=== PATIENT | male | born 1930 | race Caucasian/White ===

== ENCOUNTER 2016-08-08 15:00 | Inpatient (IN) | payer MEDICARE, BC ==
[2016-08-08] MEDS ORDERED: NORMAL SALINE 1000 ML 1,000 ML IV ONE ×2 (15:21→17:36)
--- NOTE | 2016-08-08 15:29 | ER Document Report ---
ED GI Bleed / Rectal Pain - General Mode of Arrival: Medic Information source: Patient, Relative TRAVEL OUTSIDE OF THE [place] IN LAST 30 DAYS: No - HPI Patient complains to provider of: Other - Rectal bleeding Associated symptoms: Other - See above <RASHAD MARS - Last Filed: 08/08/16 16:43> <MAMIEMIRTA CAMPBELL SHARON - Last Filed: 08/08/16 19:44> - General Chief Complaint: Rectal Bleeding Stated Complaint: BLEEDING FROM RECTAL Notes: Patient is an 86 year old male, with a past medical history including hemorrhoids and A-fib, who presents to the emergency department complaining of rectal bleeding onset a couple of hours ago. Patient reports that there was "quite a bit of blood" during the episode and reports diarrhea for the past 3 hours. Patient also complains of feeling cold and shaky and has rectal pain. Patient denies abdominal pain. Per patient had [place] food last night which he does not normally eat. Patient is not currently on antibiotics. (RASHAD MARS) - Related Data Allergies/Adverse Reactions: No Known Allergies Allergy (Verified 08/08/16 17:15) Past Medical History - General Information source: Patient - Social History Smoking Status: Unknown if Ever Smoked Family History: Reviewed & Not Pertinent - Past Medical History Cardiac Medical History: Reports: Hx Atrial Fibrillation, Hx Hypertension Pulmonary Medical History: Reports: Hx Asthma <RASHAD MARS - Last Filed: 08/08/16 16:43> Review of Systems - Review of Systems Constitutional: See HPI, Chills, Other - Shaking EENT: No symptoms reported Cardiovascular: No symptoms reported Respiratory: No symptoms reported Gastrointestinal: See HPI, Diarrhea, Rectal bleeding, Other - Rectal pain. denies: Abdominal pain Genitourinary: No symptoms reported Male Genitourinary: No symptoms reported Musculoskeletal: No symptoms reported Skin: No symptoms reported Hematologic/Lymphatic: No symptoms reported Neurological/Psychological: No symptoms reported -: Yes All other systems reviewed and negative <RASHAD MARS - Last Filed: 08/08/16 16:43> Physical Exam - Vital signs Interpretation: Normal - General General appearance: Appears well, Alert - HEENT Head: Normocephalic, Atraumatic - Respiratory Respiratory status: No respiratory distress Chest status: Nontender Breath sounds: Normal Chest palpation: Normal - Cardiovascular Rhythm: Regular Heart sounds: Normal auscultation Murmur: No - Abdominal Inspection: Normal Distension: No distension Bowel sounds: Normal Tenderness: Nontender Organomegaly: No organomegaly - Rectal Stool: Heme negative - Back Back: Normal, Nontender - Extremities General upper extremity: Normal inspection General lower extremity: Normal inspection. No: Edema - Neurological Neuro grossly intact: Yes Cognition: Normal Orientation: AAOx4 Corinna Coma Scale Eye Opening: Spontaneous Corinna Coma Scale Verbal: Oriented Corinna Coma Scale Motor: Obeys Commands Franck Coma Scale Total: 15 Speech: Normal - Psychological Associated symptoms: Normal affect, Normal mood - Skin Skin Temperature: Warm Skin Moisture: Dry Skin Color: Normal <RASHAD MARS - Last Filed: 08/08/16 16:43> Course - Laboratory Result Diagrams: 08/08/16 15:22 08/08/16 15:22 <RASHAD MARS - Last Filed: 08/08/16 16:43> - Laboratory Result Diagrams: 08/08/16 15:22 08/08/16 16:36 - EKG Interpretation by Me Rate: Tachycardia Rhythm: A.Fib <MIRTA ROMO - Last Filed: 08/08/16 19:44> - Re-evaluation Re-evalutation: 08/08/16 Patient is an 86-year-old male who comes in with diarrhea and blood per rectum. Patient had a bowel movement was in the room. Sent for Hemoccult and that is negative. Patient does appear dry. He has been persistently tachycardic and somewhat hypotensive. The patient is an 86 years old and will require gentle fluid hydration. He has some mild trace pitting edema to his lower extremities. Patient was given a dose of Cardizem to try to lower his rapid atrial fibrillation however it did drop his blood pressure so Cardizem drip will not be initiated. Patient is improved at the time of admission. Stable at time of admission. (MIRTA ROMO) - Vital Signs Vital signs: Temp Pulse Resp BP Pulse Ox 98.4 F 136 H 22 H 91/73 L 98 08/08/16 15:08 08/08/16 15:08 08/08/16 19:16 08/08/16 19:16 08/08/16 19:16 (MIRTA ROMO) - Laboratory Laboratory results interpreted by me: 1208/08/16 08/08/16 15:22 15:58 16:36 RBC 3.25 L Hgb 10.1 L Hct 30.6 L RDW 16.5 H Plt Count 106 L Seg Neuts % (Manual) 92 H Band Neutrophils % 1 L Lymphocytes % (Manual) 5 L Monocytes % (Manual) 2 L Abs Neuts (Manual) 9.7 H PT Sodium Chloride BUN Lactic Acid 2.9 H Total Bilirubin Alkaline Phosphatase Urine Urobilinogen 2.0 H Ur Leukocyte Esterase SMALL H Urine Ascorbic Acid 40 H 08/08/16 08/08/16 16:36 16:36 RBC Hgb Hct RDW Plt Count Seg Neuts % (Manual) Band Neutrophils % Lymphocytes % (Manual) Monocytes % (Manual) Abs Neuts (Manual) PT 16.0 H Sodium 134.3 L Chloride 96 L BUN 31 H Lactic Acid Total Bilirubin 1.8 H Alkaline Phosphatase 209 H Urine Urobilinogen Ur Leukocyte Esterase Urine Ascorbic Acid (MIRTA ROMO) Critical Care Note - Critical Care Note Total time excluding time spent on procedures (mins): 45 - evaluation and management of tachycardia, rapid atrial fibrillation, hydration, multiple re- evaluations, [place] and with hospital service, counseling of patient and family <MIRTA ROMO - Last Filed: 08/08/16 19:44> Discharge <RASHAD MARS - Last Filed: 08/08/16 16:43> - Discharge Admitting Provider: [facility] Unit Admitted: [facility] <MIRTA ROMO - Last Filed: 08/08/16 19:44> - Discharge Clinical Impression: Atrial fibrillation with RVR Edema Qualifiers: Edema type: unspecified Qualified Code(s): R60.9 - Edema, unspecified Diarrhea Qualifiers: Diarrhea type: unspecified type Qualified Code(s): R19.7 - Diarrhea, unspecified Condition: Stable Disposition: ADMITTED INPATIENT Scribe Attestation: 08/08/16 19:43 I personally performed the services described in the documentation, reviewed and edited the documentation which was dictated to the scribe in my presence, and it accurately records my words and actions. (MIRTA ROMO) Scribe Documentation - Scribe Written by Scribe:: Rashad Mars 08/08/16 acting as scribe for :: Nadja <RASHAD MARS - Last Filed: 08/08/16 16:43>
[2016-08-08 15:38] LABS: HEMATOCRIT 30.6 % (37.9-51.0); HEMOGLOBIN 10.1 g/dL (13.5-17.0); HGB HCT DIFFERENCE -0.3; MEAN CORPUSCULAR HEMOGLOBIN 31.1 pg (27.0-33.4); MEAN CORPUSCULAR HGB CONC 33.1 g/dL (32.0-36.0); MEAN CORPUSCULAR VOLUME 94 fl (80-97); RED BLOOD COUNT 3.25 10^6/uL (4.35-5.55); RED CELL DISTRIBUTION WIDTH 16.5 % (11.5-14.0); WHITE BLOOD COUNT 10.4 10^3/uL (4.0-10.5)
[2016-08-08 16:05] LABS: BAND NEUTROPHILS % (MANUAL) 1 % (3-5); BASOPHILS % (MANUAL) 0 % (0-2); EOSINOPHILS % (MANUAL) 0 % (0-6); LYMPHOCYTES % (MANUAL) 5 % (13-45); TOTAL CELLS COUNTED 100
[2016-08-08 16:09] LABS: ANISOCYTOSIS 1+; OVALOCYTES SLIGHT; POIKILOCYTOSIS SLIGHT; SCHISTOCYTES SLIGHT; TEAR DROP CELLS SLIGHT
[2016-08-08 16:31] LABS: APPEARANCE,URINE SLIGHTLY-CLOUDY; BILIRUBIN,URINE NEGATIVE (NEGATIVE); GLUCOSE, URINE NEGATIVE (NEGATIVE); KETONES,URINE NEGATIVE (NEGATIVE); LEUKOCYTE ESTERASE,URINE SMALL (NEGATIVE); NITRITE,URINE NEGATIVE (NEGATIVE); PROTEIN,URINE NEGATIVE (NEGATIVE); URINE SPECIFIC GRAVITY 1.012
[2016-08-08 16:58] LABS: VENOUS BLOOD BASE EXCESS -0.1 mmol/L; VENOUS BLOOD HCO3 24.8 mmol/L (20-32); VENOUS BLOOD PCO2 41.5 mmHg (35-63); VENOUS BLOOD PH 7.4 (7.30-7.42)
[2016-08-08 17:19] LABS: ALANINE AMINOTRANSFERASE 35 U/L (21-72); ALBUMIN 3.9 g/dL (3.5-5.0); ALKALINE PHOSPHATASE 209 U/L (38-126); ANION GAP 13 (5-19); ASPARTATE AMINO TRANSFERASE 44 U/L (17-59); BILIRUBIN,TOTAL 1.8 mg/dL (0.2-1.3); BLOOD UREA NITROGEN 31 mg/dL (7-20); CALCIUM 9.7 mg/dL (8.4-10.2); CARBON DIOXIDE 25 mmol/L (22-30); CHLORIDE 96 mmol/L (98-107); CREATININE RESULT 1.16 mg/dL (0.52-1.25); GLUCOSE 82 mg/dL (75-110); POTASSIUM 4.3 mmol/L (3.6-5.0); SODIUM 134.3 mmol/L (137-145); TOTAL PROTEIN 7.4 g/dL (6.3-8.2)
[2016-08-08] MEDS ORDERED: DILTIAZEM HCL INJ 25 MG/5 ML VIAL IV ONE (17:36)
[2016-08-08] MEDS ORDERED: ACETAMINOPHEN 325 MG TABLET PO PRN (18:39)
--- NOTE | 2016-08-08 18:54 | PDOC H&P ---
History of Present Illness Admission Date/PCP: MAURICE MCCORMICK MD Patient complains of: Rectal bleeding History of Present Illness: WILFRED CHANEL is a 86 year old male presents with episodes today of rectal bleeding. Apparently he ate some Turkish food last night and has had multiple bowel movements since then. One other family members had vomiting since eating the same food. Patient was noted by emergency department provider to have thrombosed external hemorrhoid but no active bleeding. Patient was Hemoccult negative. He takes low-dose aspirin daily. Medications listed below have not been verified at the time of this documentation. Per pharmacy records patient takes diltiazem ex are 120 mg daily , Spiriva, Lasix 20 mg daily, metformin 500 mg twice daily, aspirin 81 mg daily. Past Medical History Cardiac Medical History: Reports: Atrial Fibrillation, Hypertension Pulmonary Medical History: Reports: Asthma Endocrine Medical History: Reports: Diabetes Mellitus Type 2 Malignancy Medical History: Reports: Lymphoma Hematology: Reports: Anemia Past Surgical History Past Surgical History: Reports: Other - Right chest Port-A-Cath Social History Information Source: Patient Lives with: Spouse/Significant other Smoking Status: Former Smoker Frequency of Alcohol Use: None Hx Recreational Drug Use: No Hx Prescription Drug Abuse: No - Advance Directive Resuscitation Status: Full Code Family History Family History: Other - Cerebral hemorrhagebrother Parental Family History Reviewed: Yes Children Family History Reviewed: Yes Sibling(s) Family History Reviewed.: Yes Medication/Allergy Allergies/Adverse Reactions: No Known Allergies Allergy (Verified 08/08/16 17:15) Review of Systems Constitutional: ABSENT: chills, fever(s), headache(s), weight gain, weight loss Eyes: ABSENT: visual disturbances Ears: ABSENT: hearing changes Cardiovascular: ABSENT: chest pain, dyspnea on exertion, edema, orthropnea, palpitations Respiratory: ABSENT: cough, hemoptysis Gastrointestinal: PRESENT: hematochezia. ABSENT: abdominal pain, constipation, diarrhea, hematemesis, nausea, vomiting Genitourinary: ABSENT: dysuria, hematuria Musculoskeletal: ABSENT: joint swelling Integumentary: ABSENT: rash, wounds Neurological: ABSENT: abnormal gait, abnormal speech, confusion, dizziness, focal weakness, syncope Psychiatric: ABSENT: anxiety, depression, homidical ideation, suicidal ideation Endocrine: ABSENT: cold intolerance, heat intolerance, polydipsia, polyuria Hematologic/Lymphatic: ABSENT: easy bleeding, easy bruising Physical Exam Vital Signs: Temp Pulse Resp BP Pulse Ox 98.4 F 136 H 20 108/62 97 08/08/16 15:08 08/08/16 15:08 08/08/16 18:00 08/08/16 18:03 08/08/16 18:00 Intake & Output 08/07/16 08/08/16 08/09/16 06:59 06:59 06:59 Weight 68.039 kg PHYSICAL EXAM: GENERAL: Appears well, no acute distress HEENT: Normocephalic, no scleral icterus, conjunctiva clear, EOEM intact, PERRLA , moist mucous membranes NECK: trachea midline, no thyromegally RESPIRATORY: Clear to auscultation, no wheezes/rhonchi CARDIAC: Irregularly irregular, slightly tachycardic ABDOMEN: Soft, no distension, no tenderness, no guarding, normal bowel sounds, negative Cordova sign RECTAL: External hemorrhoid, no bleeding : deferred EXTREMITIES: 3+ pitting edema bilateral lower extremities MUSCULOSKELETAL: No joint swelling or deformity VASCULAR: normal peripheral pulses NEUROLOGIC: Alert, oriented to person/place/time, normal speech, cranial nerves grossly intact, 5/5 strength in all extremities, tactile sensation intact in all extremities SKIN: No rash, no wounds, no worrisome skin lesions PSYCHIATRIC: Normal mood, normal affect Results Laboratory Results: 08/08/16 15:22 08/08/16 16:36 08/08/16 08/08/16 08/08/16 15:22 15:22 15:22 WBC 10.4 RBC 3.25 L Hgb 10.1 L Hct 30.6 L MCV 94 MCH 31.1 MCHC 33.1 RDW 16.5 H Plt Count 106 L Seg Neutrophils % Not Reportable Lymphocytes % Not Reportable Monocytes % Not Reportable Eosinophils % Not Reportable Basophils % Not Reportable Absolute Neutrophils Not Reportable Absolute Lymphocytes Not Reportable Absolute Monocytes Not Reportable Absolute Eosinophils Not Reportable Absolute Basophils Not Reportable VBG pH VBG pCO2 VBG HCO3 VBG Base Excess Sodium Cancelled Potassium Cancelled Chloride Cancelled Carbon Dioxide Cancelled Anion Gap Cancelled BUN Cancelled Creatinine Cancelled Est GFR ( Amer) Cancelled Est GFR (Non-Af Amer) Cancelled Glucose Cancelled Lactic Acid Calcium Cancelled Total Bilirubin Cancelled AST Cancelled ALT Cancelled Alkaline Phosphatase Cancelled Total Protein Cancelled Albumin Cancelled Urine Color Urine Appearance Urine pH Ur Specific [place] Urine Protein Urine Glucose (UA) Urine Ketones Urine Blood Urine Nitrite Ur Leukocyte Esterase Urine WBC (Auto) Urine RBC (Auto) Stool Occult Blood Stool for White Cells Blood Type Cancelled Antibody Screen Cancelled 08/08/16 08/08/16 08/08/16 15:22 15:41 15:58 WBC RBC Hgb Hct MCV MCH MCHC RDW Plt Count Seg Neutrophils % Lymphocytes % Monocytes % Eosinophils % Basophils % Absolute Neutrophils Absolute Lymphocytes Absolute Monocytes Absolute Eosinophils Absolute Basophils VBG pH VBG pCO2 VBG HCO3 VBG Base Excess Sodium Potassium Chloride Carbon Dioxide Anion Gap BUN Creatinine Est GFR ( Amer) Est GFR (Non-Af Amer) Glucose Lactic Acid Calcium Total Bilirubin AST ALT Alkaline Phosphatase Total Protein Albumin Urine Color YELLOW Urine Appearance SLIGHTLY-CLOUDY Urine pH 5.0 Ur Specific [place] 1.012 Urine Protein NEGATIVE Urine Glucose (UA) NEGATIVE Urine Ketones NEGATIVE Urine Blood NEGATIVE Urine Nitrite NEGATIVE Ur Leukocyte Esterase SMALL H Urine WBC (Auto) 3 Urine RBC (Auto) 0 Stool Occult Blood NEGATIVE Stool for White Cells NO WBCs SEEN Blood Type Antibody Screen 08/08/16 08/08/16 08/08/16 16:36 16:36 16:36 WBC RBC Hgb Hct MCV MCH MCHC RDW Plt Count Seg Neutrophils % Lymphocytes % Monocytes % Eosinophils % Basophils % Absolute Neutrophils Absolute Lymphocytes Absolute Monocytes Absolute Eosinophils Absolute Basophils VBG pH 7.40 VBG pCO2 41.5 VBG HCO3 24.8 VBG Base Excess -0.1 Sodium 134.3 L Potassium 4.3 Chloride 96 L Carbon Dioxide 25 Anion Gap 13 BUN 31 H Creatinine 1.16 Est GFR ( Amer) > 60 Est GFR (Non-Af Amer) > 60 Glucose 82 Lactic Acid 2.9 H Calcium 9.7 Total Bilirubin 1.8 H AST 44 ALT 35 Alkaline Phosphatase 209 H Total Protein 7.4 Albumin 3.9 Urine Color Urine Appearance Urine pH Ur Specific [place] Urine Protein Urine Glucose (UA) Urine Ketones Urine Blood Urine Nitrite Ur Leukocyte Esterase Urine WBC (Auto) Urine RBC (Auto) Stool Occult Blood Stool for White Cells Blood Type Antibody Screen 08/08/16 16:36 WBC RBC Hgb Hct MCV MCH MCHC RDW Plt Count Seg Neutrophils % Lymphocytes % Monocytes % Eosinophils % Basophils % Absolute Neutrophils Absolute Lymphocytes Absolute Monocytes Absolute Eosinophils Absolute Basophils VBG pH VBG pCO2 VBG HCO3 VBG Base Excess Sodium Potassium Chloride Carbon Dioxide Anion Gap BUN Creatinine Est GFR ( Amer) Est GFR (Non-Af Amer) Glucose Lactic Acid Calcium Total Bilirubin AST ALT Alkaline Phosphatase Total Protein Albumin Urine Color Urine Appearance Urine pH Ur Specific [place] Urine Protein Urine Glucose (UA) Urine Ketones Urine Blood Urine Nitrite Ur Leukocyte Esterase Urine WBC (Auto) Urine RBC (Auto) Stool Occult Blood Stool for White Cells Blood Type A NEGATIVE Antibody Screen NEGATIVE EKG Comments: Atrial fibrillation, heart rate 137, right bundle branch block Assessment & Plan - Diagnosis (1) Rectal bleeding Is this a current diagnosis for this admission?: YesPlan: Patient be placed in observation status overnight. Repeat H&H in the morning. Patient has an appointment on 08/10/[address] at [address] Rosado of surgery to schedule colonoscopy already. He is advised to hold aspirin for the next several days. (2) Diarrhea Is this a current diagnosis for this admission?: YesPlan: Possibly secondary to food poisoning. C. difficile negative. Obtains culture if patient has further episodes. (3) Atrial fibrillation with RVR Is this a current diagnosis for this admission?: YesPlan: Continue diltiazem XL 120 mg daily. Patient has been given IV fluids secondary to GI bleeding in order to replace volume. Hopefully this will improve heart rate. (4) Right bundle branch block (RBBB) Is this a current diagnosis for this admission?: YesPlan: Chronicity unknown as I don't have old EKG for comparison. 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 (5) Edema Is this a current diagnosis for this admission?: YesPlan: Continue Lasix 20 mg daily. (6) History of lymphoma Is this a current diagnosis for this admission?: YesPlan: Patient states that in recent follow-up he had no recurrence. (7) Diabetes Is this a current diagnosis for this admission?: YesPlan: Hold metformin secondary to lactic acidosis. Diabetic diet. (8) Hypertension Is this a current diagnosis for this admission?: Yes (9) Asthma Is this a current diagnosis for this admission?: YesPlan: Continue Spiriva. When necessary albuterol. - Time Time Spent: Greater than 70 Minutes
--- NOTE | 2016-08-08 18:59 | EKG REPORT ---
SEVERITY:- ABNORMAL ECG - ATRIAL FIBRILLATION MULTIPLE PREMATURE COMPLEXES, VENT RIGHT BUNDLE BRANCH BLOCK AND LAFB : Confirmed by: Nakul Byrne MD 08-Aug-2016 18:58:37
[2016-08-09 07:51] LABS: ANION GAP 9 (5-19); BLOOD UREA NITROGEN 29 mg/dL (7-20); CALCIUM 9.2 mg/dL (8.4-10.2); CARBON DIOXIDE 24 mmol/L (22-30); CHLORIDE 99 mmol/L (98-107); CREATININE RESULT 1.06 mg/dL (0.52-1.25); GLUCOSE 82 mg/dL (75-110); POTASSIUM 4.5 mmol/L (3.6-5.0); SODIUM 132.3 mmol/L (137-145)
[2016-08-09 07:54] LABS: HEMATOCRIT 26.8 % (37.9-51.0); HEMOGLOBIN 9.1 g/dL (13.5-17.0); HGB HCT DIFFERENCE 0.5; MEAN CORPUSCULAR HEMOGLOBIN 31.7 pg (27.0-33.4); MEAN CORPUSCULAR HGB CONC 33.9 g/dL (32.0-36.0); MEAN CORPUSCULAR VOLUME 93 fl (80-97); RED BLOOD COUNT 2.88 10^6/uL (4.35-5.55); RED CELL DISTRIBUTION WIDTH 16.1 % (11.5-14.0); WHITE BLOOD COUNT 8.8 10^3/uL (4.0-10.5)
[2016-08-09 08:35] LABS: ANISOCYTOSIS 1+; BASOPHILS % (MANUAL) 0 % (0-2); EOSINOPHILS % (MANUAL) 0 % (0-6); HYPOCHROMASIA 2+; LYMPHOCYTES % (MANUAL) 4 % (13-45); OVALOCYTES SLIGHT; POIKILOCYTOSIS SLIGHT; POLYCHROMASIA SLIGHT; TOTAL CELLS COUNTED 100; TOXIC GRANULATION 1+
[2016-08-09] MEDS: DILTIAZEM HCL 120 MG CAP.SR.24H PO SCH (09:45)
[2016-08-09] MEDS: FUROSEMIDE 20 MG TABLET PO SCH (09:46)
[2016-08-09] MEDS: TIOTROPIUM BROMIDE DPI 5 CAP/KIT (18 MCG/CAP) IH SCH (09:46)
[2016-08-09] MEDS ORDERED: NORMAL SALINE 1000 ML 1,000 ML IV PRN (09:46)
--- NOTE | 2016-08-09 09:57 | PDOC PROGRESS REPORT ---
Subjective Progress Note for:: 08/09/16 Subjective:: Patient continues to have loose stools. He has had no further bleeding. Patient denies fever, chills, headache, new focal weakness, chest pain, shortness of breath, abdominal pain, nausea, vomiting, diarrhea, constipation. Physical Exam Vital Signs: Temp Pulse Resp BP Pulse Ox 98.4 F 86 21 H 97/64 L 98 08/08/16 15:08 08/09/16 08:49 08/09/16 09:19 08/09/16 09:19 08/09/16 09:19 GENERAL: No acute distress HEENT: Conjunctiva clear, nonicteric, moist mucous membranes, no JVD, midline trachea RESPIRATORY: Clear to auscultation bilaterally, no wheezes, no rhonchi CARDIAC: Irregular rhythm, normal rate ABDOMEN: Soft, nondistended, nontender, positive bowel sounds, no rebound, no guarding EXTREMETIES: Pitting edema in bilateral lower extremities NEUROLOGIC: Alert, oriented to person/place/time, CN's grossly intact, no focal deficits SKIN: No rash, wounds PSYCH: Normal mood, normal affect Results Laboratory Results: 08/09/16 07:23 08/09/16 07:23 08/08/16 08/09/16 08/09/16 21:15 07:23 07:23 WBC 8.8 RBC 2.88 L Hgb 9.1 L Hct 26.8 L MCV 93 MCH 31.7 MCHC 33.9 RDW 16.1 H Plt Count 70 L Seg Neutrophils % Not Reportable Lymphocytes % Not Reportable Monocytes % Not Reportable Eosinophils % Not Reportable Basophils % Not Reportable Absolute Neutrophils Not Reportable Absolute Lymphocytes Not Reportable Absolute Monocytes Not Reportable Absolute Eosinophils Not Reportable Absolute Basophils Not Reportable Sodium 132.3 L Potassium 4.5 Chloride 99 Carbon Dioxide 24 Anion Gap 9 BUN 29 H Creatinine 1.06 Est GFR ( Amer) > 60 Est GFR (Non-Af Amer) > 60 Glucose 82 Lactic Acid 1.3 Calcium 9.2 08/09/16 07:23 WBC RBC Hgb Hct MCV MCH MCHC RDW Plt Count Seg Neutrophils % Lymphocytes % Monocytes % Eosinophils % Basophils % Absolute Neutrophils Absolute Lymphocytes Absolute Monocytes Absolute Eosinophils Absolute Basophils Sodium Potassium Chloride Carbon Dioxide Anion Gap BUN Creatinine Est GFR ( Amer) Est GFR (Non-Af Amer) Glucose Lactic Acid 1.1 Calcium Assessment & Plan - Diagnosis (1) Acute blood loss anemia Is this a current diagnosis for this admission?: YesPlan: Repeat H&H this afternoon. Start iron supplementation. (2) Rectal bleeding Is this a current diagnosis for this admission?: YesPlan: Clinically subsided at this time. Possibly hemorrhoidal in nature. Continue to hold aspirin. Consult Dr. Rosado of surgery as patient had an appointment to see him tomorrow anyway. Repeat H&H this afternoon. (3) Diarrhea Qualifiers: Diarrhea type: unspecified type Qualified Code(s): R19.7 - Diarrhea, unspecified Is this a current diagnosis for this admission?: YesPlan: C. difficile negative. Stool cultures pending. Order when necessary Imodium for now. Resume IV fluids to replace GI losses. (4) Atrial fibrillation with RVR Is this a current diagnosis for this admission?: YesPlan: Case discussed with cardiology (Dr. Neeraj [facility]el [phone] nurse practitioner [place]. We will continue Cardizem CD 120 mg daily for now. If heart rate remains uncontrolled I may add digoxin. Hopefully the heart rate will improve once volume status stabilizes with regard to GI losses. (5) Right bundle branch block (RBBB) Is this a current diagnosis for this admission?: YesPlan: This is old according to cardiology. (6) Edema Qualifiers: Edema type: unspecified Qualified Code(s): R60.9 - Edema, unspecified Is this a current diagnosis for this admission?: YesPlan: We will resume patient's Lasix once he is no longer having GI losses, tachycardia, hypotension. (7) History of lymphoma Is this a current diagnosis for this admission?: YesPlan: Patient states that in recent follow-up he had no recurrence. He will need a follow-up with his oncologist after discharge for this as well as anemia and thrombocytopenia. (8) Diabetes Is this a current diagnosis for this admission?: YesPlan: Hold metformin secondary to lactic acidosis. (9) Hypertension Is this a current diagnosis for this admission?: Yes (10) Asthma Is this a current diagnosis for this admission?: YesPlan: Continue Spiriva. When necessary albuterol. (11) Thrombocytopenia Is this a current diagnosis for this admission?: YesPlan: According to records at student services representative's office this is chronic and stable. This certainly contributed to bleeding issues however. - Time Time Spent with patient: 35 or more minutes
[2016-08-09] MEDS ORDERED: DILTIAZEM HCL 120 MG CAP.SR.24H PO SCH (10:00)
[2016-08-09] MEDS: FERROUS SULFATE 325 MG TABLET PO SCH (10:06)
[2016-08-09] MEDS: LOPERAMIDE HCL 2 MG CAPSULE PO PRN ×2 (10:07→13:30)
[2016-08-09 11:41] LABS: FOLATE > 20.00 ng/mL (>2.76); IRON < 10 ug/dL (49-181)
[2016-08-09] MEDS ORDERED: INFLUENZA ADLT QUAD (36MOS+) 2016-17 VAC 0.5 ML SYR IM PRN (13:17)
[2016-08-09 15:40] LABS: HEMATOCRIT 27.7 % (37.9-51.0); HEMOGLOBIN 9.3 g/dL (13.5-17.0); HGB HCT DIFFERENCE 0.2; MEAN CORPUSCULAR HEMOGLOBIN 31.3 pg (27.0-33.4); MEAN CORPUSCULAR HGB CONC 33.7 g/dL (32.0-36.0); MEAN CORPUSCULAR VOLUME 93 fl (80-97); RED BLOOD COUNT 2.97 10^6/uL (4.35-5.55); RED CELL DISTRIBUTION WIDTH 16.2 % (11.5-14.0); WHITE BLOOD COUNT 9.5 10^3/uL (4.0-10.5)
[2016-08-09 16:03] LABS: BAND NEUTROPHILS % (MANUAL) 2 % (3-5); BASOPHILS % (MANUAL) 0 % (0-2); EOSINOPHILS % (MANUAL) 0 % (0-6); LYMPHOCYTES % (MANUAL) 6 % (13-45); TOTAL CELLS COUNTED 100
[2016-08-09 16:04] LABS: TARGET CELLS SLIGHT
[2016-08-09 16:05] LABS: ANISOCYTOSIS 1+; OVALOCYTES SLIGHT; POIKILOCYTOSIS SLIGHT; SCHISTOCYTES SLIGHT
[2016-08-09 16:07] LABS: TOXIC GRANULATION SLIGHT
--- NOTE | 2016-08-09 16:57 | PDOC CONSULTATION ---
History of Present Illness Admission Date/PCP: 08/08/16 19:59 MAURICE MCCORMICK MD History of Present Illness: WILFRED CHANEL is a 86 year old male presents with episodes today of rectal bleeding. Apparently he ate some [place] food last night and has had multiple bowel movements since then. One other family members had vomiting since eating the same food. Patient was noted by emergency department provider to have thrombosed external hemorrhoid but no active bleeding. Patient was Hemoccult negative. He takes low-dose aspirin daily. Medications listed below have not been verified at the time of this documentation. Per pharmacy records patient takes diltiazem ex are 120 mg daily , Spiriva, Lasix 20 mg daily, metformin 500 mg twice daily, aspirin 81 mg daily. Surgeons addition: The patient denies history of GI bleeding prior to last night 's episode. His last colonoscopy was [address] swartz, with polypectomy. In the emergency department the patient's blood pressures in the mid 80s. He is now eating a full meal Past Medical History Cardiac Medical History: Reports: Atrial Fibrillation, Hypertension Pulmonary Medical History: Reports: Asthma Endocrine Medical History: Reports: Diabetes Mellitus Type 2 Malignancy Medical History: Reports: Lymphoma Hematology: Reports: Anemia Past Surgical History Past Surgical History: Reports: Other - Right chest Port-A-Cath Social History Lives with: Spouse/Significant other Smoking Status: Former Smoker Frequency of Alcohol Use: None Hx Recreational Drug Use: No Hx Prescription Drug Abuse: No - Advance Directive Resuscitation Status: Full Code Family History Family History: Other - Cerebral hemorrhagebrother Parental Family History Reviewed: Yes Children Family History Reviewed: Yes Sibling(s) Family History Reviewed.: Yes Medication/Allergy Home Medications: Diltiazem HCl [Cartia Xt] 120 mg PO DAILY 08/08/16 Tiotropium [place] [Spiriva Handihaler 5 Cap/Kit (18 Mcg/Cap)] 1 inh IH DAILY Allergies/Adverse Reactions: No Known Allergies Allergy (Verified 08/08/16 17:15) Physical Exam Vital Signs: Temp Pulse Resp BP Pulse Ox 97.6 F 93 20 101/65 100 08/09/16 15:02 08/09/16 15:02 08/09/16 15:02 08/09/16 15:02 08/09/16 15:02 Intake & Output 08/08/16 08/09/16 08/10/16 06:59 06:59 06:59 Intake Total 600 Balance 600 Weight 75.7 kg General appearance: PRESENT: mild distress Head exam: PRESENT: normocephalic Eye exam: PRESENT: EOMI Ear exam: PRESENT: normal external ear exam Neck exam: PRESENT: full ROM Respiratory exam: PRESENT: clear to auscultation syeda Pulses: PRESENT: normal dorsalis pedis pul GI/Abdominal exam: PRESENT: soft Rectal exam: PRESENT: other - The patient examined in the left lateral decubitus position. He has a very patulous anus. There is a large left posterior lateral external hemorrhoids, collapsed; perianal skin is mildly excoriated and bruised. On further questioning, the patient apparently had drained to defecate earlier today. Results Laboratory Results: 08/09/16 15:20 08/09/16 07:23 08/08/16 08/09/16 08/09/16 21:15 07:23 07:23 WBC 8.8 RBC 2.88 L Hgb 9.1 L Hct 26.8 L MCV 93 MCH 31.7 MCHC 33.9 RDW 16.1 H Plt Count 70 L Seg Neutrophils % Not Reportable Lymphocytes % Not Reportable Monocytes % Not Reportable Eosinophils % Not Reportable Basophils % Not Reportable Absolute Neutrophils Not Reportable Absolute Lymphocytes Not Reportable Absolute Monocytes Not Reportable Absolute Eosinophils Not Reportable Absolute Basophils Not Reportable Sodium 132.3 L Potassium 4.5 Chloride 99 Carbon Dioxide 24 Anion Gap 9 BUN 29 H Creatinine 1.06 Est GFR ( Amer) > 60 Est GFR (Non-Af Amer) > 60 Glucose 82 Lactic Acid 1.3 Calcium 9.2 Iron Vitamin B12 Folate 08/09/16 08/09/16 08/09/16 07:23 07:23 15:20 WBC 9.5 RBC 2.97 L Hgb 9.3 L Hct 27.7 L MCV 93 MCH 31.3 MCHC 33.7 RDW 16.2 H Plt Count 60 L Seg Neutrophils % Not Reportable Lymphocytes % Not Reportable Monocytes % Not Reportable Eosinophils % Not Reportable Basophils % Not Reportable Absolute Neutrophils Not Reportable Absolute Lymphocytes Not Reportable Absolute Monocytes Not Reportable Absolute Eosinophils Not Reportable Absolute Basophils Not Reportable Sodium Potassium Chloride Carbon Dioxide Anion Gap BUN Creatinine Est GFR ( Amer) Est GFR (Non-Af Amer) Glucose Lactic Acid 1.1 Calcium Iron < 10 L Vitamin B12 814.0 Folate > 20.00 Assessment & Plan - Diagnosis (1) Rectal bleeding Is this a current diagnosis for this admission?: YesPlan: 1. Given the patient's history of single episode of rectal bleeding following drained defecation, and the physical findings demonstrating excoriated perianal tissue, and the presence of brown stool, heme-negative, my clinical impression is that the patient's is coming from the gely anal tissue. 2. Given the patient's hypotension atrial fibrillation, and relatively recent colonoscopy, I have suggested non-operative management at this time. 3. I discussed bowel regimen including stool softener,, and sitz baths. 4. If bleeding returns, consider reconsultation. - Time Time Spent: 30 to 50 Minutes
[2016-08-10 05:24] LABS: ANION GAP 8 (5-19); BLOOD UREA NITROGEN 31 mg/dL (7-20); CARBON DIOXIDE 22 mmol/L (22-30); CHLORIDE 100 mmol/L (98-107); CREATININE RESULT 0.92 mg/dL (0.52-1.25); GLUCOSE 111 mg/dL (75-110); POTASSIUM 4.1 mmol/L (3.6-5.0); SODIUM 129.5 mmol/L (137-145)
[2016-08-10 05:54] LABS: ABSOLUTE LYMPHOCYTES (AUTO) 0.4 10^3/uL (0.5-4.7); ABSOLUTE MONOCYTES (AUTO) 0.6 10^3/uL (0.1-1.4); ABSOLUTE NEUT (AUTO) 6.7 10^3/uL (1.7-8.2); BASOPHILS % (AUTO) 0.1 % (0-2); EOSINOPHILS % (AUTO) 0.2 % (0-6); HEMATOCRIT 26.3 % (37.9-51.0); HEMOGLOBIN 8.8 g/dL (13.5-17.0); HGB HCT DIFFERENCE 0.1; LYMPHOCYTES % (AUTO) 5.6 % (13-45); MEAN CORPUSCULAR HEMOGLOBIN 31.1 pg (27.0-33.4); MEAN CORPUSCULAR HGB CONC 33.7 g/dL (32.0-36.0); MEAN CORPUSCULAR VOLUME 92 fl (80-97); MONOCYTES % (AUTO) 7.8 % (3-13); RED BLOOD COUNT 2.84 10^6/uL (4.35-5.55); SEGMENTED NEUTROPHILS % (AUTO) 86.3 % (42-78); WHITE BLOOD COUNT 7.8 10^3/uL (4.0-10.5)
[2016-08-10] MEDS ORDERED: NORMAL SALINE 250 ML IV PRN ×2 (07:30)
[2016-08-10] MEDS: FERROUS SULFATE 325 MG TABLET PO SCH (11:17)
[2016-08-10] MEDS: DILTIAZEM HCL 120 MG CAP.SR.24H PO SCH (11:17)
[2016-08-10] MEDS: FUROSEMIDE 20 MG TABLET PO SCH (11:18)
[2016-08-10] MEDS ORDERED: TIOTROPIUM BROMIDE DPI 5 CAP/KIT (18 MCG/CAP) IH ONE (12:00)
[2016-08-10] MEDS: TIOTROPIUM BROMIDE DPI 5 CAP/KIT (18 MCG/CAP) IH SCH (12:19)
[2016-08-10 16:16] LABS: ABSOLUTE EOSINOPHILS # (AUTO) 0.1 10^3/uL (0.0-0.6); ABSOLUTE LYMPHOCYTES (AUTO) 0.5 10^3/uL (0.5-4.7); ABSOLUTE MONOCYTES (AUTO) 0.6 10^3/uL (0.1-1.4); ABSOLUTE NEUT (AUTO) 6.1 10^3/uL (1.7-8.2); BASOPHILS % (AUTO) 0.2 % (0-2); EOSINOPHILS % (AUTO) 0.8 % (0-6); HEMOGLOBIN 9.7 g/dL (13.5-17.0); HGB HCT DIFFERENCE 0.1; LYMPHOCYTES % (AUTO) 7.3 % (13-45); MEAN CORPUSCULAR HGB CONC 33.4 g/dL (32.0-36.0); MEAN CORPUSCULAR VOLUME 93 fl (80-97); MONOCYTES % (AUTO) 8.5 % (3-13); RED BLOOD COUNT 3.13 10^6/uL (4.35-5.55); RED CELL DISTRIBUTION WIDTH 15.9 % (11.5-14.0); SEGMENTED NEUTROPHILS % (AUTO) 83.2 % (42-78); WHITE BLOOD COUNT 7.4 10^3/uL (4.0-10.5)
--- NOTE | 2016-08-10 17:24 | PDOC PROGRESS REPORT ---
Subjective Progress Note for:: 08/10/16 Subjective:: Patient states his loose stools have improved. He has had no further bleeding. Patient denies fever, chills, headache, new focal weakness, chest pain, shortness of breath, abdominal pain, nausea, vomiting, constipation. Physical Exam Vital Signs: Temp Pulse Resp BP Pulse Ox 98.0 F 75 16 98/56 L 98 08/10/16 14:30 08/10/16 16:00 08/10/16 16:00 08/10/16 14:30 08/10/16 16:00 Intake & Output 08/09/16 08/10/16 08/11/16 06:59 06:59 06:59 Intake Total 300 Balance 300 GENERAL: No acute distress HEENT: Conjunctiva clear, nonicteric, moist mucous membranes, no JVD, midline trachea RESPIRATORY: Clear to auscultation bilaterally, no wheezes, no rhonchi CARDIAC: Regular rate and rhythm, no murmurs/gallops/rubs ABDOMEN: Soft, nondistended, nontender, positive bowel sounds, no rebound, no guarding EXTREMETIES: No edema, cyanosis, clubbing NEUROLOGIC: Alert, oriented to person/place/time, CN's grossly intact, no focal deficits SKIN: No rash, wounds PSYCH: Normal mood, normal affect Results Laboratory Results: 08/10/16 16:00 08/10/16 16:00 WBC 7.4 RBC 3.13 L Hgb 9.7 L Hct 29.0 L MCV 93 MCH 31.0 MCHC 33.4 RDW 15.9 H Plt Count 60 L Seg Neutrophils % 83.2 H Lymphocytes % 7.3 L Monocytes % 8.5 Eosinophils % 0.8 Basophils % 0.2 Absolute Neutrophils 6.1 Absolute Lymphocytes 0.5 Absolute Monocytes 0.6 Absolute Eosinophils 0.1 Absolute Basophils 0.0 Assessment & Plan - Diagnosis (1) Acute blood loss anemia Is this a current diagnosis for this admission?: YesPlan: Transfuse 1 unit of blood today. Continue iron supplementation. (2) Rectal bleeding Is this a current diagnosis for this admission?: YesPlan: Clinically subsided at this time. Possibly hemorrhoidal in nature. Continue to hold aspirin. Consulted Dr. Rosado of surgery, recommendations appreciated. (3) Diarrhea Qualifiers: Diarrhea type: unspecified type Qualified Code(s): R19.7 - Diarrhea, unspecified Is this a current diagnosis for this admission?: YesPlan: Stool culture and C. difficile negative. Continue supportive care. (4) Atrial fibrillation with RVR Is this a current diagnosis for this admission?: YesPlan: Case discussed with cardiology (Dr[facility] Neeraj [phone] nurse practitioner Ronald. We will continue Cardizem CD 120 mg daily for now. Heart rate stable at this time. Avoid anticoagulation secondary to acute bleeding. (5) Right bundle branch block (RBBB) Is this a current diagnosis for this admission?: YesPlan: This is old according to cardiology. (6) Edema Qualifiers: Edema type: unspecified Qualified Code(s): R60.9 - Edema, unspecified Is this a current diagnosis for this admission?: YesPlan: Continue Lasix. (7) History of lymphoma Is this a current diagnosis for this admission?: YesPlan: Patient states that in recent follow-up he had no recurrence. He will need a follow-up with his oncologist (Dr. [facility]) after discharge for this as well as anemia and thrombocytopenia. (8) Diabetes Is this a current diagnosis for this admission?: YesPlan: Hold metformin secondary to lactic acidosis. (9) Hypertension Is this a current diagnosis for this admission?: Yes (10) Asthma Is this a current diagnosis for this admission?: YesPlan: Continue Spiriva. When necessary albuterol. (11) Thrombocytopenia Is this a current diagnosis for this admission?: YesPlan: According to records at ride assembly supervisor's office this is chronic and stable. This certainly contributed to bleeding issues however. - Time Time Spent with patient: 35 or more minutes
[2016-08-10] MEDS: ALBUTEROL SULFATE 0.083% NEB 2.5 MG/3 ML AMPUL NEB PRN (17:36)
[2016-08-10] MEDS ORDERED: MAG HYDROX/AL HYDROX/SIMETH SUSP 30 ML UDCUP PO PRN (18:06)
[2016-08-10] MEDS ORDERED: ONDANSETRON HCL INJ/PF 4 MG/2 ML SDV IV PRN (18:33)
[2016-08-10] MEDS ORDERED: ONDANSETRON HCL INJ/PF 4 MG/2 ML SDV ONE (18:49)
[2016-08-10 19:30] LABS: CREATINE KINASE MB 1.75 ng/mL (<4.55)
[2016-08-10 19:31] LABS: TROPONIN I 0.978 ng/mL
--- NOTE | 2016-08-10 19:46 | EKG REPORT ---
SEVERITY:- ABNORMAL ECG - ATRIAL FIBRILLATION RIGHT BUNDLE BRANCH BLOCK : Confirmed by: Nakul Byrne MD 10-Aug-2016 19:46:19
[2016-08-10 20:14] LABS: PROTHROMBIN TIME 16.1 SEC (11.4-15.4)
[2016-08-10 20:15] LABS: PARTIAL THROMBOPLASTIN TIME 39.7 SEC (23.5-35.8)
[2016-08-10 21:09] LABS: ANION GAP 9 (5-19); BLOOD UREA NITROGEN 32 mg/dL (7-20); CALCIUM 9.4 mg/dL (8.4-10.2); CARBON DIOXIDE 26 mmol/L (22-30); CHLORIDE 96 mmol/L (98-107); CREATINE KINASE 67 U/L (55-170); CREATININE RESULT 0.99 mg/dL (0.52-1.25); GLUCOSE 126 mg/dL (75-110); MAGNESIUM 1.6 mg/dL (1.6-2.3); POTASSIUM 3.9 mmol/L (3.6-5.0); SODIUM 130.6 mmol/L (137-145)
[2016-08-10 21:20] LABS: CREATINE KINASE MB 1.68 ng/mL (<4.55)
[2016-08-10 21:26] LABS: TROPONIN I 0.875 ng/mL
[2016-08-10] MEDS ORDERED: ASPIRIN 81 MG TABLET, CHEWABLE PO ONE (23:30)
--- NOTE | 2016-08-11 01:43 | Progress Note ---
Provider Note Provider Note: 08/10/2016: Early evening, I was notified by patient's floor nurse of patient's elevated troponin. Unremarkable CPK and CK-MB. No chest or abdominal pain. EKG showed basically no change from 2 prior tracings. Electronic health record reviewed. Cardiac enzymes along with other labs were re-drawn. Repeat troponin came back slightly lower, once again with unremarkable CPK and CK-MB. I went to the patient's bedside. He was asleep, but awoke easily. Alert and cooperative. Denied any pain whatsoever. Previous epigastric pressure discomfort had completely resolved, both subjectively and on gentle palpation and compression of his abdomen. No previous TX or pulmonary embolus. Possibly a distant history of a left lower extremity DVT. No previous coronary arterial bypass graft, stent, or angioplasty. Cardiac catheterization before the year 1999 in [place] revealed, from his description, mild valvular pathology. No other intervention was undertaken. Has not had a subsequent stress test. At 10:35 PM, I spoke by phone with Dr. Natarajan, online communications manager bezel cutter for patient's usual bezel cutter, who is reportedly in [place]. Patient was discussed in detail. He stated he'll be happy to accept the patient in transfer the morning of the , but did not feel transfer tonight was warranted, given patient's lack of symptoms, and his decreasing troponin. He agreed with plans for serial cardiac enzymes and overall close follow-up of the patient. Discussed with patient, who concurs. At 11:05 PM, I discussed the patient by phone with , on-call funeral professional at [facility]. Patient was discussed in detail. She agreed with above plans. Did recommend proceeding with aspirin therapy. with lack of symptoms, decreasing troponin, and thrombocytopenia, she saw no need to systemically anticoagulate patient. Recommended calling her back should enzymes begin trending upward and/or patient develop recurrent pain. At 11:20 PM, I spoke by phone with patient's son Kobe, whom patient had called after I had discussed plans for transfer to [place] with patient earlier. He agrees with plans for close clinical follow-up along with serial labs, but has strongly requested that patient be transferred instead to [facility] for Dr. Kasper, bezel cutter there. Apparently he and Dr. Mcdermott had discussed this earlier during the day. I did tell son that should not be a problem, but that if the overall situation changed, either climbing enzymes and/or recurrent pain , transfer either to [place] or [facility] may be necessary. At 11:24 PM, I spoke with , on-call oncologist for Dr. Bolanos, patient' s normal oncologist; patient with history of lymphoma. Patient discussed in detail. Told him of my plans to give the patient 4 baby aspirin. He stated that should not be a problem with platelets greater than 50,000. 45 minutes of extended care time spent in evaluation and management of patient, including electronic health record review, patient examination, discussion with nursing staff, and multiple telephone discussions, as noted above.
[2016-08-11 01:57] LABS: CREATINE KINASE MB 1.49 ng/mL (<4.55)
[2016-08-11 02:00] LABS: TROPONIN I 0.823 ng/mL
[2016-08-11] MEDS: ALBUTEROL SULFATE 0.083% NEB 2.5 MG/3 ML AMPUL NEB PRN (02:49)
[2016-08-11 05:12] LABS: ABSOLUTE EOSINOPHILS # (AUTO) 0.1 10^3/uL (0.0-0.6); ABSOLUTE LYMPHOCYTES (AUTO) 0.5 10^3/uL (0.5-4.7); ABSOLUTE MONOCYTES (AUTO) 0.6 10^3/uL (0.1-1.4); ABSOLUTE NEUT (AUTO) 5.3 10^3/uL (1.7-8.2); BASOPHILS % (AUTO) 0.1 % (0-2); EOSINOPHILS % (AUTO) 1.6 % (0-6); HEMATOCRIT 28.2 % (37.9-51.0); HEMOGLOBIN 9.4 g/dL (13.5-17.0); LYMPHOCYTES % (AUTO) 7.4 % (13-45); MEAN CORPUSCULAR HEMOGLOBIN 30.7 pg (27.0-33.4); MEAN CORPUSCULAR HGB CONC 33.3 g/dL (32.0-36.0); MEAN CORPUSCULAR VOLUME 92 fl (80-97); MONOCYTES % (AUTO) 8.9 % (3-13); RED BLOOD COUNT 3.06 10^6/uL (4.35-5.55); RED CELL DISTRIBUTION WIDTH 16.2 % (11.5-14.0); WHITE BLOOD COUNT 6.5 10^3/uL (4.0-10.5)
[2016-08-11 05:33] LABS: ANION GAP 10 (5-19); BLOOD UREA NITROGEN 32 mg/dL (7-20); CALCIUM 9.5 mg/dL (8.4-10.2); CARBON DIOXIDE 24 mmol/L (22-30); CHLORIDE 98 mmol/L (98-107); CREATINE KINASE 54 U/L (55-170); CREATININE RESULT 0.93 mg/dL (0.52-1.25); GLUCOSE 96 mg/dL (75-110); POTASSIUM 3.9 mmol/L (3.6-5.0)
[2016-08-11 05:36] LABS: CREATINE KINASE MB 1.47 ng/mL (<4.55); TROPONIN I 0.756 ng/mL
--- NOTE | 2016-08-11 08:12 | EKG REPORT ---
SEVERITY:- ABNORMAL ECG - ATRIAL FIBRILLATION MULTIPLE PREMATURE COMPLEXES, VENT RIGHT BUNDLE BRANCH BLOCK : Confirmed by: Nakul Byrne MD 11-Aug-2016 08:11:24
[2016-08-11] MEDS: FUROSEMIDE 20 MG TABLET PO SCH (10:14)
[2016-08-11] MEDS: DILTIAZEM HCL 120 MG CAP.SR.24H PO SCH (10:15)
[2016-08-11] MEDS: ASPIRIN 81 MG TABLET, ENT COATED PO SCH (10:15)
[2016-08-11] MEDS: FERROUS SULFATE 325 MG TABLET PO SCH (10:15)
[2016-08-11] MEDS: TIOTROPIUM BROMIDE DPI 5 CAP/KIT (18 MCG/CAP) IH SCH (10:15)
--- NOTE | 2016-08-11 11:21 | PDOC PROGRESS REPORT ---
Subjective Progress Note for:: 08/11/16 Subjective:: Patient had "indigestion" overnight. Cardiac enzymes came back slightly elevated. Patient is asymptomatic this morning. Patient denies fever, chills, headache, new focal weakness, chest pain, shortness of breath, abdominal pain, nausea, vomiting, diarrhea, constipation. Physical Exam Vital Signs: Temp Pulse Resp BP Pulse Ox 98.2 F 72 16 95/56 L 97 08/11/16 08:15 08/11/16 10:30 08/11/16 10:30 08/11/16 10:15 08/11/16 10:30 Intake & Output 08/10/16 08/11/16 08/12/16 06:59 06:59 06:59 Intake Total 3060 Balance 3060 Weight 78.6 kg GENERAL: No acute distress HEENT: Conjunctiva clear, nonicteric, moist mucous membranes, no JVD, midline trachea RESPIRATORY: Clear to auscultation bilaterally, no wheezes, no rhonchi CARDIAC: Irregular ABDOMEN: Soft, nondistended, nontender, positive bowel sounds, no rebound, no guarding EXTREMETIES: Trace Pitting edema bilateral lower extremities NEUROLOGIC: Alert, oriented to person/place/time, CN's grossly intact, no focal deficits SKIN: No rash, wounds PSYCH: Normal mood, normal affect Results Laboratory Results: 08/11/16 04:12 08/11/16 04:12 08/10/16 08/10/16 08/11/16 16:00 20:05 04:12 WBC 7.4 6.5 RBC 3.13 L 3.06 L Hgb 9.7 L 9.4 L Hct 29.0 L 28.2 L MCV 93 92 MCH 31.0 30.7 MCHC 33.4 33.3 RDW 15.9 H 16.2 H Plt Count 60 L 61 L Seg Neutrophils % 83.2 H 82.0 H Lymphocytes % 7.3 L 7.4 L Monocytes % 8.5 8.9 Eosinophils % 0.8 1.6 Basophils % 0.2 0.1 Absolute Neutrophils 6.1 5.3 Absolute Lymphocytes 0.5 0.5 Absolute Monocytes 0.6 0.6 Absolute Eosinophils 0.1 0.1 Absolute Basophils 0.0 0.0 Sodium 130.6 L Potassium 3.9 Chloride 96 L Carbon Dioxide 26 Anion Gap 9 BUN 32 H Creatinine 0.99 Est GFR ( Amer) > 60 Est GFR (Non-Af Amer) > 60 Glucose 126 H Calcium 9.4 Magnesium 1.6 08/11/16 04:12 WBC RBC Hgb Hct MCV MCH MCHC RDW Plt Count Seg Neutrophils % Lymphocytes % Monocytes % Eosinophils % Basophils % Absolute Neutrophils Absolute Lymphocytes Absolute Monocytes Absolute Eosinophils Absolute Basophils Sodium 132.0 L Potassium 3.9 Chloride 98 Carbon Dioxide 24 Anion Gap 10 BUN 32 H Creatinine 0.93 Est GFR ( Amer) > 60 Est GFR (Non-Af Amer) > 60 Glucose 96 Calcium 9.5 Magnesium 08/10/16 08/10/16 08/10/16 18:55 18:55 20:05 Creatine Kinase 74 67 CK-MB (CK-2) 1.75 Troponin I 0.978 08/10/16 08/11/16 08/11/16 20:05 00:33 00:33 Creatine Kinase 58 CK-MB (CK-2) 1.68 1.49 Troponin I 0.875 0.823 08/11/16 08/11/16 04:12 04:12 Creatine Kinase 54 L CK-MB (CK-2) 1.47 Troponin I 0.756 Assessment & Plan - Diagnosis (1) NSTEMI (non-ST elevated myocardial infarction) Is this a current diagnosis for this admission?: YesPlan: Case was discussed with Dr. Bal of [facility] cardiology. Patient had normal Lexiscan Cardiac MRI just a few months ago. Cardiology does not feel that patient had a type I non-ST elevation NE, rather they feel that patient had type 2 non-ST elevation as a result of hypotension and hypovolemia. They do not feel that it is necessary for patient to transfer for interventional evaluation. They have recommended medication adjustment in order to increase blood pressure. They have advised that I discontinue Cardizem CD and initiate Toprol-XL 25 mg daily. Patient has been started back on aspirin 81 mg daily. We will have to monitor H&H for stability given recent rectal bleeding. Patient has been seen on an outpatient basis by Dr. Neeraj [facility]. They're requesting to transition care to Dr. Kasper of cardiology in [facility] as this is more convenient. I will make this arrangement upon discharge. (2) Acute blood loss anemia Is this a current diagnosis for this admission?: YesPlan: Patient is status post transfusion 1 unit PRBC on 08/10/2016. Continue to monitor H&H for stability. (3) Rectal bleeding Is this a current diagnosis for this admission?: YesPlan: Clinically subsided at this time. Possibly hemorrhoidal in nature. Consulted Dr. Rosado of surgery, recommendations appreciated. (4) Diarrhea Qualifiers: Diarrhea type: unspecified type Qualified Code(s): R19.7 - Diarrhea, unspecified Is this a current diagnosis for this admission?: YesPlan: Stool culture and C. difficile negative. Continue supportive care. (5) Atrial fibrillation with RVR Is this a current diagnosis for this admission?: YesPlan: Discontinue Cardizem CD. Start Toprol-XL 25 mg daily per [facility] cardiology recommendation. Heart rate stable at this time. Avoid anticoagulation secondary to acute bleeding. (6) Right bundle branch block (RBBB) Is this a current diagnosis for this admission?: YesPlan: This is old according to cardiology. (7) Edema Qualifiers: Edema type: unspecified Qualified Code(s): R60.9 - Edema, unspecified Is this a current diagnosis for this admission?: YesPlan: Continue Lasix. (8) History of lymphoma Is this a current diagnosis for this admission?: YesPlan: Patient states that in recent follow-up he had no recurrence. He will need a follow-up with his oncologist ([facility]. [facility]) after discharge for this as well as anemia and thrombocytopenia. (9) Diabetes Is this a current diagnosis for this admission?: YesPlan: Hold metformin secondary to lactic acidosis. (10) Hypertension Is this a current diagnosis for this admission?: Yes (11) Asthma Is this a current diagnosis for this admission?: YesPlan: Continue Spiriva. When necessary albuterol. (12) Thrombocytopenia Is this a current diagnosis for this admission?: YesPlan: According to records at dice table operator's office this is chronic and stable. This certainly contributed to bleeding issues however. - Time Time Spent with patient: 35 or more minutes Anticipated discharge: Home Within: within 48 hours
[2016-08-11] MEDS ORDERED: FUROSEMIDE 20 MG TABLET PO ONE (12:00)
[2016-08-12 04:49] LABS: ABSOLUTE EOSINOPHILS # (AUTO) 0.2 10^3/uL (0.0-0.6); ABSOLUTE LYMPHOCYTES (AUTO) 0.4 10^3/uL (0.5-4.7); ABSOLUTE MONOCYTES (AUTO) 0.7 10^3/uL (0.1-1.4); ABSOLUTE NEUT (AUTO) 3.8 10^3/uL (1.7-8.2); BASOPHILS % (AUTO) 0.3 % (0-2); HEMATOCRIT 27.9 % (37.9-51.0); HEMOGLOBIN 9.3 g/dL (13.5-17.0); LYMPHOCYTES % (AUTO) 8.3 % (13-45); MEAN CORPUSCULAR HEMOGLOBIN 30.7 pg (27.0-33.4); MEAN CORPUSCULAR HGB CONC 33.4 g/dL (32.0-36.0); MEAN CORPUSCULAR VOLUME 92 fl (80-97); MONOCYTES % (AUTO) 13.8 % (3-13); RED BLOOD COUNT 3.02 10^6/uL (4.35-5.55); RED CELL DISTRIBUTION WIDTH 15.6 % (11.5-14.0); SEGMENTED NEUTROPHILS % (AUTO) 74.6 % (42-78); WHITE BLOOD COUNT 5.1 10^3/uL (4.0-10.5)
[2016-08-12 04:59] LABS: ANION GAP 8 (5-19); BLOOD UREA NITROGEN 30 mg/dL (7-20); CALCIUM 9.6 mg/dL (8.4-10.2); CARBON DIOXIDE 26 mmol/L (22-30); CHLORIDE 96 mmol/L (98-107); CREATININE RESULT 0.95 mg/dL (0.52-1.25); GLUCOSE 91 mg/dL (75-110); POTASSIUM 4.1 mmol/L (3.6-5.0); SODIUM 129.9 mmol/L (137-145)
[2016-08-12] MEDS ORDERED: FUROSEMIDE 20 MG TABLET PO SCH (10:00)
[2016-08-12] MEDS ORDERED: METOPROLOL SUCCINATE 25 MG TAB.SR.24H PO SCH (10:00)
[2016-08-12] MEDS: FERROUS SULFATE 325 MG TABLET PO SCH (10:56)
[2016-08-12] MEDS: ASPIRIN 81 MG TABLET, ENT COATED PO SCH (10:57)
[2016-08-12] MEDS: TIOTROPIUM BROMIDE DPI 5 CAP/KIT (18 MCG/CAP) IH SCH (10:57)
--- NOTE | 2016-08-12 11:40 | PDOC PROGRESS REPORT ---
Subjective Progress Note for:: 08/12/16 Subjective:: Patient states he has occasional transient dizziness when he goes from a laying to standing position. This is been occurring for quite some time at home. He is usually able to hold onto something about this feeling to pass. He has no further chest pain. Patient has had some cough and wheezing. He normally uses Xopenex at home. Patient denies fever, chills, headache, new focal weakness, chest pain, shortness of breath, abdominal pain, nausea, vomiting, diarrhea, constipation. Physical Exam Vital Signs: Temp Pulse Resp BP Pulse Ox 98.6 F 67 16 89/56 L 92 08/12/16 07:57 08/12/16 08:47 08/12/16 08:47 08/12/16 07:57 08/12/16 08:47 Intake & Output 08/11/16 08/12/16 08/13/16 06:59 06:59 06:59 Intake Total 3060 1165 Balance 3060 1165 Weight 78.6 kg 82.3 kg GENERAL: No acute distress HEENT: Conjunctiva clear, nonicteric, moist mucous membranes, no JVD, midline trachea RESPIRATORY: Faint bilateral wheezes, good air excursion CARDIAC: Regular rate and rhythm, no murmurs/gallops/rubs ABDOMEN: Soft, nondistended, nontender, positive bowel sounds, no rebound, no guarding EXTREMETIES: Trace edema (L>R) NEUROLOGIC: Alert, oriented to person/place/time, CN's grossly intact, no focal deficits SKIN: No rash, wounds PSYCH: Normal mood, normal affect Results Laboratory Results: 08/12/16 04:10 08/12/16 04:10 08/12/16 08/12/16 04:10 04:10 WBC 5.1 RBC 3.02 L Hgb 9.3 L Hct 27.9 L MCV 92 MCH 30.7 MCHC 33.4 RDW 15.6 H Plt Count 68 L Seg Neutrophils % 74.6 Lymphocytes % 8.3 L Monocytes % 13.8 H Eosinophils % 3.0 Basophils % 0.3 Absolute Neutrophils 3.8 Absolute Lymphocytes 0.4 L Absolute Monocytes 0.7 Absolute Eosinophils 0.2 Absolute Basophils 0.0 Sodium 129.9 L Potassium 4.1 Chloride 96 L Carbon Dioxide 26 Anion Gap 8 BUN 30 H Creatinine 0.95 Est GFR ( Amer) > 60 Est GFR (Non-Af Amer) > 60 Glucose 91 Calcium 9.6 08/10/16 08/10/16 08/10/16 18:55 18:55 20:05 Creatine Kinase 74 67 CK-MB (CK-2) 1.75 Troponin I 0.978 08/10/16 08/11/16 08/11/16 20:05 00:33 00:33 Creatine Kinase 58 CK-MB (CK-2) 1.68 1.49 Troponin I 0.875 0.823 08/11/16 08/11/16 04:12 04:12 Creatine Kinase 54 L CK-MB (CK-2) 1.47 Troponin I 0.756 Assessment & Plan - Diagnosis (1) NSTEMI (non-ST elevated myocardial infarction) Is this a current diagnosis for this admission?: YesPlan: Case was discussed with Dr. Bal of [facility] cardiology. Patient had normal Lexiscan Cardiac MRI just a few months ago. Cardiology does not feel that patient had a type I non-ST elevation [place], rather they feel that patient had type 2 non-ST elevation as a result of hypotension and hypovolemia. They do not feel that it is necessary for patient to transfer for interventional evaluation. They have recommended medication adjustment in order to increase blood pressure. Cardizem CD was changed to Toprol-XL 25 mg daily. Patient has been started back on aspirin 81 mg daily. We will have to monitor H&H for stability given recent rectal bleeding. Patient has been seen on an outpatient basis by Dr. Neeraj [facility]el [facility]. They're requesting to transition care to Dr. Kasper of cardiology in [facility] as this is more convenient. I will make this arrangement upon discharge. (2) Acute blood loss anemia Is this a current diagnosis for this admission?: YesPlan: Patient is status post transfusion 1 unit PRBC on 08/10/2016. Continue to monitor H&H for stability. Continue iron supplementation. (3) Rectal bleeding Is this a current diagnosis for this admission?: YesPlan: Clinically subsided at this time. Possibly hemorrhoidal in nature. Consulted Dr. Rosado of surgery, recommendations appreciated. (4) Diarrhea Qualifiers: Diarrhea type: unspecified type Qualified Code(s): R19.7 - Diarrhea, unspecified Is this a current diagnosis for this admission?: YesPlan: Stool culture and C. difficile negative. Continue supportive care. (5) Atrial fibrillation with RVR Is this a current diagnosis for this admission?: YesPlan: Discontinued Cardizem CD. Started Toprol-XL 25 mg daily per [facility] cardiology recommendation. Heart rate stable at this time. Avoid anticoagulation secondary to acute bleeding. (6) Right bundle branch block (RBBB) Is this a current diagnosis for this admission?: YesPlan: This is old according to cardiology. (7) Edema Qualifiers: Edema type: unspecified Qualified Code(s): R60.9 - Edema, unspecified Is this a current diagnosis for this admission?: YesPlan: Discontinue scheduled Lasix as edema has clinically subsided and patient is currently hypotensive. Patient continues Lasix on a when necessary basis. (8) History of lymphoma Is this a current diagnosis for this admission?: YesPlan: Patient states that in recent follow-up he had no recurrence. He will need a follow-up with his oncologist (Dr. [facility]) after discharge for this as well as anemia and thrombocytopenia. (9) Diabetes Is this a current diagnosis for this admission?: YesPlan: Discontinue metformin secondary to lactic acidosis. Accu-Cheks have been normal throughout hospitalization without medication. (10) Hypertension Is this a current diagnosis for this admission?: YesPlan: Patient has been hypotensive this admission. Cardizem was discontinued and patient was started on Toprol-XL 25 mg daily. He is given orthostatic precautions. (11) Asthma Is this a current diagnosis for this admission?: YesPlan: Continue Spiriva. When necessary Xopenex HFA. (12) Thrombocytopenia Is this a current diagnosis for this admission?: YesPlan: According to records at director biomedical engineering's office this is chronic and stable. This certainly contributed to bleeding issues however. Patient can follow-up with his labor specialist Dr. Bolanos in [place] after discharge. (13) Hyponatremia Is this a current diagnosis for this admission?: YesPlan: Discontinue Lasix. Place patient on 1500 mL fluid restriction. - Time Time Spent with patient: 35 or more minutes
[2016-08-12] MEDS ORDERED: XOPENEX 45 MCG IH PRN (16:00)
[2016-08-13 05:50] LABS: ABSOLUTE EOSINOPHILS # (AUTO) 0.2 10^3/uL (0.0-0.6); ABSOLUTE LYMPHOCYTES (AUTO) 0.5 10^3/uL (0.5-4.7); ABSOLUTE MONOCYTES (AUTO) 0.7 10^3/uL (0.1-1.4); ABSOLUTE NEUT (AUTO) 3.1 10^3/uL (1.7-8.2); BASOPHILS % (AUTO) 0.2 % (0-2); EOSINOPHILS % (AUTO) 3.9 % (0-6); HEMATOCRIT 28.1 % (37.9-51.0); HEMOGLOBIN 9.5 g/dL (13.5-17.0); HGB HCT DIFFERENCE 0.4; LYMPHOCYTES % (AUTO) 11.3 % (13-45); MEAN CORPUSCULAR HEMOGLOBIN 31.2 pg (27.0-33.4); MEAN CORPUSCULAR HGB CONC 33.8 g/dL (32.0-36.0); MEAN CORPUSCULAR VOLUME 92 fl (80-97); MONOCYTES % (AUTO) 15.8 % (3-13); RED BLOOD COUNT 3.05 10^6/uL (4.35-5.55); RED CELL DISTRIBUTION WIDTH 15.3 % (11.5-14.0); SEGMENTED NEUTROPHILS % (AUTO) 68.8 % (42-78); WHITE BLOOD COUNT 4.5 10^3/uL (4.0-10.5)
[2016-08-13 06:13] LABS: ANION GAP 10 (5-19); BLOOD UREA NITROGEN 29 mg/dL (7-20); CALCIUM 9.4 mg/dL (8.4-10.2); CARBON DIOXIDE 27 mmol/L (22-30); CHLORIDE 95 mmol/L (98-107); CREATININE RESULT 0.93 mg/dL (0.52-1.25); GLUCOSE 83 mg/dL (75-110); SODIUM 132.1 mmol/L (137-145)
[2016-08-13 06:16] LABS: POTASSIUM 4.2 mmol/L (3.6-5.0)
[2016-08-13] MEDS ORDERED: DIGOXIN INJ 0.5 MG/2 ML AMPULE IV ONE (07:29)
[2016-08-13] MEDS: FERROUS SULFATE 325 MG TABLET PO SCH (10:37)
[2016-08-13] MEDS: ASPIRIN 81 MG TABLET, ENT COATED PO SCH (10:38)
[2016-08-13] MEDS: DIGOXIN 0.125 MG TABLET PO SCH (10:38)
[2016-08-13] MEDS: TIOTROPIUM BROMIDE DPI 5 CAP/KIT (18 MCG/CAP) IH SCH (10:43)
--- NOTE | 2016-08-13 14:06 | PDOC PROGRESS REPORT ---
Subjective Progress Note for:: 08/13/16 Subjective:: Patient is having continued orthostatic symptoms. This is been going on for quite some time prior to admission. His primary care provider has been decreasing his outpatient blood pressure medicine particularly he has been taken off of valsartan altogether. Patient denies fever, chills, headache, new focal weakness, chest pain, shortness of breath, abdominal pain, nausea, vomiting, diarrhea, constipation. Physical Exam Vital Signs: Temp Pulse Resp BP Pulse Ox 97.8 F 76 22 H 100/58 L 100 08/13/16 12:15 08/13/16 12:15 08/13/16 12:15 08/13/16 12:15 08/13/16 12:15 Intake & Output 08/12/16 08/13/16 08/14/16 06:59 06:59 06:59 Intake Total 1165 933 540 Balance 1165 933 540 Weight 82.3 kg 78.1 kg Results Laboratory Results: 08/13/16 04:48 08/13/16 04:48 08/13/16 08/13/16 04:48 04:48 WBC 4.5 RBC 3.05 L Hgb 9.5 L Hct 28.1 L MCV 92 MCH 31.2 MCHC 33.8 RDW 15.3 H Plt Count 70 L Seg Neutrophils % 68.8 Lymphocytes % 11.3 L Monocytes % 15.8 H Eosinophils % 3.9 Basophils % 0.2 Absolute Neutrophils 3.1 Absolute Lymphocytes 0.5 Absolute Monocytes 0.7 Absolute Eosinophils 0.2 Absolute Basophils 0.0 Sodium 132.1 L Potassium 4.2 Chloride 95 L Carbon Dioxide 27 Anion Gap 10 BUN 29 H Creatinine 0.93 Est GFR ( Amer) > 60 Est GFR (Non-Af Amer) > 60 Glucose 83 Calcium 9.4 08/10/16 08/10/16 08/10/16 18:55 18:55 20:05 Creatine Kinase 74 67 CK-MB (CK-2) 1.75 Troponin I 0.978 08/10/16 08/11/16 08/11/16 20:05 00:33 00:33 Creatine Kinase 58 CK-MB (CK-2) 1.68 1.49 Troponin I 0.875 0.823 08/11/16 08/11/16 04:12 04:12 Creatine Kinase 54 L CK-MB (CK-2) 1.47 Troponin I 0.756 Assessment & Plan - Diagnosis (1) NSTEMI (non-ST elevated myocardial infarction) Is this a current diagnosis for this admission?: YesPlan: Case was discussed with Dr. Bal of [facility] cardiology. Patient had normal Lexiscan Cardiac MRI just a few months ago. Cardiology does not feel that patient had a type I non-ST elevation [place], rather they feel that patient had type 2 non-ST elevation as a result of hypotension and hypovolemia. They do not feel that it is necessary for patient to transfer for interventional evaluation. They have recommended medication adjustment in order to increase blood pressure. Cardizem CD was changed to Toprol-XL 25 mg daily. Patient has been started back on aspirin 81 mg daily. We will have to monitor H&H for stability given recent rectal bleeding. Patient has been seen on an outpatient basis by Dr. Neeraj Hazel of cardiology in [facility]. They're requesting to transition care to Dr. Kasper of cardiology in [facility] as this is more convenient. I will make this arrangement upon discharge. (2) Acute blood loss anemia Is this a current diagnosis for this admission?: YesPlan: Patient is status post transfusion 1 unit PRBC on 08/10/2016. Continue to monitor H&H for stability. Continue iron supplementation. (3) Rectal bleeding Is this a current diagnosis for this admission?: YesPlan: Clinically subsided at this time. Possibly hemorrhoidal in nature. Consulted Dr. Rosado of surgery, recommendations appreciated. (4) Diarrhea Qualifiers: Diarrhea type: unspecified type Qualified Code(s): R19.7 - Diarrhea, unspecified Is this a current diagnosis for this admission?: YesPlan: Stool culture and C. difficile negative. Continue supportive care. (5) Atrial fibrillation with RVR Is this a current diagnosis for this admission?: YesPlan: Discontinued Cardizem CD and Toprol-XL due to symptomatic hypotension. Avoid anticoagulation secondary to acute bleeding. (6) Right bundle branch block (RBBB) Is this a current diagnosis for this admission?: YesPlan: This is old according to cardiology. (7) Edema Qualifiers: Edema type: unspecified Qualified Code(s): R60.9 - Edema, unspecified Is this a current diagnosis for this admission?: YesPlan: Discontinued scheduled Lasix as edema has clinically subsided and patient is currently hypotensive. (8) History of lymphoma Is this a current diagnosis for this admission?: YesPlan: Patient states that in recent follow-up he had no recurrence. He will has a follow-up scheduled with his oncologist (Dr. Bolanos-[facility]) on 08/15/2016 at 2 PM. (9) Diabetes Is this a current diagnosis for this admission?: YesPlan: Patient was taken off metformin as an outpatient. Accu-Cheks have been normal throughout hospitalization without medication. (10) Hypertension Is this a current diagnosis for this admission?: YesPlan: Patient has been hypotensive this admission and it sounds like he's been suffering from orthostasis for long time prior to admission. Patient has been taken off all antihypertensives. He is given orthostatic precautions. (11) Asthma Is this a current diagnosis for this admission?: YesPlan: Continue Spiriva. When necessary Xopenex HFA. (12) Thrombocytopenia Is this a current diagnosis for this admission?: YesPlan: According to records at recovery advocate's office this is chronic and stable. This certainly contributed to bleeding issues however. Patient can follow-up with his export sales assistant Dr. Bolanos in [place] after discharge. (13) Hyponatremia Is this a current diagnosis for this admission?: YesPlan: Discontinued Lasix. Placed patient on 1500 mL fluid restriction. - Time Time Spent with patient: 35 or more minutes
[2016-08-14 04:59] LABS: ABSOLUTE EOSINOPHILS # (AUTO) 0.1 10^3/uL (0.0-0.6); ABSOLUTE LYMPHOCYTES (AUTO) 0.5 10^3/uL (0.5-4.7); ABSOLUTE MONOCYTES (AUTO) 0.7 10^3/uL (0.1-1.4); ABSOLUTE NEUT (AUTO) 2.7 10^3/uL (1.7-8.2); BASOPHILS % (AUTO) 0.3 % (0-2); EOSINOPHILS % (AUTO) 3.6 % (0-6); HEMATOCRIT 27.9 % (37.9-51.0); HEMOGLOBIN 9.3 g/dL (13.5-17.0); LYMPHOCYTES % (AUTO) 12.7 % (13-45); MEAN CORPUSCULAR HGB CONC 33.5 g/dL (32.0-36.0); MEAN CORPUSCULAR VOLUME 93 fl (80-97); MONOCYTES % (AUTO) 16.4 % (3-13); RED BLOOD COUNT 3.01 10^6/uL (4.35-5.55); RED CELL DISTRIBUTION WIDTH 15.2 % (11.5-14.0)
[2016-08-14 05:11] LABS: ANION GAP 12 (5-19); BLOOD UREA NITROGEN 28 mg/dL (7-20); CALCIUM 8.7 mg/dL (8.4-10.2); CARBON DIOXIDE 25 mmol/L (22-30); CHLORIDE 95 mmol/L (98-107); CREATININE RESULT 0.81 mg/dL (0.52-1.25); GLUCOSE 83 mg/dL (75-110); POTASSIUM 3.8 mmol/L (3.6-5.0); SODIUM 131.5 mmol/L (137-145)
[2016-08-14] MEDS: ASPIRIN 81 MG TABLET, ENT COATED PO SCH (09:58)
[2016-08-14] MEDS: FERROUS SULFATE 325 MG TABLET PO SCH (09:58)
[2016-08-14] MEDS: DIGOXIN 0.125 MG TABLET PO SCH (09:58)
[2016-08-14] MEDS: TIOTROPIUM BROMIDE DPI 5 CAP/KIT (18 MCG/CAP) IH SCH (10:11)
--- NOTE | 2016-08-14 11:13 | PDOC PROGRESS REPORT ---
Subjective Progress Note for:: 08/14/16 Subjective:: Patient has had "wheezing" overnight as well as brief episode of left lateral chest pain. He is currently chest pain-free. He has had no further bleeding. Patient denies fever, chills, headache, new focal weakness, abdominal pain, nausea, vomiting, diarrhea, constipation. Physical Exam Vital Signs: Temp Pulse Resp BP Pulse Ox 98.1 F 70 20 100/72 100 08/14/16 07:43 08/14/16 07:43 08/14/16 07:43 08/14/16 07:43 08/14/16 07:43 Intake & Output 08/13/16 08/14/16 08/15/16 06:59 06:59 06:59 Intake Total 933 1454 Balance 933 1454 Weight 78.1 kg 78.2 kg GENERAL: No acute distress HEENT: Conjunctiva clear, nonicteric, moist mucous membranes, no JVD, midline trachea RESPIRATORY: Bilateral crackles CARDIAC: Irregularly irregular, normal rate ABDOMEN: Soft, nondistended, nontender, positive bowel sounds, no rebound, no guarding EXTREMETIES: 1-2+ pitting edema in lower extremities NEUROLOGIC: Alert, oriented to person/place/time, CN's grossly intact, no focal deficits SKIN: No rash, wounds PSYCH: Normal mood, normal affect Results Laboratory Results: 08/14/16 04:09 08/14/16 04:09 08/14/16 08/14/16 04:09 04:09 WBC 4.0 RBC 3.01 L Hgb 9.3 L Hct 27.9 L MCV 93 MCH 31.0 MCHC 33.5 RDW 15.2 H Plt Count 74 L Seg Neutrophils % 67.0 Lymphocytes % 12.7 L Monocytes % 16.4 H Eosinophils % 3.6 Basophils % 0.3 Absolute Neutrophils 2.7 Absolute Lymphocytes 0.5 Absolute Monocytes 0.7 Absolute Eosinophils 0.1 Absolute Basophils 0.0 Sodium 131.5 L Potassium 3.8 Chloride 95 L Carbon Dioxide 25 Anion Gap 12 BUN 28 H Creatinine 0.81 Est GFR ( Amer) > 60 Est GFR (Non-Af Amer) > 60 Glucose 83 Calcium 8.7 08/10/16 08/10/16 08/10/16 18:55 18:55 20:05 Creatine Kinase 74 67 CK-MB (CK-2) 1.75 Troponin I 0.978 08/10/16 08/11/16 08/11/16 20:05 00:33 00:33 Creatine Kinase 58 CK-MB (CK-2) 1.68 1.49 Troponin I 0.875 0.823 08/11/16 08/11/16 04:12 04:12 Creatine Kinase 54 L CK-MB (CK-2) 1.47 Troponin I 0.756 Assessment & Plan - Diagnosis (1) Acute CHF (congestive heart failure) Qualifiers: Congestive heart failure type: unspecified congestive heart failure type Qualified Code(s): I50.9 - Heart failure, unspecified Is this a current diagnosis for this admission?: YesPlan: Patient is currently acutely decompensated with pulmonary/peripheral edema. I will restart Lasix 10 mg IV every 12 hours. Patient has been difficult to diurese secondary to persistent hypotension. He was taken off of ARB and beta federico secondary to symptomatic hypotension. I have consulted Dr. Harper for further and his recommendations and he is advised me not to order echocardiogram at this time as patient had recent cardiac MRI at [facility] that should be able to assess EF. (2) NSTEMI (non-ST elevated myocardial infarction) Is this a current diagnosis for this admission?: YesPlan: Case was discussed with Dr. Bal of [facility] cardiology. Patient had normal Lexiscan Cardiac MRI just a few months ago. Cardiology does not feel that patient had a type I non-ST elevation [place], rather they feel that patient had type 2 non-ST elevation as a result of hypotension and hypovolemia. They do not feel that it is necessary for patient to transfer for interventional evaluation. They recommended medication adjustment in order to increase blood pressure. Cardizem CD was changed to Toprol-XL 25 mg daily, but patient remained hypotensive so this was also discontinued. Patient has been started back on aspirin 81 mg daily. We will have to monitor H &H for stability given recent rectal bleeding. Patient has been seen on an outpatient basis by Dr. Neeraj Hazel of cardiology in [facility]. They're requesting to transition care to Dr. Kasper of cardiology in [facility] as this is more convenient. Patient had recurrent left chest pain overnight so I will repeat cardiac enzyme. Dr. Meredith cardiology will be consulted. (3) Acute blood loss anemia Is this a current diagnosis for this admission?: YesPlan: Patient is status post transfusion 1 unit PRBC on 08/10/2016. Continue to monitor H&H for stability. Continue iron supplementation. (4) Rectal bleeding Is this a current diagnosis for this admission?: YesPlan: Clinically subsided at this time. Possibly hemorrhoidal in nature. Consulted Dr. Rosado of surgery, recommendations appreciated. (5) Diarrhea Qualifiers: Diarrhea type: unspecified type Qualified Code(s): R19.7 - Diarrhea, unspecified Is this a current diagnosis for this admission?: YesPlan: Stool culture and C. difficile negative. Resolved. (6) Atrial fibrillation with RVR Is this a current diagnosis for this admission?: YesPlan: Discontinued Cardizem CD and Toprol-XL due to symptomatic hypotension. Started on digoxin 08/13/2016. Avoid anticoagulation secondary to acute bleeding. (7) Right bundle branch block (RBBB) Is this a current diagnosis for this admission?: YesPlan: This is old according to cardiology. (8) History of lymphoma Is this a current diagnosis for this admission?: YesPlan: Patient states that in recent follow-up he had no recurrence. He will had a follow-up scheduled with his oncologist (Dr. Bolanos-[facility]) on 08/15/2016 at 2 PM, but this will have to be rescheduled. (9) Diabetes Is this a current diagnosis for this admission?: YesPlan: Patient was taken off metformin as an outpatient. Accu-Cheks have been normal throughout hospitalization without medication. (10) Hypertension Is this a current diagnosis for this admission?: YesPlan: Patient has been hypotensive this admission and it sounds like he's been suffering from orthostasis for long time prior to admission. Patient has been taken off all antihypertensives. He is given orthostatic precautions and advised to wear CHAVO hose. I would appreciate her etiology recommendations regarding orthostasis as well. (11) Asthma Is this a current diagnosis for this admission?: YesPlan: Continue Spiriva. When necessary Xopenex HFA. 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 This certainly contributed to bleeding issues however. Patient can follow-up with his technician test systems Dr. Bolanos in [place] after discharge. (13) Hyponatremia Is this a current diagnosis for this admission?: YesPlan: Placed patient on 1500 mL fluid restriction. - Time Time Spent with patient: 35 or more minutes
[2016-08-14] MEDS ORDERED: FUROSEMIDE INJ/PF 20 MG/2 ML SDV IV ONE (11:30)
[2016-08-14 11:52] LABS: CREATINE KINASE MB 0.98 ng/mL (<4.55); TROPONIN I 0.174 ng/mL
[2016-08-14] MEDS ORDERED: DIGOXIN INJ 0.5 MG/2 ML AMPULE IV ONE (17:31)
[2016-08-14] MEDS: LOPERAMIDE HCL 2 MG CAPSULE PO PRN (18:19)
[2016-08-14] MEDS: TEMAZEPAM 7.5 MG CAPSULE PO PRN (21:26)
[2016-08-14] MEDS: FUROSEMIDE INJ/PF 20 MG/2 ML SDV IV SCH (21:26)
[2016-08-15 09:07] LABS: ANION GAP 9 (5-19); BLOOD UREA NITROGEN 22 mg/dL (7-20); CALCIUM 8.8 mg/dL (8.4-10.2); CARBON DIOXIDE 28 mmol/L (22-30); CHLORIDE 94 mmol/L (98-107); CREATININE RESULT 0.75 mg/dL (0.52-1.25); DIGOXIN 1.15 ng/mL (0.8-2.0); GLUCOSE 80 mg/dL (75-110); POTASSIUM 3.9 mmol/L (3.6-5.0); SODIUM 130.7 mmol/L (137-145)
[2016-08-15] MEDS: FERROUS SULFATE 325 MG TABLET PO SCH (10:40)
[2016-08-15] MEDS: DIGOXIN 0.125 MG TABLET PO SCH (10:40)
[2016-08-15] MEDS: ASPIRIN 81 MG TABLET, ENT COATED PO SCH (10:40)
[2016-08-15] MEDS: FUROSEMIDE INJ/PF 20 MG/2 ML SDV IV SCH ×2 (10:40→21:33)
[2016-08-15] MEDS: TIOTROPIUM BROMIDE DPI 5 CAP/KIT (18 MCG/CAP) IH SCH (10:41)
--- NOTE | 2016-08-15 12:35 | PDOC PROGRESS REPORT ---
Subjective Progress Note for:: 08/15/16 Subjective:: The patient denies any chest pain or discomfort. He is in atrial fibrillation with controlled ventricular response. He has no further dizziness or symptoms of postural hypotension He denies any shortness of breath PND orthopnea is leg edema is almost gone with there being only trace edema. There is no TIA or CVA symptoms there is no dizziness or syncope or presyncope. There is no ventricular arrhythmias seen on the monitor.. Note that the CTA chest did not show any pulmonary emboli. Physical Exam Vital Signs: Temp Pulse Resp BP Pulse Ox 97.8 F 78 16 100/58 L 100 08/15/16 11:04 08/15/16 11:04 08/15/16 11:04 08/15/16 11:04 08/15/16 11:04 Intake & Output 08/14/16 08/15/16 08/16/16 06:59 06:59 06:59 Intake Total 1454 890 240 Balance 1454 890 240 Weight 78.2 kg 77.8 kg General appearance: PRESENT: no acute distress, well-developed, well-nourished Head exam: PRESENT: atraumatic, normocephalic Eye exam: PRESENT: EOMI - Extraocular movements are normal., PERRLA, other - There is no conjunctival pallor. There is no scleral icterus. Ear exam: PRESENT: normal external ear exam, TM's normal bilaterally Mouth exam: PRESENT: moist, neck supple, tongue midline Throat exam: PRESENT: tonsillar exudate - There is no tonsillar exudates, and no redness of the oropharynx Neck exam: PRESENT: carotid bruit - Carotids are equal without any bruits., lymphadenopathy - There is no lymphadenopathy., thyromegaly - There is no thyromegaly Respiratory exam: PRESENT: other - There is no chest wall tenderness. Trachea central. There is a few scattered rhonchi. There is no rales of CHF breath sounds are harsh. Pulses: PRESENT: normal carotid pulses, normal femoral pulses - A mildly diminished without any femoral bruits., +1 pedal pulses bilateral, other - S1 S2 heard S1 is of variable intensity there is no S3 gallop there is no S4 gallop rate is systolic murmur in left sternal border and apex there is no rub. Vascular exam: PRESENT: normal capillary refill GI/Abdominal exam: PRESENT: Cordova's sign, other - Abdomen is soft there is no visceromegaly bowel sounds are well heard there is no tender areas masses there is no rebound guarding or rigidity. Rectal exam: PRESENT: deferred Extremities exam: PRESENT: calf tenderness - There is no calf tenderness, pedal edema - There is trace pedal edema, other - There is no cyanosis or clubbing. Neurological exam: PRESENT: alert, awake, oriented to person, oriented to place , oriented to time, other - There is no focal deficit Psychiatric exam: PRESENT: other - The patient judgment and insight are intact his affect is normal Skin exam: PRESENT: other - There is no petechia or ecchymosis. There is no skin rashes or skin lesions. Results Laboratory Results: 08/14/16 04:09 08/15/16 08:21 08/15/16 08:21 Sodium 130.7 L Potassium 3.9 Chloride 94 L Carbon Dioxide 28 Anion Gap 9 BUN 22 H Creatinine 0.75 Est GFR ( Amer) > 60 Est GFR (Non-Af Amer) > 60 Glucose 80 Calcium 8.8 08/10/16 08/10/16 08/10/16 18:55 18:55 20:05 Creatine Kinase 74 67 CK-MB (CK-2) 1.75 Troponin I 0.978 NT-Pro-B Natriuret Pep 08/10/16 08/11/16 08/11/16 20:05 00:33 00:33 Creatine Kinase 58 CK-MB (CK-2) 1.68 1.49 Troponin I 0.875 0.823 NT-Pro-B Natriuret Pep 08/11/16 08/11/16 08/14/16 04:12 04:12 11:10 Creatine Kinase 54 L CK-MB (CK-2) 1.47 0.98 Troponin I 0.756 0.174 NT-Pro-B Natriuret Pep 12026 H 08/14/16 11:10 Creatine Kinase < 20 L CK-MB (CK-2) Troponin I NT-Pro-B Natriuret Pep Impressions: Chest/Abdomen CTA 08/14/16 00:00 IMPRESSION: No evidence for pulmonary embolic disease. Extensive chronic appearing changes as noted above. Small bilateral pleural effusions are identified as noted above. There are scattered ground-glass opacities which could represent pulmonary edema or pneumonic infiltrates. Other findings as noted above Chest X-Ray 08/14/16 10:54 IMPRESSION: Lung disease as above. The patient appears to have chronic changes , calcified pleural plaques suggesting previous asbestos exposure. 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 At present patient stable. Continue Spiriva. (2) Pulmonary hypertension Plan: This is suspected along with right heart failure in view of the patient's elevated troponin I, elevated NT proBNP with normal renal function and the patient's February Lexiscan cardiac MRI showing a dilated right ventricle with reduced) systolic function. We will check the echo to be done today. Doubt non -ST elevation [place]. (3) Atrial fibrillation with RVR Is this a current diagnosis for this admission?: YesPlan: At present rate well-controlled on digoxin Will check a dig level in the a.m. (4) Diabetes Qualifiers: Diabetes mellitus type: type 2 Diabetes mellitus complication status: without complication Diabetes mellitus fdc insulin use: without middle or intermediate school principal use Qualified Code(s): E11.9 - Type 2 diabetes mellitus without complications Is this a current diagnosis for this admission?: YesPlan: His blood sugars are being monitored. Note due to the patient's lactic acidosis the patient's metformin has been discontinued. (5) Diarrhea Qualifiers: Diarrhea type: unspecified type Qualified Code(s): R19.7 - Diarrhea, unspecified Is this a current diagnosis for this admission?: YesPlan: This is probably secondary to food poisoning. At present the patient has no diarrhea. The patient's family and the patient voiced concern that the patient has alternating constipation and diarrhea. He will probably need a colonoscopy in the near future. (6) Edema Qualifiers: Edema type: unspecified Qualified Code(s): R60.9 - Edema, unspecified Is this a current diagnosis for this admission?: YesPlan: This most likely is due to right heart failure and also the patient being on Cardizem. Note that the Cardizem has been discontinued. The patient's edema has almost totally resolved with there being only trace edema. (7) History of lymphoma Is this a current diagnosis for this admission?: YesPlan: This is in remission. The patient seen Dr. Bolanos in [place] for this. (8) Hypertension Is this a current diagnosis for this admission?: YesPlan: Note probably the patient does not have hypertension. In some in fact he has orthostatic hypotension for a long time. In fact this orthostatic hypotension has been aggravated by the patient being on Cardizem. He is now off Cardizem., And has no further symptoms of firm dizziness on standing up. He also is wearing a CHAVO hose stockings. (9) Rectal bleeding Is this a current diagnosis for this admission?: YesPlan: This is resolved. The patient has external hemorrhoids. (10) Thrombocytopenia Is this a current diagnosis for this admission?: YesPlan: This is stable, with the patient had no bleeding, and no petechia or ecchymosis. (11) Pulmonary hypertension Plan: This is also suspected on the findings of the patient's Lexiscan cardiac MRI with a dilated right ventricle with the produce retrograde systolic pressure. The patient also by the Lexiscan cardiac MRI has significant pulmonary disease as evidenced evidence spelled notching on the Septra. (12) Right heart failure Plan: This diagnosis is suspected due to the reasons mentioned above we will await echocardiogram. (13) Asthma Qualifiers: Asthma severity: unspecified severity Asthma complication type: uncomplicated Qualified Code(s): J45.909 - Unspecified asthma, uncomplicated Is this a current diagnosis for this admission?: YesPlan: The patient has not had any acute asthmatic attacks this admission. Continue Spiriva. (14) Elevated troponin Is this a current diagnosis for this admission?: YesPlan: Note there is no definite evidence of non-ST elevation [place]. This is most likely a combination of troponin I leak secondary to the patient's hypotension, lactic acidosis, and the patient's having most likely right heart failure. Right heart failure diagnoses has to be confirmed confirmed as also the pulmonary hypertension hence the echo will be done later today. Will not review the echo. We'll recheck the patient's troponin I stat. (15) Cardiomyopathy Is this a current diagnosis for this admission?: YesPlan: This most likely secondary to atrial fibrillation with rapid ventricular response and hypertension/hypotension. The LV ejection fraction is only mildly reduced. The patient has no symptoms of congestive heart failure or signs of congestive heart failure. He is well compensated from this point of view. - Time Smoking Education Provided: Other - The patient is a nonsmoker. Note 35 minutes spent on this patient with more than 50% of time spent in direct patient care and also discussions with the hospitalist taking care of the patient. Also detailed discussions done with the family. As per the Family the patient was supposed to have a colonoscopy but this was canceled or deferred due to the patient being admitted here. Will arrange for the patient to have a coloscopy by Dr. Rosado] was supposed to do the colonoscopy that was placed] later on as an outpatient. Within: Other - The patient is a full code and his is his surrogate healthcare edition maker.
--- NOTE | 2016-08-15 12:48 | CONSULTATION REPORT E ---
Consultation Report NAME: WILFRED CHANEL : AGE: DATE: 08/14/2016 TO: KAUSHAL ALVARENGA M.D. FROM: Requesting Physician REASON FOR CONSULTATION: Postural hypotension with symptoms. HISTORY OF PRESENT ILLNESS: The patient is a pleasant 86-year-old male with known history of asbestosis and history of chronic atrial fibrillation and at least hypertension although the patient states since he was in the [employer] he always had postural hypotension. The patient was admitted with several bouts of diarrhea after eating [place] food and also had some rectal bleeding. He was found to have a thrombosed external hemorrhoid in the emergency room. The patient also had some leg swelling and also some dyspnea on exertion. He has had dyspnea on exertion for several months and in February of 2016 he had a Lexiscan cardiac MRI stress test which showed no reversible ischemia and no [place] or scar but the left ventricular ejection fraction was mildly reduced at 45%. There was also decreased right ventricular systolic function. Also suggestion of a D-shaped flattening of an interventricular septum in systole and diastole which could be consistent with pulmonary disease. He has globally reduced wall thickening during systole without regional variation. No areas of pitting to suggest old myocardial infarction. The patient in this admission had some chest pain which was sharp and lasted a few seconds in the left lateral side, really nonanginal. Note that the patient with a normal renal function, his BNP is elevated at 3150 and also the patient's lactic acid was increased at 2.6. The patient's troponin I also has been increased and is now trending down. The patient's EKG shows atrial fibrillation with some PVCs and right bundle branch block pattern. Yesterday his heart rate was a little high at about 113 beats per minute. At present the patient states that he is wearing a CHAVO hose and his symptoms are much better, but he has had a longstanding history of postural hypotension with symptoms of dizziness but no syncope. Note, although he carries a diagnosis of hypertension, his medications such as Cardizem, dose has been decreased and now he is off the Cardizem and he has been placed on IV digoxin which is not a bad idea for the patient. There is no history of clear-cut anginal symptoms. Also he has been given Lasix for his leg swelling which has improved. PAST MEDICAL HISTORY: Positive for history of at least hypertension although the patient gives a history of postural hypotension since a long time. He has no history of diabetes mellitus or thyroid disease. He has no history of coronary artery disease. His Lexiscan cardiac MRI was negative for any reversible ischemia or scar. He has mild cardiomyopathy with LV ejection fraction of 45%. The right ventricle is also seen to be mildly dilated and also has reduced systolic function. He also has findings on the MRI which is consistent with significant pulmonary disease. He has a history of asbestosis and he also has a history of asthma. He also has a history of lymphoma, which he states is stable and at present in remission. He also has history of thrombocytopenia. As mentioned earlier, he has a history of chronic atrial fibrillation. He was placed on Pradaxa and this caused hematuria and he had stopped it. He also has a history of enlarged prostate and was given Flomax for which he did not tolerate and had adverse reaction. Also he reports a history of diabetes mellitus type 2, but his blood sugar is fine but patient was on metformin which has been stopped due to his lactic acidosis. PAST SURGICAL HISTORY: He has a right chest Port-a-Cath and also lymphoma removed from left clavicle in the past. FAMILY HISTORY: Positive for cerebral hemorrhage in his brother and history of myocardial infarction in other relatives. SOCIAL HISTORY: The patient quit smoking more than 40 years ago. ALLERGIES: The patient has known allergies. REVIEW OF SYSTEMS: CONSTITUTIONAL: Denies any fever, chills or rigors. Complains of generalized fatigue and weakness. HEENT: Head: Complains of dizziness off and on especially when he gets up due to his blood pressure dropping. In this hospital his blood pressure went as low as 77 systolic and subsequently has been in the 90s; now the blood pressure has come up. Ears: He has no history of hearing loss, no history of tinnitus, no history of vertigo. Eyes: No history of amblyopia or diplopia, no history of amaurosis fugax. Nose: No history of hay fever, no history of nose bleeds. No history of nasal polyps. Mouth: No history of altered taste sensation, no ulcers in the mouth, no bleeding from the gums. Throat: No odynophagia or dysphagia. No history of recurrent sore throats. SKIN: No skin rashes, no petechia or ecchymosis, no skin lesions. There is no psoriasis. There is no pruritus. NECK: No neck pain, no swelling in the neck, no goiter. LUNGS: History of asbestosis. The patient denies any recent cough or sputum production. He has a history of asthma, no recent attacks; he is on Spiriva. He has no history of sleep apnea, no history of hemoptysis, no history of pulmonary embolism. CARDIAC: At least history of hypertension; in fact, the patient describes a history of longstanding postural hypotension with symptoms. He has a history of chronic atrial fibrillation, intolerant to Pradaxa with bleeding complications; hence, the patient is not on any anticoagulation. He denies history of [place]. No clear-cut anginal symptoms. He has been having longstanding dyspnea on exertion for which he had a Lexiscan cardiac MRI, the results of which have been mentioned earlier. The patient has had dizzy spells but no syncope. The patient denies any PND or orthopnea but recently the patient has been having leg swelling. MUSCULOSKELETAL: Denies arthritis or collagen vascular disease. RENAL: Denies any history of hematuria, polyuria or dysuria except when he took Pradaxa, he had hematuria. He has no symptoms of urinary tract infection. History of enlarged prostate but at present it seems to be asymptomatic even though he could not tolerate Flomax. CENTRAL NERVOUS SYSTEM: No history of TIA or CVA. No history of sleep apnea. No history of gait imbalance. No history of headaches, migraines or seizures. ENDOCRINE: History of diabetes mellitus type 2, was on metformin which has been discontinued. No history of thyroid disease. No history of polydipsia or polyuria. No history of heat or cold intolerance. PSYCHIATRIC: No history of anxiety or depression. No history of suicidal ideation. HEMATOLOGICAL: History of lymphoma present in remission. History of thrombocytopenia which is stable. GASTROINTESTINAL: No history of fatty food intolerance. History of diarrhea. History of some rectal bleed most likely from internal hemorrhoids. No history of abdominal pain. No history of nausea or vomiting. The diarrhea has stopped now. MEDICATIONS: 1. Tylenol 650 mg p.o. q.4 h. p.r.n. 2. Albuterol 2.5 mg nebulizer treatment q.6 h. 3. Ecotrin 81 mg p.o. daily. 4. Digoxin 0.125 mg p.o. daily. 5. Ferrous sulfate 325 mg p.o. daily. 6. He will get Fluvax 0.5 mL IM on the day of discharge. 7. Lasix 10 mg IV x1 and 10 mg IV q.12 h. 8. Loperamide 2 mg p.o. q.6 h. p.r.n. diarrhea. 9. Magnesium hydroxide/aluminum hydroxide 30 mL p.o. q.6 h. p.r.n. 10. Zofran 4 mg IV q.6 h. p.r.n. 11. Temazepam 7.5 mg at bedtime p.r.n. 12. Spiriva HandiHaler 1 capsule inhalation daily. CODE STATUS: The patient is a FULL CODE. His is his surrogate healthcare decision maker. PHYSICAL EXAMINATION: GENERAL: Patient is well built and well nourished and at present in no acute distress. He is lying flat without any symptoms. VITAL SIGNS: His temperature is 97.9 degrees Fahrenheit. Pulse is 88 beats per minute. Blood pressure is 121/80. As per the nursing, the lying blood pressure was 129/80 and the standing blood pressure was 118 systolic; hence, no significant orthostatic hypotension, but the patient is wearing CHAVO hose now. HEENT: Head is atraumatic, normocephalic. Eyes: Pupils are equal, round, regular, reactive to light and accommodation. Extraocular movements are normal. There is no conjunctival pallor. There is no scleral icterus. Ears: Tympanic membranes are intact. External auditory canals are clear. Nose: There is no deviated nasal septum. There is no inflammation of the nasal mucous membranes. Ears: Tympanic membranes are intact. External auditory canals are clear. Mouth: Mucous membranes of the mouth are moist. Tongue is moist. There are no ulcers. There is no bleeding from the gums. Throat: There is no redness of the oropharynx. There are no exudates. SKIN: There are no skin rashes. There is no petechia or ecchymosis. There are no skin lesions. NECK: Supple. There is mild JVD present. There is no lymphadenopathy. There is no goiter. Carotids are equal. There is no bruit. Trachea is central. LUNGS: Show harsh breath sounds and a few scattered rhonchi. No rales of CHF. HEART: S1 and S2 are heard. The S1 is of variable intensity. There is no S3 gallop. There is no S4 gallop. There is a systolic murmur in the left sternal border and the apex. There is no rub. ABDOMEN: Soft, nontender. There is no hepatosplenomegaly. Bowel sounds are well heard. EXTREMITIES: Femorals are 1+ and diminished. There are no femoral bruits. Leg pulses are diminished. There is trace pedal edema. There is no DVT or cellulitis. There is no calf tenderness. CENTRAL NERVOUS SYSTEM: The patient is conscious, awake, alert, oriented x3 with no focal deficits. PSYCHIATRIC: The patient's judgment and insight are intact. His affect is normal. DIAGNOSTIC TEST RESULTS: The patient's EKG on admission showed atrial fibrillation with right bundle branch block pattern and left anterior fascicular block pattern. His heart rate on admission was 137. His subsequent EKG done on 08/10 showed atrial fibrillation, right bundle branch block pattern. His subsequent EKG on 08/10 also showed atrial fibrillation with a ventricular response of 92 beats per minute with right bundle branch block pattern. The patient's chest x-ray is consistent with asbestosis with pleural blacking and chronic changes. There is also apical thickening. There is cardiac enlargement without any evidence of heart failure. The patient's pulmonary CT angiogram shows no evidence of pulmonary embolic disease, extensive chronic appearing changes as noted above, small bilateral pleural effusion on either side as well as noted above. There are scattered ground-glass opacities which could represent pulmonary edema or pneumonic infiltrate, other findings as noted above. The patient's sodium is 132.3, potassium 4.5, his chloride is 99, CO2 is 24, BUN 29, creatinine 1.06, GFR is greater than 60. His glucose is 82, his calcium is 9.2. His lactic acid which is 2.9 on 08/08 has come down to 1.3 and 1.1. His total bilirubin is 1.8 on 08/08. His direct bilirubin is 0. His AST is normal at 44. His ALT is normal at 35. His alkaline phosphatase is elevated at 209. The patient's total protein is 7.4, albumin is 3.9. The patient's B12 was 814 and his folate is greater than 20. The patient's troponin I initially was 0.98 and subsequently came down to 0.875, 0.823 and 0.756, and now has come down to 0.174. His ABG venous shows a pH of 7.40, pCO2 41.5, bicarbonate is 34.8. His white count is 4000, hemoglobin 9.3, hematocrit 27.9, and his platelet count is 74,000. His prothrombin time on 08/10 was 16.1 with INR of 1.24, PTT is 39.7. His C. difficile toxin is negative. His stool occult blood is negative. Stool for white cells, no WBCs seen. IMPRESSION: 1. Elevated troponin I with elevated BNP with normal renal function. Doubt non-ST elevation myocardial infarction. Most likely this is secondary to right heart failure greater than left heart failure. 2. Suspect right heart failure and pulmonary hypertension due to increased right ventricular size and decreased right ventricular systolic function and moderately dilated right atrium by Lexiscan cardiac MRI in 02/2016. 3. Mild cardiomyopathy with negative Lexiscan cardiac MRI for ischemia or scar. 4. Rectal bleeding, most likely from a thrombosed external hemorrhoid. 5. Diarrhea, questionable, most likely secondary to food poisoning. C. difficile is negative. 6. Atrial fibrillation with rapid ventricular response on admission. At present controlled. Most likely this also contributed to the elevation of troponin I. 7. Postural hypotension. 8. Right bundle branch block pattern. 9. Edema, most likely secondary to right heart failure. 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 11. History of lymphoma in remission. 12. Diabetes mellitus. At present, the patient's metformin is being held. 13. Hypertension as per diagnosis on the patient but patient has been having longstanding hypotension. 14. Asthma. 15. Thrombocytopenia. 16. Elevated lactic acid most likely secondary to hypotension and also metformin. Agree with stopping the metformin. RECOMMENDATIONS: Note: Would recommend watching the patient's blood pressure and if he continues to have orthostasis, then would recommend to start the patient on midodrine. Would recommend wearing the CHAVO hose as being done now, and I have asked the patient to do that when he is out of bed and not when he is in bed sleeping. Also would recommend that the patient is not a candidate for any long-term chronic anticoagulation in view of the bleeding complications and also in view of patient's thrombocytopenia. Also would recommend continue the patient on digoxin. Will check an echo in the morning to assess for right systolic function and at present assess for pulmonary hypertension and also to find out if the patient has significant regurgitant lesions. NOTE: Forty-five minutes spent on this patient with more than 50% of this time spent on direct patient care and review of the patient's medications and also discussions with the patient and the patient's family. All questions answered. More than 50% of the time was spent on direct patient care. Also discussed the case with Dr. Mcdermott, the hospitalist taking care of the patient. Will follow with you. Thanking you. DICTATING PHYSICIAN: KAUSHAL ALVARENGA M.D. [id number] PHY#: [id number] ID: [id number] JOB#: [id number] ACCT: [id number] cc:KAUSHAL ALVARENGA M.D. > MTDD
[2016-08-15 14:09] LABS: ALBUMIN 2.6 g/dL (3.5-5.0); BILIRUBIN,TOTAL 1.4 mg/dL (0.2-1.3); TOTAL PROTEIN 5.3 g/dL (6.3-8.2)
--- NOTE | 2016-08-15 17:58 | XCELERA REPORT ---
[address] [address] Transthoracic Echocardiogram Report Name: WILFRED CHANEL Age: 86 yrs Gender: Male : 1930 Patient Status: Inpatient Patient Location: 3N\S\309\S\A Study Date: 08/15/2016 01:20 PM Height: 66 in Weight: 172 lb BSA: 1.9 m2 Procedure: A two-dimensional transthoracic echocardiogram with color flow and Doppler was performed. Study Quality: Technically suboptimal. Reason For Study: chf History: CHF. Ordering Physician: CHRIS PEARCE Performed By: Kaylen Craig Interpretation Summary The left ventricle is normal in size. There is moderate concentric left ventricular hypertrophy. LV EF is 45% Left ventricular systolic function is mildly reduced. There is mild global hypokinesis of the left ventricle. There is no thrombus. Suspect RV enlargement and moderate decrease in RV systolic function. The right atrium is mildly dilated. There is no evidence of mitral valve prolapse. There is no mitral valve stenosis. There is a mild amount of mitral regurgitation There is no aortic valve stenosis There is no LVOT obstruction. There is aortic sclerosis withou stenosis. There is no tricuspid stenosis. There is a trace amount of tricuspid regurgitation RVSP is 46 mm of Hg , with RA mean of 15 There is a mild amount of pulmonic regurgitation There is no pulmonic valvular stenosis. There is mild pulmonary hypertension by echo The aortic root is mildly dilated There is no pericardial effusion. MMode/2D Measurements \T\ Calculations RVDd: 3.5 cm LVIDd: 3.7 cmFS: 19.3 % Ao root diam: 3.8 cm IVSd: 1.6 cm LVIDs: 3.0 cmEDV(Teich): 58.7 ml LVPWd: 1.5 cmESV(Teich): 34.9 ml Ao root area: 11.6 cm2 EF(Teich): 40.5 % LA dimension: 4.4 cm LVOT diam: 2.4 cm LVOT area: 4.6 cm2 Doppler Measurements \T\ Calculations MV E max yaneth: MV P1/2t max yaneth: Ao V2 max: LV V1 max P.2 cm/sec 103.0 cm/sec 113.9 cm/sec 3.1 mmHg MV P1/2t: 52.0 msec Ao max PG: LV V1 max: MVA(P1/2t): 4.2 cm2 5.2 mmHg 88.3 cm/sec MV dec slope: GALILEO(V,D): 3.6 cm2 580.4 cm/sec2 MV dec time: 0.18 sec PA V2 max: PI end-d yaneth: TR max yaneth: 67.9 cm/sec 92.3 cm/sec 276.3 cm/sec PA max P.8 mmHg TR max P.5 mmHg Left Ventricle The left ventricle is normal in size. There is moderate concentric left ventricular hypertrophy. LV EF is 45%. Left ventricular systolic function is mildly reduced. LV diastolic function could not be adequately assessed due to atrial fibrilation. There is mild global hypokinesis of the left ventricle. There is no thrombus. Right Ventricle Suspect RV enlargement and moderate decrease in RV systolic function. Atria The right atrium is mildly dilated. The left atrium is mildly dilated. Mitral Valve There is mild mitral annular calcification. There is no evidence of mitral valve prolapse. There is no vegetation seen on the mitral valve. There is no mitral valve stenosis. There is a mild amount of mitral regurgitation. Aortic Valve There is no aortic valvular vegetation. There is no aortic valve stenosis. There is no LVOT obstruction. There is aortic sclerosis withou stenosis. No aortic regurgitation is present. Tricuspid Valve There is no tricuspid stenosis. There is a trace amount of tricuspid regurgitation. RVSP is 46 mm of Hg , with RA mean of 15. There is mild pulmonary hypertension by echo. Pulmonic Valve There is no pulmonic valvular stenosis. There is a mild amount of pulmonic regurgitation. Great Vessels The aortic root is mildly dilated. Effusions There is no pericardial effusion. : CHRIS PEARCE > Katie Harper
--- NOTE | 2016-08-15 18:08 | PDOC PROGRESS REPORT ---
Subjective Progress Note for:: 08/15/16 Subjective:: Patient denies orthopnea, PND, dyspnea on exertion, edema. Patient denies chest pain, shortness of breath, abdominal pain, nausea, vomiting , fevers, chills, diarrhea, constipation, headache, new onset weakness. Physical Exam Vital Signs: Temp Pulse Resp BP Pulse Ox 98.0 F 79 20 104/64 99 08/15/16 05:05 08/15/16 07:00 08/15/16 05:05 08/15/16 05:05 08/15/16 06:06 Intake & Output 08/14/16 08/15/16 08/16/16 06:59 06:59 06:59 Intake Total 1454 890 Balance 1454 890 Weight 78.2 kg 77.8 kg Exam: General: Awake alert and oriented x3, no acute respiratory distress HEENT: AT/NC, PERRL, EOMI, oropharynx is moist, pink, no scleral icterus, no conjunctival injection Neck: No JVD, trachea midline Chest: Bilateral crackles CV: Irregularly irregular, no murmur or gallop Abdomen: Soft, nontender to palpation, nondistended, active bowel sounds; no rebound, rigidity, or guarding Extremities: No cyanosis, clubbing; 1+edema to midshin Neuro: Cranial nerves II through XII are grossly intact without focal deficits; awake alert and oriented x3 Psych: Normal mood and affect Results Laboratory Results: 08/14/16 04:09 08/14/16 04:09 08/10/16 08/10/16 08/10/16 18:55 18:55 20:05 Creatine Kinase 74 67 CK-MB (CK-2) 1.75 Troponin I 0.978 NT-Pro-B Natriuret Pep 08/10/16 08/11/16 08/11/16 20:05 00:33 00:33 Creatine Kinase 58 CK-MB (CK-2) 1.68 1.49 Troponin I 0.875 0.823 NT-Pro-B Natriuret Pep 08/11/16 08/11/16 08/14/16 04:12 04:12 11:10 Creatine Kinase 54 L CK-MB (CK-2) 1.47 0.98 Troponin I 0.756 0.174 NT-Pro-B Natriuret Pep 61053 H 08/14/16 11:10 Creatine Kinase < 20 L CK-MB (CK-2) Troponin I NT-Pro-B Natriuret Pep Impressions: Chest/Abdomen CTA 08/14/16 00:00 IMPRESSION: No evidence for pulmonary embolic disease. Extensive chronic appearing changes as noted above. Small bilateral pleural effusions are identified as noted above. There are scattered ground-glass opacities which could represent pulmonary edema or pneumonic infiltrates. Other findings as noted above Chest X-Ray 08/14/16 10:54 IMPRESSION: Lung disease as above. The patient appears to have chronic changes , calcified pleural plaques suggesting previous asbestos exposure. Assessment & Plan - Diagnosis (1) Acute CHF (congestive heart failure) Qualifiers: Congestive heart failure type: combined Qualified Code(s): I50.41 - Acute combined systolic (congestive) and diastolic (congestive) heart failure Is this a current diagnosis for this admission?: YesPlan: Patient with an EF of 45% and mild pulmonary hypertension. Currently patient's nurse receptionist of standard heart failure medications is limited by hypotension. Patient became hypotensive with metoprolol as well as DERRICK inhibitor. (2) Acute blood loss anemia Is this a current diagnosis for this admission?: YesPlan: Patient is currently holding his hemoglobin. This has been stable since 1 unit of packed red blood cells. This is likely secondary to hemorrhoidal bleeding worsened by patient's underlying thrombocytopenia and use of anticoagulants. (3) Atrial fibrillation with RVR Is this a current diagnosis for this admission?: Yes (4) Diabetes Qualifiers: Diabetes mellitus type: type 2 Diabetes mellitus complication status: without complication Diabetes mellitus prison insulin use: without ad terminal makeup operator use Qualified Code(s): E11.9 - Type 2 diabetes mellitus without complications Is this a current diagnosis for this admission?: YesPlan: Patient patient is diet controlled and not in need of any current medication. (5) Elevated troponin Is this a current diagnosis for this admission?: YesPlan: Likely secondary to type II non-STEMI. From A. fib with RVR and acute blood loss anemia. (6) History of lymphoma Is this a current diagnosis for this admission?: Yes (7) Hypertension Is this a current diagnosis for this admission?: Yes (8) NSTEMI (non-ST elevated myocardial infarction) Is this a current diagnosis for this admission?: YesPlan: Type II non-STEMI. No need for anticoagulation at this time as patient was suffering from spontaneous GI bleeding. Additionally, patient is unable to tolerate standard Derrick/arm therapy or beta federico secondary to hypotension. Continue low-dose aspirin. (10) Pulmonary hypertension Is this a current diagnosis for this admission?: YesPlan: Patient has mild pulmonary hypertension based on echo from today. (11) Rectal bleeding Is this a current diagnosis for this admission?: Yes (12) Right bundle branch block (RBBB) Is this a current diagnosis for this admission?: Yes (13) Thrombocytopenia Is this a current diagnosis for this admission?: YesPlan: Chronic. Likely secondary to malignancy - Time Time Spent with patient: 25-34 minutes Medications reviewed and adjusted accordingly: Yes Anticipated discharge: Home Within: within 24 hours
[2016-08-15] MEDS ORDERED: LACTULOSE SYRUP 20 GM/30 ML UDCUP PO PRN (23:35)
[2016-08-15] MEDS ORDERED: MINERAL OIL ENEMA 133 ML PR PRN (23:35)
[2016-08-15] MEDS ORDERED: HYDROCORTISONE ACETATE 25 MG SUPP.RECT PR PRN (23:39)
[2016-08-15] MEDS ORDERED: HYDROCORTISONE ACETATE 25 MG SUPP.RECT PR ONE (23:45)
[2016-08-15] MEDS ORDERED: MINERAL OIL ENEMA 133 ML PR ONE (23:45)
[2016-08-15] MEDS ORDERED: LACTULOSE SYRUP 20 GM/30 ML UDCUP PO ONE (23:45)
[2016-08-16] MEDS ORDERED: PHENYLEPHRINE HCL 1 EACH SUPP.RECT PR ONE (00:42)
[2016-08-16] MEDS ORDERED: MINERAL OIL ENEMA 133 ML PR ONE (00:43)
[2016-08-16] MEDS: TEMAZEPAM 7.5 MG CAPSULE PO PRN ×2 (02:03→21:37)
[2016-08-16] MEDS ORDERED: MINERAL OIL ENEMA 133 ML PR PRN (07:33)
[2016-08-16 09:16] LABS: ABSOLUTE EOSINOPHILS # (AUTO) 0.1 10^3/uL (0.0-0.6); ABSOLUTE LYMPHOCYTES (AUTO) 0.4 10^3/uL (0.5-4.7); ABSOLUTE MONOCYTES (AUTO) 0.6 10^3/uL (0.1-1.4); ABSOLUTE NEUT (AUTO) 2.5 10^3/uL (1.7-8.2); BASOPHILS % (AUTO) 0.4 % (0-2); EOSINOPHILS % (AUTO) 2.2 % (0-6); HEMATOCRIT 29.7 % (37.9-51.0); HEMOGLOBIN 9.9 g/dL (13.5-17.0); LYMPHOCYTES % (AUTO) 10.9 % (13-45); MEAN CORPUSCULAR HEMOGLOBIN 31.1 pg (27.0-33.4); MEAN CORPUSCULAR HGB CONC 33.3 g/dL (32.0-36.0); MEAN CORPUSCULAR VOLUME 93 fl (80-97); MONOCYTES % (AUTO) 15.6 % (3-13); RED BLOOD COUNT 3.19 10^6/uL (4.35-5.55); SEGMENTED NEUTROPHILS % (AUTO) 70.9 % (42-78); WHITE BLOOD COUNT 3.6 10^3/uL (4.0-10.5)
[2016-08-16] MEDS: DIGOXIN 0.125 MG TABLET PO SCH (09:25)
[2016-08-16] MEDS: ASPIRIN 81 MG TABLET, ENT COATED PO SCH (09:25)
[2016-08-16] MEDS: FERROUS SULFATE 325 MG TABLET PO SCH (09:25)
[2016-08-16] MEDS: TIOTROPIUM BROMIDE DPI 5 CAP/KIT (18 MCG/CAP) IH SCH (09:26)
[2016-08-16] MEDS: FUROSEMIDE INJ/PF 20 MG/2 ML SDV IV SCH (09:26)
[2016-08-16] MEDS ORDERED: HYDROCORTISONE ACETATE 25 MG SUPP.RECT PR PRN (16:58)
[2016-08-16] MEDS ORDERED: MIDODRINE HCL 5 MG TABLET PO SCH (18:00)
[2016-08-16] MEDS ORDERED: MIDODRINE HCL 5 MG TABLET PO ONE (18:30)
--- NOTE | 2016-08-16 18:53 | PDOC PROGRESS REPORT ---
Subjective Progress Note for:: 08/16/16 Subjective:: Patient denies orthopnea, PND, dyspnea on exertion, edema. Patient denies chest pain, shortness of breath, abdominal pain, nausea, vomiting , fevers, chills, diarrhea, headache, new onset weakness. Patient admits to relief of his constipation last night please see nursing notes for full details and of left eye itching/irritation. Physical Exam Vital Signs: Temp Pulse Resp BP Pulse Ox 97.6 F 91 16 94/49 L 97 08/16/16 15:20 08/16/16 15:20 08/16/16 15:20 08/16/16 15:20 08/16/16 15:20 Intake & Output 08/15/16 08/16/16 08/17/16 06:59 06:59 06:59 Intake Total 890 890 570 Balance 890 890 570 Weight 77.8 kg 75.6 kg Exam: General: Awake alert and oriented x3, no acute respiratory distress HEENT: AT/NC, PERRL, EOMI, oropharynx is moist, pink, no scleral icterus, left conjunctival injection Neck: No JVD, trachea midline Chest: Bilateral crackles CV: Irregularly irregular, no murmur or gallop Abdomen: Soft, nontender to palpation, nondistended, active bowel sounds; no rebound, rigidity, or guarding Extremities: No cyanosis, clubbing; trace edema Neuro: Cranial nerves II through XII are grossly intact without focal deficits; awake alert and oriented x3 Psych: Normal mood and affect Results Laboratory Results: 08/16/16 08:25 08/15/16 08:21 08/16/16 08:25 WBC 3.6 L RBC 3.19 L Hgb 9.9 L Hct 29.7 L MCV 93 MCH 31.1 MCHC 33.3 RDW 15.0 H Plt Count 86 L Seg Neutrophils % 70.9 Lymphocytes % 10.9 L Monocytes % 15.6 H Eosinophils % 2.2 Basophils % 0.4 Absolute Neutrophils 2.5 Absolute Lymphocytes 0.4 L Absolute Monocytes 0.6 Absolute Eosinophils 0.1 Absolute Basophils 0.0 08/10/16 08/10/16 08/10/16 18:55 18:55 20:05 Creatine Kinase 74 67 CK-MB (CK-2) 1.75 Troponin I 0.978 NT-Pro-B Natriuret Pep 08/10/16 08/11/16 08/11/16 20:05 00:33 00:33 Creatine Kinase 58 CK-MB (CK-2) 1.68 1.49 Troponin I 0.875 0.823 NT-Pro-B Natriuret Pep 08/11/16 08/11/16 08/14/16 04:12 04:12 11:10 Creatine Kinase 54 L CK-MB (CK-2) 1.47 0.98 Troponin I 0.756 0.174 NT-Pro-B Natriuret Pep 74446 H 08/14/16 08/15/16 11:10 13:15 Creatine Kinase < 20 L CK-MB (CK-2) Troponin I 0.131 NT-Pro-B Natriuret Pep Impressions: Chest/Abdomen CTA 08/14/16 00:00 IMPRESSION: No evidence for pulmonary embolic disease. Extensive chronic appearing changes as noted above. Small bilateral pleural effusions are identified as noted above. There are scattered ground-glass opacities which could represent pulmonary edema or pneumonic infiltrates. Other findings as noted above Chest X-Ray 08/14/16 10:54 IMPRESSION: Lung disease as above. The patient appears to have chronic changes , calcified pleural plaques suggesting previous asbestos exposure. Assessment & Plan - Diagnosis (1) Acute CHF (congestive heart failure) Qualifiers: Congestive heart failure type: combined Qualified Code(s): I50.41 - Acute combined systolic (congestive) and diastolic (congestive) heart failure Is this a current diagnosis for this admission?: YesPlan: Patient with an EF of 45% and mild pulmonary hypertension. Currently patient's vulcanizer operator of standard heart failure medications is limited by hypotension. Patient became hypotensive with metoprolol as well as DERRICK inhibitor. We'll transition patient to oral Lasix today. (2) Acute blood loss anemia Is this a current diagnosis for this admission?: YesPlan: Patient is currently holding his hemoglobin. This has been stable since 1 unit of packed red blood cells. This is likely secondary to hemorrhoidal bleeding worsened by patient's underlying thrombocytopenia and use of anticoagulants. Now resolved. (3) Atrial fibrillation with RVR Is this a current diagnosis for this admission?: YesPlan: Now resolved. On digoxin appreciate cardiology input. (4) Diabetes Qualifiers: Diabetes mellitus type: type 2 Diabetes mellitus complication status: without complication Diabetes mellitus supervisor intermediates insulin use: without assisted use Qualified Code(s): E11.9 - Type 2 diabetes mellitus without complications Is this a current diagnosis for this admission?: YesPlan: Patient patient is diet controlled and not in need of any current medication. (5) Elevated troponin Is this a current diagnosis for this admission?: YesPlan: Likely secondary to type II non-STEMI. From A. fib with RVR and acute blood loss anemia. (6) History of lymphoma Is this a current diagnosis for this admission?: Yes (7) NSTEMI (non-ST elevated myocardial infarction) Is this a current diagnosis for this admission?: YesPlan: Type II non-STEMI. No need for anticoagulation at this time as patient was suffering from spontaneous GI bleeding. Additionally, patient is unable to tolerate standard Derrick/arm therapy or beta federico secondary to hypotension. Continue low-dose aspirin. (9) Pulmonary hypertension Is this a current diagnosis for this admission?: Yes (10) Rectal bleeding Is this a current diagnosis for this admission?: Yes (11) Right bundle branch block (RBBB) Is this a current diagnosis for this admission?: Yes (12) Thrombocytopenia Is this a current diagnosis for this admission?: Yes (13) Hypotension Qualifiers: Hypotension type: unspecified hypotension type Qualified Code(s): I95.9 - Hypotension, unspecified Is this a current diagnosis for this admission?: YesPlan: At this time have discussed with cardiology and they agreed to initiate patient on midodrine 5mg by mouth 3 times a day. Have discussed with patient that he should not take this any later than 4 PM. - Time Time Spent with patient: 25-34 minutes Medications reviewed and adjusted accordingly: Yes Anticipated discharge: Home Within: within 24 hours
--- NOTE | 2016-08-16 19:43 | PROGRESS NOTE E ---
Progress Note NAME: WILFRED CHANEL : 1930 AGE: 86Y DATE: 08/16/2016 ROOM: 309 SUBJECTIVE: Note that the patient continues to be in atrial fibrillation but now with a controlled ventricular response. He still has some dizziness but no syncope or near syncope. He denies any shortness of breath, and there is no PND or orthopnea. He states last night he had an enema and had a good bowel movement and feels very good. There is no ventricular arrhythmia seen on the monitor. There are no pulmonary emboli on the CTA. There are no TIA or CVA symptoms. There is no leg edema. OBJECTIVE: GENERAL: On examination, the patient is well built and well nourished in no acute distress. VITAL SIGNS: He is afebrile with a temperature of 98 degrees Fahrenheit. Pulse is 82 beats per minute. Blood pressure 117/72. Respirations are 18 per minute. O2 saturations are 96% on room air. HEENT: Head is atraumatic, normocephalic. Eyes: Pupils are equal, round, regular, reactive to light and accommodation. Extraocular movements normal. Ears: Normal external ear exam. TM's normal bilaterally. Mouth: Mucous membranes of mouth are moist. Tongue is moist. Neck is midline, and tongue is midline. Throat: There are no tonsillar exudates and no redness of the oropharynx. NECK: Carotids are equal without any bruits. There is no lymphadenopathy. There is no thyromegaly. LUNGS: No chest wall tenderness. Trachea is central. There is diminished air entry and prolonged expiration with harsh breath sounds. There are no rhonchi, rales, or wheezing. CARDIOVASCULAR: S1, S2 are heard. There is no S3 gallop. There is no S4 gallop. There is systolic murmur in left sternal border and the apex. There is no rub. S1 is of variable intensity. EXTREMITIES: Femorals are mildly diminished. There are no femoral bruits. Leg pulses are 1+ bilaterally. There is no pedal edema. There is no cyanosis or clubbing. CENTRAL NERVOUS SYSTEM: The patient is conscious, awake, alert, oriented x3 with no focal deficit. PSYCHIATRIC: The patient's judgement and insight are intact. His affect is normal. GASTROINTESTINAL: Abdomen is soft, nontender. There is no hepatosplenomegaly. Bowel sounds are well heard. DIAGNOSTIC TESTS: Repeat echocardiogram still shows *------* TR with present gradient of 31 which would translate into a right ventricular systolic pressure of 46 mmHg. This is mild approaching moderate pulmonary hypertension. The patient's white count is 3600; hemoglobin is 9.9; hematocrit is 29.7; platelet count is 86,000. The patient's troponin-I has come down to 0.131. ASSESSMENT: 1. 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 2. PULMONARY HYPERTENSION. By echocardiogram is mild and approaching moderate pulmonary hypertension. 3. ATRIAL FIBRILLATION, NOW WITH CONTROLLED VENTRICULAR RESPONSE. Well controlled on digoxin. 4. DIABETES MELLITUS TYPE 2. The patient is off metformin. Blood sugars seem to be acceptable. 5. DIARRHEA. This has resolved. Etiology is not known. 6. EDEMA MOST LIKELY SECONDARY TO RIGHT HEART FAILURE AND ALSO PATIENT BEING ON CARDIZEM. This has resolved. 7. HISTORY OF LYMPHOMA IN REMISSION. Patient is seen by Dr. Bolanos for this. 8. HYPERTENSION. Note probably the patient does not have hypertension. In fact, he has orthostatic hypotension for a long time. In fact, his orthostatic hypotension has been aggravated by the patient being on Cardizem and other blood pressure medications. He also still has some dizziness, but his blood pressure remains stable. 9. RECTAL BLEEDING. This has resolved. Most likely this is from external hemorrhoids. One was found to be thrombosed. 10. THROMBOCYTOPENIA. This is stable. The patient has no bleeding and no petechiae or ecchymosis. 11. PULMONARY HYPERTENSION. This is mild approaching moderate. I still doubt that if the Doppler interrogation was accurate. 12. RIGHT HEART FAILURE. At present, seems to be compensated. Continue diuretics. I would decrease the diuretics to one every other day. 13. ASTHMA. The patient has not had any asthmatic attacks this admission. 14. ELEVATED TROPONIN-I. This is coming down. This is most likely a combination of troponin-I leak secondary to patient's hypotension, lactic acidosis, and the patient having right heart failure. 15. 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 This is probably felt secondary to hypertension and secondary to atrial flutter/fibrillation with rapid ventricular response. We will recheck the patient's echocardiogram in 3-6 months to see with rate control if the left ventricular ejection fraction improves. PLAN: Would recommend that the patient have a colonoscopy as an outpatient. Continue his digoxin. Check a digoxin level in the morning. Today's a.m. level of digoxin was 1.15, and hence, we will not check it tomorrow. The patient's digoxin level is therapeutic. The patient most likely needs a senior data modeler to follow him up as an outpatient. Note that the patient is not a candidate for long-term anticoagulation due to significant hematuria on Pradaxa. TIME SPENT: Note 25 minutes spent on this patient including discussions of the echocardiogram findings with the patient which I did yesterday and again today. Note more than 50% of the time was spent in direct patient care and also discussions with the hospitalist taking care of the patient. DICTATING PHYSICIAN: KAUSHAL ALVARENGA M.D. [id number] PAL[place]#: [id number] ID: [id number] JOB#: [id number] ACCT: [id number] cc: >
[2016-08-17] MEDS: MIDODRINE HCL 5 MG TABLET PO SCH ×2 (07:57→13:02)
[2016-08-17] MEDS ORDERED: FUROSEMIDE 20 MG TABLET PO SCH (10:00)
[2016-08-17] MEDS: FERROUS SULFATE 325 MG TABLET PO SCH (11:36)
[2016-08-17] MEDS: DIGOXIN 0.125 MG TABLET PO SCH (11:37)
[2016-08-17] MEDS: ASPIRIN 81 MG TABLET, ENT COATED PO SCH (11:37)
[2016-08-17] MEDS: TIOTROPIUM BROMIDE DPI 5 CAP/KIT (18 MCG/CAP) IH SCH (11:37)
[2016-08-17 12:45] VITALS: BP 98/56
--- NOTE | 2016-08-17 20:26 | PDOC DISCHARGE SUMMARY ---
General - Admit/Disc Date/PCP Admission Date/Primary Care Provider: 08/10/16 14:41 MAURICE MCCORMCIK MD Discharge Date: 08/17/16 - Discharge Diagnosis (1) Acute CHF (congestive heart failure) Is this a current diagnosis for this admission?: Yes (2) Acute blood loss anemia Is this a current diagnosis for this admission?: Yes (3) Atrial fibrillation with RVR Is this a current diagnosis for this admission?: Yes (4) Diabetes Is this a current diagnosis for this admission?: Yes (5) Elevated troponin Is this a current diagnosis for this admission?: Yes (6) History of lymphoma Is this a current diagnosis for this admission?: Yes (7) NSTEMI (non-ST elevated myocardial infarction) Is this a current diagnosis for this admission?: Yes (9) Pulmonary hypertension Is this a current diagnosis for this admission?: Yes (10) Rectal bleeding Is this a current diagnosis for this admission?: Yes (11) Right bundle branch block (RBBB) Is this a current diagnosis for this admission?: Yes (12) Thrombocytopenia Is this a current diagnosis for this admission?: Yes (13) Hypotension Is this a current diagnosis for this admission?: Yes - Additional Information Resuscitation Status: Full Code Discharge Diet: Cardiac Discharge Activity: Activity As Tolerated, Balance Activity w/Rest, Weigh Daily Home Medications: Tiotropium [place] [Spiriva Handihaler 5 Cap/Kit (18 Mcg/Cap)] 1 inh IH DAILY Aspirin [Ecotrin 81 mg EC Tablet] 81 mg PO DAILY #90 tabec 08/17/16 Digoxin [Lanoxin 0.125 mg Tablet] 0.125 mg PO DAILY #30 tablet 08/17/16 Ferrous Sulfate [Feosol 325 mg Tablet] 325 mg PO DAILY #30 tablet 08/17/16 Furosemide [Lasix 20 mg Tablet] 20 mg PO DAILY #30 tablet 08/17/16 Hydrocortisone Acetate [Anusol Hc 25 mg Supp.rect] 25 mg [place] DAILYP PRN #12 supp.rect 08/17/16 Midodrine HCl [Proamatine 5 mg Tablet] 5 mg PO TID@0800,1200,1600 #90 tablet 12/27 History of Present Illness History of Present Illness: Please see H&P for full history of present illness Hospital Course Hospital Course: Patient presented for multiple episodes of rectal bleeding. Patient overnight upon being admitted for serial H&H and colonoscopy developed an episode of "indigestion" and was found to have an elevated troponin. Patient was found to have a elevated troponin up to 0.978 which was downtrending on admission. This was felt to be a type II non-STEMI due to his underlying atrial fibrillation and acute blood loss anemia. We did attempt to continue patient on Cardizem which was unsuccessful for his A. fib resulting in hypotension. Patient also was unable to tolerate Toprol as this did to cause hypotension for this patient. Patient was also removed from any Derrick/ARB as they all did cause hypotension for this patient. Patient was seen by cardiology. CTA of the chest and abdomen and pelvis were performed as patient was persistently hypotensive which revealed chronic extensive scarring of the lungs and pleura and findings consistent with pulmonary edema. No pulmonary embolus was seen. Patient was in overt congestive heart failure and improved with diuresis. Diuresis was slowed given patient's propensity towards hypotension. Evaluation of patient's hypotension included a normal cortisol level. Repeat echocardiography was performed revealing an EF of 45%. Patient was started on digoxin for his A. fib which did rate control this. Patient was started on midodrine successfully with no issue. Patient did have constipation which was resolved with gentle enemas. Patient's rectal bleeding was from a thrombosed external hemorrhoid. Patient was continued on low-dose aspirin, but was felt to be a poor candidate due to his underlying thrombocytopenia for any further aggressive anticoagulation measures at this time. Patient did have an elevated lactate while he was here in the hospital which we felt was secondary to his hypotension and metformin. Patient required no sliding scale insulin was completely diet controlled no fasting blood sugar greater than 126. Patient was discharged home today in stable condition with close follow-up with his primary care physician and local cardiology. Physical Exam Vital Signs: Temp Pulse Resp BP Pulse Ox 97.2 F 81 19 98/56 L 96 08/17/16 12:42 08/17/16 12:42 08/17/16 12:42 08/17/16 12:42 08/17/16 12:42 Intake & Output 08/16/16 08/17/16 08/18/16 06:59 06:59 06:59 Intake Total 890 1275 0 Balance 890 1275 0 Weight 75.6 kg 76.9 kg Exam: General: Awake alert and oriented x3, no acute respiratory distress HEENT: AT/NC, PERRL, EOMI, oropharynx is moist, pink, no scleral icterus, left conjunctival injection Neck: No JVD, trachea midline Chest: Clear to auscultation bilaterally CV: Irregularly irregular, no murmur or gallop Abdomen: Soft, nontender to palpation, nondistended, active bowel sounds; no rebound, rigidity, or guarding Extremities: No cyanosis, clubbing; trace edema Neuro: Cranial nerves II through XII are grossly intact without focal deficits; awake alert and oriented x3 Psych: Normal mood and affect Results Laboratory Results: 08/16/16 08:25 08/15/16 08:21 08/10/16 08/10/16 08/10/16 18:55 18:55 20:05 Creatine Kinase 74 67 CK-MB (CK-2) 1.75 Troponin I 0.978 NT-Pro-B Natriuret Pep 08/10/16 08/11/16 08/11/16 20:05 00:33 00:33 Creatine Kinase 58 CK-MB (CK-2) 1.68 1.49 Troponin I 0.875 0.823 NT-Pro-B Natriuret Pep 08/11/16 08/11/16 08/14/16 04:12 04:12 11:10 Creatine Kinase 54 L CK-MB (CK-2) 1.47 0.98 Troponin I 0.756 0.174 NT-Pro-B Natriuret Pep 16239 H 08/14/16 08/15/16 11:10 13:15 Creatine Kinase < 20 L CK-MB (CK-2) Troponin I 0.131 NT-Pro-B Natriuret Pep Impressions: Chest/Abdomen CTA 08/14/16 00:00 IMPRESSION: No evidence for pulmonary embolic disease. Extensive chronic appearing changes as noted above. Small bilateral pleural effusions are identified as noted above. There are scattered ground-glass opacities which could represent pulmonary edema or pneumonic infiltrates. Other findings as noted above Chest X-Ray 08/14/16 10:54 IMPRESSION: Lung disease as above. The patient appears to have chronic changes , calcified pleural plaques suggesting previous asbestos exposure. Qualifiers PATEINT BEING DISCHARGED WITH ANY OF THE FOLLOWING DIAGNOSIS?: Heart Failure, AR AR Pt being discharged on Aspirin therapy?: Yes AR Pt being discharged on Statins?: No Reason(s) for not prescribing Statin therapy:: Not indicated - Type II non-STEMI AR Pt discharged ACEI/ARBS?: No Reason(s) for not prescribing ACEI/ARBS:: Medical Contraindication - Hypotension HF Pt being discharged on ACEI for LVEF less than 40%?: No Reason(s) for not prescribing ACEI:: Medical Contraindication - Hypotension HF Pt being discharged on ARBS for LVEF less than 40%?: No Reason(s) for not prescribing ARBS:: Medical Contraindication - Hypotension HF Pt with Afib discharged with Warfarin?: No Reason(s) for not prescribing Warfarin:: Medical Contraindication - GI bleed HF Pt discharged on evidence-based Beta Letty?: No Reason(s) for not prescribing evidence-based Beta Letty:: Medical Contraindication - Hypotension Plan Time Spent: Greater than 30 Minutes
--- NOTE | 2016-08-17 20:33 | PROGRESS NOTE E ---
Progress Note NAME: WILFRED CHANEL : 1930 AGE: 86Y DATE: 08/17/2016 ROOM: 309 SUBJECTIVE: Note that the patient's blood pressure is much improved with the patient being on Midodrine. He denies any *------* symptoms of dizziness. He denies any chest pain or discomfort. There is no shortness of breath. There is no cough, wheezing, or sputum production. There is no TIA or CVA symptoms. There are no ventricular arrhythmias on the monitor. The patient is in atrial fibrillation with controlled ventricular response. There is no chest pain or discomfort. OBJECTIVE: GENERAL: On examination the patient is well built and well nourished in no acute distress. He is able to lie down flat. VITAL SIGNS: He is afebrile with a temperature of 97.2 degrees Fahrenheit. His pulse is 81 beats per minute, irregularly irregular. Blood pressure is 109/70. Respirations are 19 per minute. O2 saturations are 96% on 1.5 L nasal cannula. HEENT: Head is atraumatic, normocephalic. EYES: Pupils are equal, round, regular, reactive to light and accommodation. Extraocular movements are normal. ENT: Negative. NECK: Supple. There is no JVD. Carotids are equal, there is no bruit. There is no lymphadenopathy. There is no thyromegaly. LUNGS: There is no chest wall tenderness. Trachea is central. There is diminished air entry and prolonged expiration with harsh breath sounds. There are no rhonchi, rales, or wheezing. CARDIOVASCULAR: S1, S2 is heard. There is no S3 gallop. There is no S4 gallop. There is systolic murmur in left sternal border and the apex. There is no rub. S1 is of variable intensity. ABDOMEN: There is no hepatosplenomegaly. Bowel sounds are present. There are no tender areas or masses. EXTREMITIES: Femorals are mildly diminished. There are no femoral bruits. Leg pulses are 1+ bilaterally. There is no pedal edema. There is no cyanosis or clubbing. CENTRAL NERVOUS SYSTEM: The patient is conscious, awake, alert, oriented x3 with no focal deficit. PSYCHIATRIC: The patient's judgement and insight are intact. His affect is normal. LABORATORY DATA: Note that the patient's Dig level on 08/15/16 was 1.15. IMPRESSION: 1. PULMONARY ASBESTOSIS, WHICH IS CHRONIC DIAGNOSIS, AT PRESENT STABLE. 2. PULMONARY HYPERTENSION. Seems to be right ventricular systolic pressure is 46 mmHg, which is mild and approaching moderate pulmonary hypertension. Limited echocardiogram was done again yesterday and it showed the same right ventricular systolic pressures. 3. ATRIAL FIBRILLATION WITH NOW CONTROLLED VENTRICULAR RESPONSE. 4. DIABETES MELLITUS TYPE 2. The patient off metformin. 5. DIARRHEA. This is resolved. 6. EDEMA MOST LIKELY SECONDARY TO RIGHT HEART FAILURE AND ALSO PATIENT BEING ON CARDIZEM. This is resolved. 7. HISTORY OF LYMPHOMA IN REMISSION. 8. HYPERTENSION. 9. HISTORY OF RECTAL BLEEDING. 10. THROMBOCYTOPENIA. 11. PULMONARY HYPERTENSION. This is mild approaching moderate. 12. RIGHT HEART FAILURE. At present, seems to be compensated. 13. ASTHMA. The patient has not had any asthmatic attacks this admission. 14. ELEVATED TROPONIN I. This is coming down. This is most likely a combination of troponin I leak secondary to patient's hypotension, lactic acidosis, and the patient having right heart failure. No evidence of ina-SC-icgxhrzca myocardial infarction. 15. POSTURAL HYPOTENSION. Blood pressure much better improved and the patient is on Midodrine. On Midodrine the patient has no symptoms of postural hypotension. 16. CARDIOMYOPATHY WITH MILDLY REDUCED LEFT VENTRICULAR EJECTION FRACTION WITHOUT ANY EVIDENCE OF DECOMPENSATED LEFT HEART FAILURE. 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 We will recheck an echocardiogram in 3-6 months to make sure that if the heart rate is controlled the patient's left ventricular ejection fraction should come up. RECOMMENDATION: 1. Continue digoxin. Would recommend that the patient have a Dig level done in about a week. I have explained the symptoms of Dig toxicity is nausea, xanthopsia, and palpitations. 2. Also the patient and the patient's want to followup with me, it is their desire to followup with me and hence I have given them my cell number and my office number to call to make an appointment to see me in a week or so. I have also given my cell for them to call me if they are having any acute problems. TIME SPENT: Note 30 minutes spent on this patient with more than 50% of the time spent on direct patient care and also review of the patient's medications and also discussions with the attending physician on the case. Note, would recommend that the patient be discharged home not only on digoxin but also on Midodrine. We will sign of the case. DICTATING PHYSICIAN: KAUSHAL ALVARENGA M.D. [id number] PHY#: [id number] ID: [id number] JOB#: [id number] ACCT: [id number] cc: >
== END 2016-08-17 13:04 | disposition home or self-care (01) | DRG 281 ==
LOC: ER 15:00 → EH 19:59 → 3N 08-09 12:33 → OBSVTOIN 08-10 14:41
PROVIDERS: ADMIT Family Medicine; ATTEND Family Medicine
PROC: 30233N1 Transfusion of Nonautologous Red Blood Cells into Peripheral Vein, Percutaneous Approach (ICD-10-PCS; principal; 2016-08-10)
DX: I11.0 Hypertensive heart disease with heart failure (principal); I21.4 Non-ST elevation (NSTEMI) myocardial infarction; E87.1 Hypo-osmolality and hyponatremia; D62 Acute posthemorrhagic anemia; I45.2 Bifascicular block; K52.1 Toxic gastroenteritis and colitis; I50.43 Acute on chronic combined systolic (congestive) and diastolic (congestive) heart failure; I42.9 Cardiomyopathy, unspecified; K64.5 Perianal venous thrombosis; I95.1 Orthostatic hypotension; I48.2 Chronic atrial fibrillation; J61 Pneumoconiosis due to asbestos and other mineral fibers; I27.2 Other secondary pulmonary hypertension; T62.8X1A Toxic effect of other specified noxious substances eaten as food, accidental (unintentional), initial encounter; D69.6 Thrombocytopenia, unspecified; J45.909 Unspecified asthma, uncomplicated; N40.0 Benign prostatic hyperplasia without lower urinary tract symptoms; E11.9 Type 2 diabetes mellitus without complications; Z79.82 Long term (current) use of aspirin; Z87.891 Personal history of nicotine dependence; Z79.51 Long term (current) use of inhaled steroids; Z85.72 Personal history of non-Hodgkin lymphomas; Z82.3 Family history of stroke; Z82.49 Family history of ischemic heart disease and other diseases of the circulatory system; Y92.511 Restaurant or cafe as the place of occurrence of the external cause
CPT/HCPCS: 36415; 36430; 71010; 71275; 80048; 80053; 80076; 80162; 81001; 82272; 82533; 82550; 82553; 82607; 82746; 82803; 82962; 83540; 83605; 83735; 83880; 84484; 85025; 85610; 85730; 86850; 86900; 86901; 86920; 87040; 87045; 87086; 87205; 87493; 89055; 93005; 93010; 93306; 94640; 96361; 96374; 99291; G0378; G8978-GP; G8979-GP; J1160; J1940; J2405; J3490; J7030; P9016

== ENCOUNTER → 2016-08-22 | Outpatient (CLI) | payer MEDICARE, BC ==
[2016-08-22 17:54] LABS: ALBUMIN 3.8 g/dL (3.5-5.0); DIGOXIN 1.11 ng/mL (0.8-2.0)
== END ==
LOC: OD 15:21
PROVIDERS: ATTEND Specialist
DX: R06.9 Unspecified abnormalities of breathing (principal); D64.9 Anemia, unspecified; I48.2 Chronic atrial fibrillation; J61 Pneumoconiosis due to asbestos and other mineral fibers; Z79.899 Other long term (current) drug therapy; I95.9 Hypotension, unspecified; C85.94 Non-Hodgkin lymphoma, unspecified, lymph nodes of axilla and upper limb; D69.6 Thrombocytopenia, unspecified; I27.2 Other secondary pulmonary hypertension; I42.8 Other cardiomyopathies; E78.5 Hyperlipidemia, unspecified
CPT/HCPCS: 36415; 80162; 82040

== ENCOUNTER 2016-11-18 09:36 | Emergency (ER) | payer MEDICARE, BC ==
--- NOTE | 2016-11-18 09:51 | ER Document Report ---
ED General - General Stated Complaint: FALL/HEAD INJURY Mode of Arrival: Medic Information source: Patient Notes: 86-year-old male presents after a mechanical fall striking his head and his left hip. Patient denies any chest pain shortness breath neck pain back pain or any other concerns. TRAVEL OUTSIDE OF THE [place] IN LAST 30 DAYS: No - HPI Onset: Just prior to arrival Onset/Duration: Sudden Quality of pain: Achy Severity: Mild Pain Level: 1 Associated symptoms: Body/muscle aches Exacerbated by: Denies Relieved by: Denies Similar symptoms previously: No Recently seen / treated by doctor: No - Related Data Allergies/Adverse Reactions: No Known Allergies Allergy (Verified 11/18/16 09:54) Past Medical History - Social History Smoking Status: Never Smoker Cigarette use (# per day): No Chew tobacco use (# tins/day): No Smoking Education Provided: No Family History: Reviewed & Not Pertinent, Other - Cerebral hemorrhagebrother - Past Medical History Cardiac Medical History: Reports: Hx Atrial Fibrillation, Hx Hypertension Pulmonary Medical History: Reports: Hx Asthma Endocrine Medical History: Reports: Hx Diabetes Mellitus Type 2 Malignancy Medical History: Reports Hx Lymphoma Past Surgical History: Reports: Other - Right chest Port-A-Cath Review of Systems - Review of Systems Notes: REVIEW OF SYSTEMS: CONSTITUTIONAL : Denies fever, chills, or sweats. Denies recent illness. EENT: Denies eye, ear, throat, or mouth pain or symptoms. Denies nasal or sinus congestion or discharge. Denies throat, tongue, or mouth swelling or difficulty swallowing. CARDIOVASCULAR: Denies chest pain. Denies palpitations or racing or irregular heart beat. Denies ankle edema. RESPIRATORY: Denies cough, cold, or chest congestion. Denies shortness of breath, difficulty breathing, or wheezing. GASTROINTESTINAL: Denies abdominal pain or distention. Denies nausea, vomiting , or diarrhea. Denies blood in vomitus, stools, or per rectum. Denies black, tarry stools. Denies constipation. GENITOURINARY: Denies difficulty urinating, painful urination, burning, frequency, blood in urine, or discharge. MUSCULOSKELETAL: Admits to left buttocks pain SKIN: Denies rash, lesions or sores. HEMATOLOGIC : Denies easy bruising or bleeding. LYMPHATIC: Denies swollen, enlarged glands. NEUROLOGICAL: Admits to head injury PSYCHIATRIC: Denies anxiety or stress. Denies depression, suicidal ideation, or homicidal ideation. ALL OTHER SYSTEMS REVIEWED AND NEGATIVE. Dictation was performed using [employer] voice recognition software PHYSICAL EXAMINATION: GENERAL: Well-appearing, well-nourished and in no acute distress. HEAD: Hematoma noted right parietal region EYES: Pupils equal round and reactive to light, extraocular movements intact, sclera anicteric, conjunctiva are normal. ENT: Nares patent, oropharynx clear without exudates. Moist mucous membranes. NECK: Normal range of motion, supple without lymphadenopathy LUNGS: Breath sounds clear to auscultation bilaterally and equal. No wheezes rales or rhonchi. HEART: Regular rate and rhythm without murmurs ABDOMEN: Soft, nontender, nondistended abdomen. No guarding, no rebound. No masses appreciated. Musculoskeletal: Normal range of motion, no pitting or edema. No cyanosis. Patient able to flex and extend his knees in his hip with no difficulty NEUROLOGICAL: Cranial nerves grossly intact. Normal speech, normal gait. Normal sensory, motor exams PSYCH: Normal mood, normal affect. SKIN: Warm, Dry, normal turgor, no rashes or lesions noted. Physical Exam - Vital signs Vitals: Temp Pulse Resp BP Pulse Ox 97.9 F 80 18 135/73 H 96 11/18/16 09:37 11/18/16 09:37 11/18/16 09:37 11/18/16 09:37 11/18/16 09:37 Course - Re-evaluation Re-evalutation: 11/18/16 09:51 Is a very well-appearing male no acute distress presents after mechanical fall. I do not expect any life-threatening issues however given his age CT head neck Noted as well as x-ray of the hip 11/18/16 10:39 Patient is only on baby aspirin daily no other blood thinner, CT imaging and x- rays noted no acute abnormality patient is very happy with discharge plan After performing a Medical Screening Examination, I estimate there is LOW risk for INTRACRANIAL HEMORRHAGE, UNSTABLE SPINE FRACTURE, CENTRAL CORD SYNDROME, CAUDA EQUINA, THORACIC AORTIC DISSECTION, PNEUMOTHORAX, PERFORATED BOWEL, RUPTURED ABDOMINAL AORTIC ANEURYSM, ACUTE TENDON RUPTURE, COMPARTMENT SYNDROME, or OPEN FRACTURE, thus I consider the discharge disposition reasonable. Also, there is no evidence or peritonitis, sepsis, or toxicity. The patient and I have discussed the diagnosis and risks, and we agree with discharging home to follow-up with their primary doctor with the understanding that symptoms and presentations can change. We also discussed returning to the Emergency Department immediately if new or worsening symptoms occur. We have discussed the symptoms which are most concerning (e.g., bloody stool, fever, changing or worsening pain, vomiting) that necessitate immediate return. - Vital Signs Vital signs: Temp Pulse Resp BP Pulse Ox 97.9 F 80 18 135/73 H 96 11/18/16 09:37 11/18/16 09:37 11/18/16 09:37 11/18/16 09:37 11/18/16 09:37 - Diagnostic Test Radiology reviewed: Image reviewed, Reports reviewed Discharge - Discharge Clinical Impression: Fall Qualifiers: Encounter type: initial encounter Qualified Code(s): W19.XXXA - Unspecified fall, initial encounter Scalp hematoma Qualifiers: Encounter type: initial encounter Qualified Code(s): S00.03XA - Contusion of scalp, initial encounter Hip pain Qualifiers: Laterality: left Qualified Code(s): M25.552 - Pain in left hip Condition: Stable Disposition: HOME, SELF-CARE Additional Instructions: Follow up with your physician tomorrow for further care or return to the ED IMMEDIATELY if symptoms worsen or new concerns occur. If you cannot afford to follow up with your primary care physician a list of low cost clinics have been provided at the end of your discharge papers as well.
[2016-11-18 11:17] VITALS: BP 103/72
== END 2016-11-18 11:10 | disposition home or self-care (01) ==
LOC: ER 09:36
DX: S00.03XA Contusion of scalp, initial encounter (principal); M25.552 Pain in left hip; W01.0XXA Fall on same level from slipping, tripping and stumbling without subsequent striking against object, initial encounter; I10 Essential (primary) hypertension; E11.9 Type 2 diabetes mellitus without complications; J45.909 Unspecified asthma, uncomplicated; Z85.72 Personal history of non-Hodgkin lymphomas
CPT/HCPCS: 70450; 72125; 99284

== ENCOUNTER 2017-01-31 02:49 | Emergency (ER) | payer MEDICARE, BC ==
--- NOTE | 2017-01-31 04:01 | ER Document Report ---
ED Fall - General Chief Complaint: Dizziness Stated Complaint: FALL Time Seen by Provider: 01/31/17 03:43 Mode of Arrival: Wheelchair Information source: Patient Notes: 86-year-old male presents to ED for fall at home. He states he was given a difficult bed got dizzy and fell. He hit his head on furniture. No loss of consciousness. History of frequent falls and dizziness. He also complains of left shoulder pain. TRAVEL OUTSIDE OF THE [place] IN LAST 30 DAYS: No - HPI Occurred: This evening Where: Home, Indoors Context: Lost balance - Dizzy loss of balance and fell Associated symptoms: None Location of injury/pain: Head, Shoulder - Left shoulder Quality of pain: Achy Severity: Moderate Pain Level: 3 - Related data Allergies/Adverse Reactions: No Known Allergies Allergy (Verified 11/18/16 09:54) Past Medical History - General Information source: Patient - Social History Smoking Status: Former Smoker Cigarette use (# per day): No Chew tobacco use (# tins/day): No Smoking Education Provided: No Frequency of alcohol use: None Drug Abuse: None Lives with: Family Family History: Arthritis, CAD, CVA, Hyperlipidemia, Hypertension, Malignancy. denies: COPD, DM, Thyroid Disfunction - Past Medical History Cardiac Medical History: Reports: Hx Atrial Fibrillation, Hx Hypertension Pulmonary Medical History: Reports: Hx Asthma EENT Medical History: Reports: None Neurological Medical History: Reports: None Endocrine Medical History: Reports: Hx Diabetes Mellitus Type 2 Renal/ Medical History: Reports: None Malignancy Medical History: Reports Hx Lymphoma GI Medical History: Reports: None Musculoskeltal Medical History: Reports Hx Arthritis, Reports Hx Musculoskeletal Trauma Skin Medical History: Reports None Psychiatric Medical History: Reports: None Traumatic Medical History: Reports: None Infectious Medical History: Reports: None Past Surgical History: Reports: Other - Right chest Port-A-Cath Review of Systems - Review of Systems Constitutional: No symptoms reported EENT: No symptoms reported Cardiovascular: No symptoms reported Respiratory: No symptoms reported Gastrointestinal: No symptoms reported Genitourinary: No symptoms reported Male Genitourinary: No symptoms reported Musculoskeletal: Joint pain - Shoulder pain Skin: Other - Skin avulsion to the top of his head with ecchymotic area Hematologic/Lymphatic: No symptoms reported Neurological/Psychological: Headaches -: Yes All other systems reviewed and negative Physical Exam - Vital signs Vitals: Temp Pulse Resp BP Pulse Ox 97.7 F 86 14 109/77 100 01/31/17 02:57 01/31/17 02:57 01/31/17 02:57 01/31/17 02:57 01/31/17 02:57 Interpretation: Normal - General General appearance: Appears well, Alert - HEENT Head: Ecchymosis, Open wounds, Tenderness Eyes: Normal Ears: Normal External canal: Normal Tympanic membrane: Normal Sinus: Normal Nasal: Normal Mouth/Lips: Normal Mucous membranes: Normal Pharynx: Normal Neck: Normal - Respiratory Respiratory status: No respiratory distress Chest status: Nontender Breath sounds: Normal Chest palpation: Normal - Cardiovascular Rhythm: Regular Heart sounds: Normal auscultation Murmur: No - Abdominal Inspection: Normal Distension: No distension Bowel sounds: Normal Tenderness: Nontender Organomegaly: No organomegaly - Back Back: Normal, Nontender - Extremities General upper extremity: Normal inspection, Normal color, Normal temperature General lower extremity: Normal inspection, Nontender, Normal color, Normal ROM , Normal temperature, Normal weight bearing Shoulder: Tender, Limited ROM - Due to pain - Neurological Neuro grossly intact: Yes Cognition: Normal Orientation: AAOx4 Franck Coma Scale Eye Opening: Spontaneous Franck Coma Scale Verbal: Oriented Franck Coma Scale Motor: Obeys Commands Franck Coma Scale Total: 15 Speech: Normal Motor strength normal: LUE, RUE, LLE, RLE Sensory: Normal - Psychological Associated symptoms: Normal affect, Normal mood - Skin Skin Temperature: Warm Skin Moisture: Dry Skin Color: Normal Location of irregularity: Other - Skin avulsion to the top of his head Character of irregularity: Symmetric Irregularity with: Swelling, Tenderness Course - Re-evaluation Re-evalutation: 01/31/17 05:37 Left shoulder xray and CT of head and neck discussed with patient and family. Written report given to . Head avulsion injury was cleaned with soap and water and dressed with bacitracin and some gauze. given instructions on care for the open wound to his head. Patient to follow-up with his primary doctor. - Vital Signs Vital signs: Temp Pulse Resp BP Pulse Ox 97.4 F 76 12 109/63 97 01/31/17 05:55 01/31/17 05:55 01/31/17 05:55 01/31/17 05:55 01/31/17 05:55 - Diagnostic Test Radiology reviewed: Image reviewed, Reports reviewed Discharge - Discharge Clinical Impression: skin avulsion to head Head injury Qualifiers: Encounter type: initial encounter Qualified Code(s): S09.90XA - Unspecified injury of head, initial encounter Right shoulder pain Qualifiers: Chronicity: acute Qualified Code(s): M25.511 - Pain in right shoulder Condition: Stable Disposition: HOME, SELF-CARE Additional Instructions: Avulsion Injury You have an avulsion injury -- a loss of skin which can't be helped by suturing. When large, these injuries can require skin grafting. Smaller defects or shallow avulsions usually heal well with dressings. Keep the dressing clean and dry. If the bandage becomes wet, remove it, blot the area dry, and apply a fresh dressing. Change the dressings every day. Complete healing may take anywhere from 10 days to two months. The healing time depends on the size and depth of the avulsion and on the amount of crushing of underlying tissues. Re-examination by the physician is often necessary. If any signs of infection occur (swelling, redness, increasing tenderness, red streaks, profuse purulent drainage from the avulsion, tender lumps in the armpit or groin above the avulsion, or fever), see your doctor immediately. Head Injury Precautions At this point, there is no evidence that your head injury is serious. Observation is necessary, however. Take only clear liquids for the first few hours, unless told otherwise by the doctor. If no pain medication was prescribed, you may take acetaminophen according to the directions on the bottle. Do not take any medication that may alter your level of alertness (unless you've discussed it with the doctor first) . Limit activity for the first 24 hours. Bed rest is best. During the first 24 hours, check to see approximately every two to three hours that the patient is easily arousable, responds normally, and can perform common tasks such as walking without difficulty. Contact your doctor or go to the hospital if any of the following things occur: Persistent vomiting, difficulty in arousing the patient, worsening or continued headache, or failure to improve as expected. Head injuries can cause symptoms that persist for a few days or even a few weeks. Shoulder Injury You have injured your shoulder. This usually results from stretching or tearing of the tendons during trauma. Time and protection are required in order to heal properly. Many injuries are quite disabling, and should be taken seriously. Initial treatment includes cold packs and a sling to rest the shoulder. The physician has assessed the seriousness of your injury, and has outlined a treatment plan. Understand that this treatment may change, depending on how you progress. If a re-examination was recommended, it is important that you follow up as instructed. Some shoulder injuries (such as partial tear of the rotator cuff) are only suspected after you've failed to improve. Call us if there's severe pain, numbness, or loss of function. SOAP CLEANSING: Gently wash the wound daily using a mild soap (like Ivory, Phisoderm, Neutrogena). Use warm water, rubbing gently until all debris, ooze, and crusting have been washed from the wound. Allow to dry briefly (about 10 minutes) after cleaning. Repeat this cleansing at least three times a day for the first two days and then once or twice a day. ANTIBIOTIC OINTMENT PROTECTION: Your wounds are such that dressing them is not practical or optional. After cleansing, you should apply a thin coating of antibiotic ointment ( Bacitracin, not Neosporin) to the wounds at least three times daily. This lessens infection risk, and may decrease the amount of scarring. Use a q-tip or dull butter knife, not your finger, to apply this ointment. Any debris or ooze which builds up in the ointment should be gently rubbed off with a sterile gauze pad. Harder crusting may need to be gently scrubbed off with a clean wash cloth with soap and warm water, perhaps applying a warm, wet wash cloth to the wound for ten minutes first. Development of redness, severe itching, or blistering may mean allergy to the ointment. See the doctor. Acetaminophen Acetaminophen may be taken for pain relief or fever control. It's much safer than aspirin, offering a wider range of "safe" dosages. It is safe during . Some brand names are Tylenol, Panadol, Datril, Anacin 3, Tempra, and Liquiprin. Acetaminophen can be repeated every four hours. The following are maximum recommended dosages: WEIGHT Dose Drops Elixir Chewable( 80mg) (LBS.) drprs=droppers tsp=teaspoon 6 40 mg .4 ml (1/2) 6-11 80 mg .8 ml (full) 1/2 tsp 1 tab 12-16 120 mg 1 1/2 drprs 3/4 tsp 1 1/2 tabs 17-23 160 mg 2 drprs 1 tsp 2 tabs 24-30 240 mg 3 drprs 1 1/2 tsp 3 tabs 30-35 320 mg 2 tsp 4 tabs 36-41 360 mg 2 1/4 tsp 4 1 /2 tabs 42-47 400 mg 2 1/2 tsp 5 tabs 48-53 480 mg 3 tsp 6 tabs 54-59 520 mg 3 1/4 tsp 6 1 /2 tabs 60-64 560 mg 3 1/2 tsp 7 tabs 65-70 600 mg 3 3/4 tsp 7 1 /2 tabs 71-76 640 mg 4 tsp 8 tabs 77-82 720 mg 4 1/2 tsp 9 tabs 83-88 800 mg 5 tsp 10 tabs >89 pounds or adults 650 mg to 900 mg Acetaminophen can be repeated every four hours. Maximum daily dose not to exceed 4000 mg. These maximum recommended dosages are slightly higher than the dosages written on the product container, but these dosages are very safe and well below the toxic dosage for acetaminophen. FOLLOW-UP CARE: If you have been referred to a physician for follow-up care, call the physician s office for an appointment as you were instructed or within the next two days. If you experience worsening or a significant change in your symptoms, notify the physician immediately or return to the Emergency Department at any time for re-evaluation. Referrals: MAURICE MCCORMICK MD [Primary Care Provider] - Follow up tomorrow
--- NOTE | 2017-01-31 05:12 | RADIOLOGY REPORT (SQ) ---
EXAM DESCRIPTION: CT HEAD WITHOUT COMPLETED DATE/TIME: 01/31/2017 4:59 am REASON FOR STUDY: fall head and shoulder injury COMPARISON: 11/18/2016. TECHNIQUE: Axial images acquired through the brain without intravenous contrast. Images reviewed wi th bone, brain and subdural windows. Images stored on PACS. All CT scanners at this facility use dose modulation, iterative reconstruction, and/or weight based d osing when appropriate to reduce radiation dose to as low as reasonably achievable (ALARA). [facility]: Dose Right [facility]: CareDose [facility]: Dose Right [facility]: Teradose 4D [facility]: Driverdo RADIATION DOSE: Up-to-date CT equipment and radiation dose reduction techniques were employed. CTDIv ol: 55.3 mGy. DLP: 996 mGy-cm. mGy. LIMITATIONS: None. FINDINGS: VENTRICLES: Normal size and contour. CEREBRUM: No masses. No hemorrhage. No midline shift. Normal stone/white matter differentiation. N o evidence for acute infarction. Mild cerebral volume loss. Mild white matter microangiopathy. CEREBELLUM: No masses. No hemorrhage. No alteration of density. No evidence for acute infarction. EXTRAAXIAL SPACES: No fluid collections. No masses. ORBITS AND GLOBE: No intra- or extraconal masses. Normal contour of globe without masses. CALVARIUM: No fracture. PARANASAL SINUSES: No fluid or mucosal thickening. SOFT TISSUES: No mass or hematoma. OTHER: No other significant finding. IMPRESSION: No acute findings. TECHNICAL DOCUMENTATION: JOB ID: [id number] Quality ID # [id number]: Final reports with documentation of one or more dose reduction techniques (e.g., Au tomated exposure control, adjustment of the mA and/or kV according to patient size, use of iterative reconstruction technique) 2010 [employer]- All Rights Reserved
--- NOTE | 2017-01-31 05:17 | RADIOLOGY REPORT (SQ) ---
EXAM DESCRIPTION: CT CERVICAL SPINE WITHOUT COMPLETED DATE/TIME: 01/31/2017 4:59 am REASON FOR STUDY: fall head and shoulder injury COMPARISON: 11/18/2016. TECHNIQUE: Axial images acquired through the cervical spine without intravenous contrast. Images re viewed with lung, soft tissue and bone windows. Reconstructed coronal and sagittal MPR images review ed. Images stored on PACS. All CT scanners at this facility use dose modulation, iterative reconstruction, and/or weight based d osing when appropriate to reduce radiation dose to as low as reasonably achievable (ALARA). [facility]: Dose Right [facility]: CareDose [facility]: Dose Right [facility]: Teradose 4D [facility]: [employer] RADIATION DOSE: Up-to-date CT equipment and radiation dose reduction techniques were employed. CTDIv ol: 15.7 mGy. DLP: 335 mGy-cm. mGy. LIMITATIONS: None. FINDINGS: ALIGNMENT: 0.3 cm C4 degenerative retrolisthesis. Moderate straightening of the cervical spine. Moderate bony demineralization. MINERALIZATION: Osteopenia. VERTEBRAL BODIES: No fractures or dislocation. DISCS: Moderate C3-C4 and C5-C6 intervertebral fusion. C3-C4: Mild -moderate spinal canal stenosis and moderate bilateral C4 bony foraminal stenosis due to moderate desiccated disc bulge -osteophyte complex. C4-C5: MK mild -moderate spinal canal stenosis and moderate bilateral C5 bony foraminal stenosis due to 0.3 cm degenerative C4 retrolisthesis, small-moderate desiccated disc bulge-osteophyte complex and spondylosis. C5-C6: Intravertebral fusion. C6-C7: Mild spinal canal stenosis due to a small disc bulge-osteophyte complex. FACETS, LATERAL MASSES, POSTERIOR ELEMENTS: As above. HARDWARE: None in the spine. VISUALIZED RIBS: No fractures. LUNG APICES AND SOFT TISSUES: Moderate centrilobular emphysema. Right IJ central line partially imag ed. OTHER: No other significant finding. IMPRESSION: No acute findings. 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 TECHNICAL DOCUMENTATION: JOB ID: [id number] Quality ID # [id number]: Final reports with documentation of one or more dose reduction techniques (e.g., Au tomated exposure control, adjustment of the mA and/or kV according to patient size, use of iterative reconstruction technique) 2010 [employer]- All Rights Reserved
--- NOTE | 2017-01-31 05:18 | RADIOLOGY REPORT (SQ) ---
EXAM DESCRIPTION: SHOULDER LEFT 2 OR MORE VIEWS COMPLETED DATE/TIME: 01/31/2017 5:04 am REASON FOR STUDY: fall head and shoulder injury COMPARISON: None. NUMBER OF VIEWS: Three views. TECHNIQUE: Internal rotation, external rotation, and Y view images acquired of the left shoulder. LIMITATIONS: None. FINDINGS: MINERALIZATION: Normal. BONES: No acute fracture or dislocation. No worrisome bone lesions. JOINTS: No dislocation. 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 VISUALIZED LUNGS AND RIBS: No pneumothorax. No rib fracture. SOFT TISSUES: No radiopaque foreign body. OTHER: Atherosclerosis. IMPRESSION: NO RADIOGRAPHIC EVIDENCE OF ACUTE INJURY. TECHNICAL DOCUMENTATION: JOB ID: [id number] [employer]- All Rights Reserved
[2017-01-31 06:00] VITALS: BP 109/63
== END 2017-01-31 05:55 | disposition home or self-care (01) ==
LOC: ER 02:49
DX: S01.00XA Unspecified open wound of scalp, initial encounter (principal); W19.XXXA Unspecified fall, initial encounter; Y93.89 Activity, other specified; Y92.009 Unspecified place in unspecified non-institutional (private) residence as the place of occurrence of the external cause; R42 Dizziness and giddiness; Z87.891 Personal history of nicotine dependence; M25.511 Pain in right shoulder; R51 Headache; I10 Essential (primary) hypertension; E11.9 Type 2 diabetes mellitus without complications; Z85.72 Personal history of non-Hodgkin lymphomas
CPT/HCPCS: 70450; 72125; 99284

== ENCOUNTER 2017-03-06 01:08 | Emergency (ER) | payer MEDICARE, BC ==
--- NOTE | 2017-03-06 02:08 | ER Document Report ---
ED Extremity Problem, Upper - General Chief Complaint: L arm hematoma/ bruise Stated Complaint: LEFT ARM PAIN Time Seen by Provider: 03/06/17 02:03 Notes: The patient is an 86-year-old male who presents with several days of bruising to his left arm after he had a fall. He was seen in the emergency room and had a negative head CT, but had no arm pain or bruising at that time. He says he has left shoulder pain when he tries to extend his shoulder, but has no pain when he is at rest. He takes a baby aspirin but denies any other blood thinner use. Denies numbness, tingling, other bruising, chest pain, shortness of breath or lightheadedness. TRAVEL OUTSIDE OF THE [place] IN LAST 30 DAYS: No - Related Data Allergies/Adverse Reactions: No Known Allergies Allergy (Verified 11/18/16 09:54) Past Medical History - General Information source: Patient - Social History Smoking Status: Unknown if Ever Smoked Family History: Arthritis, CAD, CVA, Hyperlipidemia, Hypertension, Malignancy. denies: COPD, DM, Thyroid Disfunction - Past Medical History Cardiac Medical History: Reports: Hx Atrial Fibrillation, Hx Hypertension Pulmonary Medical History: Reports: Hx Asthma Endocrine Medical History: Reports: Hx Diabetes Mellitus Type 2 Renal/ Medical History: Denies: Hx Peritoneal Dialysis Malignancy Medical History: Reports Hx Lymphoma Musculoskeltal Medical History: Reports Hx Arthritis, Reports Hx Musculoskeletal Trauma Past Surgical History: Reports: Other - Right chest Port-A-Cath Review of Systems - Review of Systems Notes: REVIEW OF SYSTEMS: CONSTITUTIONAL: -fevers, -chills EENT: -eye pain, -difficulty swallowing, -nasal congestion CARDIOVASCULAR:-chest pain, -syncope. RESPIRATORY: -cough, -SOB GASTROINTESTINAL: -abdominal pain, - nausea, -vomiting, -diarrhea GENITOURINARY: -dysuria, -hematuria MUSCULOSKELETAL: +left shoulder pain, -back pain, -neck pain SKIN: +left arm bruising HEMATOLOGIC: -easy bruising or bleeding. LYMPHATIC: -swollen, enlarged glands. NEUROLOGICAL: -altered mental status or loss of consciousness, -headache, - neurologic symptoms PSYCHIATRIC: -anxiety, -depression. ALL OTHER SYSTEMS REVIEWED AND NEGATIVE. Physical Exam - Vital signs Vitals: Temp Pulse Resp BP Pulse Ox 97.6 F 105 H 16 116/58 L 97 03/06/17 01:17 03/06/17 01:17 03/06/17 01:03/06/17 01:03/06/17 01:17 - Notes Notes: PHYSICAL EXAMINATION: GENERAL: Well-appearing, well-nourished and in no acute distress. HEAD: Atraumatic, normocephalic. EYES: Pupils equal round and reactive to light, extraocular movements intact, sclera anicteric, conjunctiva are normal. ENT: nares patent, oropharynx clear without exudates. Moist mucous membranes. NECK: Normal range of motion, supple without lymphadenopathy LUNGS: Breath sounds clear to auscultation bilaterally and equal. No wheezes rales or rhonchi. HEART: Regular rate and rhythm without murmurs ABDOMEN: Soft, nontender, normoactive bowel sounds. No guarding, no rebound. No masses appreciated. EXTREMITIES: Left shoulder non-tender, painful left shoulder abduction and extension; non-tender humerus or elbow; strong distal pulses NEUROLOGICAL: Cranial nerves grossly intact. Normal speech, normal gait. Normal sensory and motor exams. PSYCH: Normal mood, normal affect. SKIN: Ecchymosis over left upper arm and elbow Course - Re-evaluation Re-evalutation: No signs of compartment syndrome. X-rays do not show any acute fractures. Bruising most likely from fall a few days ago. Instructed him to continue anti- inflammatories and ice packs with follow-up at her primary care physician. - Vital Signs Vital signs: Temp Pulse Resp BP Pulse Ox 97.6 F 105 H 16 116/58 L 97 03/06/17 01:17 03/06/17 01:03/06/17 01:03/06/17 01:03/06/17 01:17 - Diagnostic Test Radiology reviewed: Image reviewed, Reports reviewed Radiology results interpreted by me: Left shoulder and elbow x-ray: no acute fractures Discharge - Discharge Clinical Impression: Ecchymosis Left shoulder pain Qualifiers: Chronicity: acute Qualified Code(s): M25.512 - Pain in left shoulder Condition: Stable Disposition: HOME, SELF-CARE Additional Instructions: Contusion Your injury has resulted in a contusion -- a crushing of the deep tissues. No injury to important structures was detected during the physician's exam. Contusions vary in the amount of pain they cause, and in the length of time required for healing. Typically, the area will become bruised, and will remain painful to touch for two or three weeks. However, most patients are back to working and playing within a few days. After the initial period of rest and cold-packs, your symptoms (together with the doctor's recommendations) will determine how rapidly you can get back to full activity. Usually this means "do what feels okay, but don't do things that hurt." If re-examination was recommended, it's important to follow up as instructed. Call the doctor or return any time if pain increases, if swelling becomes severe, if you develop numbness or weakness in an injured extremity, or if any other alarming symptoms occur. Referrals: MAURICE MCCORMICK MD [Primary Care Provider] - Follow up as needed JULIA PALM DO [ACTIVE STAFF] - Follow up as needed
[2017-03-06 03:04] VITALS: BP 117/74
--- NOTE | 2017-03-06 03:15 | RADIOLOGY REPORT (SQ) ---
EXAM DESCRIPTION: SHOULDER LEFT 2 OR MORE VIEWS COMPLETED DATE/TIME: 03/06/2017 2:51 am REASON FOR STUDY: fall, bruising , joint pain, hurts to extend arm. COMPARISON: Left shoulder x-ray 01/31/2017. NUMBER OF VIEWS: Three views. TECHNIQUE: Internal rotation, external rotation, and Y view images acquired of the left shoulder. LIMITATIONS: None. FINDINGS: MINERALIZATION: Osteopenia. BONES: No acute fracture or dislocation. JOINTS: Degenerative changes at the acromioclavicular and glenohumeral joints. VISUALIZED LUNGS AND RIBS: No pneumothorax. No displaced rib fracture. SOFT TISSUES: No radiopaque foreign body. IMPRESSION: No radiographic evidence of acute injury. Degenerative changes. TECHNICAL DOCUMENTATION: JOB ID: [id number] [place]-[id number] 2010 [employer]- All Rights Reserved
--- NOTE | 2017-03-06 03:30 | RADIOLOGY REPORT (SQ) ---
EXAM DESCRIPTION: ELBOW LEFT AP/LATERAL COMPLETED DATE/TIME: 03/06/2017 2:51 am REASON FOR STUDY: fall, bruising COMPARISON: None NUMBER OF VIEWS: Two views. TECHNIQUE: AP and lateral radiographic images acquired of the left elbow. LIMITATIONS: None. FINDINGS: MINERALIZATION: Normal. BONES: No acute fracture or dislocation. Bony spurs at the olecranon and radial head. JOINT: No effusion. SOFT TISSUES: No significant soft tissue swelling. No radiopaque foreign body. IMPRESSION: No radiographic evidence of acute fracture. TECHNICAL DOCUMENTATION: JOB ID: [id number] [id number] 2010 [employer]- All Rights Reserved
== END 2017-03-06 03:02 | disposition home or self-care (01) ==
LOC: ER 01:08
DX: M25.512 Pain in left shoulder (principal); M79.602 Pain in left arm; I48.91 Unspecified atrial fibrillation; I10 Essential (primary) hypertension; J45.909 Unspecified asthma, uncomplicated; E11.9 Type 2 diabetes mellitus without complications; Z85.72 Personal history of non-Hodgkin lymphomas; Z79.82 Long term (current) use of aspirin
CPT/HCPCS: 99283

== ENCOUNTER 2017-04-14 16:03 | Inpatient (IN) | payer MEDICARE, BC ==
--- NOTE | 2017-04-14 16:25 | ER Document Report ---
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 Patient denies any confusion I have greeted and performed a rapid initial assessment of this patient. A comprehensive ED assessment and evaluation of the patient, analysis of test results and completion of the medical decision making process will be conducted by additional ED providers. PHYSICAL EXAMINATION: GENERAL: Well-appearing, well-nourished and in no acute distress. HEAD: Atraumatic, normocephalic. EYES: Pupils equal round extraocular movements intact, conjunctiva are normal. ENT: Nares patent NECK: Normal range of motion LUNGS: No respiratory distress Musculoskeletal: Normal range of motion NEUROLOGICAL: Normal speech, normal gait. PSYCH: Normal mood, normal affect. SKIN: Warm, Dry, normal turgor, no rashes or lesions noted. TRAVEL OUTSIDE OF THE [place] IN LAST 30 DAYS: No - Related Data Allergies/Adverse Reactions: No Known Allergies Allergy (Verified 04/14/17 16:14) Past Medical History - Social History Chew tobacco use (# tins/day): No Frequency of alcohol use: None Drug Abuse: None - Past Medical History Cardiac Medical History: Reports: Hx Atrial Fibrillation, Hx Hypertension Pulmonary Medical History: Reports: Hx Asthma Endocrine Medical History: Reports: Hx Diabetes Mellitus Type 2 Renal/ Medical History: Denies: Hx Peritoneal Dialysis Malignancy Medical History: Reports Hx Lymphoma Musculoskeltal Medical History: Reports Hx Arthritis, Reports Hx Musculoskeletal Trauma Surgical Hx: Negative Past Surgical History: Reports: Other - Right chest Port-A-Cath - Immunizations Hx Diphtheria, Pertussis, Tetanus Vaccination: Yes Physical Exam - Vital signs Vitals: Temp Pulse Resp BP Pulse Ox 97.8 F 91 18 112/56 L 97 04/14/17 16:07 04/14/17 16:07 04/14/17 16:07 04/14/17 16:07 04/14/17 16:07 Course - Vital Signs Vital signs: Temp Pulse Resp BP Pulse Ox 97.8 F 91 18 112/56 L 97 04/14/17 16:07 04/14/17 16:07 04/14/17 16:07 04/14/17 16:07 04/14/17 16:07
[2017-04-14 17:27] LABS: ABSOLUTE LYMPHOCYTES (AUTO) 0.4 10^3/uL (0.5-4.7); ABSOLUTE MONOCYTES (AUTO) 0.4 10^3/uL (0.1-1.4); ABSOLUTE NEUT (AUTO) 2.9 10^3/uL (1.7-8.2); BASOPHILS % (AUTO) 0.4 % (0-2); EOSINOPHILS % (AUTO) 1.1 % (0-6); HEMATOCRIT 39.1 % (37.9-51.0); HEMOGLOBIN 12.8 g/dL (13.5-17.0); HGB HCT DIFFERENCE -0.7; LYMPHOCYTES % (AUTO) 11.3 % (13-45); MEAN CORPUSCULAR HEMOGLOBIN 31.9 pg (27.0-33.4); MEAN CORPUSCULAR HGB CONC 32.6 g/dL (32.0-36.0); MEAN CORPUSCULAR VOLUME 98 fl (80-97); MONOCYTES % (AUTO) 11.4 % (3-13); RED CELL DISTRIBUTION WIDTH 17.9 % (11.5-14.0); SEGMENTED NEUTROPHILS % (AUTO) 75.8 % (42-78); WHITE BLOOD COUNT 3.8 10^3/uL (4.0-10.5)
--- NOTE | 2017-04-14 17:39 | RADIOLOGY REPORT (SQ) ---
EXAM DESCRIPTION: ELBOW LEFT OVER 2 VIEWS COMPLETED DATE/TIME: 04/14/2017 5:29 pm REASON FOR STUDY: fall, hx of large cell lymphoma COMPARISON: 03/06/2017. NUMBER OF VIEWS: Four views left elbow. LIMITATIONS: None. FINDINGS: Osteopenic. No displaced fracture appreciated. Probable mild joint effusion. Degenerati ve spurring and changes of chronic epicondylitis. No radiopaque foreign body. OTHER: No other significant finding. IMPRESSION: Probable small joint effusion. No displaced fracture identified. TECHNICAL DOCUMENTATION: JOB ID: [id number]
[2017-04-14 17:46] LABS: ALANINE AMINOTRANSFERASE 40 U/L (21-72); ALBUMIN 4.2 g/dL (3.5-5.0); ALKALINE PHOSPHATASE 199 U/L (38-126); ANION GAP 8 (5-19); ASPARTATE AMINO TRANSFERASE 48 U/L (17-59); BILIRUBIN,DIRECT 0.8 mg/dL (0.0-0.4); BILIRUBIN,TOTAL 1.5 mg/dL (0.2-1.3); BLOOD UREA NITROGEN 29 mg/dL (7-20); CALCIUM 10.8 mg/dL (8.4-10.2); CARBON DIOXIDE 34 mmol/L (22-30); CHLORIDE 95 mmol/L (98-107); CREATININE RESULT 0.87 mg/dL (0.52-1.25); GLUCOSE 110 mg/dL (75-110); POTASSIUM 4.4 mmol/L (3.6-5.0); SODIUM 137.2 mmol/L (137-145); TOTAL PROTEIN 7.8 g/dL (6.3-8.2)
[2017-04-14 17:48] LABS: CREATINE KINASE < 20 U/L (55-170)
[2017-04-14 17:58] LABS: CREATINE KINASE MB 3.04 ng/mL (<4.55)
[2017-04-14 18:01] LABS: TROPONIN I 0.149 ng/mL
--- NOTE | 2017-04-14 18:25 | RADIOLOGY REPORT (SQ) ---
EXAM DESCRIPTION: CT CERVICAL SPINE WITHOUT; CT HEAD WITHOUT COMPLETED DATE/TIME: 04/14/2017 6:00 pm REASON FOR STUDY: fall, hx of large cell lymphoma COMPARISON: See below. TECHNIQUE: Axial images acquired through the brain and cervical spine without intravenous contrast. Images reviewed with brain, subdural, lung, soft tissue and bone windows. Reconstructed coronal and sagittal MPR images reviewed. Images stored on PACS. All CT scanners at this facility use dose modulation, iterative reconstruction, and/or weight based d osing when appropriate to reduce radiation dose to as low as reasonably achievable (ALARA). [facility]: Dose Right [facility]: CareDose [facility]: Dose Right [facility]: Teradose 4D [facility]: [employer] RADIATION DOSE: Up-to-date CT equipment and radiation dose reduction techniques were employed. CTDIv ol: 16.4 mGy. DLP: 371 mGy-cm.; Up-to-date CT equipment and radiation dose reduction techniques were employed. CTDIvol: 64.6 mGy. DLP: 1163 mGy-cm. mGy. LIMITATIONS: None. FINDINGS: Brain: 01/31/2017 comparison. Atrophy is present with prominence of the ventricles but no evidence of hemorr kt or mass or shift. No skull fracture evident. Clear paranasal sinuses. Cervical spine: 01/31/2017 comparison. Cervical spondylosis with areas of ankylosis at C3-4 and C5-6. No evidence of fracture or bone lesion. Upper mediastinal small lymph nodes. Probable scarring in the lung apices . IMPRESSION: 1. No acute intracranial abnormality. 2. Cervical spondylosis without fracture. TECHNICAL DOCUMENTATION: JOB ID: [id number] Quality ID # [id number]: Final reports with documentation of one or more dose reduction techniques (e.g., Au tomated exposure control, adjustment of the mA and/or kV according to patient size, use of iterative reconstruction technique) 2010 [employer]- All Rights Reserved
--- NOTE | 2017-04-14 19:54 | RADIOLOGY REPORT (SQ) ---
EXAM DESCRIPTION: CT ABD/PELVIS WITH IV ORAL; CT CHEST WITH COMPLETED DATE/TIME: 04/14/2017 7:31 pm REASON FOR STUDY: fall, hx of large cell lymphoma CONTRAST TYPE AND DOSE: contrast/concentration: Isovue 370.00 mg/ml; Total Contrast Delivered: 67.0 ml; Total Saline Delivered: 65.0 ml RENAL FUNCTION: Please see medical record. COMPARISON: 08/14/2016. TECHNIQUE: CT scan of the chest performed using helical scanning technique with dynamic intravenous contrast injection. Images reviewed with lung, soft tissue and bone windows. Reconstructed coronal a nd sagittal MPR images reviewed. All images stored on PACS. All CT scanners at this facility use dose modulation, iterative reconstruction, and/or weight based d osing when appropriate to reduce radiation dose to as low as reasonably achievable (ALARA). [facility]: Dose Right [facility]: CareDose [facility]: Dose Right [facility]: Teradose 4D [facility]: [employer] RADIATION DOSE: Up-to-date CT equipment and radiation dose reduction techniques were employed. CTDIv ol: 5.5 - 8.0 mGy. DLP: 743 mGy-cm.. LIMITATIONS: None. FINDINGS: AXILLAE: No adenopathy. CHEST WALL: No masses. No subcutaneous air. LUNGS: Bilateral calcified pleural plaque. Basilar pleural plaque suggests asbestos exposure. Areas of scarring in the lungs. PLEURA: As above. THYROID: No masses or significant asymmetry. HILAR AND MEDIASTINAL STRUCTURES: No identified masses or abnormal nodes. AORTA AND GREAT VESSELS: No aneurysm. No dissection. PULMONARY ARTERIES: Prominent pulmonary arteries suggest hypertension. No clot demonstrated. HEART: Cardiac enlargement without pericardial effusion. HARDWARE AND LIFELINES: Right port, tip to the superior vena cava. BONES: No significant finding. OTHER: No other significant finding. IMPRESSION: 1. No acute thoracic injury evident. Findings as above. COMPARISON: None. RADIATION DOSE: Up-to-date CT equipment and radiation dose reduction techniques were employed. CTDIv ol: 5.5 - 8.0 mGy. DLP: 743 mGy-cm.mGy. TECHNIQUE: CT scan of the abdomen and pelvis performed with intravenous and oral contrast using lavon reese scanning technique with dynamic intravenous contrast injection. Images reviewed with lung, soft tissue and bone windows. Reconstructed coronal and sagittal MPR images reviewed. Delayed images for evaluation of the urinary system also acquired and evaluated. All images stored on PACS. All CT scanners at this facility use dose modulation, iterative reconstruction, and/or weight based d osing when appropriate to reduce radiation dose to as low as reasonably achievable (ALARA). [facility]: Dose Right [facility]: [employer] [facility]: Dose Right [facility]: Teradose 4D [facility]: [employer] FINDINGS: LIVER: Normal size. No masses. No dilated ducts. SPLEEN: Normal size. No focal lesions. PANCREAS: No masses. No significant calcifications. No adjacent inflammation or peripancreatic flui d collections. Pancreatic duct not dilated. GALLBLADDER: No identified stones by CT criteria. No inflammatory changes to suggest cholecystitis. ADRENAL GLANDS: Mild left nodularity. RIGHT KIDNEY AND URETER: No solid masses. No significant calcification. No hydronephrosis or hydroure ter. LEFT KIDNEY AND URETER: No solid masses. No significant calcification. No hydronephrosis or hydrouret er. AORTA AND VESSELS: Atherosclerotic without aneurysm or dissection. Generally patent vessels. Poor a ssessment of the venous structures given phase of contrast. RETROPERITONEUM: No adenopathy or mass. LARGE AND SMALL BOWEL: Stomach generally distended with contrast. No dilated small bowel loops. Div erticulosis in the distal colon without inflammatory disease. No ascites or abnormal gas or bulky ad enopathy. Large amount of stool in the rectum. APPENDIX: Not visualized. ABDOMINAL WALL: No hernia or masses. PERITONEAL CAVITY: No free air. No free fluid. No peritoneal implants or masses. PELVIS: No mass or free fluid. Normal bladder. BONES: No significant or acute findings. OTHER: No other significant finding. IMPRESSION: No acute abdominopelvic abnormality. Findings as above. TECHNICAL DOCUMENTATION: JOB ID: [id number] Quality ID # [id number]: Final reports with documentation of one or more dose reduction techniques (e.g., Au tomated exposure control, adjustment of the mA and/or kV according to patient size, use of iterative reconstruction technique) 2010 [employer]- All Rights Reserved
--- NOTE | 2017-04-14 19:59 | ER Document Report ---
ED Syncope and Near Syncope - General Mode of Arrival: Wheelchair TRAVEL OUTSIDE OF THE [place] IN LAST 30 DAYS: No <YONAS SHERMAN - Last Filed: 04/14/17 20:32> <DESIRAEELIDIAONELIA - Last Filed: 04/14/17 21:40> - General Chief Complaint: Fall Stated Complaint: FALL HEAD PAIN Time Seen by Provider: 04/14/17 16:18 Notes: Patient says that he was sitting and watching TV and got up and took about 3 or 4 steps and then fell. He says everything went black and he does not remember exactly what happened but he opened his eyes laying on the floor. His witnessed what occurred and says that he did a somersault over the glass coffee table. Patient says his head hurts some and also his neck hurts, but he does not have any neurologic deficits. Patient denies any chest pains or difficulty breathing or shortness of breath. says he did not have any seizure or convulsion. points out that the patient has had about 6 falls since November. In his list of previous visits here, I see at least 2 visits where he was seen for falls. Patient has a history of cardiac disease, having had a non-STEMI in August of this year and also experienced congestive heart failure at that time. Patient also has a history of lymphoma treated with chemotherapy in 2012 and believe to be free of disease. He has an oncologist named Dr. Bolanos whom he saw on Sunday. He has ordered contrasted CT scans of the patient's chest and abdomen because he had some lower abdominal tenderness to his exam. Patient was seen by a new counter hand yesterday for his first visit. Patient has a history of atrial fibrillation with right bundle branch block and also a history of CHF. Patient's primary care physician is Dr. Viera. (YONAS SHERMAN) - Related Data Allergies/Adverse Reactions: No Known Allergies Allergy (Verified 04/14/17 16:14) Past Medical History - General Information source: Patient - Social History Smoking Status: Former Smoker Chew tobacco use (# tins/day): No Frequency of alcohol use: None Drug Abuse: None Family History: Reviewed & Not Pertinent, Arthritis, CAD, CVA, Hyperlipidemia, Hypertension, Malignancy. denies: COPD, DM, Thyroid Disfunction - Past Medical History Cardiac Medical History: Reports: Hx Atrial Fibrillation, Hx Congestive Heart Failure, Hx Coronary Artery Disease, Hx Heart Attack - Non-STEMI in August,., Hx Hypertension Pulmonary Medical History: Reports: Hx Asthma Endocrine Medical History: Reports: Hx Diabetes Mellitus Type 2 Malignancy Medical History: Reports Hx Lymphoma Musculoskeltal Medical History: Reports Hx Arthritis, Reports Hx Musculoskeletal Trauma Surgical Hx: Negative Past Surgical History: Reports: Other - Right chest Port-A-Cath - Immunizations Hx Diphtheria, Pertussis, Tetanus Vaccination: Yes <YONAS SHERMAN - Last Filed: 04/14/17 20:32> Review of Systems <YONAS SHERMAN - Last Filed: 04/14/17 20:32> <ONELIA SCHERER - Last Filed: 04/14/17 21:40> - Review of Systems Notes: REVIEW OF SYSTEMS: CONSTITUTIONAL : Denies fever. EENT: Denies eye, ear, nose or mouth or throat pain or other symptoms. CARDIOVASCULAR: Denies chest pain. Never had any chest pain. RESPIRATORY: Denies cough, chest congestion, or shortness of breath. GASTROINTESTINAL: Denies abdominal pain or nausea, vomiting, or diarrhea. GENITOURINARY: Denies difficulty or painful urinating, urinary frequency, blood in urine. MUSCULOSKELETAL: Denies back or neck pain. Denies joint pain or swelling. SKIN: Denies rash or skin lesions. NEUROLOGICAL: See HPI. Denies LOC or altered mental status. Denies headache. Denies sensory loss or motor deficits. ALL OTHER SYSTEMS REVIEWED AND NEGATIVE. (YONAS SHERMAN) Physical Exam - Vital signs Interpretation: Normal, Other <YONAS SHERMAN - Last Filed: 04/14/17 20:32> <ONELIA SCHERER - Last Filed: 04/14/17 21:40> - Vital signs Vitals: Temp Pulse Resp BP Pulse Ox 97.8 F 91 18 112/56 L 97 04/14/17 16:07 04/14/17 16:07 04/14/17 16:07 04/14/17 16:07 04/14/17 16:07 - Notes Notes: PHYSICAL EXAMINATION: GENERAL: Well-appearing, in no acute distress. HEAD: Atraumatic, normocephalic. No cranial hematomas. EYES: Pupils equal round and reactive to light, extraocular movements intact. ENT: oropharynx clear without exudates. Moist mucous membranes. NECK: Normal range of motion, supple. Tender posterior aspect of the neck. LUNGS: Breath sounds clear and equal bilaterally. HEART: Irregularly irregular rhythm without murmurs. ABDOMEN: Soft, nontender. No guarding or rebound. BACK: No tenderness throughout entire back. EXTREMITIES: Normal range of motion without pain. Minimal tenderness of the left elbow, but full range of motion without any limitations. No significant swelling present. Plus 1 or 2 pitting edema lower extrem, negative Laya's bilat. NEUROLOGICAL: Normal speech, normal gait. Normal sensory, motor, and reflex exams. Awake, alert, and oriented x3. Cranial nerves normal. PSYCH: Normal mood, normal affect. SKIN: Warm, dry, no rashes. (YONAS SHERMAN) Course - Laboratory Result Diagrams: 04/14/17 16:40 04/14/17 16:40 - EKG Interpretation by Me Rate: Normal Rhythm: A.Fib [place]/QRS: RBBB <YONAS SHERMAN - Last Filed: 04/14/17 20:32> - Laboratory Result Diagrams: 04/14/17 16:40 04/14/17 16:40 <ONELIA SCHERER - Last Filed: 04/14/17 21:40> - Re-evaluation Re-evalutation: 04/14/17 20:04 Patient was stable throughout his stay in the department. Patient's troponin came back at 0.14, very minimally above the upper limit of indeterminate. I spoke with Dr. Meneses, who is the counter hand commercial sales consultant for this patient's counter hand, Dr. Kasper. He is not familiar with this patient, but recommended that the patient have several follow-up troponin levels and observed overnight. I discussed the case with Dr. Bowling, night hospitalist, and we have tentatively agreed that I will repeat patient's troponin and if it is not increasing significantly, patient will be admitted for observation by Dr. Bowling. 04/14/17 20:17 (YONAS SHERMAN) - Vital Signs Vital signs: Temp Pulse Resp BP Pulse Ox 97.8 F 78 16 109/69 98 04/14/17 16:07 04/14/17 18:09 04/14/17 18:09 04/14/17 18:09 04/14/17 18:09 - Laboratory Laboratory results interpreted by me: 04/14/17 04/14/17 16:40 16:40 WBC 3.8 L RBC 4.00 L Hgb 12.8 L MCV 98 H RDW 17.9 H Plt Count 105 L Lymphocytes % 11.3 L Absolute Lymphocytes 0.4 L Chloride 95 L Carbon Dioxide 34 H BUN 29 H Calcium 10.8 H Total Bilirubin 1.5 H Direct Bilirubin 0.8 H Alkaline Phosphatase 199 H Creatine Kinase < 20 L Discharge <YONAS SHERMAN - Last Filed: 04/14/17 20:32> - Discharge Admitting Provider: Hospitalist Unit Admitted: Telemetry <ONELIA SCHERER - Last Filed: 04/14/17 21:40> - Discharge Clinical Impression: Syncope Condition: Good Disposition: ADMITTED OBSERVATION Referrals: MAURICE MCCORMICK MD [Primary Care Provider] - Follow up as needed
[2017-04-14 20:43] LABS: CREATINE KINASE MB 2.69 ng/mL (<4.55)
[2017-04-14 21:01] LABS: TROPONIN I 0.17 ng/mL
[2017-04-14] MEDS ORDERED: MAG HYDROX/AL HYDROX/SIMETH SUSP 30 ML UDCUP PO PRN (21:17)
[2017-04-14] MEDS ORDERED: NORMAL SALINE 1000 ML 1,000 ML IV ONE (21:20)
--- NOTE | 2017-04-14 21:35 | RADIOLOGY REPORT (SQ) ---
EXAM DESCRIPTION: CHEST SINGLE VIEW COMPLETED DATE/TIME: 04/14/2017 9:23 pm REASON FOR STUDY: Hx CHF COMPARISON: 04/14/2017 CT. 08/14/2016 chest film. NUMBER OF VIEWS: One view. TECHNIQUE: Single frontal radiographic view of the chest acquired. LIMITATIONS: None. FINDINGS: LUNGS AND PLEURA: As seen on chest CT, calcified pleural plaque consistent with previous a sbestos exposure. Cardiac enlargement and uncoiled mildly tortuous aorta. Increased interstitial ma rkings are suspected to be generally chronic, stable without gross superimposed congestive failure. MEDIASTINUM AND HILAR STRUCTURES: As above. HEART AND VASCULAR STRUCTURES: As above. BONES: Osteopenic. HARDWARE: None in the chest. OTHER: No other significant finding. IMPRESSION: Likely chronic changes as above. Similar appearance compared to previous chest CT and r adiographs. TECHNICAL DOCUMENTATION: JOB ID: [id number] [employer]- All Rights Reserved
--- NOTE | 2017-04-14 23:18 | EKG REPORT ---
SEVERITY:- ABNORMAL ECG - ATRIAL FIBRILLATION RIGHT BUNDLE BRANCH BLOCK : Confirmed by: Mckinley Galdamez 14-Apr-2017 23:18:05
[2017-04-15] MEDS ORDERED: NORMAL SALINE 500 ML IV PRN ×2 (00:45→03:25)
[2017-04-15] MEDS: MIDODRINE HCL 5 MG TABLET PO SCH ×3 (01:33→15:40)
[2017-04-15] MEDS ORDERED: NORMAL SALINE 1000 ML 1,000 ML IV PRN (01:52)
[2017-04-15 02:31] LABS: ANION GAP 8 (5-19); BLOOD UREA NITROGEN 25 mg/dL (7-20); CALCIUM 9.8 mg/dL (8.4-10.2); CARBON DIOXIDE 29 mmol/L (22-30); CHLORIDE 98 mmol/L (98-107); CREATINE KINASE 23 U/L (55-170); CREATININE RESULT 0.78 mg/dL (0.52-1.25); GLUCOSE 71 mg/dL (75-110); POTASSIUM 4.4 mmol/L (3.6-5.0); SODIUM 134.9 mmol/L (137-145); TRIGLYCERIDES 46 mg/dL (<150)
[2017-04-15 02:32] LABS: CHOLESTEROL 114.37 mg/dL (0-200); Direct HDL 41 mg/dL (>40)
[2017-04-15 02:42] LABS: DIRECT LDL 60 mg/dL (<100)
[2017-04-15 02:43] LABS: CREATINE KINASE MB 2.98 ng/mL (<4.55)
[2017-04-15 02:46] LABS: TROPONIN I 0.179 ng/mL
[2017-04-15] MEDS ORDERED: ALBUTEROL SULFATE 0.083% NEB 2.5 MG/3 ML AMPUL NEB ONE (04:21)
[2017-04-15] MEDS: ALBUTEROL SULFATE 0.083% NEB 2.5 MG/3 ML AMPUL NEB PRN (04:23)
--- NOTE | 2017-04-15 05:24 | PDOC H&P ---
History of Present Illness Admission Date/PCP: 04/14/17 21:17 MAURICE MCCORMICK MD Patient complains of: Pre-syncope History of Present Illness: WILFRED CHANEL is a 86 year old male with a past medical history of asbestosis, chronic atrial fibrillation, congestive heart failure with ejection fraction of 45%, postural/orthostatic hypotension with recurrent falls. Patient been in his usual state of health until 6 hours prior to presentation having lightheadedness after abruptly standing and taking 3 steps resulting in a fall without loss of consciousness, limb shaking or incontinence. Patient has had at least a half a dozen episodes in the recent past and subsequently placed on CHAVO stockings, managing and lifestyle modification. However the patient admits forgetting his CHAVO stockings today. He otherwise denies recent change in medications in the emergency room he has had no change in EKG or chest pain nausea vomiting shortness bradycardia or hypotension but has an elevation in his troponin of 0.14 and is referred to the hospitalist for admission Past Medical History Cardiac Medical History: Reports: Atrial Fibrillation, Congestive Heart Failure , Coronary Artery Disease, Myocardial Infarction - Non-STEMI in August,., Hypertension Pulmonary Medical History: Reports: Asthma Endocrine Medical History: Reports: Diabetes Mellitus Type 2 Malignancy Medical History: Reports: Lymphoma Musculoskeltal Medical History: Reports: Arthritis Hematology: Reports: Anemia Past Surgical History Past Surgical History: Reports: Other - Right chest Port-A-Cath Social History Information Source: Patient, [facility] Records Smoking Status: Former Smoker Last Time Smoked: 08/13/1973 Frequency of Alcohol Use: None Hx Recreational Drug Use: No Hx Prescription Drug Abuse: No - Advance Directive Resuscitation Status: Full Code Family History Family History: Reviewed & Not Pertinent, Arthritis, CAD, CVA, Hyperlipidemia, Hypertension, Malignancy. denies: COPD, DM, Thyroid Disfunction Parental Family History Reviewed: Yes Children Family History Reviewed: Yes Sibling(s) Family History Reviewed.: Yes Medication/Allergy Home Medications: Tiotropium [place] [Spiriva Handihaler 5 Cap/Kit (18 Mcg/Cap)] 1 inh IH DAILY Aspirin [Ecotrin 81 mg EC Tablet] 81 mg PO DAILY #90 tabec 08/17/16 Digoxin [Lanoxin 0.125 mg Tablet] 0.125 mg PO DAILY #30 tablet 08/17/16 Ferrous Sulfate [Feosol 325 mg Tablet] 325 mg PO DAILY #30 tablet 08/17/16 Furosemide [Lasix 20 mg Tablet] 20 mg PO DAILY #30 tablet 08/17/16 Hydrocortisone Acetate [Anusol Hc 25 mg Supp.rect] 25 mg SC DAILYP PRN #12 supp.rect 08/17/16 Midodrine HCl [Proamatine 5 mg Tablet] 5 mg PO TID@0800,1200,1600 #90 tablet 12/27 Allergies/Adverse Reactions: No Known Allergies Allergy (Verified 04/14/17 16:14) Review of Systems Constitutional: PRESENT: weakness. ABSENT: anorexia, headache(s), weight gain, weight loss Eyes: ABSENT: visual disturbances Ears: ABSENT: hearing changes Cardiovascular: ABSENT: chest pain, dyspnea on exertion, edema, orthropnea, palpitations Respiratory: ABSENT: cough, hemoptysis Gastrointestinal: ABSENT: abdominal pain, constipation, diarrhea, hematemesis, hematochezia, nausea, vomiting Genitourinary: ABSENT: dysuria, hematuria Musculoskeletal: ABSENT: joint swelling Integumentary: ABSENT: rash, wounds Neurological: PRESENT: frequent falls, weakness. ABSENT: abnormal gait, abnormal speech, confusion, dizziness, focal weakness, syncope Psychiatric: ABSENT: anxiety, depression, homidical ideation, suicidal ideation Endocrine: ABSENT: cold intolerance, heat intolerance, polydipsia, polyuria Hematologic/Lymphatic: ABSENT: easy bleeding, easy bruising Physical Exam Vital Signs: Temp Pulse Resp BP Pulse Ox 97.8 F 94 18 82/50 L 100 04/15/17 00:04 04/15/17 04:25 04/15/17 04:25 04/15/17 00:04 04/15/17 00:04 Intake & Output 04/13/17 04/14/17 04/15/17 11:59 11:59 11:59 Intake Total 3000 Balance 3000 Weight 66.7 kg General appearance: PRESENT: no acute distress, cooperative, thin. ABSENT: disheveled Head exam: PRESENT: atraumatic, normocephalic Eye exam: PRESENT: conjunctiva pink, EOMI, PERRLA. ABSENT: scleral icterus Ear exam: PRESENT: normal external ear exam Mouth exam: PRESENT: moist, tongue midline Neck exam: ABSENT: carotid bruit, JVD, lymphadenopathy, thyromegaly Respiratory exam: PRESENT: clear to auscultation syeda. ABSENT: rales, rhonchi, wheezes Cardiovascular exam: PRESENT: RRR. ABSENT: diastolic murmur, rubs, systolic murmur Pulses: PRESENT: normal dorsalis pedis pul Vascular exam: PRESENT: normal capillary refill GI/Abdominal exam: PRESENT: normal bowel sounds, soft. ABSENT: distended, guarding, mass, organolmegaly, rebound, tenderness Rectal exam: PRESENT: deferred Extremities exam: PRESENT: full ROM. ABSENT: calf tenderness, clubbing, pedal edema Neurological exam: PRESENT: alert, awake, oriented to person, oriented to place , oriented to time, oriented to situation, CN II-XII grossly intact. ABSENT: motor sensory deficit Psychiatric exam: PRESENT: appropriate affect, normal mood. ABSENT: homicidal ideation, suicidal ideation Skin exam: PRESENT: dry, intact, warm. ABSENT: cyanosis, rash Results Laboratory Results: 04/15/17 03:39 04/15/17 02:11 04/15/17 04/15/17 04/15/17 02:11 02:11 03:39 WBC Cancelled Cancelled RBC Cancelled Cancelled Hgb Cancelled Cancelled Hct Cancelled Cancelled MCV Cancelled Cancelled MCH Cancelled Cancelled MCHC Cancelled Cancelled RDW Cancelled Cancelled Plt Count Cancelled Cancelled Seg Neutrophils % Cancelled Cancelled Lymphocytes % Cancelled Cancelled Monocytes % Cancelled Cancelled Eosinophils % Cancelled Cancelled Basophils % Cancelled Cancelled Absolute Neutrophils Cancelled Cancelled Absolute Lymphocytes Cancelled Cancelled Absolute Monocytes Cancelled Cancelled Absolute Eosinophils Cancelled Cancelled Absolute Basophils Cancelled Cancelled Sodium 134.9 L Potassium 4.4 Chloride 98 Carbon Dioxide 29 Anion Gap 8 BUN 25 H Creatinine 0.78 Est GFR ( Amer) > 60 Est GFR (Non-Af Amer) > 60 Glucose 71 L Calcium 9.8 Triglycerides 46 Cholesterol 114.37 LDL Cholesterol Direct 60 VLDL Cholesterol 9.0 L HDL Cholesterol 41 04/15/17 04/15/17 02:11 02:11 Creatine Kinase 23 L CK-MB (CK-2) 2.98 Troponin I 0.179 Impressions: Abdomen/Pelvis CT 04/14/17 16:23 IMPRESSION: 1. No acute thoracic injury evident. Findings as above. IMPRESSION: No acute abdominopelvic abnormality. Findings as above. Cervical Spine CT 04/14/17 16:23 IMPRESSION: 1. No acute intracranial abnormality. 2. Cervical spondylosis without fracture. Chest CT 04/14/17 16:23 IMPRESSION: 1. No acute thoracic injury evident. Findings as above. IMPRESSION: No acute abdominopelvic abnormality. Findings as above. Elbow X-Ray 04/14/17 16:23 IMPRESSION: Probable small joint effusion. No displaced fracture identified. Head CT 04/14/17 16:23 IMPRESSION: 1. No acute intracranial abnormality. 2. Cervical spondylosis without fracture. Chest X-Ray 04/14/17 20:31 IMPRESSION: Likely chronic changes as above. Similar appearance compared to previous chest CT and radiographs. Assessment & Plan - Diagnosis (1) Orthostatic hypotension Is this a current diagnosis for this admission?: Yes Plan: Resume CHAVO stockings, IV fluid challenge, midodrine and education (2) Pre-syncope Is this a current diagnosis for this admission?: Yes Plan: Please see #1. Serial cardiac enzymes given history of coronary disease and recent non-ST elevation MD. - Time Time Spent: 50 to 70 Minutes - Inpatient Certification Medical Necessity: Need Close Monitoring Due to Risk of Patient Decompensation
[2017-04-15] MEDS ORDERED: TIOTROPIUM BROMIDE DPI 5 CAP/KIT (18 MCG/CAP) IH SCH (08:00)
[2017-04-15 08:35] LABS: ABSOLUTE LYMPHOCYTES (AUTO) 0.3 10^3/uL (0.5-4.7); ABSOLUTE MONOCYTES (AUTO) 0.5 10^3/uL (0.1-1.4); BASOPHILS % (AUTO) 0.4 % (0-2); EOSINOPHILS % (AUTO) 0.8 % (0-6); HEMATOCRIT 31.9 % (37.9-51.0); HGB HCT DIFFERENCE 0.2; LYMPHOCYTES % (AUTO) 7.8 % (13-45); MEAN CORPUSCULAR HEMOGLOBIN 32.1 pg (27.0-33.4); MEAN CORPUSCULAR HGB CONC 33.5 g/dL (32.0-36.0); MEAN CORPUSCULAR VOLUME 96 fl (80-97); MONOCYTES % (AUTO) 12.1 % (3-13); RED BLOOD COUNT 3.33 10^6/uL (4.35-5.55); RED CELL DISTRIBUTION WIDTH 17.8 % (11.5-14.0); SEGMENTED NEUTROPHILS % (AUTO) 78.9 % (42-78); WHITE BLOOD COUNT 3.8 10^3/uL (4.0-10.5)
[2017-04-15] MEDS ORDERED: MINERAL OIL ENEMA 133 ML PR PRN (08:48)
[2017-04-15 08:49] LABS: HEMOGLOBIN 10.7 g/dL (13.5-17.0)
[2017-04-15 08:59] LABS: CREATINE KINASE MB 2.74 ng/mL (<4.55); TROPONIN I 0.182 ng/mL
[2017-04-15] MEDS ORDERED: MINERAL OIL ENEMA 133 ML PR ONE (09:15)
[2017-04-15] MEDS ORDERED: ALBUTEROL SULFATE HFA (90 MCG/PUFF) 8 GM MDI (1 MDI/ER DISP) IH PRN (10:18)
[2017-04-15] MEDS ORDERED: FUROSEMIDE 20 MG TABLET PO PRN (10:18)
[2017-04-15] MEDS ORDERED: (PENDING PHARMACY ID) (Sennosides [Senna] 8.6 MG) PO PRN (10:18)
[2017-04-15] MEDS ORDERED: SENNOSIDES/DOCUSATE 8.6-50 MG 1 EACH TABLET PO PRN (10:43)
[2017-04-15] MEDS: NORMAL SALINE 1000 ML 1,000 ML IV PRN (10:50)
[2017-04-15] MEDS: ASPIRIN 81 MG TABLET, ENT COATED PO SCH (10:51)
[2017-04-15] MEDS: DOCUSATE SODIUM 100 MG CAPSULE PO SCH ×2 (10:51→17:58)
[2017-04-15] MEDS: FERROUS SULFATE 325 MG TABLET PO SCH (10:51)
[2017-04-15] MEDS ORDERED: MEGESTROL ACETATE SUSP 400 MG/10 ML UDCUP PO ONE (11:15)
[2017-04-15] MEDS: TIOTROPIUM BROMIDE DPI 5 CAP/KIT (18 MCG/CAP) IH SCH (11:17)
[2017-04-15] MEDS: ASCORBIC ACID 500 MG TABLET PO SCH (11:18)
[2017-04-15] MEDS: MULTIVITAMIN TABLET PO SCH (11:18)
--- NOTE | 2017-04-15 11:34 | EKG REPORT ---
SEVERITY:- ABNORMAL ECG - ATRIAL FIBRILLATION RIGHT BUNDLE BRANCH BLOCK : Confirmed by: Mckinley Galdamez 15-Apr-2017 11:34:32
[2017-04-15] MEDS ORDERED: (PENDING PHARMACY ID) (Multivit-Min/Fa/Lycopen/Lutein [Centrum Silver Men Tablet] 1 EACH) PO SCH (12:00)
[2017-04-15 12:48] LABS: APPEARANCE,URINE CLEAR; BILIRUBIN,URINE NEGATIVE (NEGATIVE); GLUCOSE, URINE NEGATIVE (NEGATIVE); KETONES,URINE NEGATIVE (NEGATIVE); LEUKOCYTE ESTERASE,URINE NEGATIVE (NEGATIVE); NITRITE,URINE NEGATIVE (NEGATIVE); PROTEIN,URINE 100 mg/dL (NEGATIVE); URINE SPECIFIC GRAVITY 1.044
--- NOTE | 2017-04-15 13:01 | PDOC CONSULTATION ---
Consultation Consult Date: 04/15/17 Attending physician:: ONELIA PENALOZA Consult reason:: Recurrent falls, troponin I elevation History of Present Illness Admission Date/PCP: 04/14/17 21:17 MAURICE MCCORMICK MD Patient complains of: Recurrent falls, syncope History of Present Illness: WILFRED CHANEL is a 86 year old male with a past medical history of asbestosis, chronic atrial fibrillation, congestive heart failure with ejection fraction of 45%, postural/orthostatic hypotension with recurrent falls. Patient been in his usual state of health until 6 hours prior to presentation having lightheadedness after abruptly standing and taking 3 steps resulting in a fall without loss of consciousness, limb shaking or incontinence. Patient has had at least a half a dozen episodes in the recent past and subsequently placed on CHAVO stockings, managing and lifestyle modification. However the patient admits forgetting his CHAVO stockings today. He otherwise denies recent change in medications in the emergency room he has had no change in EKG or chest pain nausea vomiting shortness bradycardia or hypotension but has an elevation in his troponin of 0.14 and is referred to the hospitalist for admission. Patient recently saw a new organizational research consultant Dr. Kasper but apart from EKG no other testing has been performed. Past Medical History Cardiac Medical History: Reports: Atrial Fibrillation, Congestive Heart Failure , Coronary Artery Disease, Myocardial Infarction - Non-STEMI in August,., Hypertension Pulmonary Medical History: Reports: Asthma Endocrine Medical History: Reports: Diabetes Mellitus Type 2 Malignancy Medical History: Reports: Lymphoma Musculoskeltal Medical History: Reports: Arthritis Hematology: Reports: Anemia Past Surgical History Past Surgical History: Reports: Other - Right chest Port-A-Cath Social History Information Source: Relative Smoking Status: Former Smoker Last Time Smoked: 08/13/1973 Frequency of Alcohol Use: None Hx Recreational Drug Use: No Hx Prescription Drug Abuse: No - Advance Directive Resuscitation Status: Full Code Surrogate healthcare decision maker:: Patient's is the surrogate decision-maker Family History Family History: Reviewed & Not Pertinent, Arthritis, CAD, CVA, Hyperlipidemia, Hypertension, Malignancy. denies: COPD, DM, Thyroid Disfunction Parental Family History Reviewed: Yes Children Family History Reviewed: Yes Sibling(s) Family History Reviewed.: Yes Medication/Allergy Home Medications: Albuterol Sulfate [Ventolin HFA MDI 18 GM] 2 puff IH Q4HP PRN 04/15/17 Ascorbic Acid [Vitamin C 500 mg Tablet] 500 mg PO NOON 04/15/17 Aspirin [Aspirin EC] 81 mg PO DAILY 04/15/17 Cholecalciferol (Vitamin D3) [Vitamin D3 1000 Unit Tablet] 1,000 unit PO BID 10/27 Digoxin [Lanoxin 0.125 mg Tablet] 0.125 mg PO DAILY 04/15/17 Furosemide [Lasix 20 mg Tablet] 20 mg PO QAMP PRN 04/15/17 Midodrine HCl [Proamatine 5 Mg Tablet] 5 mg PO Q8 04/15/17 Multivit-Min/FA/Lycopen/Lutein [Centrum Silver Men Tablet] 1 each PO NOON Sennosides [Senna] 8.6 mg PO DAILYP PRN 04/15/17 Tiotropium [place] [Spiriva Handihaler 5 Cap/Kit (18 Mcg/Cap)] 1 cap IH DAILY Allergies/Adverse Reactions: No Known Allergies Allergy (Verified 04/14/17 16:14) Review of Systems Review of Systems: Please see history of present illness and past medical history as wall. Constitutional: No fever or chills reported. Head : No recent chronic headaches, recent head injury. Eyes: No recent eye pain, diplopia, redness, discharge, acute visual changes. Ears: No recent chronic ear pain, acute hearing loss, ear discharge. Oral cavity: No recent ulcerations, bleeding, oral cavity discomfort. Neck: No recent acute neck pain reported. Hematologic: No recent easy bruising or bleeding or hematologic malignancy reported. Lymphatic: No recent lymphatic malignancy, chronic lymphadenopathy reported yet Cardiovascular system review: See history of present illness. Respiratory system review: No recent chronic cough, hemoptysis, blood clots in the lungs reported. Mild Shortness of breath on exertion. History of asbestosis. Gastrointestinal system review: Negative for any recent acute or chronic abdominal pain, hematemesis, melena, recent change in bowel habits. Genitourinary system review: No recent acute or chronic hematuria, flank pain, UTI etc. reported. Skin system review: Negative for any recent abnormal bruising, no rash, no pruritus reported. Neurologic: No prior history of strokes, mini strokes, seizure disorder. History of recurrent falls. Psychologic: No history of major psychosis or major depression reported. Musculoskeletal: Minor aches and pains reported. No acute joint swelling reported. Marked general weakness. Endocrine: No recent polyuria, polydipsia, recent heat or cold intolerance. Physical Exam Vital Signs: Temp Pulse Resp BP Pulse Ox 98.0 F 85 20 109/63 100 04/15/17 11:27 04/15/17 11:27 04/15/17 11:27 04/15/17 11:30 04/15/17 11:27 Intake & Output 04/14/17 04/15/17 04/16/17 06:59 06:59 06:59 Intake Total 3350 Balance 3350 Weight 67.6 kg Exam: GENERAL: well-nourished and in no acute distress. Alert and oriented x3 HEAD: Atraumatic, normocephalic. EYES: Pupils equal round and reactive to light, extraocular movements intact, sclera anicteric, conjunctiva are normal. ENT: TMs normal, nares patent, oropharynx clear without exudates. Moist mucous membranes. No oral ulcerations or bleeding gums noted NECK: supple without lymphadenopathy. Trachea is central. No cervical or axillary lymphadenopathy noted. Carotids are 2+, JVD WNL LUNGS: Respiration seems nonlabored, no significant accessory muscle action noted. Bilateral coarse crackles noted both bases. No significant dullness noted. CHEST: Palpation of the chest wall shows no significant chest wall tenderness. No other significant abnormalities noted. HEART: [place] PRACTICE REPRESENTATIVE, No PSH, 1/6 HANH aortic area, 1/6 huggins systolic murmur mitral area, no rubs, no gallops. ABDOMEN: Soft, no significant tenderness appreciated, normoactive bowel sounds. No guarding, no rebound. No rigidity noted . No masses appreciated. EXTREMITIES: Pedal pulses are 1-2+, no calf tenderness noted. No clubbing or cyanosis. 1+ pedal edema noted NEUROLOGICAL: Focused neurological exam showed no significant neurologic deficit. Normal speech, no focal weakness appreciated. PSYCH: Normal mood, normal affect. Judgment and insight within normal limits. SKIN: No significant ecchymosis, rash, ulcerations or signs of pruritus noted. MUSCULOSKELETAL EXAM: No significant joint swelling noted. Results Laboratory Results: 04/15/17 08:19 04/15/17 02:11 04/15/17 04/15/17 04/15/17 02:11 02:11 03:39 WBC Cancelled Cancelled RBC Cancelled Cancelled Hgb Cancelled Cancelled Hct Cancelled Cancelled MCV Cancelled Cancelled MCH Cancelled Cancelled MCHC Cancelled Cancelled RDW Cancelled Cancelled Plt Count Cancelled Cancelled Seg Neutrophils % Cancelled Cancelled Lymphocytes % Cancelled Cancelled Monocytes % Cancelled Cancelled Eosinophils % Cancelled Cancelled Basophils % Cancelled Cancelled Absolute Neutrophils Cancelled Cancelled Absolute Lymphocytes Cancelled Cancelled Absolute Monocytes Cancelled Cancelled Absolute Eosinophils Cancelled Cancelled Absolute Basophils Cancelled Cancelled Sodium 134.9 L Potassium 4.4 Chloride 98 Carbon Dioxide 29 Anion Gap 8 BUN 25 H Creatinine 0.78 Est GFR ( Amer) > 60 Est GFR (Non-Af Amer) > 60 Glucose 71 L Calcium 9.8 Ionized Calcium [place] Triglycerides 46 Cholesterol 114.37 LDL Cholesterol Direct 60 VLDL Cholesterol 9.0 L HDL Cholesterol 41 TSH 04/15/17 04/15/17 04/15/17 08:19 08:19 09:34 WBC 3.8 L RBC 3.33 L Hgb 10.7 L D Hct 31.9 L MCV 96 MCH 32.1 MCHC 33.5 RDW 17.8 H Plt Count 80 L Seg Neutrophils % 78.9 H Lymphocytes % 7.8 L Monocytes % 12.1 Eosinophils % 0.8 Basophils % 0.4 Absolute Neutrophils 3.0 Absolute Lymphocytes 0.3 L Absolute Monocytes 0.5 Absolute Eosinophils 0.0 Absolute Basophils 0.0 Sodium Potassium Chloride Carbon Dioxide Anion Gap BUN Creatinine Est GFR ( Amer) Est GFR (Non-Af Amer) Glucose Calcium Ionized Calcium [place] 1.22 Triglycerides Cholesterol LDL Cholesterol Direct VLDL Cholesterol HDL Cholesterol TSH 2.31 04/15/17 04/15/17 04/15/17 02:11 02:11 08:19 Creatine Kinase 23 L CK-MB (CK-2) 2.98 2.74 Troponin I 0.179 0.182 EKG Comments: Atrial fibrillation, nonspecific IVCD RBBB type but no acute ST-T wave changes noted. Impressions: Abdomen/Pelvis CT 04/14/17 16:23 IMPRESSION: 1. No acute thoracic injury evident. Findings as above. IMPRESSION: No acute abdominopelvic abnormality. Findings as above. Cervical Spine CT 04/14/17 16:23 IMPRESSION: 1. No acute intracranial abnormality. 2. Cervical spondylosis without fracture. Chest CT 04/14/17 16:23 IMPRESSION: 1. No acute thoracic injury evident. Findings as above. IMPRESSION: No acute abdominopelvic abnormality. Findings as above. Elbow X-Ray 04/14/17 16:23 IMPRESSION: Probable small joint effusion. No displaced fracture identified. Head CT 04/14/17 16:23 IMPRESSION: 1. No acute intracranial abnormality. 2. Cervical spondylosis without fracture. Chest X-Ray 04/14/17 20:31 IMPRESSION: Likely chronic changes as above. Similar appearance compared to previous chest CT and radiographs. Assessment & Plan - Diagnosis (1) Orthostatic hypotension Is this a current diagnosis for this admission?: Yes (2) Syncope Is this a current diagnosis for this admission?: Yes (3) Atrial fibrillation with RVR Is this a current diagnosis for this admission?: Yes (4) Cardiomyopathy Qualifiers: Cardiomyopathy type: unspecified Qualified Code(s): I42.9 - Cardiomyopathy , unspecified Is this a current diagnosis for this admission?: Yes (6) Elevated troponin I level Is this a current diagnosis for this admission?: Yes - Notes Notes: Syncope and near syncope: Most likely related to orthostatic hypotension. Cannot rule out cardiac dysrhythmia because of history of depressed LVEF. At this point agree with IV fluids as patient may be volume depleted. Agree with Midodrin therapy. For rate control would recommend digoxin and cardioselective beta-federico at this point. Orthostatic hypotension: Patient seems volume depleted. Patient also very debilitated. Agree with slow hydration and also support stockings. Physical therapy will help. Atrial fibrillation: This is chronic. Recommend rate control. Anticoagulation to be decided by the primary care organizational research consultant and plastic cutter because of significant falls. Pulmonary asbestosis: May consider nocturnal oxygen supplementation etc. Elevated troponin I level. Patient denied any chest pain. There is no significant EKG changes. Patient does have underlying CAD based on coronary calcification noted on CTA of the chest. At this point will optimize therapy. Did offer patient a nuclear stress test but he declined. Will start patient on Ranexa. This will help and rate control as well and may help with ischemia. - Time Time Spent: 30 to 50 Minutes - CODE STATUS was discussed, patient remains full code. Surrogate decision-maker patient spouse. Multiple medical problems were addressed. More than 50% of the time spent coordinating care, discussing management plans with involved caregivers. Management plans discussed with involved personnels. Medical decision making was of moderate to high complexity , patient's has multiple comorbidities. Medications reviewed and adjusted accordingly: Yes
[2017-04-15] MEDS: CEFTRIAXONE 1 GM/D5W RTU 1 GM/50 ML RTUPB IV SCH (14:16)
[2017-04-15 15:21] LABS: CREATINE KINASE MB 2.86 ng/mL (<4.55); TROPONIN I 0.153 ng/mL
--- NOTE | 2017-04-15 15:24 | PDOC PROGRESS REPORT ---
Subjective Progress Note for:: 04/15/17 Subjective:: Family admits to poor appetite, frequent falls, and drifting off to sleep. Patient reports he is feeling better than yesterday. He reports his right shoulder is slightly sore. Patient denies chest pain, shortness of breath, abdominal pain, nausea, vomiting, fevers, chills, diarrhea, headache, new onset weakness. Patient admits to constipation. Physical Exam Vital Signs: Temp Pulse Resp BP Pulse Ox 98.0 F 89 20 109/63 100 04/15/17 11:27 04/15/17 14:00 04/15/17 11:27 04/15/17 11:30 04/15/17 11:27 Intake & Output 04/14/17 04/15/17 04/16/17 06:59 06:59 06:59 Intake Total 3350 270 Output Total 100 Balance 3350 170 Weight 67.6 kg Exam: General: Awake alert and oriented x3, no acute respiratory distress HEENT: AT/NC, PERRL, EOMI, oropharynx is moist, pink, no scleral icterus, no conjunctival injection Neck: No JVD, trachea midline Chest: pacemaker right upper chest, Clear to auscultation bilaterally, no wheezes rhonchi or rales CV: IRR, normal S1 and S2, no rub or gallop; +2/6 sm Abdomen: Soft, nontender to palpation, nondistended, active bowel sounds; no rebound, rigidity, or guarding Extremities: No cyanosis, clubbing; 2+edema Neuro: Cranial nerves II through XII are grossly intact without focal deficits; awake alert and oriented x3 Psych: Normal mood and affect Results Laboratory Results: 04/15/17 08:19 04/15/17 02:11 04/15/17 04/15/17 04/15/17 02:11 02:11 03:39 WBC Cancelled Cancelled RBC Cancelled Cancelled Hgb Cancelled Cancelled Hct Cancelled Cancelled MCV Cancelled Cancelled MCH Cancelled Cancelled MCHC Cancelled Cancelled RDW Cancelled Cancelled Plt Count Cancelled Cancelled Seg Neutrophils % Cancelled Cancelled Lymphocytes % Cancelled Cancelled Monocytes % Cancelled Cancelled Eosinophils % Cancelled Cancelled Basophils % Cancelled Cancelled Absolute Neutrophils Cancelled Cancelled Absolute Lymphocytes Cancelled Cancelled Absolute Monocytes Cancelled Cancelled Absolute Eosinophils Cancelled Cancelled Absolute Basophils Cancelled Cancelled Sodium 134.9 L Potassium 4.4 Chloride 98 Carbon Dioxide 29 Anion Gap 8 BUN 25 H Creatinine 0.78 Est GFR ( Amer) > 60 Est GFR (Non-Af Amer) > 60 Glucose 71 L Calcium 9.8 Ionized Calcium César Triglycerides 46 Cholesterol 114.37 LDL Cholesterol Direct 60 VLDL Cholesterol 9.0 L HDL Cholesterol 41 TSH Urine Color Urine Appearance Urine pH Ur Specific [place] Urine Protein Urine Glucose (UA) Urine Ketones Urine Blood Urine Nitrite Ur Leukocyte Esterase Urine WBC (Auto) Urine RBC (Auto) 04/15/17 04/15/17 04/15/17 08:19 08:19 09:34 WBC 3.8 L RBC 3.33 L Hgb 10.7 L D Hct 31.9 L MCV 96 MCH 32.1 MCHC 33.5 RDW 17.8 H Plt Count 80 L Seg Neutrophils % 78.9 H Lymphocytes % 7.8 L Monocytes % 12.1 Eosinophils % 0.8 Basophils % 0.4 Absolute Neutrophils 3.0 Absolute Lymphocytes 0.3 L Absolute Monocytes 0.5 Absolute Eosinophils 0.0 Absolute Basophils 0.0 Sodium Potassium Chloride Carbon Dioxide Anion Gap BUN Creatinine Est GFR ( Amer) Est GFR (Non-Af Amer) Glucose Calcium Ionized Calcium César 1.22 Triglycerides Cholesterol LDL Cholesterol Direct VLDL Cholesterol HDL Cholesterol TSH 2.31 Urine Color Urine Appearance Urine pH Ur Specific [place] Urine Protein Urine Glucose (UA) Urine Ketones Urine Blood Urine Nitrite Ur Leukocyte Esterase Urine WBC (Auto) Urine RBC (Auto) 04/15/17 12:25 WBC RBC Hgb Hct MCV MCH MCHC RDW Plt Count Seg Neutrophils % Lymphocytes % Monocytes % Eosinophils % Basophils % Absolute Neutrophils Absolute Lymphocytes Absolute Monocytes Absolute Eosinophils Absolute Basophils Sodium Potassium Chloride Carbon Dioxide Anion Gap BUN Creatinine Est GFR ( Amer) Est GFR (Non-Af Amer) Glucose Calcium Ionized Calcium César Triglycerides Cholesterol LDL Cholesterol Direct VLDL Cholesterol HDL Cholesterol TSH Urine Color DIRK Urine Appearance CLEAR Urine pH 5.0 Ur Specific [place] 1.044 Urine Protein 100 H Urine Glucose (UA) NEGATIVE Urine Ketones NEGATIVE Urine Blood NEGATIVE Urine Nitrite NEGATIVE Ur Leukocyte Esterase NEGATIVE Urine WBC (Auto) 1 Urine RBC (Auto) 2 04/15/17 04/15/17 04/15/17 02:11 02:11 08:19 Creatine Kinase 23 L CK-MB (CK-2) 2.98 2.74 Troponin I 0.179 0.182 Impressions: Abdomen/Pelvis CT 04/14/17 16:23 IMPRESSION: 1. No acute thoracic injury evident. Findings as above. IMPRESSION: No acute abdominopelvic abnormality. Findings as above. Cervical Spine CT 04/14/17 16:23 IMPRESSION: 1. No acute intracranial abnormality. 2. Cervical spondylosis without fracture. Chest CT 04/14/17 16:23 IMPRESSION: 1. No acute thoracic injury evident. Findings as above. IMPRESSION: No acute abdominopelvic abnormality. Findings as above. Elbow X-Ray 04/14/17 16:23 IMPRESSION: Probable small joint effusion. No displaced fracture identified. Head CT 04/14/17 16:23 IMPRESSION: 1. No acute intracranial abnormality. 2. Cervical spondylosis without fracture. Chest X-Ray 04/14/17 20:31 IMPRESSION: Likely chronic changes as above. Similar appearance compared to previous chest CT and radiographs. Assessment & Plan - Diagnosis (1) Elevated troponin I level Is this a current diagnosis for this admission?: Yes Plan: Consult cardiology (2) Orthostatic hypotension Is this a current diagnosis for this admission?: Yes Plan: Have increased patient midodrine and give ivf and albumin (3) Syncope Qualifiers: Encounter type: subsequent encounter Is this a current diagnosis for this admission?: Yes Plan: Likely multifactorial from orthostasis and possibly other cause such as arrythmia. Concern for PE. Will consider cta. check random cortisol and tsh (4) History of lymphoma Is this a current diagnosis for this admission?: Yes Plan: pt sees dr. napoles as an outpatient (9) Chronic combined systolic and diastolic CHF (congestive heart failure) Is this a current diagnosis for this admission?: Yes (10) Poor appetite Is this a current diagnosis for this admission?: Yes Plan: start megace - Time Time Spent with patient: 25-34 minutes
[2017-04-15] MEDS: ALBUMIN HUMAN 50 ML IV SCH ×2 (16:03→16:47)
--- NOTE | 2017-04-15 16:05 | RADIOLOGY REPORT (SQ) ---
EXAM DESCRIPTION: KUB/ABDOMEN (SINGLE VIEW) COMPLETED DATE/TIME: 04/15/2017 3:31 pm REASON FOR STUDY: constipation K80.01 CALCULUS OF GALLBLADDER W ACUTE CHOLECYSTITIS W OBSTR E83.52 HYPERCALCEMIA E27.2 ADDISONIAN CRISIS COMPARISON: None. NUMBER OF VIEWS: One view. TECHNIQUE: Supine radiographic image of the abdomen acquired. LIMITATIONS: None. FINDINGS: BOWEL GAS PATTERN: Normal bowel gas pattern. No dilated loops. There is contrast in the s igmoid colon rectal wall from prior CT. CALCIFICATIONS: No suspicious calcifications. SOFT TISSUES: No gross mass or suggestion of organomegaly. HARDWARE: None in the abdomen. BONES: No acute fracture. No worrisome bone lesions. OTHER: There is calcified pleural plaque in the right lung base. IMPRESSION: NO RADIOGRAPHIC EVIDENCE FOR ACUTE ABDOMINAL DISEASE. TECHNICAL DOCUMENTATION: JOB ID: [id number] [employer]- All Rights Reserved
[2017-04-15] MEDS: CHOLECALCIFEROL (D3) 1,000 UNIT TABLET PO SCH (17:58)
--- NOTE | 2017-04-15 19:47 | RADIOLOGY REPORT (SQ) ---
EXAM DESCRIPTION: U/S ABDOMEN LIMITED W/O DOP COMPLETED DATE/TIME: 04/15/2017 7:36 pm REASON FOR STUDY: elevated lft K80.01 CALCULUS OF GALLBLADDER W ACUTE CHOLECYSTITIS W OBSTR E83.52 HYPERCALCEMIA E27.2 ADDISONIAN CRISIS COMPARISON: None. TECHNIQUE: Dynamic and static grayscale images acquired of the right upper quadrant and recorded on PACS. Additional selected color Doppler and spectral images recorded. LIMITATIONS: Study limited due to acoustical interference from fat or from air in the bowel. FINDINGS: PANCREAS: Obscured. LIVER: No masses. Echotexture normal. LIVER VASCULATURE: Normal directional flow of the main portal vein and hepatic veins. GALLBLADDER: Gallstone(s). No pericholecystic fluid. No wall thickening. ULTRASOUND-DETECTED MCKEON'S SIGN: Negative. INTRAHEPATIC DUCTS AND COMMON DUCT: CBD and intrahepatic ducts normal caliber. No filling defects. INFERIOR VENA CAVA: Normal flow. AORTA: Obscured. RIGHT KIDNEY: Normal size. Normal echogenicity. No solid or suspicious masses. No hydronephrosis. No calcifications. PERITONEAL CAVITY AND RIGHT PLEURAL SPACE: Small of fluid adjacent to liver. OTHER: No other significant finding. IMPRESSION: LIMITED STUDY. GALLSTONES. SMALL AMOUNT OF FLUID ADJACENT TO THE LIVER. TECHNICAL DOCUMENTATION: JOB ID: [id number] [employer]- All Rights Reserved
[2017-04-16] MEDS: ALBUTEROL SULFATE 0.083% NEB 2.5 MG/3 ML AMPUL NEB PRN (03:22)
[2017-04-16] MEDS: NORMAL SALINE 1000 ML 1,000 ML IV PRN (06:46)
[2017-04-16] MEDS: ALBUTEROL SULFATE HFA (90 MCG/PUFF) 200 PUFF/8.5 GM MDI IH PRN (06:46)
[2017-04-16 08:58] LABS: ABSOLUTE LYMPHOCYTES (AUTO) 0.3 10^3/uL (0.5-4.7); ABSOLUTE MONOCYTES (AUTO) 0.6 10^3/uL (0.1-1.4); ABSOLUTE NEUT (AUTO) 4.5 10^3/uL (1.7-8.2); BASOPHILS % (AUTO) 0.7 % (0-2); EOSINOPHILS % (AUTO) 0.2 % (0-6); HEMATOCRIT 35.2 % (37.9-51.0); HEMOGLOBIN 11.7 g/dL (13.5-17.0); HGB HCT DIFFERENCE -0.1; LYMPHOCYTES % (AUTO) 5.2 % (13-45); MEAN CORPUSCULAR HEMOGLOBIN 32.2 pg (27.0-33.4); MEAN CORPUSCULAR HGB CONC 33.1 g/dL (32.0-36.0); MEAN CORPUSCULAR VOLUME 97 fl (80-97); MONOCYTES % (AUTO) 10.5 % (3-13); RED BLOOD COUNT 3.62 10^6/uL (4.35-5.55); RED CELL DISTRIBUTION WIDTH 17.4 % (11.5-14.0); SEGMENTED NEUTROPHILS % (AUTO) 83.4 % (42-78); WHITE BLOOD COUNT 5.4 10^3/uL (4.0-10.5)
[2017-04-16 09:16] LABS: ANION GAP 12 (5-19); BLOOD UREA NITROGEN 23 mg/dL (7-20); CALCIUM 9.4 mg/dL (8.4-10.2); CARBON DIOXIDE 24 mmol/L (22-30); CHLORIDE 99 mmol/L (98-107); CREATININE RESULT 0.84 mg/dL (0.52-1.25); GLUCOSE 91 mg/dL (75-110); POTASSIUM 4.2 mmol/L (3.6-5.0)
[2017-04-16] MEDS ORDERED: MIDODRINE HCL 5 MG TABLET PO ONE (09:30)
[2017-04-16] MEDS: DIGOXIN 0.125 MG TABLET PO SCH (09:45)
[2017-04-16] MEDS: TIOTROPIUM BROMIDE DPI 5 CAP/KIT (18 MCG/CAP) IH SCH (09:46)
[2017-04-16] MEDS: CHOLECALCIFEROL (D3) 1,000 UNIT TABLET PO SCH ×2 (09:47→17:21)
[2017-04-16] MEDS: FERROUS SULFATE 325 MG TABLET PO SCH (09:47)
[2017-04-16] MEDS: DOCUSATE SODIUM 100 MG CAPSULE PO SCH ×2 (09:47→17:21)
[2017-04-16] MEDS: ASPIRIN 81 MG TABLET, ENT COATED PO SCH (09:47)
[2017-04-16] MEDS ORDERED: MEGESTROL ACETATE SUSP 400 MG/10 ML UDCUP PO SCH (10:00)
[2017-04-16] MEDS: CEFTRIAXONE 1 GM/D5W RTU 1 GM/50 ML RTUPB IV SCH (10:11)
[2017-04-16] MEDS ORDERED: LEVALBUTEROL HCL NEB 1.25 MG/3 ML AMPUL NEB ONE (11:00)
[2017-04-16] MEDS: ASCORBIC ACID 500 MG TABLET PO SCH (11:01)
[2017-04-16] MEDS: MULTIVITAMIN TABLET PO SCH (11:01)
--- NOTE | 2017-04-16 11:33 | PDOC PROGRESS REPORT ---
Subjective Progress Note for:: 04/16/17 Subjective:: Patient seems to be doing better with gradual improvement. Pt is denying any chest arm or neck discomfort. Patient denying any PND, orthopnea. Patient denied any sustained palpitations, dizziness, syncope, near syncope. Patient denying any fever chills. Patient denying any other significant discomfort. Patient is maintaining atrial fibrillation. Heart rate reasonably well controlled. Review of systems: Rest review of systems negative. Medications: Medications have been reviewed. Physical Exam Vital Signs: Temp Pulse Resp BP Pulse Ox 98.0 F 107 H 20 125/78 97 04/16/17 07:42 04/16/17 10:41 04/16/17 10:41 04/16/17 07:42 04/16/17 10:41 Exam: GENERAL: well-nourished and in no acute distress. Alert and oriented x3 HEAD: Atraumatic, normocephalic. EYES: Pupils equal round and reactive to light, extraocular movements intact, sclera anicteric, conjunctiva are normal. ENT: TMs normal, nares patent, oropharynx clear without exudates. Moist mucous membranes. No oral ulcerations or bleeding gums noted NECK: supple without lymphadenopathy. Trachea is central. No cervical or axillary lymphadenopathy noted. Carotids are 2+, JVD WNL LUNGS: Respiration seems nonlabored, no significant accessory muscle action noted. Breath sounds clear to auscultation bilaterally and equal noted. No wheezes rales or rhonchi noted. No significant dullness noted on percussion. CHEST: Palpation of the chest wall shows no significant chest wall tenderness. No other significant abnormalities noted. 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 ABDOMEN: Soft, no significant tenderness appreciated, normoactive bowel sounds. No guarding, no rebound. No rigidity noted . No masses appreciated. EXTREMITIES: Pedal pulses are 1-2+, no calf tenderness noted. No clubbing or cyanosis. 1+ pedal edema noted NEUROLOGICAL: Focused neurological exam showed no significant neurologic deficit. Normal speech, no focal weakness appreciated. PSYCH: Normal mood, normal affect. Judgment and insight within normal limits. SKIN: No significant ecchymosis, rash, ulcerations or signs of pruritus noted. MUSCULOSKELETAL EXAM: No significant joint swelling noted. Results EKG Comments: Telemetry strips reviewed. It shows atrial fibrillation with controlled ventricular response. Impressions: Abdomen/Pelvis CT 04/14/17 16:23 IMPRESSION: 1. No acute thoracic injury evident. Findings as above. IMPRESSION: No acute abdominopelvic abnormality. Findings as above. Cervical Spine CT 04/14/17 16:23 IMPRESSION: 1. No acute intracranial abnormality. 2. Cervical spondylosis without fracture. Chest CT 04/14/17 16:23 IMPRESSION: 1. No acute thoracic injury evident. Findings as above. IMPRESSION: No acute abdominopelvic abnormality. Findings as above. Elbow X-Ray 04/14/17 16:23 IMPRESSION: Probable small joint effusion. No displaced fracture identified. Head CT 04/14/17 16:23 IMPRESSION: 1. No acute intracranial abnormality. 2. Cervical spondylosis without fracture. Chest X-Ray 04/14/17 20:31 IMPRESSION: Likely chronic changes as above. Similar appearance compared to previous chest CT and radiographs. Abdomen Ultrasound 04/15/17 00:00 IMPRESSION: LIMITED STUDY. GALLSTONES. SMALL AMOUNT OF FLUID ADJACENT TO THE LIVER. KUB X-Ray 04/15/17 00:00 IMPRESSION: NO RADIOGRAPHIC EVIDENCE FOR ACUTE ABDOMINAL DISEASE. Assessment & Plan - Diagnosis (1) Orthostatic hypotension Is this a current diagnosis for this admission?: Yes (2) Syncope Qualifiers: Encounter type: subsequent encounter Is this a current diagnosis for this admission?: Yes (3) Atrial fibrillation with RVR Is this a current diagnosis for this admission?: Yes (4) Cardiomyopathy Qualifiers: Cardiomyopathy type: unspecified Qualified Code(s): I42.9 - Cardiomyopathy , unspecified Is this a current diagnosis for this admission?: Yes (6) Elevated troponin I level Is this a current diagnosis for this admission?: Yes (7) Non-STEMI (non-ST elevated myocardial infarction) Is this a current diagnosis for this admission?: Yes (8) Chronic atrial fibrillation Is this a current diagnosis for this admission?: Yes - Notes Notes: Telemetry strips reviewed. Patient dizziness seems slightly better. Syncope and near syncope: Most likely related to orthostatic hypotension. Cannot rule out cardiac dysrhythmia because of history of depressed LVEF. At this point agree with IV fluids as patient may be volume depleted. Agree with Midodrin therapy. For rate control would recommend digoxin and cardioselective beta-federico at this point. Orthostatic hypotension: Patient seems volume depleted. Patient also very debilitated. Agree with slow hydration and also support stockings. Physical therapy will help. Observe for any CHF precipitation. Atrial fibrillation: This is chronic. Recommend rate control. 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 Pulmonary asbestosis: May consider nocturnal oxygen supplementation etc. Elevated troponin I level. Patient denied any chest pain. There is no significant EKG changes. Patient does have underlying CAD based on coronary calcification noted on CTA of the chest. At this point will optimize therapy. Did offer patient a nuclear stress test but he declined. Continue patient on Ranexa. This will help and rate control as well and may help with ischemia. Non-STEMI: Cardiac enzymes suggest non-STEMI. Patient however without any chest pain. Patient has some minor nonspecific ST segment changes but most likely related to bundle branch block pattern. Did offer patient a stress test but he declined. Medical management will be optimized. Will add statins. Currently on low-dose beta-federico. Continue Ranexa. Orders for Ranexa was written. - Time Time with patient: Greater than 35 minutes - CODE STATUS was discussed, patient remains full code. Surrogate decision-maker unchanged. Multiple medical problems were addressed. More than 50% of the time spent coordinating care, discussing management plans with involved caregivers. Management plans discussed with involved personnels. Medical decision making was of moderate to high complexity, patient's has multiple comorbidities.
[2017-04-16] MEDS ORDERED: MIDODRINE HCL 5 MG TABLET PO SCH (12:00)
[2017-04-16] MEDS ORDERED: RANOLAZINE 500 MG TAB.SR.12H PO ONE (13:00)
--- NOTE | 2017-04-16 13:06 | XCELERA REPORT ---
[address] [address] Transthoracic Echocardiogram Report Name: WILFRED CHANEL Age: 86 yrs Gender: Male : 1930 Patient Status: Inpatient Patient Location: [address] [place] [address] Study Date: 04/15/2017 01:29 PM Height: 66 in Weight: 149 lb BSA: 1.8 m2 Procedure: A complete two-dimensional transthoracic echocardiogram was performed (2D, M-mode, spectral and color flow Doppler). The study was technically difficult with many images being suboptimal in quality. Reason For Study: Recurrent syncope Ordering Physician: MCKINLEY MCNEILL Performed By: Kaylen Craig Interpretation Summary The study was technically difficult with many images being suboptimal in quality. The Ejection Fraction estimate is 30-35% Left ventricular systolic function is severely reduced. Doppler measurements suggest pseudonormalized left ventricular relaxation, which is associated with grade II/IV or mild to moderate diastolic dysfunction There is mild concentric left ventricular hypertrophy. The left ventricle is grossly normal size. There is severe global hypokinesis of the left ventricle. The right ventricular systolic function is mild to moderately reduced. The right ventricle is mildly dilated. The right atrium is mildly dilated. The left atrium is moderately dilated. There is no mitral valve stenosis. There is a mild to moderate amount of mitral regurgitation There is no aortic valve stenosis No aortic regurgitation is present. The aortic root is not well visualized but is probably normal size. The inferior vena cava appeared normal and decreased < 50% with respiration (RAP 10-15 mmHg) There is no pericardial effusion. MMode/2D Measurements & Calculations RVDd: 3.1 cm LVIDd: 4.4 cm FS: 10.2 % EPSS: 1.2 cm IVSd: 1.3 cm LVIDs: 4.0 cm EDV(Teich): 88.4 ml LVPWd: 1.3 cm ESV(Teich): 68.5 ml EF(Teich): 22.5 % Ao root diam: 3.9 cm LVOT diam: 2.3 cm Ao root area: 11.8 cm2 LVOT area: 4.0 cm2 LA dimension: 4.5 cm Doppler Measurements & Calculations MV E max yaneth: MV P1/2t max yaneth: Ao V2 max: LV V1 max P.6 cm/sec 92.6 cm/sec 88.8 cm/sec 1.7 mmHg MV A max yaneth: MV P1/2t: 35.1 msec Ao max PG: LV V1 max: 36.0 cm/sec MVA(P1/2t): 6.3 cm2 3.2 mmHg 64.4 cm/sec MV E/A: 2.6 MV dec slope: GALILEO(V,D): 2.9 cm2 773.1 cm/sec2 PA V2 max: TR max yaneth: 55.2 cm/sec 284.1 cm/sec PA max PG: TR max P.3 mmHg 1.2 mmHg Left Ventricle The left ventricle is grossly normal size. There is mild concentric left ventricular hypertrophy. Left ventricular systolic function is severely reduced. The Ejection Fraction estimate is 30-35%. Doppler measurements suggest pseudonormalized left ventricular relaxation, which is associated with grade II/IV or mild to moderate diastolic dysfunction. There is severe global hypokinesis of the left ventricle. Right Ventricle The right ventricle is mildly dilated. There is normal right ventricular wall thickness. The right ventricular systolic function is mild to moderately reduced. Atria The right atrium is mildly dilated. The left atrium is moderately dilated. Interarterial septum not well visualized and not well dopplered. Cannot comment on ASD/PFO presence. Mitral Valve There is mild mitral leaflet calcification. There is mild mitral annular calcification. There is no mitral valve stenosis. There is a mild to moderate amount of mitral regurgitation. Aortic Valve The aortic valve is mildly calcified. There is no aortic valve stenosis. No aortic regurgitation is present. Tricuspid Valve The tricuspid valve is not well visualized, but is grossly normal. There is no tricuspid stenosis. There is a mild to moderate amount of tricuspid regurgitation. Right ventricular systolic pressure is estimated to be elevated at 30-40mmHg. There is mild pulmonary hypertension by echo. Pulmonic Valve The pulmonic valve is not well visualized. Great Vessels The aortic root is not well visualized but is probably normal size. The inferior vena cava appeared normal and decreased < 50% with respiration (RAP 10-15 mmHg). Effusions There is no pericardial effusion. : MCKINLEY MCNEILL > Mckinley Mcneill
--- NOTE | 2017-04-16 13:29 | RADIOLOGY REPORT (SQ) ---
EXAM DESCRIPTION: CHEST PA/LAT COMPLETED DATE/TIME: 04/16/2017 1:20 pm REASON FOR STUDY: cough COMPARISON: 04/14/2017 in 08/14/2016 EXAM PARAMETERS: NUMBER OF VIEWS: two views TECHNIQUE: Digital Frontal and Lateral radiographic views of the chest acquired. RADIATION DOSE: NA LIMITATIONS: none FINDINGS: LUNGS AND PLEURA: Stable chronic lung change without new opacities, masses or pneumothorax . Stable pleural pleural effusions/pleural thickening. MEDIASTINUM AND HILAR STRUCTURES: No masses or contour abnormalities. HEART AND VASCULAR STRUCTURES: Heart stable in size. No evidence for failure. BONES: No acute findings. HARDWARE: Stable. OTHER: No other significant finding. IMPRESSION: NO ACUTE CARDIOPULMONARY PROCESS. NO SIGNIFICANT CHANGE FROM PRIOR STUDY. TECHNICAL DOCUMENTATION: JOB ID: [id number] [employer]- All Rights Reserved
--- NOTE | 2017-04-16 14:38 | PDOC PROGRESS REPORT ---
Subjective Progress Note for:: 04/16/17 Subjective:: Patient reports he feels better than yesterday. Family at bedside notes interval development of a cough. Patient denies chest pain, shortness of breath, abdominal pain, nausea, vomiting, fevers, chills, diarrhea, headache, new onset weakness. Constipation is improved. Physical Exam Vital Signs: Temp Pulse Resp BP Pulse Ox 98.0 F 107 H 20 125/78 97 04/16/17 07:42 04/16/17 10:41 04/16/17 10:41 04/16/17 07:42 04/16/17 10:41 Exam: General: Awake alert and oriented x3, mild respiratory distress HEENT: AT/NC, PERRL, EOMI, oropharynx is moist, pink, no scleral icterus, no conjunctival injection Neck: + JVD, trachea midline Chest: pacemaker right upper chest, crackles bilateral bases, scattered wheezing CV: IRR, normal S1 and S2, no rub or gallop; +2/6 sm Abdomen: Soft, nontender to palpation, nondistended, active bowel sounds; no rebound, rigidity, or guarding Extremities: No cyanosis, clubbing; 2+edema Neuro: Cranial nerves II through XII are grossly intact without focal deficits; awake alert and oriented x3 Psych: Normal mood and affect Results Impressions: Abdomen/Pelvis CT 04/14/17 16:23 IMPRESSION: 1. No acute thoracic injury evident. Findings as above. IMPRESSION: No acute abdominopelvic abnormality. Findings as above. Cervical Spine CT 04/14/17 16:23 IMPRESSION: 1. No acute intracranial abnormality. 2. Cervical spondylosis without fracture. Chest CT 04/14/17 16:23 IMPRESSION: 1. No acute thoracic injury evident. Findings as above. IMPRESSION: No acute abdominopelvic abnormality. Findings as above. Elbow X-Ray 04/14/17 16:23 IMPRESSION: Probable small joint effusion. No displaced fracture identified. Head CT 04/14/17 16:23 IMPRESSION: 1. No acute intracranial abnormality. 2. Cervical spondylosis without fracture. Abdomen Ultrasound 04/15/17 00:00 IMPRESSION: LIMITED STUDY. GALLSTONES. SMALL AMOUNT OF FLUID ADJACENT TO THE LIVER. KUB X-Ray 04/15/17 00:00 IMPRESSION: NO RADIOGRAPHIC EVIDENCE FOR ACUTE ABDOMINAL DISEASE. Chest X-Ray 04/16/17 00:00 IMPRESSION: NO ACUTE CARDIOPULMONARY PROCESS. NO SIGNIFICANT CHANGE FROM PRIOR STUDY. Assessment & Plan - Diagnosis (1) Non-STEMI (non-ST elevated myocardial infarction) Is this a current diagnosis for this admission?: Yes Plan: Concern for anticoagulation 2/2 thromboctyopenia BP currently unable to tolerate LICO/ARB Appreciate cardiology imput Generic Name Dose Route Start Last Admin Trade Name Frekaitlin PRN Reason Stop Dose Admin Aspirin 81 mg 04/15/17 10:00 04/16/17 09:47 Ecotrin 81 Mg Ec Tablet PO 05/15/17 09:59 81 mg DAILY GERMAN Metoprolol Tartrate 12.5 mg 04/16/17 22:00 Lopressor 25 Mg Tablet PO 05/16/17 21:59 Q12 GERMAN Ranolazine 500 mg 04/16/17 22:00 Ranexa 500 Mg Tab.Sr PO 05/16/17 21:59 Q12 GERMAN (2) Orthostatic hypotension Is this a current diagnosis for this admission?: Yes Plan: Have increased patient midodrine and give albumin (3) Syncope Qualifiers: Encounter type: subsequent encounter Is this a current diagnosis for this admission?: Yes Plan: Likely multifactorial from orthostasis and NSTEMI. TSH normal 04/15/17 04/15/17 08:19 08:19 TSH 2.31 Random Cortisol 5.99 (4) History of lymphoma Is this a current diagnosis for this admission?: Yes Plan: pt sees dr. napoles as an outpatient (5) Pulmonary asbestosis Is this a current diagnosis for this admission?: Yes (6) Pulmonary hypertension Is this a current diagnosis for this admission?: Yes (7) Right bundle branch block (RBBB) Is this a current diagnosis for this admission?: Yes (8) Thrombocytopenia Is this a current diagnosis for this admission?: Yes (9) Chronic combined systolic and diastolic CHF (congestive heart failure) Is this a current diagnosis for this admission?: Yes Plan: Now acute on chronic add lasix daily patient difficult to diurese (10) Poor appetite Is this a current diagnosis for this admission?: Yes (11) Chronic atrial fibrillation Is this a current diagnosis for this admission?: Yes Plan: increase metoprolol as tolerated no anticoagulation due to thrombocytopenia and falls - Time Time Spent with patient: 25-34 minutes Medications reviewed and adjusted accordingly: Yes Anticipated discharge: Home with Homehealth Within: within 48 hours, within 72 hours
[2017-04-16] MEDS ORDERED: FUROSEMIDE 20 MG TABLET PO ONE (15:30)
[2017-04-16] MEDS ORDERED: ALBUMIN HUMAN 50 ML IV ONE (15:30)
[2017-04-16] MEDS: MIDODRINE HCL 5 MG TABLET PO SCH (15:37)
[2017-04-16] MEDS: MEGESTROL ACETATE SUSP 400 MG/10 ML UDCUP PO SCH (17:21)
[2017-04-16] MEDS ORDERED: RANOLAZINE 500 MG TAB.SR.12H PO SCH (22:00)
[2017-04-16] MEDS: METOPROLOL TARTRATE 25 MG TABLET PO SCH (22:45)
[2017-04-17] MEDS: LEVALBUTEROL HCL NEB 1.25 MG/3 ML AMPUL NEB PRN ×2 (04:37→23:31)
[2017-04-17] MEDS: DOCUSATE SODIUM 100 MG CAPSULE PO SCH ×2 (10:19→18:01)
[2017-04-17] MEDS: FERROUS SULFATE 325 MG TABLET PO SCH (10:19)
[2017-04-17] MEDS: MIDODRINE HCL 5 MG TABLET PO SCH ×3 (10:19→18:01)
[2017-04-17] MEDS: CHOLECALCIFEROL (D3) 1,000 UNIT TABLET PO SCH ×2 (10:19→18:01)
[2017-04-17] MEDS: MEGESTROL ACETATE SUSP 400 MG/10 ML UDCUP PO SCH ×2 (10:20→18:01)
[2017-04-17] MEDS: TIOTROPIUM BROMIDE DPI 5 CAP/KIT (18 MCG/CAP) IH SCH (10:20)
[2017-04-17] MEDS: ASPIRIN 81 MG TABLET, ENT COATED PO SCH (10:20)
--- NOTE | 2017-04-17 11:27 | PDOC PROGRESS REPORT ---
Subjective Progress Note for:: 04/17/17 Subjective:: Nursing states that pt is not eating much. states that pt is not eating much. states that he does not eat much at home. states that pt could be depressed. Physical Exam Vital Signs: Temp Pulse Resp BP Pulse Ox 97.8 F 106 H 20 112/70 98 04/17/17 03:53 04/17/17 08:37 04/17/17 08:37 04/17/17 03:53 04/17/17 08:37 Intake & Output 04/16/17 04/17/17 04/18/17 06:59 06:59 06:59 Intake Total 1461 Output Total 150 Balance 1311 Weight 68.8 kg General appearance: PRESENT: no acute distress, well-developed Head exam: PRESENT: atraumatic, normocephalic Eye exam: PRESENT: conjunctiva pink, EOMI. ABSENT: scleral icterus Ear exam: PRESENT: normal external ear exam Mouth exam: PRESENT: moist, tongue midline Neck exam: ABSENT: carotid bruit, JVD, lymphadenopathy, thyromegaly Respiratory exam: PRESENT: clear to auscultation syeda. ABSENT: rales, rhonchi, wheezes Cardiovascular exam: PRESENT: RRR. ABSENT: diastolic murmur, rubs, systolic murmur Pulses: PRESENT: normal dorsalis pedis pul Vascular exam: PRESENT: normal capillary refill GI/Abdominal exam: PRESENT: normal bowel sounds, soft. ABSENT: distended, guarding, mass, organolmegaly, rebound, tenderness Rectal exam: PRESENT: deferred Extremities exam: PRESENT: full ROM. ABSENT: calf tenderness, clubbing, pedal edema Neurological exam: PRESENT: alert, awake, oriented to person, oriented to place , oriented to time, oriented to situation, CN II-XII grossly intact. ABSENT: motor sensory deficit Psychiatric exam: PRESENT: appropriate affect, normal mood. ABSENT: homicidal ideation, suicidal ideation Skin exam: PRESENT: dry, intact, warm. ABSENT: cyanosis, rash Results Impressions: Abdomen/Pelvis CT 04/14/17 16:23 IMPRESSION: 1. No acute thoracic injury evident. Findings as above. IMPRESSION: No acute abdominopelvic abnormality. Findings as above. Cervical Spine CT 04/14/17 16:23 IMPRESSION: 1. No acute intracranial abnormality. 2. Cervical spondylosis without fracture. Chest CT 04/14/17 16:23 IMPRESSION: 1. No acute thoracic injury evident. Findings as above. IMPRESSION: No acute abdominopelvic abnormality. Findings as above. Elbow X-Ray 04/14/17 16:23 IMPRESSION: Probable small joint effusion. No displaced fracture identified. Head CT 04/14/17 16:23 IMPRESSION: 1. No acute intracranial abnormality. 2. Cervical spondylosis without fracture. Abdomen Ultrasound 04/15/17 00:00 IMPRESSION: LIMITED STUDY. GALLSTONES. SMALL AMOUNT OF FLUID ADJACENT TO THE LIVER. KUB X-Ray 04/15/17 00:00 IMPRESSION: NO RADIOGRAPHIC EVIDENCE FOR ACUTE ABDOMINAL DISEASE. Chest X-Ray 04/16/17 00:00 IMPRESSION: NO ACUTE CARDIOPULMONARY PROCESS. NO SIGNIFICANT CHANGE FROM PRIOR STUDY. Assessment & Plan - Diagnosis (1) Orthostatic hypotension Is this a current diagnosis for this admission?: Yes Plan: Pt currently on Midodrine. Pt's blood pressure much improved. Will have pt work with PT/OT today. (2) Depression Qualifiers: Major depression episode severity: moderate Is this a current diagnosis for this admission?: Yes Plan: Will place pt on Zoloft 25 mg PO Qdaily. (3) Moderate protein-calorie malnutrition Is this a current diagnosis for this admission?: Yes Plan: Will add ensure to diet TID. Pt currently on megace and started on Zoloft. (4) Non-STEMI (non-ST elevated myocardial infarction) Is this a current diagnosis for this admission?: Yes Plan: Pt declined nuclear stress test. Pt currently on Ranexa. (5) Chronic atrial fibrillation Is this a current diagnosis for this admission?: Yes Plan: Will continue Metoprolol and Digoxin. Pt not on anticoagulation due to falls. Cardiology recommends having this addressed as outpatient with pt's PCP. (6) Chronic combined systolic and diastolic CHF (congestive heart failure) Is this a current diagnosis for this admission?: Yes Plan: Lasix 20 mg PO QAM - Time Time Spent with patient: 15-24 minutes
[2017-04-17] MEDS ORDERED: SERTRALINE HCL 50 MG TABLET PO ONE (11:30)
[2017-04-17] MEDS ORDERED: MAG HYDROX/AL HYDROX/SIMETH SUSP 30 ML UDCUP PO PRN (11:30)
[2017-04-17] MEDS: ASCORBIC ACID 500 MG TABLET PO SCH (12:28)
[2017-04-17] MEDS: DIGOXIN 0.125 MG TABLET PO SCH (12:29)
[2017-04-17] MEDS: METOPROLOL TARTRATE 25 MG TABLET PO SCH ×2 (12:29→22:17)
[2017-04-17] MEDS: MULTIVITAMIN TABLET PO SCH (12:31)
[2017-04-17] MEDS: RANOLAZINE 500 MG TAB.SR.12H PO SCH (22:18)
[2017-04-18] MEDS: ALBUTEROL SULFATE HFA (90 MCG/PUFF) 200 PUFF/8.5 GM MDI IH PRN ×2 (03:28→15:59)
[2017-04-18 05:23] LABS: HEMATOCRIT 34.6 % (37.9-51.0); HEMOGLOBIN 11.5 g/dL (13.5-17.0); HGB HCT DIFFERENCE -0.1; MEAN CORPUSCULAR HEMOGLOBIN 31.7 pg (27.0-33.4); MEAN CORPUSCULAR HGB CONC 33.2 g/dL (32.0-36.0); MEAN CORPUSCULAR VOLUME 96 fl (80-97); RED BLOOD COUNT 3.62 10^6/uL (4.35-5.55); RED CELL DISTRIBUTION WIDTH 17.6 % (11.5-14.0); WHITE BLOOD COUNT 6.6 10^3/uL (4.0-10.5)
[2017-04-18 05:28] LABS: BAND NEUTROPHILS % (MANUAL) 1 % (3-5); BASOPHILS % (MANUAL) 0 % (0-2); EOSINOPHILS % (MANUAL) 0 % (0-6); LYMPHOCYTES % (MANUAL) 5 % (13-45); TOTAL CELLS COUNTED 100
[2017-04-18 05:29] LABS: ACANTHOCYTES SLIGHT; ANISOCYTOSIS 1+; HYPOCHROMASIA SLIGHT; OVALOCYTES SLIGHT; POIKILOCYTOSIS SLIGHT; POLYCHROMASIA SLIGHT; SCHISTOCYTES SLIGHT; TARGET CELLS SLIGHT; TOXIC GRANULATION 1+; TOXIC VACUOLATION PRESENT
[2017-04-18 05:41] LABS: ANION GAP 10 (5-19); BLOOD UREA NITROGEN 31 mg/dL (7-20); CALCIUM 9.8 mg/dL (8.4-10.2); CARBON DIOXIDE 24 mmol/L (22-30); CHLORIDE 99 mmol/L (98-107); CREATININE RESULT 0.87 mg/dL (0.52-1.25); GLUCOSE 83 mg/dL (75-110); POTASSIUM 4.5 mmol/L (3.6-5.0); SODIUM 132.6 mmol/L (137-145)
--- NOTE | 2017-04-18 08:31 | PROGRESS NOTE E ---
Progress Note NAME: WILFRED CHANEL : 1930 AGE: 86Y DATE: 04/17/2017 ROOM: 428 SUBJECTIVE: The patient appears to be confused but he denies any chest pain or discomfort. After swallowing exam he had a coughing spell but there was no definite aspiration. There is no fever or chills. There is no pedal edema. There are no chest pains. Patient remains in atrial fibrillation. Heart rate is well controlled. OBJECTIVE: GENERAL: On examination the patient is chronically ill looking but in no acute distress except for coughing spell which resolved. VITAL SIGNS: He is afebrile with a temperature of 97.5 degrees Fahrenheit. Pulse is 52 beats per minute. Blood pressure is 118/83. Respirations are 22 per minute. O2 saturations are 93% on 3 L nasal cannula. HEENT: Head is atraumatic, normocephalic. EYES: Pupils are equal, round, regular, reactive to light and accommodation. Extraocular movements are normal. There is no conjunctival pallor. There is no scleral icterus. ENT: Tympanic membranes are normal. Nares are patent. Oropharynx is clear with no exudates. NECK: Supple without lymphadenopathy. Trachea is central. There is lymphadenopathy. There is no goiter. Carotids are 2+ with no bruits. JVD is within normal limits. LUNGS: Clear to auscultation bilaterally and equal. No wheezing, rales or rhonchi. Palpitation of chest wall shows no significant chest wall tenderness. CARDIOVASCULAR: S1, S2 is heard. There is no S3 gallop. S1 is of variable intensity. There is no S4 gallop. There is systolic murmur in left sternal border and the apex. There is no rub. ABDOMEN: Soft, nontender. There is no hepatosplenomegaly. Bowel sounds are well heard. There are no tender areas or masses. EXTREMITIES: Pedal pulses slightly diminished. Femorals are diminished. There are no femoral bruits. There is no DVT or cellulitis. There is no cyanosis or clubbing. There is trace pedal edema noted. NEUROLOGICAL: The patient appears to be confused but moves all 4 extremities. PSYCHIATRIC: The patient's judgement and insight could not be tested since the patient is confused. The patient's 24-hour intake and output does not seem to be accurate. IMPRESSION: 1. ORTHOSTATIC HYPOTENSION. Now blood pressure much improved. 2. SYNCOPE MOST LIKELY SECONDARY TO ORTHOSTATIC HYPOTENSION. 3. ATRIAL FIBRILLATION AT PRESENT CONTROLLED VENTRICULAR RESPONSE. 4. CARDIOMYOPATHY. 5. ELEVATED TROPONIN I. 6. NON ST ELEVATION GA. 7. CHRONIC ATRIAL FIBRILLATION. The patient's digoxin is much improved but the patient is confused. There is no further syncope or near syncope. Mostly likely the patient has coronary artery disease based on his CT of the chest showing coronary calcification. The patient has no chest pain. The patient on low dose beta federico. The patient does not want a stress test. Continue Ranexa. More than 25 minutes spent on patient with more than 50% of the time spent on direct patient care, and review of his medications and discussed with the patient and patient's and discussed coordinate management to the other caregiving providers. medical decision making of moderate complexity. Note that the patient's midodrine. Continue the same. medication . DICTATING PHYSICIAN: KAUSHAL ALVARENGA M.D. [id number] PHY#: [id number] ID: [id number] JOB#: [id number] ACCT: [id number] cc: >
[2017-04-18] MEDS: MIDODRINE HCL 5 MG TABLET PO SCH ×3 (09:04→16:03)
[2017-04-18] MEDS ORDERED: SERTRALINE HCL 50 MG TABLET PO SCH (10:00)
[2017-04-18] MEDS: MEGESTROL ACETATE SUSP 400 MG/10 ML UDCUP PO SCH ×2 (10:51→17:18)
[2017-04-18] MEDS: TIOTROPIUM BROMIDE DPI 5 CAP/KIT (18 MCG/CAP) IH SCH (10:52)
[2017-04-18] MEDS: METOPROLOL TARTRATE 25 MG TABLET PO SCH ×2 (10:53→21:35)
[2017-04-18] MEDS: RANOLAZINE 500 MG TAB.SR.12H PO SCH ×2 (10:54→21:35)
[2017-04-18] MEDS: DIGOXIN 0.125 MG TABLET PO SCH (10:56)
[2017-04-18] MEDS: ASPIRIN 81 MG TABLET, ENT COATED PO SCH (10:56)
[2017-04-18] MEDS: FERROUS SULFATE 325 MG TABLET PO SCH (10:57)
[2017-04-18] MEDS: CHOLECALCIFEROL (D3) 1,000 UNIT TABLET PO SCH ×2 (10:58→17:18)
[2017-04-18] MEDS: DOCUSATE SODIUM 100 MG CAPSULE PO SCH ×2 (10:58→17:18)
[2017-04-18] MEDS: MULTIVITAMIN TABLET PO SCH (13:23)
[2017-04-18] MEDS: ASCORBIC ACID 500 MG TABLET PO SCH (13:25)
--- NOTE | 2017-04-18 14:01 | PDOC PROGRESS REPORT ---
Subjective Progress Note for:: 04/18/17 Subjective:: Family at bedside this morning. Family states that cardiology told pt that heart is bad and not much to offer. Family states that pt is more confused this morning. Pt states that he is doing ok. Pt states that he ate a hard boiled egg. Son states that they are not able to take pt home the way he is currently. Physical Exam Vital Signs: Temp Pulse Resp BP Pulse Ox 97.4 F 91 20 103/65 98 04/18/17 11:18 04/18/17 11:18 04/18/17 11:18 04/18/17 11:18 04/18/17 11:18 Intake & Output 04/17/17 04/18/17 04/19/17 06:59 06:59 06:59 Intake Total 1461 1002 Output Total 150 750 Balance 1311 252 Weight 68.8 kg 68.8 kg General appearance: PRESENT: no acute distress, thin, other - +temporal wasting Head exam: PRESENT: atraumatic, normocephalic Eye exam: PRESENT: conjunctiva pink, EOMI. ABSENT: scleral icterus Ear exam: PRESENT: normal external ear exam Mouth exam: PRESENT: moist, tongue midline Neck exam: ABSENT: carotid bruit, JVD, lymphadenopathy, thyromegaly Respiratory exam: PRESENT: clear to auscultation syeda. ABSENT: rales, rhonchi, wheezes Cardiovascular exam: PRESENT: RRR. ABSENT: diastolic murmur, rubs, systolic murmur Pulses: PRESENT: normal dorsalis pedis pul GI/Abdominal exam: PRESENT: normal bowel sounds, soft. ABSENT: distended, guarding, mass, organolmegaly, rebound, tenderness Rectal exam: PRESENT: deferred Extremities exam: PRESENT: full ROM. ABSENT: calf tenderness, clubbing, pedal edema Neurological exam: PRESENT: alert, awake, oriented to person, oriented to place , oriented to time, oriented to situation, CN II-XII grossly intact, other - but falls to sleep if not stimulated.. ABSENT: motor sensory deficit Psychiatric exam: PRESENT: appropriate affect, normal mood. ABSENT: homicidal ideation, suicidal ideation Skin exam: PRESENT: dry, intact, warm. ABSENT: cyanosis, rash Results Laboratory Results: 04/18/17 04:15 04/18/17 04:15 04/18/17 04/18/17 04:15 04:15 WBC 6.6 RBC 3.62 L Hgb 11.5 L Hct 34.6 L MCV 96 MCH 31.7 MCHC 33.2 RDW 17.6 H Plt Count 61 L Seg Neutrophils % Not Reportable Lymphocytes % Not Reportable Monocytes % Not Reportable Eosinophils % Not Reportable Basophils % Not Reportable Absolute Neutrophils Not Reportable Absolute Lymphocytes Not Reportable Absolute Monocytes Not Reportable Absolute Eosinophils Not Reportable Absolute Basophils Not Reportable Sodium 132.6 L Potassium 4.5 Chloride 99 Carbon Dioxide 24 Anion Gap 10 BUN 31 H Creatinine 0.87 Est GFR ( Amer) > 60 Est GFR (Non-Af Amer) > 60 Glucose 83 Calcium 9.8 Impressions: Abdomen/Pelvis CT 04/14/17 16:23 IMPRESSION: 1. No acute thoracic injury evident. Findings as above. IMPRESSION: No acute abdominopelvic abnormality. Findings as above. Cervical Spine CT 04/14/17 16:23 IMPRESSION: 1. No acute intracranial abnormality. 2. Cervical spondylosis without fracture. Chest CT 04/14/17 16:23 IMPRESSION: 1. No acute thoracic injury evident. Findings as above. IMPRESSION: No acute abdominopelvic abnormality. Findings as above. Elbow X-Ray 04/14/17 16:23 IMPRESSION: Probable small joint effusion. No displaced fracture identified. Head CT 04/14/17 16:23 IMPRESSION: 1. No acute intracranial abnormality. 2. Cervical spondylosis without fracture. Abdomen Ultrasound 04/15/17 00:00 IMPRESSION: LIMITED STUDY. GALLSTONES. SMALL AMOUNT OF FLUID ADJACENT TO THE LIVER. KUB X-Ray 04/15/17 00:00 IMPRESSION: NO RADIOGRAPHIC EVIDENCE FOR ACUTE ABDOMINAL DISEASE. Chest X-Ray 04/16/17 00:00 IMPRESSION: NO ACUTE CARDIOPULMONARY PROCESS. NO SIGNIFICANT CHANGE FROM PRIOR STUDY. Assessment & Plan - Diagnosis (1) Orthostatic hypotension Is this a current diagnosis for this admission?: Yes Plan: Pt currently on Midodrine. Pt's blood pressure much improved. (2) Chronic combined systolic and diastolic CHF (congestive heart failure) Is this a current diagnosis for this admission?: Yes Plan: EF 30%. Pt refused stress test. Will readdress with family and pt. Son was very upset about current treatment plan. (3) Depression Qualifiers: Major depression episode severity: moderate Is this a current diagnosis for this admission?: Yes Plan: Will discontinue Zoloft. Pt more confused today. (4) Moderate protein-calorie malnutrition Is this a current diagnosis for this admission?: Yes Plan: Ensure TID. Pt currently on megace and started on Zoloft. (5) Non-STEMI (non-ST elevated myocardial infarction) Is this a current diagnosis for this admission?: Yes Plan: Pt declined nuclear stress test. Will readdress stress test again. Pt currently on Ranexa. (6) Chronic atrial fibrillation Is this a current diagnosis for this admission?: Yes Plan: Will continue Metoprolol and Digoxin. Pt not on anticoagulation due to falls. Cardiology recommends having this addressed as outpatient with pt's PCP. (7) Debility Is this a current diagnosis for this admission?: Yes Plan: PT/OT evaluation and treatment. - Time Time Spent with patient: 25-34 minutes
[2017-04-18] MEDS: ALBUTEROL SULFATE 0.083% NEB 2.5 MG/3 ML AMPUL NEB PRN (14:02)
[2017-04-19 04:54] LABS: HEMATOCRIT 37.7 % (37.9-51.0); HEMOGLOBIN 12.1 g/dL (13.5-17.0); HGB HCT DIFFERENCE -1.4; MEAN CORPUSCULAR HEMOGLOBIN 31.1 pg (27.0-33.4); MEAN CORPUSCULAR HGB CONC 32.1 g/dL (32.0-36.0); MEAN CORPUSCULAR VOLUME 97 fl (80-97); RED CELL DISTRIBUTION WIDTH 17.6 % (11.5-14.0); WHITE BLOOD COUNT 7.2 10^3/uL (4.0-10.5)
[2017-04-19 05:05] LABS: ANION GAP 12 (5-19); BLOOD UREA NITROGEN 41 mg/dL (7-20); CALCIUM 10.2 mg/dL (8.4-10.2); CARBON DIOXIDE 24 mmol/L (22-30); CHLORIDE 97 mmol/L (98-107); CREATININE RESULT 0.89 mg/dL (0.52-1.25); GLUCOSE 101 mg/dL (75-110); POTASSIUM 4.7 mmol/L (3.6-5.0); SODIUM 132.8 mmol/L (137-145)
[2017-04-19 05:08] LABS: BASOPHILS % (MANUAL) 0 % (0-2); EOSINOPHILS % (MANUAL) 0 % (0-6); LYMPHOCYTES % (MANUAL) 5 % (13-45); TOTAL CELLS COUNTED 100
[2017-04-19 05:11] LABS: ANISOCYTOSIS 1+; OVALOCYTES SLIGHT; POIKILOCYTOSIS 1+; TARGET CELLS 1+; TEAR DROP CELLS SLIGHT
[2017-04-19] MEDS ORDERED: AMINOPHYLLINE INJ/PF 250 MG/10 ML SDV IV ONE (12:16)
[2017-04-19] MEDS ORDERED: REGADENOSON INJ 0.4 MG/5 ML DISP.SYRIN IV ONE (12:16)
[2017-04-19] MEDS: MIDODRINE HCL 5 MG TABLET PO SCH ×3 (12:26→15:36)
[2017-04-19] MEDS: ASPIRIN 81 MG TABLET, ENT COATED PO SCH (12:50)
[2017-04-19] MEDS: CHOLECALCIFEROL (D3) 1,000 UNIT TABLET PO SCH ×2 (12:54→18:42)
[2017-04-19] MEDS: DOCUSATE SODIUM 100 MG CAPSULE PO SCH ×2 (12:54→18:42)
[2017-04-19] MEDS: DIGOXIN 0.125 MG TABLET PO SCH (12:55)
[2017-04-19] MEDS: FERROUS SULFATE 325 MG TABLET PO SCH (12:55)
[2017-04-19] MEDS: METOPROLOL TARTRATE 25 MG TABLET PO SCH ×2 (12:55→22:14)
[2017-04-19] MEDS: TIOTROPIUM BROMIDE DPI 5 CAP/KIT (18 MCG/CAP) IH SCH (12:56)
[2017-04-19] MEDS: MEGESTROL ACETATE SUSP 400 MG/10 ML UDCUP PO SCH ×2 (12:56→18:42)
[2017-04-19] MEDS: RANOLAZINE 500 MG TAB.SR.12H PO SCH ×2 (12:56→22:14)
[2017-04-19] MEDS: MULTIVITAMIN TABLET PO SCH (12:57)
[2017-04-19] MEDS: ASCORBIC ACID 500 MG TABLET PO SCH (12:57)
--- NOTE | 2017-04-19 14:11 | PDOC PROGRESS REPORT ---
Subjective Progress Note for:: 04/19/17 Subjective:: Pt states that he is doing ok this morning. Physical Exam Vital Signs: Temp Pulse Resp BP Pulse Ox 97.3 F 85 17 117/83 97 04/19/17 12:29 04/19/17 12:29 04/19/17 12:29 04/19/17 12:29 04/19/17 12:29 Intake & Output 04/18/17 04/19/17 04/20/17 06:59 06:59 06:59 Intake Total 1002 451 Output Total 750 150 Balance 252 301 Weight 68.8 kg 70.6 kg General appearance: PRESENT: no acute distress, well-developed, well-nourished Head exam: PRESENT: atraumatic, normocephalic Eye exam: PRESENT: conjunctiva pink, EOMI, PERRLA. ABSENT: scleral icterus Ear exam: PRESENT: normal external ear exam Mouth exam: PRESENT: moist, tongue midline Neck exam: ABSENT: carotid bruit, JVD, lymphadenopathy, thyromegaly Respiratory exam: PRESENT: clear to auscultation syeda. ABSENT: rales, rhonchi, wheezes Cardiovascular exam: PRESENT: RRR. ABSENT: diastolic murmur, rubs, systolic murmur Pulses: PRESENT: normal dorsalis pedis pul Vascular exam: PRESENT: normal capillary refill GI/Abdominal exam: PRESENT: normal bowel sounds, soft. ABSENT: distended, guarding, mass, organolmegaly, rebound, tenderness Rectal exam: PRESENT: deferred Extremities exam: PRESENT: full ROM. ABSENT: calf tenderness, clubbing, pedal edema Neurological exam: PRESENT: alert, awake, oriented to person, oriented to place , oriented to time, oriented to situation, CN II-XII grossly intact. ABSENT: motor sensory deficit Psychiatric exam: PRESENT: agitated Skin exam: PRESENT: dry, intact, warm. ABSENT: cyanosis, rash Results Laboratory Results: 04/19/17 04:26 04/19/17 04:26 04/19/17 04/19/17 04:26 04:26 WBC 7.2 RBC 3.90 L Hgb 12.1 L Hct 37.7 L MCV 97 MCH 31.1 MCHC 32.1 RDW 17.6 H Plt Count 68 L Seg Neutrophils % Not Reportable Lymphocytes % Not Reportable Monocytes % Not Reportable Eosinophils % Not Reportable Basophils % Not Reportable Absolute Neutrophils Not Reportable Absolute Lymphocytes Not Reportable Absolute Monocytes Not Reportable Absolute Eosinophils Not Reportable Absolute Basophils Not Reportable Sodium 132.8 L Potassium 4.7 Chloride 97 L Carbon Dioxide 24 Anion Gap 12 BUN 41 H Creatinine 0.89 Est GFR ( Amer) > 60 Est GFR (Non-Af Amer) > 60 Glucose 101 Calcium 10.2 Impressions: Abdomen/Pelvis CT 04/14/17 16:23 IMPRESSION: 1. No acute thoracic injury evident. Findings as above. IMPRESSION: No acute abdominopelvic abnormality. Findings as above. Cervical Spine CT 04/14/17 16:23 IMPRESSION: 1. No acute intracranial abnormality. 2. Cervical spondylosis without fracture. Chest CT 04/14/17 16:23 IMPRESSION: 1. No acute thoracic injury evident. Findings as above. IMPRESSION: No acute abdominopelvic abnormality. Findings as above. Elbow X-Ray 04/14/17 16:23 IMPRESSION: Probable small joint effusion. No displaced fracture identified. Head CT 04/14/17 16:23 IMPRESSION: 1. No acute intracranial abnormality. 2. Cervical spondylosis without fracture. Abdomen Ultrasound 04/15/17 00:00 IMPRESSION: LIMITED STUDY. GALLSTONES. SMALL AMOUNT OF FLUID ADJACENT TO THE LIVER. KUB X-Ray 04/15/17 00:00 IMPRESSION: NO RADIOGRAPHIC EVIDENCE FOR ACUTE ABDOMINAL DISEASE. Chest X-Ray 04/16/17 00:00 IMPRESSION: NO ACUTE CARDIOPULMONARY PROCESS. NO SIGNIFICANT CHANGE FROM PRIOR STUDY. Assessment & Plan - Diagnosis (1) Orthostatic hypotension Is this a current diagnosis for this admission?: Yes Plan: Pt currently on Midodrine. Pt's blood pressure much improved. (2) Chronic combined systolic and diastolic CHF (congestive heart failure) Is this a current diagnosis for this admission?: Yes Plan: EF 30%. Pt agreed to stress test. Pt currently undergoing stress test. Will await results of study. 2 D Echo pending. (3) Hyponatremia Is this a current diagnosis for this admission?: Yes Plan: Most likely Secondary to Diuretics: Will monitor. (4) Depression Qualifiers: Major depression episode severity: moderate Is this a current diagnosis for this admission?: Yes Plan: Pt was placed on SSRI Zoloft but came confused. Pt currently back to his baseline. Will monitor. (5) Moderate protein-calorie malnutrition Is this a current diagnosis for this admission?: Yes Plan: Ensure TID. Pt currently on megace. (6) Non-STEMI (non-ST elevated myocardial infarction) Is this a current diagnosis for this admission?: Yes Plan: Pt currently having stress test study. Will await results. Pt currently on Ranexa. (7) Chronic atrial fibrillation Is this a current diagnosis for this admission?: Yes Plan: Will continue Metoprolol and Digoxin. Pt not on anticoagulation due to falls. Cardiology recommends having this addressed as outpatient with pt's PCP. (8) Debility Is this a current diagnosis for this admission?: Yes Plan: PT/OT evaluation and treatment. - Time Time Spent with patient: 15-24 minutes
--- NOTE | 2017-04-19 14:37 | DRAGON STRESS TEST REPORT ---
INTRAVENOUS LEXISCAN CARDIOLITE STRESS TEST USING SINGLE PHOTON EMMISION COMPUTERIZED TOMOGRAPHIC. DATE OF PROCEDURE: April 19, 2017 INDICATION : Syncope CARDIAC RISK FACTORS: Diabetes, hypertension RESTING EKG: Atrial fibrillation with nonspecific IVCD STRESS EKG: No significant changes noted with LexiScan bolus REASON FOR TERMINATION: Protocol. PROCEDURE REPORT: Baseline heart rate 92 beats per minute with blood pressure of 107/75. Patient had no significant complaints. Heart rate at 2 minutes post bolus 90 with a blood pressure of 109/71. 3 minutes post bolus heart rate 100 with blood pressure of 106/74. No significant EKG changes were noted. Patient had no significant complaints during the procedure or postprocedure. Patient injected with Aminophyllin 75 mg at 3 minutes or later after Lexiscan bolus. CONCLUSIONS: Normal EKG and hemodynamic response to IV LexiScan. NUCLEAR DATA: At rest the patient was given 10.83 millicuries of technetium 99 sestamibi injected intravenously. As per protocol rest gated SPECT images were obtained. Subsequently the patient was given intravenous LexiScan at a dose of 0.4 mg in 5 mL intravenously, followed by flush with normal saline. Subsequently the stress dose of 30.7 millicuries of technetium 99 sestamibi was injected intravenously. As per protocol stress gated images were obtained. NUCLEAR INTERPRETATION: Both raw and processed data were used for interpretation. Visual, qualitative, computer-generated quantitative data was used. There was good myocardial uptake of technetium compound. Motion artifact and soft tissue attenuations were noted. Increased visceral uptake was noted. No definitive areas of transient perfusion defect noted except for a small area of mild decreased uptake noted in the mid and distal inferior wall with a underlying a smaller mild fixed perfusion defect. This could possibly be related to diaphragmatic attenuation but cannot rule out an area of mild ischemia. No definitive areas of fixed perfusion defect or scars noted. EKG gated imaging showed LV EF at 21 %, rest and stress gated EF similar visually. T. I D. ratio was 0.94. Lung heart ratio noted to be within normal limits 0.42. No significant extracardiac and abnormal radiotracer activities were noted. RV free wall uptake was noted to be RV enlargement and RVH noted. IMPRESSION: Also refer to comments under nuclear interpretation. Also test results needs to be interpreted in the context of pretest probability. 1. No definitive areas of transient perfusion defect noted except for a small area of mild decreased uptake noted in the mid and distal inferior wall with a underlying a smaller mild fixed perfusion defect. This could possibly be related to diaphragmatic attenuation but cannot rule out an area of mild ischemia. 2. There is no definitive scintigraphic evidence of myocardial infarction/scar. 3. EKG gated imaging shows left ventricular ejection fraction of approximately 21 %. 4. Clinical correlation requested as occasionally single vessel disease or balanced ischemia could be missed. In approximately 10% of the cases Lexiscan may not cause adequate vasodilatory stress. RECOMMENDATIONS: Aggressive risk factor modification, medical therapy. Clinical correlation with echocardiogram derived ejection fraction. Inability to exercise by itself can lead to increased cardiovascular event risks. Consider cardiology consultation and or follow-up if clinically indicated. I AM AVAILABLE FOR CARDIOLOGY CONSULTATION AND FOLLOWUP IF REQUESTED BY ELIJAH Galdamez M.D., ALISA Instructor [employer] roller skates assembler, Board certified in cardiovascular diseases, Nuclear cardiology, Echocardiography Cardiac CT and cardiac MRI Ph. [phone] [facility]ITALLida
[2017-04-19] MEDS ORDERED: FUROSEMIDE INJ/PF 20 MG/2 ML SDV IV ONE (16:25)
[2017-04-20] MEDS: MIDODRINE HCL 5 MG TABLET PO SCH ×3 (07:43→16:04)
[2017-04-20] MEDS: DIGOXIN 0.125 MG TABLET PO SCH (09:36)
[2017-04-20] MEDS: CHOLECALCIFEROL (D3) 1,000 UNIT TABLET PO SCH ×2 (09:39→17:12)
[2017-04-20] MEDS: RANOLAZINE 500 MG TAB.SR.12H PO SCH ×2 (09:39→22:25)
[2017-04-20] MEDS: ASPIRIN 81 MG TABLET, ENT COATED PO SCH (09:39)
[2017-04-20] MEDS: DOCUSATE SODIUM 100 MG CAPSULE PO SCH ×2 (09:39→17:12)
[2017-04-20] MEDS: METOPROLOL TARTRATE 25 MG TABLET PO SCH ×2 (09:39→22:25)
[2017-04-20] MEDS: FERROUS SULFATE 325 MG TABLET PO SCH (09:39)
[2017-04-20] MEDS: MEGESTROL ACETATE SUSP 400 MG/10 ML UDCUP PO SCH ×2 (09:40→17:12)
[2017-04-20] MEDS: TIOTROPIUM BROMIDE DPI 5 CAP/KIT (18 MCG/CAP) IH SCH (11:02)
[2017-04-20] MEDS: MULTIVITAMIN TABLET PO SCH (11:14)
[2017-04-20] MEDS: ASCORBIC ACID 500 MG TABLET PO SCH (11:14)
[2017-04-20] MEDS ORDERED: PHENOL/SODIUM PHENOLATE 100 SPRAY/177 ML BOTTLE PO ONE (12:37)
--- NOTE | 2017-04-20 13:14 | RADIOLOGY REPORT (SQ) ---
EXAM DESCRIPTION: CHEST SINGLE VIEW COMPLETED DATE/TIME: 04/20/2017 1:03 pm REASON FOR STUDY: CHF COMPARISON: Chest films 08/14/2016, 04/14/2017, 04/16/2017 CT chest 04/14/2017, 08/14/2016 EXAM PARAMETERS: NUMBER OF VIEWS: One view. TECHNIQUE: Single frontal radiographic view of the chest acquired. RADIATION DOSE: NA LIMITATIONS: None. FINDINGS: LUNGS AND PLEURA: Extensive bilateral calcified pleural plaques. Chronic increased interstitial markings around the periphery of both lungs. No definite perihilar pulmonary edema or new lobar consolidation there is no pleural effusions. No p neumothorax. MEDIASTINUM AND HILAR STRUCTURES: No masses. Contour normal. HEART AND VASCULAR STRUCTURES: Stable moderate to marked cardiomegaly. BONES: No acute findings. HARDWARE: Right-sided permanent central line tip superior vena cava OTHER: No other significant finding. IMPRESSION: Baseline abnormal chest film with dense calcified pleural plaques and pleural thickening , and increased interstitial markings over the mid and lower lungs. No gross acute changes. Stable cardiomegaly TECHNICAL DOCUMENTATION: JOB ID: [id number]
[2017-04-20] MEDS ORDERED: PHENOL/SODIUM PHENOLATE 100 SPRAY/177 ML BOTTLE PO PRN (14:00)
--- NOTE | 2017-04-20 15:38 | PDOC PROGRESS REPORT ---
Subjective Progress Note for:: 04/20/17 Subjective:: Pt states that he is doing well today. Pt states that he did have a few bites of his breakfast. Nursing states that pt did have a few bites of food this morning. Pt son is concerned about pt's poor appetite which has been chronic. Son also state that pt is too weak to come home. Physical Exam Vital Signs: Temp Pulse Resp BP Pulse Ox 97.4 F 85 13 115/77 99 04/20/17 11:10 04/20/17 14:00 04/20/17 11:10 04/20/17 11:10 04/20/17 11:10 Intake & Output 04/19/17 04/20/17 04/21/17 06:59 06:59 06:59 Intake Total 451 438 330 Output Total 150 350 50 Balance 301 88 280 Weight 70.6 kg 70.6 kg General appearance: PRESENT: other - appears stated age, thin, + temporal wasting Head exam: PRESENT: atraumatic, normocephalic Eye exam: PRESENT: conjunctiva pink, EOMI. ABSENT: scleral icterus Ear exam: PRESENT: normal external ear exam Mouth exam: PRESENT: moist, tongue midline Neck exam: ABSENT: carotid bruit, JVD, lymphadenopathy, thyromegaly Respiratory exam: PRESENT: other - + diminished at bases, fair airmovement heard in upper lobes Cardiovascular exam: PRESENT: RRR. ABSENT: diastolic murmur, rubs, systolic murmur Pulses: PRESENT: normal dorsalis pedis pul Vascular exam: PRESENT: normal capillary refill GI/Abdominal exam: PRESENT: normal bowel sounds, soft. ABSENT: distended, guarding, mass, organolmegaly, rebound, tenderness Rectal exam: PRESENT: deferred Extremities exam: PRESENT: full ROM. ABSENT: calf tenderness, clubbing, pedal edema Neurological exam: PRESENT: alert, awake, oriented to person, oriented to place , oriented to time, oriented to situation, CN II-XII grossly intact. ABSENT: motor sensory deficit Psychiatric exam: PRESENT: appropriate affect, normal mood. ABSENT: homicidal ideation, suicidal ideation Skin exam: PRESENT: dry, intact, warm. ABSENT: cyanosis, rash Results Laboratory Results: 04/19/17 04:26 04/19/17 04:26 Impressions: Abdomen/Pelvis CT 04/14/17 16:23 IMPRESSION: 1. No acute thoracic injury evident. Findings as above. IMPRESSION: No acute abdominopelvic abnormality. Findings as above. Cervical Spine CT 04/14/17 16:23 IMPRESSION: 1. No acute intracranial abnormality. 2. Cervical spondylosis without fracture. Chest CT 04/14/17 16:23 IMPRESSION: 1. No acute thoracic injury evident. Findings as above. IMPRESSION: No acute abdominopelvic abnormality. Findings as above. Elbow X-Ray 04/14/17 16:23 IMPRESSION: Probable small joint effusion. No displaced fracture identified. Head CT 04/14/17 16:23 IMPRESSION: 1. No acute intracranial abnormality. 2. Cervical spondylosis without fracture. Abdomen Ultrasound 04/15/17 00:00 IMPRESSION: LIMITED STUDY. GALLSTONES. SMALL AMOUNT OF FLUID ADJACENT TO THE LIVER. KUB X-Ray 04/15/17 00:00 IMPRESSION: NO RADIOGRAPHIC EVIDENCE FOR ACUTE ABDOMINAL DISEASE. Chest X-Ray 04/20/17 00:00 IMPRESSION: Baseline abnormal chest film with dense calcified pleural plaques and pleural thickening, and increased interstitial markings over the mid and lower lungs. No gross acute changes. Stable cardiomegaly Assessment & Plan - Diagnosis (1) Moderate protein-calorie malnutrition Is this a current diagnosis for this admission?: Yes Plan: Will increase Megace. (2) Orthostatic hypotension Is this a current diagnosis for this admission?: Yes Plan: Pt currently on Midodrine. Pt's blood pressure much improved. (3) Chronic combined systolic and diastolic CHF (congestive heart failure) Is this a current diagnosis for this admission?: Yes Plan: EF 30%. Pt was given additional dose of Lasix. No evidence of ischemia on stress test. Cardiology recommended medical management. (4) Hyponatremia Is this a current diagnosis for this admission?: Yes Plan: Most likely Secondary to Diuretics: Will monitor. (5) Depression Qualifiers: Major depression episode severity: moderate Is this a current diagnosis for this admission?: Yes Plan: Pt was placed on SSRI Zoloft but came confused. Pt currently back to his baseline. Will monitor. (6) Non-STEMI (non-ST elevated myocardial infarction) Is this a current diagnosis for this admission?: Yes Plan: Stress test demonstrated no evidence of ischemia. Cardiology recommending medical management. Pt currently on Ranexa. (7) Chronic atrial fibrillation Is this a current diagnosis for this admission?: Yes Plan: Will continue Metoprolol and Digoxin. Pt not on anticoagulation due to falls. Cardiology recommends having this addressed as outpatient with pt's PCP. (8) Debility Is this a current diagnosis for this admission?: Yes Plan: PT/OT evaluation and treatment. - Time Time Spent with patient: 15-24 minutes - Pt will require swing bed for discharge. Social Consult placed.
[2017-04-20] MEDS: NYSTATIN/DEXAMETH/DIPHEN SUSP 120 ML PO SCH ×3 (16:27→22:25)
[2017-04-20] MEDS: ALBUTEROL SULFATE HFA (90 MCG/PUFF) 200 PUFF/8.5 GM MDI IH PRN (18:46)
[2017-04-21 06:26] LABS: ABSOLUTE LYMPHOCYTES (AUTO) 0.3 10^3/uL (0.5-4.7); ABSOLUTE MONOCYTES (AUTO) 0.6 10^3/uL (0.1-1.4); ABSOLUTE NEUT (AUTO) 4.1 10^3/uL (1.7-8.2); BASOPHILS % (AUTO) 0.1 % (0-2); EOSINOPHILS % (AUTO) 0.6 % (0-6); HEMATOCRIT 34.8 % (37.9-51.0); HEMOGLOBIN 11.1 g/dL (13.5-17.0); LYMPHOCYTES % (AUTO) 5.4 % (13-45); MEAN CORPUSCULAR HEMOGLOBIN 31.4 pg (27.0-33.4); MEAN CORPUSCULAR VOLUME 98 fl (80-97); MONOCYTES % (AUTO) 12.3 % (3-13); RED BLOOD COUNT 3.54 10^6/uL (4.35-5.55); RED CELL DISTRIBUTION WIDTH 17.5 % (11.5-14.0); SEGMENTED NEUTROPHILS % (AUTO) 81.6 % (42-78)
[2017-04-21 06:35] LABS: ANION GAP 7 (5-19); BLOOD UREA NITROGEN 40 mg/dL (7-20); CALCIUM 10.3 mg/dL (8.4-10.2); CARBON DIOXIDE 29 mmol/L (22-30); CHLORIDE 96 mmol/L (98-107); CREATININE RESULT 0.89 mg/dL (0.52-1.25); GLUCOSE 80 mg/dL (75-110); POTASSIUM 4.5 mmol/L (3.6-5.0); SODIUM 131.6 mmol/L (137-145)
[2017-04-21 06:51] LABS: HGB HCT DIFFERENCE -1.5
--- NOTE | 2017-04-21 11:59 | PDOC PROGRESS REPORT ---
Subjective Progress Note for:: 04/21/17 Subjective:: Pt states that he does not want a feeding tube. Pt was seen later that morning when was present who states that she does not want him to have a feeding tube. Physical Exam Vital Signs: Temp Pulse Resp BP Pulse Ox 97.9 F 79 18 112/74 95 04/21/17 08:00 04/21/17 08:00 04/21/17 08:00 04/21/17 08:00 04/21/17 08:00 Intake & Output 04/20/17 04/21/17 04/22/17 06:59 06:59 06:59 Intake Total 438 660 Output Total 350 50 Balance 88 610 Weight 70.6 kg 70.6 kg General appearance: PRESENT: no acute distress, thin Exam: + temporal wasting Head exam: PRESENT: atraumatic, normocephalic Eye exam: PRESENT: conjunctiva pink, EOMI. ABSENT: scleral icterus Ear exam: PRESENT: normal external ear exam Mouth exam: PRESENT: moist, tongue midline Neck exam: ABSENT: carotid bruit, JVD, lymphadenopathy, thyromegaly Respiratory exam: PRESENT: clear to auscultation syeda. ABSENT: rales, rhonchi, wheezes Cardiovascular exam: PRESENT: RRR. ABSENT: diastolic murmur, rubs, systolic murmur Pulses: PRESENT: normal dorsalis pedis pul Vascular exam: PRESENT: normal capillary refill GI/Abdominal exam: PRESENT: normal bowel sounds, soft. ABSENT: distended, guarding, mass, organolmegaly, rebound, tenderness Rectal exam: PRESENT: deferred Extremities exam: PRESENT: full ROM. ABSENT: calf tenderness, clubbing, pedal edema Neurological exam: PRESENT: alert, awake, oriented to person, oriented to place , oriented to time, oriented to situation, CN II-XII grossly intact. ABSENT: motor sensory deficit Psychiatric exam: PRESENT: appropriate affect, normal mood. ABSENT: homicidal ideation, suicidal ideation Skin exam: PRESENT: dry, warm. ABSENT: cyanosis, rash Results Laboratory Results: 04/21/17 06:08 04/21/17 06:08 04/21/17 04/21/17 06:08 06:08 WBC 5.0 RBC 3.54 L Hgb 11.1 L Hct 34.8 L MCV 98 H MCH 31.4 MCHC 32.0 RDW 17.5 H Plt Count 68 L Seg Neutrophils % 81.6 H Lymphocytes % 5.4 L Monocytes % 12.3 Eosinophils % 0.6 Basophils % 0.1 Absolute Neutrophils 4.1 Absolute Lymphocytes 0.3 L Absolute Monocytes 0.6 Absolute Eosinophils 0.0 Absolute Basophils 0.0 Sodium 131.6 L Potassium 4.5 Chloride 96 L Carbon Dioxide 29 Anion Gap 7 BUN 40 H Creatinine 0.89 Est GFR ( Amer) > 60 Est GFR (Non-Af Amer) > 60 Glucose 80 Calcium 10.3 H Impressions: Abdomen/Pelvis CT 04/14/17 16:23 IMPRESSION: 1. No acute thoracic injury evident. Findings as above. IMPRESSION: No acute abdominopelvic abnormality. Findings as above. Cervical Spine CT 04/14/17 16:23 IMPRESSION: 1. No acute intracranial abnormality. 2. Cervical spondylosis without fracture. Chest CT 04/14/17 16:23 IMPRESSION: 1. No acute thoracic injury evident. Findings as above. IMPRESSION: No acute abdominopelvic abnormality. Findings as above. Elbow X-Ray 04/14/17 16:23 IMPRESSION: Probable small joint effusion. No displaced fracture identified. Head CT 04/14/17 16:23 IMPRESSION: 1. No acute intracranial abnormality. 2. Cervical spondylosis without fracture. Abdomen Ultrasound 04/15/17 00:00 IMPRESSION: LIMITED STUDY. GALLSTONES. SMALL AMOUNT OF FLUID ADJACENT TO THE LIVER. KUB X-Ray 04/15/17 00:00 IMPRESSION: NO RADIOGRAPHIC EVIDENCE FOR ACUTE ABDOMINAL DISEASE. Chest X-Ray 04/20/17 00:00 IMPRESSION: Baseline abnormal chest film with dense calcified pleural plaques and pleural thickening, and increased interstitial markings over the mid and lower lungs. No gross acute changes. Stable cardiomegaly Assessment & Plan - Diagnosis (1) Moderate protein-calorie malnutrition Is this a current diagnosis for this admission?: Yes Plan: Megace. (2) Orthostatic hypotension Is this a current diagnosis for this admission?: Yes Plan: Pt currently on Midodrine. Pt's blood pressure much improved. (3) Chronic combined systolic and diastolic CHF (congestive heart failure) Is this a current diagnosis for this admission?: Yes Plan: EF 30%. Will hold Lasix. No evidence of ischemia on stress test. Cardiology recommended medical management. (4) Hyponatremia Is this a current diagnosis for this admission?: Yes Plan: Most likely Secondary to Diuretics: Will hold lasix. (5) Depression Qualifiers: Major depression episode severity: moderate Is this a current diagnosis for this admission?: Yes Plan: Pt was placed on SSRI Zoloft but came confused. Pt currently back to his baseline. Will monitor. (6) Non-STEMI (non-ST elevated myocardial infarction) Is this a current diagnosis for this admission?: Yes Plan: Stress test demonstrated no evidence of ischemia. Cardiology recommending medical management. Pt currently on Ranexa. (7) Chronic atrial fibrillation Is this a current diagnosis for this admission?: Yes Plan: Will continue Metoprolol and Digoxin. Pt not on anticoagulation due to falls. Cardiology recommends having this addressed as outpatient with pt's PCP. (8) Debility Is this a current diagnosis for this admission?: Yes Plan: PT/OT evaluation and treatment. - Time Time Spent with patient: 15-24 minutes - Will have pallative care see patient.
[2017-04-21] MEDS: MULTIVITAMIN TABLET PO SCH (13:35)
[2017-04-21] MEDS: DIGOXIN 0.125 MG TABLET PO SCH (13:36)
[2017-04-21] MEDS: FERROUS SULFATE 325 MG TABLET PO SCH (13:36)
[2017-04-21] MEDS: MIDODRINE HCL 5 MG TABLET PO SCH ×2 (13:37→20:33)
[2017-04-21] MEDS: CHOLECALCIFEROL (D3) 1,000 UNIT TABLET PO SCH ×2 (13:38→20:29)
[2017-04-21] MEDS: DOCUSATE SODIUM 100 MG CAPSULE PO SCH ×2 (13:38→20:29)
[2017-04-21] MEDS: ASCORBIC ACID 500 MG TABLET PO SCH (13:38)
[2017-04-21] MEDS: METOPROLOL TARTRATE 25 MG TABLET PO SCH ×2 (13:39→22:06)
[2017-04-21] MEDS: ASPIRIN 81 MG TABLET, ENT COATED PO SCH (13:40)
[2017-04-21] MEDS: NYSTATIN/DEXAMETH/DIPHEN SUSP 120 ML PO SCH ×4 (13:41→22:06)
[2017-04-21] MEDS: MEGESTROL ACETATE SUSP 400 MG/10 ML UDCUP PO SCH ×2 (13:42→20:29)
[2017-04-21] MEDS: TIOTROPIUM BROMIDE DPI 5 CAP/KIT (18 MCG/CAP) IH SCH (13:43)
[2017-04-21] MEDS: RANOLAZINE 500 MG TAB.SR.12H PO SCH ×2 (13:43→22:06)
--- NOTE | 2017-04-21 15:22 | PDOC PROGRESS REPORT ---
Subjective Progress Note for:: 04/18/17 Subjective:: Patient seems to be doing somewhat worse, feel very fatigued and tired. Pt is denying any chest arm or neck discomfort. Patient denying any PND, orthopnea. Patient denying any fever chills. Patient denying any other significant discomfort. Patient is maintaining atrial fibrillation. Heart rate reasonably well controlled. Review of systems: Rest review of systems negative. Medications: Medications have been reviewed. Physical Exam Vital Signs: Temp Pulse Resp BP Pulse Ox 97.2 F 86 18 120/83 96 04/18/17 19:35 04/18/17 19:35 04/18/17 19:35 04/18/17 19:35 04/18/17 19:35 Intake & Output 04/17/17 04/18/17 04/19/17 06:59 06:59 06:59 Intake Total 1461 1002 266 Output Total 150 750 150 Balance 1311 252 116 Weight 68.8 kg 68.8 kg Exam: GENERAL: well-nourished and in no acute distress. Alert and oriented x2. Patient however debilitated and nurses also noted intermittent confusion. HEAD: Atraumatic, normocephalic. EYES: Pupils equal round and reactive to light, extraocular movements intact, sclera anicteric, conjunctiva are normal. ENT: TMs normal, nares patent, oropharynx clear without exudates. Moist mucous membranes. No oral ulcerations or bleeding gums noted NECK: supple without lymphadenopathy. Trachea is central. No cervical or axillary lymphadenopathy noted. Carotids are 2+, JVD WNL LUNGS: Respiration seems nonlabored, no significant accessory muscle action noted. Breath sounds clear to auscultation bilaterally and equal noted. No wheezes rales or rhonchi noted. No significant dullness noted on percussion. CHEST: Palpation of the chest wall shows no significant chest wall tenderness. No other significant abnormalities noted. HEART: [place] [employer] UTILITY, No PSH, 1/6 HANH aortic area, 1/6 huggins systolic murmur mitral area, no rubs, positive S3 gallops. ABDOMEN: Soft, no significant tenderness appreciated, normoactive bowel sounds. No guarding, no rebound. No rigidity noted . No masses appreciated. EXTREMITIES: Pedal pulses are 1-2+, no calf tenderness noted. No clubbing or cyanosis. 1+ pedal edema noted NEUROLOGICAL: Focused neurological exam showed no significant neurologic deficit. Normal speech, no focal weakness appreciated. PSYCH: Normal mood, normal affect. Judgment and insight within normal limits. SKIN: No significant ecchymosis, rash, ulcerations or signs of pruritus noted. MUSCULOSKELETAL EXAM: No significant joint swelling noted. Results Laboratory Results: 04/18/17 04:15 04/18/17 04:15 04/18/17 04/18/17 04:15 04:15 WBC 6.6 RBC 3.62 L Hgb 11.5 L Hct 34.6 L MCV 96 MCH 31.7 MCHC 33.2 RDW 17.6 H Plt Count 61 L Seg Neutrophils % Not Reportable Lymphocytes % Not Reportable Monocytes % Not Reportable Eosinophils % Not Reportable Basophils % Not Reportable Absolute Neutrophils Not Reportable Absolute Lymphocytes Not Reportable Absolute Monocytes Not Reportable Absolute Eosinophils Not Reportable Absolute Basophils Not Reportable Sodium 132.6 L Potassium 4.5 Chloride 99 Carbon Dioxide 24 Anion Gap 10 BUN 31 H Creatinine 0.87 Est GFR ( Amer) > 60 Est GFR (Non-Af Amer) > 60 Glucose 83 Calcium 9.8 Impressions: Abdomen/Pelvis CT 04/14/17 16:23 IMPRESSION: 1. No acute thoracic injury evident. Findings as above. IMPRESSION: No acute abdominopelvic abnormality. Findings as above. Cervical Spine CT 04/14/17 16:23 IMPRESSION: 1. No acute intracranial abnormality. 2. Cervical spondylosis without fracture. Chest CT 04/14/17 16:23 IMPRESSION: 1. No acute thoracic injury evident. Findings as above. IMPRESSION: No acute abdominopelvic abnormality. Findings as above. Elbow X-Ray 04/14/17 16:23 IMPRESSION: Probable small joint effusion. No displaced fracture identified. Head CT 04/14/17 16:23 IMPRESSION: 1. No acute intracranial abnormality. 2. Cervical spondylosis without fracture. Abdomen Ultrasound 04/15/17 00:00 IMPRESSION: LIMITED STUDY. GALLSTONES. SMALL AMOUNT OF FLUID ADJACENT TO THE LIVER. KUB X-Ray 04/15/17 00:00 IMPRESSION: NO RADIOGRAPHIC EVIDENCE FOR ACUTE ABDOMINAL DISEASE. Chest X-Ray 04/16/17 00:00 IMPRESSION: NO ACUTE CARDIOPULMONARY PROCESS. NO SIGNIFICANT CHANGE FROM PRIOR STUDY. Assessment & Plan - Diagnosis (1) Orthostatic hypotension Is this a current diagnosis for this admission?: Yes (2) Syncope Qualifiers: Encounter type: subsequent encounter Is this a current diagnosis for this admission?: Yes (3) Atrial fibrillation with RVR Is this a current diagnosis for this admission?: Yes (4) Cardiomyopathy Qualifiers: Cardiomyopathy type: unspecified Qualified Code(s): I42.9 - Cardiomyopathy , unspecified Is this a current diagnosis for this admission?: Yes (5) Pulmonary asbestosis Is this a current diagnosis for this admission?: Yes (6) Elevated troponin I level Is this a current diagnosis for this admission?: Yes (7) Non-STEMI (non-ST elevated myocardial infarction) Is this a current diagnosis for this admission?: Yes (8) Chronic atrial fibrillation Is this a current diagnosis for this admission?: Yes - Notes Notes: Syncope and near syncope: Most likely related to orthostatic hypotension. So far no significant sustained tachycardia or bradycardia arrhythmias noted. At this point agree with cautious IV fluids as patient may be volume depleted. Agree with Midodrin therapy. For rate control would recommend digoxin and cardioselective beta-federico at this point. Orthostatic hypotension: Patient seems to be euvolemic, patient also very debilitated. Agree with slow hydration and also support stockings. Physical therapy will help. Observe for any CHF precipitation. Atrial fibrillation: This is chronic. Recommend rate control. Anticoagulation to be decided by the primary care cellular equipment repairer and control clerk because of significant falls. Pulmonary asbestosis: May consider nocturnal oxygen supplementation etc. Elevated troponin I level. Patient denied any chest pain. There is no significant EKG changes. Patient does have underlying CAD based on coronary calcification noted on CTA of the chest. At this point will optimize therapy. Did offer patient a nuclear stress test but he declined. Continue patient on Ranexa. This will help and rate control as well and may help with ischemia. Non-STEMI: Cardiac enzymes suggest non-STEMI. Patient however without any chest pain. Patient has some minor nonspecific ST segment changes but most likely related to bundle branch block pattern. Did offer patient a stress test but he declined. Medical management is being slowly optimized. Will add statins. Currently on low-dose beta-federico. Continue Ranexa. Orders for Ranexa was written. - Time Time with patient: 15-25 minutes - CODE STATUS was discussed, patient remains full code. Surrogate decision-maker unchanged. Multiple medical problems were addressed. More than 50% of the time spent coordinating care, discussing management plans with involved caregivers. Management plans discussed with involved personnels. Medical decision making was of moderate to high complexity , patient's has multiple comorbidities. Prognosis is guarded. Medications reviewed and adjusted accordingly: Yes
--- NOTE | 2017-04-21 15:26 | PDOC PROGRESS REPORT ---
Subjective Progress Note for:: 04/19/17 Subjective:: NST results discussed with . Patient was seen multiple times. Patient was seen in the morning, immediately after stress test and also later on to discuss the results. Patient seems to be doing somewhat worse, feel very fatigued and tired. Pt is denying any chest arm or neck discomfort. Patient denying any PND, orthopnea. Patient denying any fever chills. Patient denying any other significant discomfort. Patient is maintaining atrial fibrillation. Heart rate reasonably well controlled. Review of systems: Rest review of systems negative. Medications: Medications have been reviewed. Physical Exam Vital Signs: Temp Pulse Resp BP Pulse Ox 97.2 F 96 17 122/88 H 97 04/19/17 19:48 04/19/17 19:50 04/19/17 19:50 04/19/17 19:50 04/19/17 19:50 Intake & Output 04/18/17 04/19/17 04/20/17 06:59 06:59 06:59 Intake Total 1002 451 403 Output Total 750 150 350 Balance 252 301 53 Weight 68.8 kg 70.6 kg Exam: GENERAL: well-nourished and in no acute distress. Alert and oriented x2, patient is intermittently confused. HEAD: Atraumatic, normocephalic. EYES: Pupils equal round and reactive to light, extraocular movements intact, sclera anicteric, conjunctiva are normal. ENT: TMs normal, nares patent, oropharynx clear without exudates. Moist mucous membranes. No oral ulcerations or bleeding gums noted NECK: supple without lymphadenopathy. Trachea is central. No cervical or axillary lymphadenopathy noted. Carotids are 2+, JVD WNL LUNGS: Respiration seems nonlabored, no significant accessory muscle action noted. Breath sounds clear to auscultation bilaterally and equal noted. No wheezes rales or rhonchi noted. No significant dullness noted on percussion. CHEST: Palpation of the chest wall shows no significant chest wall tenderness. No other significant abnormalities noted. 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 ABDOMEN: Soft, no significant tenderness appreciated, normoactive bowel sounds. No guarding, no rebound. No rigidity noted . No masses appreciated. EXTREMITIES: Pedal pulses are 1-2+, no calf tenderness noted. No clubbing or cyanosis. 1+ pedal edema noted NEUROLOGICAL: Focused neurological exam showed no significant neurologic deficit. Normal speech, no focal weakness appreciated. PSYCH: Normal mood, normal affect. Judgment and insight within normal limits. SKIN: No significant ecchymosis, rash, ulcerations or signs of pruritus noted. MUSCULOSKELETAL EXAM: No significant joint swelling noted. Results Laboratory Results: 04/19/17 04:26 04/19/17 04:26 04/19/17 04/19/17 04:26 04:26 WBC 7.2 RBC 3.90 L Hgb 12.1 L Hct 37.7 L MCV 97 MCH 31.1 MCHC 32.1 RDW 17.6 H Plt Count 68 L Seg Neutrophils % Not Reportable Lymphocytes % Not Reportable Monocytes % Not Reportable Eosinophils % Not Reportable Basophils % Not Reportable Absolute Neutrophils Not Reportable Absolute Lymphocytes Not Reportable Absolute Monocytes Not Reportable Absolute Eosinophils Not Reportable Absolute Basophils Not Reportable Sodium 132.8 L Potassium 4.7 Chloride 97 L Carbon Dioxide 24 Anion Gap 12 BUN 41 H Creatinine 0.89 Est GFR ( Amer) > 60 Est GFR (Non-Af Amer) > 60 Glucose 101 Calcium 10.2 EKG Comments: Atrial fibrillation with controlled ventricular response and bundle branch block pattern Impressions: Abdomen/Pelvis CT 04/14/17 16:23 IMPRESSION: 1. No acute thoracic injury evident. Findings as above. IMPRESSION: No acute abdominopelvic abnormality. Findings as above. Cervical Spine CT 04/14/17 16:23 IMPRESSION: 1. No acute intracranial abnormality. 2. Cervical spondylosis without fracture. Chest CT 04/14/17 16:23 IMPRESSION: 1. No acute thoracic injury evident. Findings as above. IMPRESSION: No acute abdominopelvic abnormality. Findings as above. Elbow X-Ray 04/14/17 16:23 IMPRESSION: Probable small joint effusion. No displaced fracture identified. Head CT 04/14/17 16:23 IMPRESSION: 1. No acute intracranial abnormality. 2. Cervical spondylosis without fracture. Abdomen Ultrasound 04/15/17 00:00 IMPRESSION: LIMITED STUDY. GALLSTONES. SMALL AMOUNT OF FLUID ADJACENT TO THE LIVER. KUB X-Ray 04/15/17 00:00 IMPRESSION: NO RADIOGRAPHIC EVIDENCE FOR ACUTE ABDOMINAL DISEASE. Chest X-Ray 04/16/17 00:00 IMPRESSION: NO ACUTE CARDIOPULMONARY PROCESS. NO SIGNIFICANT CHANGE FROM PRIOR STUDY. Assessment & Plan - Diagnosis (1) Orthostatic hypotension Is this a current diagnosis for this admission?: Yes (2) Syncope Qualifiers: Encounter type: subsequent encounter Is this a current diagnosis for this admission?: Yes (3) Atrial fibrillation with RVR Is this a current diagnosis for this admission?: Yes (4) Cardiomyopathy Qualifiers: Cardiomyopathy type: unspecified Qualified Code(s): I42.9 - Cardiomyopathy , unspecified Is this a current diagnosis for this admission?: Yes (5) Pulmonary asbestosis Is this a current diagnosis for this admission?: Yes (6) Elevated troponin I level Is this a current diagnosis for this admission?: Yes (7) Non-STEMI (non-ST elevated myocardial infarction) Is this a current diagnosis for this admission?: Yes (8) Chronic atrial fibrillation Is this a current diagnosis for this admission?: Yes - Notes Notes: Nuclear stress test results were discussed. Basically shows depressed LVEF and small area of ischemia. Discussed that benefit of revascularization will be a small therefore not being considered. Family is now considering placement problem. Patient remains very debilitated with poor p.o. intake. Syncope and near syncope: Most likely related to orthostatic hypotension. Patient has chronic atrial fibrillation but no other significant dysrhythmia noted. Continue to monitor blood volume closely. Continue with Midodrin therapy. Continue digoxin and cardioselective beta-federico at this point. Orthostatic hypotension: Patient seems relatively euvolemic. Patient also very debilitated. Continue to monitor hydration and also support stockings. Physical therapy will help. Observe for any CHF precipitation. Atrial fibrillation: This is chronic. Continue with rate control. 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 Pulmonary asbestosis: May consider nocturnal oxygen supplementation etc. Elevated troponin I level. Patient denied any chest pain. There is no significant EKG changes. Patient does have underlying CAD based on coronary calcification noted on CTA of the chest. Nuclear stress test results discussed with patient and his . No intervention planned. Non-STEMI: Cardiac enzymes suggest non-STEMI. Patient however without any chest pain. Patient has some minor nonspecific ST segment changes but most likely related to bundle branch block pattern. Medical management will be optimized. Will add statins. Currently on low-dose beta-federico. Continue Ranexa. Optimization of medical therapy is somewhat limited because of history of recurrent falls and postural hypotension. - Time Time with patient: Greater than 35 minutes - CODE STATUS was discussed, patient remains full code. Surrogate decision-maker unchanged. Multiple medical problems were addressed. More than 50% of the time spent coordinating care, discussing management plans with involved caregivers. Management plans discussed with involved personnels. Medical decision making was of moderate to high complexity, patient's has multiple comorbidities. Since study results were discussed and patient questions were answered, and approximate time was 40- 45 minutes. Medications reviewed and adjusted accordingly: Yes
--- NOTE | 2017-04-21 15:31 | PDOC PROGRESS REPORT ---
Subjective Progress Note for:: 04/20/17 Subjective:: NST results were discussed with last night and this morning also went over the results. 2D echocardiogram results were also reviewed. Patient seems to be doing somewhat worse, feel very fatigued and tired. Pt is denying any chest arm or neck discomfort. Patient denying any PND, orthopnea. Patient denying any fever chills. Patient denying any other significant discomfort. Patient remains with poor p.o. intake and marked general debility. He is being helped by physical therapy. Patient is maintaining atrial fibrillation. Heart rate reasonably well controlled. Review of systems: Rest review of systems negative. Medications: Medications have been reviewed. Physical Exam Vital Signs: Temp Pulse Resp BP Pulse Ox 97.4 F 87 16 118/65 99 04/20/17 19:56 04/20/17 19:56 04/20/17 19:56 04/20/17 19:56 04/20/17 19:56 Intake & Output 04/19/17 04/20/17 04/21/17 06:59 06:59 06:59 Intake Total 451 438 330 Output Total 150 350 50 Balance 301 88 280 Weight 70.6 kg 70.6 kg Exam: GENERAL: well-nourished and in no acute distress. Alert and oriented x3 HEAD: Atraumatic, normocephalic. EYES: Pupils equal round and reactive to light, extraocular movements intact, sclera anicteric, conjunctiva are normal. ENT: TMs normal, nares patent, oropharynx clear without exudates. Moist mucous membranes. No oral ulcerations or bleeding gums noted NECK: supple without lymphadenopathy. Trachea is central. No cervical or axillary lymphadenopathy noted. Carotids are 2+, JVD WNL LUNGS: Respiration seems nonlabored, no significant accessory muscle action noted. Breath sounds clear to auscultation bilaterally and equal noted. No wheezes rales or rhonchi noted. No significant dullness noted on percussion. CHEST: Palpation of the chest wall shows no significant chest wall tenderness. No other significant abnormalities noted. 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 ABDOMEN: Soft, no significant tenderness appreciated, normoactive bowel sounds. No guarding, no rebound. No rigidity noted . No masses appreciated. EXTREMITIES: Pedal pulses are 1-2+, no calf tenderness noted. No clubbing or cyanosis.trace 1+ pedal edema noted NEUROLOGICAL: Focused neurological exam showed no significant neurologic deficit. Normal speech, no focal weakness appreciated. PSYCH: Normal mood, normal affect. Judgment and insight within normal limits. SKIN: No significant ecchymosis, rash, ulcerations or signs of pruritus noted. MUSCULOSKELETAL EXAM: No significant joint swelling noted. Results Laboratory Results: 04/19/17 04:26 04/19/17 04:26 Impressions: Abdomen/Pelvis CT 04/14/17 16:23 IMPRESSION: 1. No acute thoracic injury evident. Findings as above. IMPRESSION: No acute abdominopelvic abnormality. Findings as above. Cervical Spine CT 04/14/17 16:23 IMPRESSION: 1. No acute intracranial abnormality. 2. Cervical spondylosis without fracture. Chest CT 04/14/17 16:23 IMPRESSION: 1. No acute thoracic injury evident. Findings as above. IMPRESSION: No acute abdominopelvic abnormality. Findings as above. Elbow X-Ray 04/14/17 16:23 IMPRESSION: Probable small joint effusion. No displaced fracture identified. Head CT 04/14/17 16:23 IMPRESSION: 1. No acute intracranial abnormality. 2. Cervical spondylosis without fracture. Abdomen Ultrasound 04/15/17 00:00 IMPRESSION: LIMITED STUDY. GALLSTONES. SMALL AMOUNT OF FLUID ADJACENT TO THE LIVER. KUB X-Ray 04/15/17 00:00 IMPRESSION: NO RADIOGRAPHIC EVIDENCE FOR ACUTE ABDOMINAL DISEASE. Chest X-Ray 04/20/17 00:00 IMPRESSION: Baseline abnormal chest film with dense calcified pleural plaques and pleural thickening, and increased interstitial markings over the mid and lower lungs. No gross acute changes. Stable cardiomegaly Assessment & Plan - Diagnosis (1) Orthostatic hypotension Is this a current diagnosis for this admission?: Yes (2) Syncope Qualifiers: Encounter type: subsequent encounter Is this a current diagnosis for this admission?: Yes (3) Atrial fibrillation with RVR Is this a current diagnosis for this admission?: Yes (4) Cardiomyopathy Qualifiers: Cardiomyopathy type: unspecified Qualified Code(s): I42.9 - Cardiomyopathy , unspecified Is this a current diagnosis for this admission?: Yes (5) Pulmonary asbestosis Is this a current diagnosis for this admission?: Yes (6) Elevated troponin I level Is this a current diagnosis for this admission?: Yes (7) Non-STEMI (non-ST elevated myocardial infarction) Is this a current diagnosis for this admission?: Yes (8) Chronic atrial fibrillation Is this a current diagnosis for this admission?: Yes - Notes Notes: Syncope and near syncope: No recurrences while in the hospital. Most likely related to orthostatic hypotension. Continue with Midodrin therapy. For rate control would recommend digoxin and cardioselective beta-federico at this point. Orthostatic hypotension: Patient seems euvolemic clinically. Patient also very debilitated. Keep a watch on hydration and continue support stockings. Physical therapy will help. Observe for any CHF precipitation. Atrial fibrillation: This is chronic. Continue with rate control. 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 Pulmonary asbestosis: May consider nocturnal oxygen supplementation etc. Elevated troponin I level. Patient denied any chest pain. There is no significant EKG changes. Nuclear stress test showed only a small area of ischemia therefore medical management was advised. Continue patient on Ranexa. This will help and rate control as well and may help with ischemia. Non-STEMI: Cardiac enzymes suggest non-STEMI. Patient however without any chest pain. Patient has some minor nonspecific ST segment changes but most likely related to bundle branch block pattern. Based on nuclear stress test, medical management is being advised. Continue beta blockers, Ranexa - Time Time with patient: Greater than 35 minutes - CODE STATUS was discussed, patient remains full code. Surrogate decision-maker unchanged. Multiple medical problems were addressed. More than 50% of the time spent coordinating care, discussing management plans with involved caregivers. Management plans discussed with involved personnels. Medical decision making was of moderate to high complexity, patient's has multiple comorbidities. Family claims that there is no longer can take care of him at home and wants placement. Medications reviewed and adjusted accordingly: Yes
--- NOTE | 2017-04-21 15:36 | PDOC PROGRESS REPORT ---
Subjective Progress Note for:: 04/21/17 Subjective:: Patient's at bedside. Patient seems somewhat lethargic and sleepy. Patient's tells me that he was able to walk to the bathroom with significant help yesterday. His p.o. intake however remains very poor. Family does not want feeding tube nor does the patient wanted. Cardiac wilkins he seems stable without any chest pain, significant shortness of breath or any significant tachycardia or bradycardia arrhythmias. Patient is maintaining atrial fibrillation. Heart rate reasonably well controlled. Review of systems: Rest review of systems negative. Medications: Medications have been reviewed. Physical Exam Vital Signs: Temp Pulse Resp BP Pulse Ox 98.2 F 95 14 105/67 98 04/21/17 12:00 04/21/17 12:00 04/21/17 12:00 04/21/17 12:00 04/21/17 12:00 Intake & Output 04/20/17 04/21/17 04/22/17 06:59 06:59 06:59 Intake Total 438 660 Output Total 350 50 Balance 88 610 Weight 70.6 kg 70.6 kg Exam: GENERAL: well-nourished and in no acute distress. Orientation not checked today but patient reported to be tired sleepy and intermittently confused by the nurses. HEAD: Atraumatic, normocephalic. EYES: Pupils equal round and reactive to light, extraocular movements intact, sclera anicteric, conjunctiva are normal. ENT: TMs normal, nares patent, oropharynx clear without exudates. Moist mucous membranes. No oral ulcerations or bleeding gums noted NECK: supple without lymphadenopathy. Trachea is central. No cervical or axillary lymphadenopathy noted. Carotids are 2+, JVD WNL LUNGS: Respiration seems nonlabored, no significant accessory muscle action noted. Breath sounds clear to auscultation bilaterally and equal noted. No wheezes rales or rhonchi noted. No significant dullness noted on percussion. CHEST: Palpation of the chest wall shows no significant chest wall tenderness. No other significant abnormalities noted. 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 ABDOMEN: Soft, no significant tenderness appreciated, normoactive bowel sounds. No guarding, no rebound. No rigidity noted . No masses appreciated. EXTREMITIES: Pedal pulses are 1-2+, no calf tenderness noted. No clubbing or cyanosis.trace 1+ pedal edema noted NEUROLOGICAL: A full neurological exam not performed today. PSYCH: Normal mood, normal affect. Judgment and insight not checked today. SKIN: No significant ecchymosis, rash, ulcerations or signs of pruritus noted. MUSCULOSKELETAL EXAM: No significant joint swelling noted. Results Laboratory Results: 04/21/17 06:08 04/21/17 06:08 04/21/17 04/21/17 06:08 06:08 WBC 5.0 RBC 3.54 L Hgb 11.1 L Hct 34.8 L MCV 98 H MCH 31.4 MCHC 32.0 RDW 17.5 H Plt Count 68 L Seg Neutrophils % 81.6 H Lymphocytes % 5.4 L Monocytes % 12.3 Eosinophils % 0.6 Basophils % 0.1 Absolute Neutrophils 4.1 Absolute Lymphocytes 0.3 L Absolute Monocytes 0.6 Absolute Eosinophils 0.0 Absolute Basophils 0.0 Sodium 131.6 L Potassium 4.5 Chloride 96 L Carbon Dioxide 29 Anion Gap 7 BUN 40 H Creatinine 0.89 Est GFR ( Amer) > 60 Est GFR (Non-Af Amer) > 60 Glucose 80 Calcium 10.3 H Impressions: Abdomen/Pelvis CT 04/14/17 16:23 IMPRESSION: 1. No acute thoracic injury evident. Findings as above. IMPRESSION: No acute abdominopelvic abnormality. Findings as above. Cervical Spine CT 04/14/17 16:23 IMPRESSION: 1. No acute intracranial abnormality. 2. Cervical spondylosis without fracture. Chest CT 04/14/17 16:23 IMPRESSION: 1. No acute thoracic injury evident. Findings as above. IMPRESSION: No acute abdominopelvic abnormality. Findings as above. Elbow X-Ray 04/14/17 16:23 IMPRESSION: Probable small joint effusion. No displaced fracture identified. Head CT 04/14/17 16:23 IMPRESSION: 1. No acute intracranial abnormality. 2. Cervical spondylosis without fracture. Abdomen Ultrasound 04/15/17 00:00 IMPRESSION: LIMITED STUDY. GALLSTONES. SMALL AMOUNT OF FLUID ADJACENT TO THE LIVER. KUB X-Ray 04/15/17 00:00 IMPRESSION: NO RADIOGRAPHIC EVIDENCE FOR ACUTE ABDOMINAL DISEASE. Chest X-Ray 04/20/17 00:00 IMPRESSION: Baseline abnormal chest film with dense calcified pleural plaques and pleural thickening, and increased interstitial markings over the mid and lower lungs. No gross acute changes. Stable cardiomegaly Assessment & Plan - Diagnosis (1) Orthostatic hypotension Is this a current diagnosis for this admission?: Yes (2) Syncope Qualifiers: Encounter type: subsequent encounter Is this a current diagnosis for this admission?: Yes (3) Atrial fibrillation with RVR Is this a current diagnosis for this admission?: Yes (4) Cardiomyopathy Qualifiers: Cardiomyopathy type: unspecified Qualified Code(s): I42.9 - Cardiomyopathy , unspecified Is this a current diagnosis for this admission?: Yes (5) Pulmonary asbestosis Is this a current diagnosis for this admission?: Yes (6) Elevated troponin I level Is this a current diagnosis for this admission?: Yes (7) Non-STEMI (non-ST elevated myocardial infarction) Is this a current diagnosis for this admission?: Yes (8) Chronic atrial fibrillation Is this a current diagnosis for this admission?: Yes - Notes Notes: Syncope and near syncope: No recurrences while in the hospital. Heart rate reasonably stable. Patient just debilitated and syncope and near syncope felt to be related to orthostatic hypotension. Orthostatic hypotension: Being treated with support stockings and strengthening exercises. Midodrin as well. Atrial fibrillation: This is chronic. Rate has been reasonably well controlled on beta-blockers digoxin and Ranexa therapy. Pulmonary asbestosis: May consider nocturnal oxygen supplementation etc. Elevated troponin I level. Has been evaluated by nuclear stress test which showed just small area of ischemia. Patient seems to be on a stable medical regimen. Non-STEMI: Stable on medical therapy. Cardiomyopathy: Had discussed defibrillator placement during this hospitalization previously, felt that due to significant debility, advanced age and multiple medical problem, advanced CHF with stage IV mainly, any benefit for prophylactic defibrillator placement will be limited. - Time Time with patient: 15-25 minutes - CODE STATUS was discussed, patient remains full code. Surrogate decision-maker unchanged. Multiple medical problems were addressed. More than 50% of the time spent coordinating care, discussing management plans with involved caregivers. Management plans discussed with involved personnels. Medical decision making was of moderate to high complexity , patient's has multiple comorbidities. Patient being evaluated for palliative care and currently a placement issue. Will sign off. Please reconsult if needed. Medications reviewed and adjusted accordingly: Yes
[2017-04-22 05:16] LABS: ANION GAP 9 (5-19); BLOOD UREA NITROGEN 42 mg/dL (7-20); CALCIUM 10.4 mg/dL (8.4-10.2); CARBON DIOXIDE 29 mmol/L (22-30); CHLORIDE 95 mmol/L (98-107); CREATININE RESULT 0.83 mg/dL (0.52-1.25); GLUCOSE 85 mg/dL (75-110); POTASSIUM 4.6 mmol/L (3.6-5.0); SODIUM 133.1 mmol/L (137-145)
[2017-04-22] MEDS: CHOLECALCIFEROL (D3) 1,000 UNIT TABLET PO SCH ×2 (09:10→17:58)
[2017-04-22] MEDS: MIDODRINE HCL 5 MG TABLET PO SCH ×3 (09:10→16:38)
[2017-04-22] MEDS: METOPROLOL TARTRATE 25 MG TABLET PO SCH ×2 (09:11→21:33)
[2017-04-22] MEDS: DIGOXIN 0.125 MG TABLET PO SCH (09:11)
[2017-04-22] MEDS: FERROUS SULFATE 325 MG TABLET PO SCH (09:11)
[2017-04-22] MEDS: DOCUSATE SODIUM 100 MG CAPSULE PO SCH ×2 (09:11→17:58)
[2017-04-22] MEDS: RANOLAZINE 500 MG TAB.SR.12H PO SCH ×2 (09:16→21:33)
[2017-04-22] MEDS: NYSTATIN/DEXAMETH/DIPHEN SUSP 120 ML PO SCH ×4 (09:17→21:33)
[2017-04-22] MEDS: TIOTROPIUM BROMIDE DPI 5 CAP/KIT (18 MCG/CAP) IH SCH (09:19)
[2017-04-22] MEDS: MEGESTROL ACETATE SUSP 400 MG/10 ML UDCUP PO SCH ×2 (09:20→17:58)
[2017-04-22] MEDS: ASPIRIN 81 MG TABLET, ENT COATED PO SCH (09:21)
[2017-04-22] MEDS: MULTIVITAMIN TABLET PO SCH (12:52)
[2017-04-22] MEDS: ASCORBIC ACID 500 MG TABLET PO SCH (12:52)
--- NOTE | 2017-04-22 14:47 | PDOC PROGRESS REPORT ---
Subjective Progress Note for:: 04/22/17 Subjective:: Patient seen earlier this morning. Since stated that he was doing fine. Patient was seen later on during the morning and his was present. Spoke to about patient's CODE STATUS changing from full code to DNR and she stated that she will talk it over with her son. Explained to that since patient does not want feeding tube and due to poor appetite patient should consider hospice and be DNR with comfort care. states that she understands and will make decision later today or tomorrow. Physical Exam Vital Signs: Temp Pulse Resp BP Pulse Ox 97.8 F 79 16 115/77 94 04/22/17 11:40 04/22/17 11:40 04/22/17 11:40 04/22/17 11:40 04/22/17 11:40 Intake & Output 04/21/17 04/22/17 04/23/17 06:59 06:59 06:59 Intake Total 660 588 Output Total 50 250 Balance 610 338 Weight 70.6 kg 66.9 kg General appearance: PRESENT: thin, other - Appears stated age Head exam: PRESENT: atraumatic, normocephalic Eye exam: PRESENT: conjunctiva pink, EOMI. ABSENT: scleral icterus Ear exam: PRESENT: normal external ear exam Mouth exam: PRESENT: moist, tongue midline Neck exam: ABSENT: carotid bruit, JVD, lymphadenopathy, thyromegaly Respiratory exam: PRESENT: clear to auscultation syeda. ABSENT: rales, rhonchi, wheezes Cardiovascular exam: PRESENT: RRR. ABSENT: diastolic murmur, rubs, systolic murmur Pulses: PRESENT: normal dorsalis pedis pul Vascular exam: PRESENT: normal capillary refill GI/Abdominal exam: PRESENT: normal bowel sounds, soft. ABSENT: distended, guarding, mass, organolmegaly, rebound, tenderness Rectal exam: PRESENT: deferred Extremities exam: PRESENT: full ROM. ABSENT: calf tenderness, clubbing, pedal edema Neurological exam: PRESENT: alert, awake, oriented to person, oriented to place , oriented to time, oriented to situation, CN II-XII grossly intact. ABSENT: motor sensory deficit Psychiatric exam: PRESENT: appropriate affect, normal mood. ABSENT: homicidal ideation, suicidal ideation Skin exam: PRESENT: dry, intact, warm. ABSENT: cyanosis, rash Results Laboratory Results: 04/21/17 06:08 04/22/17 04:08 04/22/17 04:08 Sodium 133.1 L Potassium 4.6 Chloride 95 L Carbon Dioxide 29 Anion Gap 9 BUN 42 H Creatinine 0.83 Est GFR ( Amer) > 60 Est GFR (Non-Af Amer) > 60 Glucose 85 Calcium 10.4 H Impressions: Abdomen/Pelvis CT 04/14/17 16:23 IMPRESSION: 1. No acute thoracic injury evident. Findings as above. IMPRESSION: No acute abdominopelvic abnormality. Findings as above. Cervical Spine CT 04/14/17 16:23 IMPRESSION: 1. No acute intracranial abnormality. 2. Cervical spondylosis without fracture. Chest CT 04/14/17 16:23 IMPRESSION: 1. No acute thoracic injury evident. Findings as above. IMPRESSION: No acute abdominopelvic abnormality. Findings as above. Elbow X-Ray 04/14/17 16:23 IMPRESSION: Probable small joint effusion. No displaced fracture identified. Head CT 04/14/17 16:23 IMPRESSION: 1. No acute intracranial abnormality. 2. Cervical spondylosis without fracture. Abdomen Ultrasound 04/15/17 00:00 IMPRESSION: LIMITED STUDY. GALLSTONES. SMALL AMOUNT OF FLUID ADJACENT TO THE LIVER. KUB X-Ray 04/15/17 00:00 IMPRESSION: NO RADIOGRAPHIC EVIDENCE FOR ACUTE ABDOMINAL DISEASE. Chest X-Ray 04/20/17 00:00 IMPRESSION: Baseline abnormal chest film with dense calcified pleural plaques and pleural thickening, and increased interstitial markings over the mid and lower lungs. No gross acute changes. Stable cardiomegaly Assessment & Plan - Diagnosis (1) Moderate protein-calorie malnutrition Is this a current diagnosis for this admission?: Yes Plan: Megace. (2) Orthostatic hypotension Is this a current diagnosis for this admission?: Yes Plan: Pt currently on Midodrine. Pt's blood pressure much improved. (3) Chronic combined systolic and diastolic CHF (congestive heart failure) Is this a current diagnosis for this admission?: Yes Plan: EF 30%. Will hold Lasix. No evidence of ischemia on stress test. Cardiology recommended medical management. (4) Hyponatremia Is this a current diagnosis for this admission?: Yes Plan: Most likely Secondary to Diuretics: Will continue to hold lasix. He should intravascularly depleted (5) Depression Qualifiers: Major depression episode severity: moderate Is this a current diagnosis for this admission?: Yes Plan: Pt was placed on SSRI Zoloft but came confused. Pt currently back to his baseline. Will monitor. (6) Non-STEMI (non-ST elevated myocardial infarction) Is this a current diagnosis for this admission?: Yes Plan: Stress test demonstrated no evidence of ischemia. Cardiology recommending medical management. Pt currently on Ranexa. (7) Chronic atrial fibrillation Is this a current diagnosis for this admission?: Yes Plan: Will continue Metoprolol and Digoxin. Pt not on anticoagulation due to falls. Cardiology recommends having this addressed as outpatient with pt's PCP. (8) Debility Is this a current diagnosis for this admission?: Yes Plan: PT/OT evaluation and treatment. - Time Time Spent with patient: 15-24 minutes - Awaiting family to make decision about patient's CODE STATUS. Have recommended DNR with hospice care at home.
[2017-04-22] MEDS: ALBUTEROL SULFATE HFA (90 MCG/PUFF) 200 PUFF/8.5 GM MDI IH PRN (16:44)
[2017-04-23 05:22] LABS: HEMATOCRIT 36.6 % (37.9-51.0); HEMOGLOBIN 11.9 g/dL (13.5-17.0); HGB HCT DIFFERENCE -0.9; MEAN CORPUSCULAR HEMOGLOBIN 31.5 pg (27.0-33.4); MEAN CORPUSCULAR HGB CONC 32.6 g/dL (32.0-36.0); MEAN CORPUSCULAR VOLUME 97 fl (80-97); RED BLOOD COUNT 3.79 10^6/uL (4.35-5.55); RED CELL DISTRIBUTION WIDTH 17.1 % (11.5-14.0); WHITE BLOOD COUNT 5.6 10^3/uL (4.0-10.5)
[2017-04-23 05:35] LABS: ANION GAP 8 (5-19); BLOOD UREA NITROGEN 38 mg/dL (7-20); CALCIUM 10.3 mg/dL (8.4-10.2); CARBON DIOXIDE 29 mmol/L (22-30); CHLORIDE 96 mmol/L (98-107); CREATININE RESULT 0.73 mg/dL (0.52-1.25); GLUCOSE 90 mg/dL (75-110); POTASSIUM 4.8 mmol/L (3.6-5.0); SODIUM 132.8 mmol/L (137-145)
[2017-04-23 06:08] LABS: BASOPHILS % (MANUAL) 0 % (0-2); EOSINOPHILS % (MANUAL) 0 % (0-6); LYMPHOCYTES % (MANUAL) 5 % (13-45); TOTAL CELLS COUNTED 100
[2017-04-23 06:12] LABS: ANISOCYTOSIS 1+; HYPOCHROMASIA SLIGHT; OVALOCYTES SLIGHT; POIKILOCYTOSIS SLIGHT; TARGET CELLS SLIGHT; TOXIC GRANULATION SLIGHT
[2017-04-23] MEDS: CHOLECALCIFEROL (D3) 1,000 UNIT TABLET PO SCH ×2 (10:10→18:04)
[2017-04-23] MEDS: DOCUSATE SODIUM 100 MG CAPSULE PO SCH ×2 (10:10→18:04)
[2017-04-23] MEDS: MIDODRINE HCL 5 MG TABLET PO SCH ×3 (10:10→16:36)
[2017-04-23] MEDS: FERROUS SULFATE 325 MG TABLET PO SCH (10:11)
[2017-04-23] MEDS: METOPROLOL TARTRATE 25 MG TABLET PO SCH ×2 (10:11→21:56)
[2017-04-23] MEDS: DIGOXIN 0.125 MG TABLET PO SCH (10:12)
[2017-04-23] MEDS: MEGESTROL ACETATE SUSP 400 MG/10 ML UDCUP PO SCH ×2 (10:14→18:05)
[2017-04-23] MEDS: RANOLAZINE 500 MG TAB.SR.12H PO SCH ×2 (10:15→21:56)
[2017-04-23] MEDS: NYSTATIN/DEXAMETH/DIPHEN SUSP 120 ML PO SCH ×4 (10:15→21:56)
[2017-04-23] MEDS: TIOTROPIUM BROMIDE DPI 5 CAP/KIT (18 MCG/CAP) IH SCH (10:16)
[2017-04-23] MEDS: ASCORBIC ACID 500 MG TABLET PO SCH (13:01)
[2017-04-23] MEDS: MULTIVITAMIN TABLET PO SCH (13:01)
--- NOTE | 2017-04-23 15:23 | PDOC PROGRESS REPORT ---
Subjective Progress Note for:: 04/23/17 Subjective:: Spoke to patients family who states that patient and family are in agreement with DNR code status. Pt this morning was working with physical therapy. Pt states that he did well with physical therapy. Pt states that he took a few bites of food this morning. Physical Exam Vital Signs: Temp Pulse Resp BP Pulse Ox 97.8 F 90 16 108/61 97 04/23/17 11:46 04/23/17 14:00 04/23/17 11:46 04/23/17 11:46 04/23/17 11:46 Intake & Output 04/22/17 04/23/17 04/24/17 06:59 06:59 06:59 Intake Total 588 912 Output Total 250 Balance 338 912 Weight 66.9 kg 67.3 kg General appearance: PRESENT: no acute distress, thin, other Head exam: PRESENT: atraumatic, normocephalic Eye exam: PRESENT: conjunctiva pink, EOMI. ABSENT: scleral icterus Ear exam: PRESENT: normal external ear exam Mouth exam: PRESENT: moist, tongue midline Neck exam: ABSENT: carotid bruit, JVD, lymphadenopathy, thyromegaly Respiratory exam: PRESENT: clear to auscultation syeda. ABSENT: rales, rhonchi, wheezes Cardiovascular exam: PRESENT: RRR. ABSENT: diastolic murmur, rubs, systolic murmur Pulses: PRESENT: normal dorsalis pedis pul Vascular exam: PRESENT: normal capillary refill GI/Abdominal exam: PRESENT: normal bowel sounds, soft. ABSENT: distended, guarding, mass, organolmegaly, rebound, tenderness Rectal exam: PRESENT: deferred Extremities exam: PRESENT: full ROM. ABSENT: calf tenderness, clubbing, pedal edema Neurological exam: PRESENT: alert, awake, oriented to person, oriented to place , CN II-XII grossly intact. ABSENT: motor sensory deficit Psychiatric exam: PRESENT: appropriate affect, normal mood. ABSENT: homicidal ideation, suicidal ideation Skin exam: PRESENT: dry, intact, warm. ABSENT: cyanosis, rash Results Laboratory Results: 04/23/17 04:25 04/23/17 04:25 04/23/17 04/23/17 04:25 04:25 WBC 5.6 RBC 3.79 L Hgb 11.9 L Hct 36.6 L MCV 97 MCH 31.5 MCHC 32.6 RDW 17.1 H Plt Count 67 L Seg Neutrophils % Not Reportable Lymphocytes % Not Reportable Monocytes % Not Reportable Eosinophils % Not Reportable Basophils % Not Reportable Absolute Neutrophils Not Reportable Absolute Lymphocytes Not Reportable Absolute Monocytes Not Reportable Absolute Eosinophils Not Reportable Absolute Basophils Not Reportable Sodium 132.8 L Potassium 4.8 Chloride 96 L Carbon Dioxide 29 Anion Gap 8 BUN 38 H Creatinine 0.73 Est GFR ( Amer) > 60 Est GFR (Non-Af Amer) > 60 Glucose 90 Calcium 10.3 H Impressions: Abdomen/Pelvis CT 04/14/17 16:23 IMPRESSION: 1. No acute thoracic injury evident. Findings as above. IMPRESSION: No acute abdominopelvic abnormality. Findings as above. Cervical Spine CT 04/14/17 16:23 IMPRESSION: 1. No acute intracranial abnormality. 2. Cervical spondylosis without fracture. Chest CT 04/14/17 16:23 IMPRESSION: 1. No acute thoracic injury evident. Findings as above. IMPRESSION: No acute abdominopelvic abnormality. Findings as above. Elbow X-Ray 04/14/17 16:23 IMPRESSION: Probable small joint effusion. No displaced fracture identified. Head CT 04/14/17 16:23 IMPRESSION: 1. No acute intracranial abnormality. 2. Cervical spondylosis without fracture. Abdomen Ultrasound 04/15/17 00:00 IMPRESSION: LIMITED STUDY. GALLSTONES. SMALL AMOUNT OF FLUID ADJACENT TO THE LIVER. KUB X-Ray 04/15/17 00:00 IMPRESSION: NO RADIOGRAPHIC EVIDENCE FOR ACUTE ABDOMINAL DISEASE. Chest X-Ray 04/20/17 00:00 IMPRESSION: Baseline abnormal chest film with dense calcified pleural plaques and pleural thickening, and increased interstitial markings over the mid and lower lungs. No gross acute changes. Stable cardiomegaly Assessment & Plan - Diagnosis (1) Moderate protein-calorie malnutrition Is this a current diagnosis for this admission?: Yes Plan: Megace. (2) Orthostatic hypotension Is this a current diagnosis for this admission?: Yes Plan: Pt currently on Midodrine. Pt's blood pressure much improved. (3) Chronic combined systolic and diastolic CHF (congestive heart failure) Is this a current diagnosis for this admission?: Yes Plan: EF 30%. Will hold Lasix. No evidence of ischemia on stress test. Cardiology recommended medical management. (4) Hyponatremia Is this a current diagnosis for this admission?: Yes Plan: Most likely Secondary to Diuretics: Will continue to hold lasix. He should intravascularly depleted (5) Depression Qualifiers: Major depression episode severity: moderate Is this a current diagnosis for this admission?: Yes Plan: Pt was placed on SSRI Zoloft but came confused. Pt currently back to his baseline. Will monitor. (6) Non-STEMI (non-ST elevated myocardial infarction) Is this a current diagnosis for this admission?: Yes Plan: Stress test demonstrated no evidence of ischemia. Cardiology recommending medical management. Pt currently on Ranexa. (7) Chronic atrial fibrillation Is this a current diagnosis for this admission?: Yes Plan: Will continue Metoprolol and Digoxin. Pt not on anticoagulation due to falls. (8) Dementia Qualifiers: Dementia type: unspecified type Is this a current diagnosis for this admission?: Yes Plan: Mild Dementia: Supportive care. (9) Debility Is this a current diagnosis for this admission?: Yes Plan: PT/OT evaluation and treatment. - Time Time Spent with patient: 15-24 minutes - Pt and family have agreed to DNR status.
[2017-04-24 05:11] LABS: ABSOLUTE LYMPHOCYTES (AUTO) 0.3 10^3/uL (0.5-4.7); ABSOLUTE MONOCYTES (AUTO) 0.7 10^3/uL (0.1-1.4); ABSOLUTE NEUT (AUTO) 4.3 10^3/uL (1.7-8.2); ANION GAP 8 (5-19); BASOPHILS % (AUTO) 0.1 % (0-2); BLOOD UREA NITROGEN 37 mg/dL (7-20); CALCIUM 10.6 mg/dL (8.4-10.2); CARBON DIOXIDE 33 mmol/L (22-30); CHLORIDE 93 mmol/L (98-107); EOSINOPHILS % (AUTO) 0.7 % (0-6); GLUCOSE 100 mg/dL (75-110); HEMATOCRIT 36.8 % (37.9-51.0); HEMOGLOBIN 11.9 g/dL (13.5-17.0); HGB HCT DIFFERENCE -1.1; LYMPHOCYTES % (AUTO) 5.9 % (13-45); MEAN CORPUSCULAR HEMOGLOBIN 31.4 pg (27.0-33.4); MEAN CORPUSCULAR HGB CONC 32.5 g/dL (32.0-36.0); MEAN CORPUSCULAR VOLUME 97 fl (80-97); MONOCYTES % (AUTO) 12.3 % (3-13); POTASSIUM 4.5 mmol/L (3.6-5.0); RED CELL DISTRIBUTION WIDTH 16.7 % (11.5-14.0); SODIUM 133.6 mmol/L (137-145); WHITE BLOOD COUNT 5.3 10^3/uL (4.0-10.5)
[2017-04-24] MEDS: MIDODRINE HCL 5 MG TABLET PO SCH ×3 (09:17→18:01)
[2017-04-24] MEDS: CHOLECALCIFEROL (D3) 1,000 UNIT TABLET PO SCH ×2 (11:30→18:02)
[2017-04-24] MEDS: DIGOXIN 0.125 MG TABLET PO SCH (11:30)
[2017-04-24] MEDS: DOCUSATE SODIUM 100 MG CAPSULE PO SCH ×2 (11:32→18:02)
[2017-04-24] MEDS: FERROUS SULFATE 325 MG TABLET PO SCH (11:33)
[2017-04-24] MEDS: MEGESTROL ACETATE SUSP 400 MG/10 ML UDCUP PO SCH ×2 (11:33→18:02)
[2017-04-24] MEDS: METOPROLOL TARTRATE 25 MG TABLET PO SCH ×2 (11:35→23:15)
[2017-04-24] MEDS: RANOLAZINE 500 MG TAB.SR.12H PO SCH ×2 (11:35→23:15)
[2017-04-24] MEDS: TIOTROPIUM BROMIDE DPI 5 CAP/KIT (18 MCG/CAP) IH SCH (11:39)
[2017-04-24] MEDS: NYSTATIN/DEXAMETH/DIPHEN SUSP 120 ML PO SCH ×4 (11:39→23:15)
[2017-04-24] MEDS: ASCORBIC ACID 500 MG TABLET PO SCH (14:30)
[2017-04-24] MEDS: MULTIVITAMIN TABLET PO SCH (14:31)
--- NOTE | 2017-04-24 18:33 | PDOC PROGRESS REPORT ---
Subjective Progress Note for:: 04/24/17 Subjective:: reports that he is eating slightly better. Patient denies chest pain, shortness of breath, abdominal pain, nausea, vomiting, fevers, chills, diarrhea , constipation, headache, new onset weakness. Physical Exam Vital Signs: Temp Pulse Resp BP Pulse Ox 97.8 F 68 16 106/66 98 04/24/17 11:25 04/24/17 11:25 04/24/17 11:25 04/24/17 11:25 04/24/17 11:25 Intake & Output 04/23/17 04/24/17 04/25/17 06:59 06:59 06:59 Intake Total 912 452 Output Total 400 Balance 912 52 Weight 67.3 kg 71.6 kg Exam: General: Awake alert and oriented x3, mild respiratory distress HEENT: AT/NC, PERRL, EOMI, oropharynx is moist, pink, no scleral icterus, no conjunctival injection Neck: + JVD, trachea midline Chest: pacemaker right upper chest, bilateral bibasilar crackles CV: IRR, normal S1 and S2, no rub or gallop; +2/6 sm Abdomen: Soft, nontender to palpation, nondistended, active bowel sounds; no rebound, rigidity, or guarding Extremities: No cyanosis, clubbing, edema Neuro: Cranial nerves II through XII are grossly intact without focal deficits; awake alert and oriented x3 Psych: Normal mood and affect Results Laboratory Results: 04/24/17 03:54 04/24/17 03:54 04/24/17 04/24/17 03:54 03:54 WBC 5.3 RBC 3.80 L Hgb 11.9 L Hct 36.8 L MCV 97 MCH 31.4 MCHC 32.5 RDW 16.7 H Plt Count 71 L Seg Neutrophils % 81.0 H Lymphocytes % 5.9 L Monocytes % 12.3 Eosinophils % 0.7 Basophils % 0.1 Absolute Neutrophils 4.3 Absolute Lymphocytes 0.3 L Absolute Monocytes 0.7 Absolute Eosinophils 0.0 Absolute Basophils 0.0 Sodium 133.6 L Potassium 4.5 Chloride 93 L Carbon Dioxide 33 H Anion Gap 8 BUN 37 H Creatinine 0.80 Est GFR ( Amer) > 60 Est GFR (Non-Af Amer) > 60 Glucose 100 Calcium 10.6 H Impressions: Abdomen/Pelvis CT 04/14/17 16:23 IMPRESSION: 1. No acute thoracic injury evident. Findings as above. IMPRESSION: No acute abdominopelvic abnormality. Findings as above. Cervical Spine CT 04/14/17 16:23 IMPRESSION: 1. No acute intracranial abnormality. 2. Cervical spondylosis without fracture. Chest CT 04/14/17 16:23 IMPRESSION: 1. No acute thoracic injury evident. Findings as above. IMPRESSION: No acute abdominopelvic abnormality. Findings as above. Elbow X-Ray 04/14/17 16:23 IMPRESSION: Probable small joint effusion. No displaced fracture identified. Head CT 04/14/17 16:23 IMPRESSION: 1. No acute intracranial abnormality. 2. Cervical spondylosis without fracture. Abdomen Ultrasound 04/15/17 00:00 IMPRESSION: LIMITED STUDY. GALLSTONES. SMALL AMOUNT OF FLUID ADJACENT TO THE LIVER. KUB X-Ray 04/15/17 00:00 IMPRESSION: NO RADIOGRAPHIC EVIDENCE FOR ACUTE ABDOMINAL DISEASE. Chest X-Ray 04/20/17 00:00 IMPRESSION: Baseline abnormal chest film with dense calcified pleural plaques and pleural thickening, and increased interstitial markings over the mid and lower lungs. No gross acute changes. Stable cardiomegaly Assessment & Plan - Diagnosis (1) Non-STEMI (non-ST elevated myocardial infarction) Is this a current diagnosis for this admission?: Yes Plan: Concern for anticoagulation 2/2 thromboctyopenia BP currently unable to tolerate LICO/ARB Appreciate cardiology imput Generic Name Dose Route Start Last Admin Trade Name Freq PRN Reason Stop Dose Admin Metoprolol Tartrate 12.5 mg 04/16/17 22:00 04/24/17 11:35 Lopressor 25 Mg Tablet PO 05/16/17 21:59 12.5 mg Q12 GERMAN Ranolazine 500 mg 04/17/17 22:00 04/24/17 11:35 Ranexa 500 Mg Tab.Sr PO 05/16/17 21:59 500 mg Q12 GERMAN (2) Orthostatic hypotension Is this a current diagnosis for this admission?: Yes Plan: Patient on midodrine, CHAVO hose, and SCDs (3) Syncope Qualifiers: Encounter type: subsequent encounter Is this a current diagnosis for this admission?: Yes (4) History of lymphoma Is this a current diagnosis for this admission?: Yes (5) Pulmonary asbestosis Is this a current diagnosis for this admission?: Yes (6) Pulmonary hypertension Is this a current diagnosis for this admission?: Yes (7) Right bundle branch block (RBBB) Is this a current diagnosis for this admission?: Yes (8) Thrombocytopenia Is this a current diagnosis for this admission?: Yes (9) Chronic combined systolic and diastolic CHF (congestive heart failure) Is this a current diagnosis for this admission?: Yes Plan: Echo done on 04/15/2017 reveals an EF of 30-35%, grade 2 diastolic dysfunction, mild to moderate mitral regurgitation, mild pulmonary hypertension Patient currently euvolemic Generic Name Dose Route Start Last Admin Trade Name Freq PRN Reason Stop Dose Admin Digoxin 0.125 mg 04/16/17 10:00 04/24/17 11:30 Lanoxin 0.125 Mg Tablet PO 05/16/17 09:59 0.125 mg DAILY GERMAN Ranolazine 500 mg 04/17/17 22:00 04/24/17 11:35 Ranexa 500 Mg Tab.Sr PO 05/16/17 21:59 500 mg Q12 GERMAN Metoprolol Tartrate 12.5 mg 04/16/17 22:00 04/24/17 11:35 Lopressor 25 Mg Tablet PO 05/16/17 21:59 12.5 mg Q12 GERMAN (10) Poor appetite Is this a current diagnosis for this admission?: Yes Plan: Continue Megace and liberalize diet (11) Chronic atrial fibrillation Is this a current diagnosis for this admission?: Yes Plan: increase metoprolol as tolerated no anticoagulation due to thrombocytopenia and falls - Time Time Spent with patient: 35 or more minutes Medications reviewed and adjusted accordingly: Yes Anticipated discharge: Acute Rehab Within: when bed available
[2017-04-24] MEDS: ASPIRIN 81 MG TABLET, ENT COATED PO SCH (19:54)
--- NOTE | 2017-04-24 20:13 | EKG REPORT ---
SEVERITY:- ABNORMAL ECG - ATRIAL FIBRILLATION RIGHT BUNDLE BRANCH BLOCK INFERIOR INFARCT, AGE INDETERMINATE : Confirmed by: Mckinley Galdamez 24-Apr-2017 20:12:53
[2017-04-24] MEDS: GUAIFENESIN SYRP 200 MG/10 ML UDC PO PRN (23:15)
[2017-04-25] MEDS: MIDODRINE HCL 5 MG TABLET PO SCH ×3 (08:46→16:11)
[2017-04-25] MEDS: NYSTATIN/DEXAMETH/DIPHEN SUSP 120 ML PO SCH ×4 (10:10→21:48)
[2017-04-25] MEDS: CHOLECALCIFEROL (D3) 1,000 UNIT TABLET PO SCH ×2 (10:10→17:56)
[2017-04-25] MEDS: METOPROLOL TARTRATE 25 MG TABLET PO SCH ×2 (10:11→21:51)
[2017-04-25] MEDS: FERROUS SULFATE 325 MG TABLET PO SCH (10:11)
[2017-04-25] MEDS: DIGOXIN 0.125 MG TABLET PO SCH (10:11)
[2017-04-25] MEDS: DOCUSATE SODIUM 100 MG CAPSULE PO SCH ×2 (10:11→17:56)
[2017-04-25] MEDS: MEGESTROL ACETATE SUSP 400 MG/10 ML UDCUP PO SCH ×2 (10:29→17:56)
[2017-04-25] MEDS: RANOLAZINE 500 MG TAB.SR.12H PO SCH ×2 (10:30→21:48)
[2017-04-25] MEDS: TIOTROPIUM BROMIDE DPI 5 CAP/KIT (18 MCG/CAP) IH SCH (10:45)
[2017-04-25] MEDS: MULTIVITAMIN TABLET PO SCH (12:02)
[2017-04-25] MEDS: ASCORBIC ACID 500 MG TABLET PO SCH (12:02)
[2017-04-25] MEDS ORDERED: TAMSULOSIN HCL 0.4 MG CAP.SR.24H PO ONE (15:00)
[2017-04-25] MEDS: ASPIRIN 81 MG TABLET, ENT COATED PO SCH (18:22)
--- NOTE | 2017-04-25 18:27 | PDOC PROGRESS REPORT ---
Subjective Progress Note for:: 04/25/17 Subjective:: Family reports the patient is having an off day. Quite lethargic, but does arouse and answer questions appropriately. Patient has required several straight catheterizations today for acute urinary retention. Patient denies chest pain, shortness of breath, abdominal pain. Physical Exam Vital Signs: Temp Pulse Resp BP Pulse Ox 97.5 F 68 24 H 99/74 L 96 04/25/17 16:00 04/25/17 16:00 04/25/17 16:00 04/25/17 16:00 04/25/17 16:00 Intake & Output 04/24/17 04/25/17 04/26/17 06:59 06:59 06:59 Intake Total 452 510 135 Output Total 400 800 400 Balance 52 -290 -265 Weight 71.6 kg Exam: General: lethargic, mild respiratory distress (poor effort) HEENT: AT/NC, PERRL, EOMI, oropharynx is moist, pink, no scleral icterus, no conjunctival injection Neck: + JVD, trachea midline Chest: poor respiratory effort, pacemaker right upper chest, bilateral bibasilar crackles CV: IRR, normal S1 and S2, no rub or gallop; +2/6 sm Abdomen: Soft, nontender to palpation, nondistended, active bowel sounds; no rebound, rigidity, or guarding Extremities: No cyanosis, clubbing, edema Neuro: Cranial nerves II through XII are grossly intact without focal deficits; lethargic Results Laboratory Results: 04/24/17 03:54 04/24/17 03:54 Impressions: Abdomen/Pelvis CT 04/14/17 16:23 IMPRESSION: 1. No acute thoracic injury evident. Findings as above. IMPRESSION: No acute abdominopelvic abnormality. Findings as above. Cervical Spine CT 04/14/17 16:23 IMPRESSION: 1. No acute intracranial abnormality. 2. Cervical spondylosis without fracture. Chest CT 04/14/17 16:23 IMPRESSION: 1. No acute thoracic injury evident. Findings as above. IMPRESSION: No acute abdominopelvic abnormality. Findings as above. Elbow X-Ray 04/14/17 16:23 IMPRESSION: Probable small joint effusion. No displaced fracture identified. Head CT 04/14/17 16:23 IMPRESSION: 1. No acute intracranial abnormality. 2. Cervical spondylosis without fracture. Abdomen Ultrasound 04/15/17 00:00 IMPRESSION: LIMITED STUDY. GALLSTONES. SMALL AMOUNT OF FLUID ADJACENT TO THE LIVER. KUB X-Ray 04/15/17 00:00 IMPRESSION: NO RADIOGRAPHIC EVIDENCE FOR ACUTE ABDOMINAL DISEASE. Chest X-Ray 04/20/17 00:00 IMPRESSION: Baseline abnormal chest film with dense calcified pleural plaques and pleural thickening, and increased interstitial markings over the mid and lower lungs. No gross acute changes. Stable cardiomegaly Assessment & Plan - Diagnosis (1) Acute urinary retention Is this a current diagnosis for this admission?: Yes Plan: We will check a UA and place a Jiménez. Will attempt his Flomax, but I am concerned about patient's chronic hypotension. (2) Non-STEMI (non-ST elevated myocardial infarction) Is this a current diagnosis for this admission?: Yes Plan: Concern for anticoagulation 2/2 thromboctyopenia BP currently unable to tolerate LICO/ARB Appreciate cardiology imput (3) Orthostatic hypotension Is this a current diagnosis for this admission?: Yes Plan: Patient on midodrine, CHAVO hose, and SCDs (4) Syncope Qualifiers: Encounter type: subsequent encounter Is this a current diagnosis for this admission?: Yes Plan: Likely multifactorial from orthostasis and NSTEMI. TSH normal 04/15/17 04/15/17 08:19 08:19 TSH 2.31 Random Cortisol 5.99 (5) History of lymphoma Is this a current diagnosis for this admission?: Yes (6) Pulmonary asbestosis Is this a current diagnosis for this admission?: Yes (7) Pulmonary hypertension Is this a current diagnosis for this admission?: Yes (8) Right bundle branch block (RBBB) Is this a current diagnosis for this admission?: Yes (9) Thrombocytopenia Is this a current diagnosis for this admission?: Yes (10) Chronic combined systolic and diastolic CHF (congestive heart failure) Is this a current diagnosis for this admission?: Yes Plan: Echo done on 04/15/2017 reveals an EF of 30-35%, grade 2 diastolic dysfunction, mild to moderate mitral regurgitation, mild pulmonary hypertension Patient currently hypervolemic. Will give dose of IV Lasix Generic Name Dose Route Start Last Admin Trade Name Freq PRN Reason Stop Dose Admin Aspirin 81 mg 04/24/17 19:00 04/25/17 18:22 Ecotrin 81 Mg Ec Tablet PO 05/24/17 18:59 81 mg DAILY@1900 GERMAN Digoxin 0.125 mg 04/16/17 10:00 04/25/17 10:11 Lanoxin 0.125 Mg Tablet PO 05/16/17 09:59 0.125 mg DAILY GERMAN Furosemide 10 mg 04/25/17 18:22 Lasix Inj/Pf 20 Mg/2 Ml Sdv IV 04/25/17 18:23 NOW ONE Metoprolol Tartrate 12.5 mg 04/16/17 22:00 04/25/17 10:11 Lopressor 25 Mg Tablet PO 05/16/17 21:59 12.5 mg Q12 GERMAN Ranolazine 500 mg 04/17/17 22:00 04/25/17 10:30 Ranexa 500 Mg Tab.Sr PO 05/16/17 21:59 500 mg Q12 GERMAN (11) Poor appetite Is this a current diagnosis for this admission?: Yes Plan: Continue Megace and liberalize diet (12) Chronic atrial fibrillation Is this a current diagnosis for this admission?: Yes (13) Moderate protein-calorie malnutrition Is this a current diagnosis for this admission?: Yes Plan: Megace (14) Failure to thrive in adult Is this a current diagnosis for this admission?: Yes - Time Time Spent with patient: 25-34 minutes Medications reviewed and adjusted accordingly: Yes Anticipated discharge: Acute Rehab Within: when bed available
[2017-04-25 18:56] LABS: APPEARANCE,URINE CLOUDY; BILIRUBIN,URINE NEGATIVE (NEGATIVE); GLUCOSE, URINE NEGATIVE (NEGATIVE); KETONES,URINE NEGATIVE (NEGATIVE); LEUKOCYTE ESTERASE,URINE NEGATIVE (NEGATIVE); NITRITE,URINE NEGATIVE (NEGATIVE); PROTEIN,URINE 30 mg/dL (NEGATIVE); URINE SPECIFIC GRAVITY 1.025
[2017-04-25] MEDS ORDERED: FUROSEMIDE INJ/PF 20 MG/2 ML SDV IV ONE (19:30)
[2017-04-25] MEDS: GUAIFENESIN SYRP 200 MG/10 ML UDC PO PRN (21:51)
[2017-04-26] MEDS: MIDODRINE HCL 5 MG TABLET PO SCH ×3 (10:29→15:35)
[2017-04-26] MEDS: FERROUS SULFATE 325 MG TABLET PO SCH (10:30)
[2017-04-26] MEDS: CHOLECALCIFEROL (D3) 1,000 UNIT TABLET PO SCH ×2 (10:30→17:14)
[2017-04-26] MEDS: NYSTATIN/DEXAMETH/DIPHEN SUSP 120 ML PO SCH ×4 (10:30→21:48)
[2017-04-26] MEDS: MEGESTROL ACETATE SUSP 400 MG/10 ML UDCUP PO SCH ×2 (10:30→17:15)
[2017-04-26] MEDS: METOPROLOL TARTRATE 25 MG TABLET PO SCH ×2 (10:30→21:48)
[2017-04-26] MEDS: DIGOXIN 0.125 MG TABLET PO SCH (10:30)
[2017-04-26] MEDS: RANOLAZINE 500 MG TAB.SR.12H PO SCH ×2 (10:31→21:49)
[2017-04-26] MEDS: TIOTROPIUM BROMIDE DPI 5 CAP/KIT (18 MCG/CAP) IH SCH (10:31)
[2017-04-26] MEDS: DOCUSATE SODIUM 100 MG CAPSULE PO SCH ×2 (10:32→17:15)
[2017-04-26] MEDS: ASCORBIC ACID 500 MG TABLET PO SCH (13:10)
[2017-04-26] MEDS: MULTIVITAMIN TABLET PO SCH (13:11)
[2017-04-26] MEDS: TAMSULOSIN HCL 0.4 MG CAP.SR.24H PO SCH (17:14)
--- NOTE | 2017-04-26 18:23 | PDOC PROGRESS REPORT ---
Subjective Progress Note for:: 04/26/17 Subjective:: Patient had significant dark colored urine after Jiménez catheterization. Patient reports he is feeling much better today. Patient's family is less than convinced. Patient reports he is lying because he wants to go home. Patient denies chest pain, shortness of breath, abdominal pain, nausea, vomiting , fevers, chills, diarrhea, headache, new onset weakness. Physical Exam Vital Signs: Temp Pulse Resp BP Pulse Ox 97.4 F 83 18 113/67 96 04/26/17 15:48 04/26/17 15:48 04/26/17 15:48 04/26/17 15:48 04/26/17 15:48 Intake & Output 04/25/17 04/26/17 04/27/17 06:59 06:59 06:59 Intake Total 510 345 Output Total 800 1100 Balance -290 -755 Weight 71.6 kg Exam: General: Sleeping, but arousable oriented 3, mild respiratory distress (poor effort) HEENT: AT/NC, PERRL, EOMI, oropharynx is moist, pink, no scleral icterus, no conjunctival injection Neck: + JVD, trachea midline Chest: poor respiratory effort, pacemaker right upper chest, CTAB CV: IRR, normal S1 and S2, no rub or gallop; +2/6 sm Abdomen: Soft, nontender to palpation, nondistended, active bowel sounds; no rebound, rigidity, or guarding Extremities: No cyanosis, clubbing, edema Neuro: Cranial nerves II through XII are grossly intact without focal deficits; A+Ox3 Psych: normal mood and affect Results Laboratory Results: 04/24/17 03:54 04/24/17 03:54 04/25/17 18:30 Urine Color DIRK Urine Appearance CLOUDY Urine pH 5.0 Ur Specific [place] 1.025 Urine Protein 30 H Urine Glucose (UA) NEGATIVE Urine Ketones NEGATIVE Urine Blood MODERATE H Urine Nitrite NEGATIVE Ur Leukocyte Esterase NEGATIVE Urine WBC (Auto) 4 Urine RBC (Auto) >182 Impressions: Abdomen/Pelvis CT 04/14/17 16:23 IMPRESSION: 1. No acute thoracic injury evident. Findings as above. IMPRESSION: No acute abdominopelvic abnormality. Findings as above. Cervical Spine CT 04/14/17 16:23 IMPRESSION: 1. No acute intracranial abnormality. 2. Cervical spondylosis without fracture. Chest CT 04/14/17 16:23 IMPRESSION: 1. No acute thoracic injury evident. Findings as above. IMPRESSION: No acute abdominopelvic abnormality. Findings as above. Elbow X-Ray 04/14/17 16:23 IMPRESSION: Probable small joint effusion. No displaced fracture identified. Head CT 04/14/17 16:23 IMPRESSION: 1. No acute intracranial abnormality. 2. Cervical spondylosis without fracture. Abdomen Ultrasound 04/15/17 00:00 IMPRESSION: LIMITED STUDY. GALLSTONES. SMALL AMOUNT OF FLUID ADJACENT TO THE LIVER. KUB X-Ray 04/15/17 00:00 IMPRESSION: NO RADIOGRAPHIC EVIDENCE FOR ACUTE ABDOMINAL DISEASE. Chest X-Ray 04/20/17 00:00 IMPRESSION: Baseline abnormal chest film with dense calcified pleural plaques and pleural thickening, and increased interstitial markings over the mid and lower lungs. No gross acute changes. Stable cardiomegaly Assessment & Plan - Diagnosis (1) Acute urinary retention Is this a current diagnosis for this admission?: Yes Plan: UA reveals blood but no evidence of infection. Patient appears to be tolerating Flomax. Reluctant to remove Jiménez at this time due to his significant urinary retention and difficulty placing (2) Non-STEMI (non-ST elevated myocardial infarction) Is this a current diagnosis for this admission?: Yes Plan: Concern for anticoagulation 2/2 thromboctyopenia BP currently unable to tolerate LICO/ARB Appreciate cardiology imput (3) Orthostatic hypotension Is this a current diagnosis for this admission?: Yes Plan: Patient on midodrine, CHAVO hose, and SCDs (4) Syncope Qualifiers: Encounter type: subsequent encounter Is this a current diagnosis for this admission?: Yes (5) History of lymphoma Is this a current diagnosis for this admission?: Yes (6) Pulmonary asbestosis Is this a current diagnosis for this admission?: Yes (7) Pulmonary hypertension Is this a current diagnosis for this admission?: Yes (8) Right bundle branch block (RBBB) Is this a current diagnosis for this admission?: Yes (9) Thrombocytopenia Is this a current diagnosis for this admission?: Yes (10) Chronic combined systolic and diastolic CHF (congestive heart failure) Is this a current diagnosis for this admission?: Yes Plan: Echo done on 04/15/2017 reveals an EF of 30-35%, grade 2 diastolic dysfunction, mild to moderate mitral regurgitation, mild pulmonary hypertension Patient currently euvolemic. Will attempt to give patient Lasix every other day to maintain the status. (11) Poor appetite Is this a current diagnosis for this admission?: Yes Plan: Continue Megace and liberalize diet (12) Chronic atrial fibrillation Is this a current diagnosis for this admission?: Yes (13) Moderate protein-calorie malnutrition Is this a current diagnosis for this admission?: Yes Plan: Megace and Magic cup (14) Failure to thrive in adult Is this a current diagnosis for this admission?: Yes - Time Time Spent with patient: 25-34 minutes Medications reviewed and adjusted accordingly: Yes Anticipated discharge: Acute Rehab Within: within 48 hours
[2017-04-26] MEDS: ASPIRIN 81 MG TABLET, ENT COATED PO SCH (21:48)
[2017-04-27] MEDS: GUAIFENESIN SYRP 200 MG/10 ML UDC PO PRN ×2 (02:58→23:15)
[2017-04-27 07:31] LABS: HEMOGLOBIN 11.8 g/dL (13.5-17.0); HGB HCT DIFFERENCE 0.4; MEAN CORPUSCULAR HEMOGLOBIN 32.1 pg (27.0-33.4); MEAN CORPUSCULAR HGB CONC 33.7 g/dL (32.0-36.0); MEAN CORPUSCULAR VOLUME 95 fl (80-97); RED BLOOD COUNT 3.68 10^6/uL (4.35-5.55); RED CELL DISTRIBUTION WIDTH 16.8 % (11.5-14.0); WHITE BLOOD COUNT 7.9 10^3/uL (4.0-10.5)
[2017-04-27 07:39] LABS: BLOOD UREA NITROGEN 31 mg/dL (7-20); CALCIUM 10.6 mg/dL (8.4-10.2); CARBON DIOXIDE 32 mmol/L (22-30); CHLORIDE 93 mmol/L (98-107); CREATININE RESULT 0.65 mg/dL (0.52-1.25); GLUCOSE 87 mg/dL (75-110); PHOSPHORUS 2.7 mg/dL (2.5-4.5)
[2017-04-27 07:41] LABS: ANION GAP 6 (5-19); SODIUM 131.3 mmol/L (137-145)
[2017-04-27 07:43] LABS: POTASSIUM 4.6 mmol/L (3.6-5.0)
[2017-04-27 07:50] LABS: BAND NEUTROPHILS % (MANUAL) 1 % (3-5); BASOPHILS % (MANUAL) 0 % (0-2); EOSINOPHILS % (MANUAL) 1 % (0-6); LYMPHOCYTES % (MANUAL) 3 % (13-45); TOTAL CELLS COUNTED 100
[2017-04-27 07:53] LABS: ANISOCYTOSIS 1+; MAGNESIUM 1.1 mg/dL (1.6-2.3); POIKILOCYTOSIS SLIGHT; TOXIC VACUOLATION PRESENT
[2017-04-27 07:54] LABS: BURR CELLS SLIGHT; OVALOCYTES SLIGHT; TARGET CELLS 1+
--- NOTE | 2017-04-27 09:05 | RADIOLOGY REPORT (SQ) ---
EXAM DESCRIPTION: CHEST SINGLE VIEW COMPLETED DATE/TIME: 04/27/2017 8:46 am REASON FOR STUDY: chf COMPARISON: 04/20/2017 NUMBER OF VIEWS: One view. TECHNIQUE: Single frontal radiographic image of the chest acquired. LIMITATIONS: None. FINDINGS: LUNGS AND PLEURA: Calcified pleural plaques. Subsegmental airspace disease in the lower l obes and lingula with improved aeration in the right lung. No evidence of cavitation. MEDIASTINUM AND HEART: Stable heart size and mediastinal structures. SUPPORT DEVICES: Appropriate location without change. BONY STRUCTURES: No acute findings. HARDWARE: None. OTHER: No other significant finding. IMPRESSION: Improving CHF.
[2017-04-27] MEDS ORDERED: MAGNESIUM SULFATE 4 GM/D5W 100 ML IV ONE (10:00)
[2017-04-27] MEDS: DOCUSATE SODIUM 100 MG CAPSULE PO SCH ×2 (13:51→18:30)
[2017-04-27] MEDS: METOPROLOL TARTRATE 25 MG TABLET PO SCH ×2 (13:51→21:38)
[2017-04-27] MEDS: FERROUS SULFATE 325 MG TABLET PO SCH (13:51)
[2017-04-27] MEDS: DIGOXIN 0.125 MG TABLET PO SCH (13:52)
[2017-04-27] MEDS: ASCORBIC ACID 500 MG TABLET PO SCH (13:52)
[2017-04-27] MEDS: MULTIVITAMIN TABLET PO SCH (13:52)
[2017-04-27] MEDS: MIDODRINE HCL 5 MG TABLET PO SCH ×2 (13:52→18:32)
[2017-04-27] MEDS: CHOLECALCIFEROL (D3) 1,000 UNIT TABLET PO SCH ×2 (13:53→18:30)
[2017-04-27] MEDS: ALBUTEROL SULFATE HFA (90 MCG/PUFF) 200 PUFF/8.5 GM MDI IH PRN (13:53)
[2017-04-27] MEDS: RANOLAZINE 500 MG TAB.SR.12H PO SCH ×2 (13:53→21:38)
[2017-04-27] MEDS: MEGESTROL ACETATE SUSP 400 MG/10 ML UDCUP PO SCH ×2 (13:53→18:41)
[2017-04-27] MEDS: NYSTATIN/DEXAMETH/DIPHEN SUSP 120 ML PO SCH ×4 (13:53→21:38)
[2017-04-27] MEDS: TIOTROPIUM BROMIDE DPI 5 CAP/KIT (18 MCG/CAP) IH SCH (13:54)
[2017-04-27] MEDS ORDERED: FUROSEMIDE INJ/PF 20 MG/2 ML SDV IV ONE (17:20)
[2017-04-27] MEDS ORDERED: BISACODYL 10 MG SUPP.RECT PR PRN (17:44)
--- NOTE | 2017-04-27 17:48 | PDOC PROGRESS REPORT ---
Subjective Progress Note for:: 04/27/17 Subjective:: Patient is quite lethargic today and barely able to hold his head up. He is found to have a magnesium of 1.1. He is having some difficulty breathing today. Patient denies chest pain, abdominal pain, nausea, vomiting, fevers, chills, diarrhea, headache, new onset weakness. Physical Exam Vital Signs: Temp Pulse Resp BP Pulse Ox 97.4 F 87 16 101/61 96 04/27/17 16:02 04/27/17 16:02 04/27/17 16:02 04/27/17 16:02 04/27/17 16:02 Intake & Output 04/26/17 04/27/17 04/28/17 06:59 06:59 06:59 Intake Total 345 50 420 Output Total 1100 250 375 Balance -755 -200 45 Weight 71.6 kg 68.7 kg Exam: General: A+O 3, mild respiratory distress (poor effort) but tachypneic HEENT: AT/NC, PERRL, EOMI, oropharynx is moist, pink, no scleral icterus, no conjunctival injection Neck: + JVD, trachea midline Chest: poor respiratory effort, pacemaker right upper chest, bilateral rales CV: IRR, normal S1 and S2, no rub or gallop; +2/6 sm Abdomen: Soft, nontender to palpation, nondistended, active bowel sounds; no rebound, rigidity, or guarding Extremities: No cyanosis, clubbing, 2+ edema bue Neuro: Cranial nerves II through XII are grossly intact without focal deficits; A+Ox3 Psych: normal mood and affect Results Laboratory Results: 04/27/17 07:09 04/27/17 07:09 04/27/17 04/27/17 07:09 07:09 WBC 7.9 RBC 3.68 L Hgb 11.8 L Hct 35.0 L MCV 95 MCH 32.1 MCHC 33.7 RDW 16.8 H Plt Count 63 L Seg Neutrophils % Not Reportable Lymphocytes % Not Reportable Monocytes % Not Reportable Eosinophils % Not Reportable Basophils % Not Reportable Absolute Neutrophils Not Reportable Absolute Lymphocytes Not Reportable Absolute Monocytes Not Reportable Absolute Eosinophils Not Reportable Absolute Basophils Not Reportable Sodium 131.3 L Potassium 4.6 Chloride 93 L Carbon Dioxide 32 H Anion Gap 6 BUN 31 H Creatinine 0.65 Est GFR ( Amer) > 60 Est GFR (Non-Af Amer) > 60 Glucose 87 Calcium 10.6 H Phosphorus 2.7 Magnesium 1.1 L* Impressions: Abdomen/Pelvis CT 04/14/17 16:23 IMPRESSION: 1. No acute thoracic injury evident. Findings as above. IMPRESSION: No acute abdominopelvic abnormality. Findings as above. Cervical Spine CT 04/14/17 16:23 IMPRESSION: 1. No acute intracranial abnormality. 2. Cervical spondylosis without fracture. Chest CT 04/14/17 16:23 IMPRESSION: 1. No acute thoracic injury evident. Findings as above. IMPRESSION: No acute abdominopelvic abnormality. Findings as above. Elbow X-Ray 04/14/17 16:23 IMPRESSION: Probable small joint effusion. No displaced fracture identified. Head CT 04/14/17 16:23 IMPRESSION: 1. No acute intracranial abnormality. 2. Cervical spondylosis without fracture. Abdomen Ultrasound 04/15/17 00:00 IMPRESSION: LIMITED STUDY. GALLSTONES. SMALL AMOUNT OF FLUID ADJACENT TO THE LIVER. KUB X-Ray 04/15/17 00:00 IMPRESSION: NO RADIOGRAPHIC EVIDENCE FOR ACUTE ABDOMINAL DISEASE. Chest X-Ray 04/27/17 06:00 IMPRESSION: Improving CHF. Assessment & Plan - Diagnosis (1) Acute urinary retention Is this a current diagnosis for this admission?: Yes Plan: UA reveals blood but no evidence of infection. Patient appears to be tolerating Flomax. Reluctant to remove Jiménez at this time due to his significant urinary retention and difficulty placing (2) Non-STEMI (non-ST elevated myocardial infarction) Is this a current diagnosis for this admission?: Yes Plan: Concern for anticoagulation 2/2 thromboctyopenia BP currently unable to tolerate LICO/ARB Appreciate cardiology imput (3) Orthostatic hypotension Is this a current diagnosis for this admission?: Yes Plan: Patient on midodrine, CHAVO hose, and SCDs (4) Syncope Qualifiers: Encounter type: subsequent encounter Is this a current diagnosis for this admission?: Yes (5) History of lymphoma Is this a current diagnosis for this admission?: Yes (6) Pulmonary asbestosis Is this a current diagnosis for this admission?: Yes (7) Pulmonary hypertension Is this a current diagnosis for this admission?: Yes (8) Right bundle branch block (RBBB) Is this a current diagnosis for this admission?: Yes (9) Thrombocytopenia Is this a current diagnosis for this admission?: Yes (10) Chronic combined systolic and diastolic CHF (congestive heart failure) Is this a current diagnosis for this admission?: Yes Plan: Echo done on 04/15/2017 reveals an EF of 30-35%, grade 2 diastolic dysfunction, mild to moderate mitral regurgitation, mild pulmonary hypertension Patient currently hypervolemic. Lasix IV With this acute on chronic nature of his congestive heart failure is secondary to his overall failure to thrive, and could possibly represent overall worsening heart function. (11) Poor appetite Is this a current diagnosis for this admission?: Yes (12) Chronic atrial fibrillation Is this a current diagnosis for this admission?: Yes (13) Moderate protein-calorie malnutrition Is this a current diagnosis for this admission?: Yes (14) Failure to thrive in adult Is this a current diagnosis for this admission?: Yes Plan: Family and patient do not want feeding tube - Time Time Spent with patient: 25-34 minutes Medications reviewed and adjusted accordingly: Yes
[2017-04-27] MEDS ORDERED: MAGNESIUM OXIDE 400 MG TABLET PO SCH (18:00)
[2017-04-27] MEDS: TAMSULOSIN HCL 0.4 MG CAP.SR.24H PO SCH (18:30)
[2017-04-27] MEDS: ASPIRIN 81 MG TABLET, ENT COATED PO SCH (18:30)
[2017-04-27 22:45] LABS: CREATINE KINASE MB 2.48 ng/mL (<4.55)
[2017-04-27 22:48] LABS: TROPONIN I 0.163 ng/mL
[2017-04-27] MEDS ORDERED: ONDANSETRON HCL INJ/PF 4 MG/2 ML SDV IV ONE (23:15)
--- NOTE | 2017-04-27 23:29 | RADIOLOGY REPORT (SQ) ---
EXAM DESCRIPTION: ABDOMEN 2 VIEWS COMPLETED DATE/TIME: 04/27/2017 11:05 pm REASON FOR STUDY: Nausea vomiting K80.01 CALCULUS OF GALLBLADDER W ACUTE CHOLECYSTITIS W OBSTR E83. 52 HYPERCALCEMIA E27.2 ADDISONIAN CRISIS COMPARISON: 04/15/2017. NUMBER OF VIEWS: Two views. TECHNIQUE: Supine and erect/decubitus radiographic images of the abdomen acquired. LIMITATIONS: None. FINDINGS: FREE AIR: None. No abnormal gas collections. LUNG BASES: Clear. BOWEL GAS PATTERN: Moderate gaseous distention of the bowel. No significant air-fluid levels. CALCIFICATIONS: No suspicious calcifications. SOFT TISSUES: No gross mass or suggestion of organomegaly. HARDWARE: None in the abdomen. BONES: No acute fracture. Degenerative changes in the spine. No worrisome bone lesions. OTHER: No other significant finding. IMPRESSION: GASEOUS DISTENTION OF BOWEL, POSSIBLY GENERALIZED ILEUS. TECHNICAL DOCUMENTATION: JOB ID: [id number] [employer]- All Rights Reserved
[2017-04-27] MEDS ORDERED: PHARMACY COMMUNICATION ORDER MC NR (23:30)
[2017-04-28] MEDS ORDERED: GUAIFENESIN SYRP 200 MG/10 ML UDC PEG PRN (00:15)
[2017-04-28] MEDS ORDERED: PHENOL/SODIUM PHENOLATE 100 SPRAY/177 ML BOTTLE PO PRN (00:18)
[2017-04-28] MEDS ORDERED: SENNOSIDES/DOCUSATE 8.6-50 MG 1 EACH TABLET NG PRN (00:22)
[2017-04-28] MEDS ORDERED: MAG HYDROX/AL HYDROX/SIMETH SUSP 30 ML UDCUP NG PRN (00:22)
[2017-04-28] MEDS ORDERED: GUAIFENESIN SYRP 200 MG/10 ML UDC NG PRN (00:23)
--- NOTE | 2017-04-28 00:52 | RADIOLOGY REPORT (SQ) ---
EXAM DESCRIPTION: KUB/ABDOMEN (SINGLE VIEW) COMPLETED DATE/TIME: 04/28/2017 12:34 am REASON FOR STUDY: Check Placement of NG Tube K80.01 CALCULUS OF GALLBLADDER W ACUTE CHOLECYSTITIS W OBSTR E83.52 HYPERCALCEMIA E27.2 ADDISONIAN CRISIS COMPARISON: 04/27/2017. NUMBER OF VIEWS: One view. TECHNIQUE: Supine radiographic image of the abdomen acquired. LIMITATIONS: None. FINDINGS: BOWEL GAS PATTERN: Moderate gaseous distention of upper abdominal bowel partially imaged. Adequate appearing NG tube tip overlies the left upper abdominal quadrant -stomach. CALCIFICATIONS: No suspicious calcifications. SOFT TISSUES: No gross mass or suggestion of organomegaly. HARDWARE: None in the abdomen. BONES: No acute fracture. No worrisome bone lesions. OTHER: Small obscuration-effusion of bilateral costophrenic angles. IMPRESSION: Adequate appearing NG tube. Otherwise, no significant interval change. Moderate gaseou s bowel distention at the upper abdomen. TECHNICAL DOCUMENTATION: JOB ID: [id number] [employer]- All Rights Reserved
--- NOTE | 2017-04-28 04:54 | RADIOLOGY REPORT (SQ) ---
EXAM DESCRIPTION: KUB/ABDOMEN (SINGLE VIEW) COMPLETED DATE/TIME: 04/28/2017 3:17 am REASON FOR STUDY: Check Placement of NG Tube K80.01 CALCULUS OF GALLBLADDER W ACUTE CHOLECYSTITIS W OBSTR E83.52 HYPERCALCEMIA E27.2 ADDISONIAN CRISIS COMPARISON: 04/28/2017. NUMBER OF VIEWS: One view. TECHNIQUE: Supine radiographic image of the abdomen acquired. LIMITATIONS: None. FINDINGS: BOWEL GAS PATTERN: Gaseous bowel distention of the upper abdomen persists. CALCIFICATIONS: No suspicious calcifications. SOFT TISSUES: No gross mass or suggestion of organomegaly. HARDWARE: NG tip and proximal port overlying the left upper quadrant -stomach. BONES: No acute fracture. No worrisome bone lesions. OTHER: Small obscuration-effusion of bilateral costophrenic angles. With moderate interstitial deb ngs of the visualize lower lungs. IMPRESSION: Moderate nonspecific gaseous distention of upper abdominal bowel without change. NG tub e. TECHNICAL DOCUMENTATION: JOB ID: [id number] [employer]- All Rights Reserved
[2017-04-28 06:22] LABS: CREATINE KINASE MB 2.13 ng/mL (<4.55); TROPONIN I 0.152 ng/mL
[2017-04-28] MEDS ORDERED: MIDODRINE HCL 5 MG TABLET PEG SCH (08:00)
[2017-04-28] MEDS ORDERED: MIDODRINE HCL 5 MG TABLET NG SCH (08:00)
[2017-04-28 08:37] LABS: ANION GAP 6 (5-19); BLOOD UREA NITROGEN 35 mg/dL (7-20); CALCIUM 10.7 mg/dL (8.4-10.2); CARBON DIOXIDE 34 mmol/L (22-30); CHLORIDE 91 mmol/L (98-107); CREATININE RESULT 0.77 mg/dL (0.52-1.25); GLUCOSE 81 mg/dL (75-110); MAGNESIUM 1.7 mg/dL (1.6-2.3); POTASSIUM 4.7 mmol/L (3.6-5.0); SODIUM 131.4 mmol/L (137-145)
[2017-04-28 09:29] VITALS: BP 99/52
[2017-04-28] MEDS ORDERED: NYSTATIN/DEXAMETH/DIPHEN SUSP 120 ML PO SCH (10:00)
[2017-04-28] MEDS ORDERED: METOPROLOL TARTRATE 25 MG TABLET NG SCH (10:00)
[2017-04-28] MEDS ORDERED: MAGNESIUM OXIDE 400 MG TABLET NG SCH (10:00)
[2017-04-28] MEDS ORDERED: DOCUSATE SODIUM 100 MG/10 ML UDC PEG SCH (10:00)
[2017-04-28] MEDS ORDERED: DIGOXIN 0.125 MG TABLET NG SCH (10:00)
[2017-04-28] MEDS ORDERED: MEGESTROL ACETATE SUSP 400 MG/10 ML UDCUP PEG SCH (10:00)
[2017-04-28] MEDS ORDERED: DIGOXIN 0.125 MG TABLET PEG SCH (10:00)
[2017-04-28] MEDS ORDERED: DOCUSATE SODIUM 100 MG CAPSULE PO SCH ×2 (10:00)
[2017-04-28] MEDS ORDERED: DOCUSATE SODIUM 100 MG/10 ML UDC NG SCH (10:00)
[2017-04-28] MEDS ORDERED: FERROUS SULFATE LIQUID 300 MG/5 ML UDC PEG SCH (10:00)
[2017-04-28] MEDS ORDERED: MEGESTROL ACETATE SUSP 400 MG/10 ML UDCUP NG SCH (10:00)
[2017-04-28] MEDS ORDERED: FERROUS SULFATE LIQUID 300 MG/5 ML UDC NG SCH (10:00)
[2017-04-28] MEDS: TIOTROPIUM BROMIDE DPI 5 CAP/KIT (18 MCG/CAP) IH SCH (10:00)
[2017-04-28] MEDS ORDERED: CHOLECALCIFEROL (D3) 1,000 UNIT TABLET PEG SCH (10:00)
[2017-04-28] MEDS ORDERED: CHOLECALCIFEROL (D3) 1,000 UNIT TABLET NG SCH (10:00)
[2017-04-28] MEDS ORDERED: METOPROLOL TARTRATE 25 MG TABLET PEG SCH (10:00)
[2017-04-28] MEDS ORDERED: LORAZEPAM INJ 2 MG/1 ML VIAL IV PRN (11:21)
[2017-04-28] MEDS ORDERED: ASCORBIC ACID 500 MG TABLET NG SCH (12:00)
[2017-04-28] MEDS ORDERED: ASCORBIC ACID 500 MG TABLET PEG SCH (12:00)
[2017-04-28] MEDS ORDERED: MULTIVITAMINS W-IRON TABLET, CHEWABLE PEG SCH (12:00)
[2017-04-28] MEDS ORDERED: MULTIVITAMINS W-IRON TABLET, CHEWABLE NG SCH (12:00)
--- NOTE | 2017-04-28 16:28 | PDOC PROGRESS REPORT ---
Subjective Progress Note for:: 04/28/17 Subjective:: Overnight, patient developed nausea and vomiting and on KUB was subsequently found to have an ileus. NG was placed which patient subsequently removed himself 2. Patient is currently obtunded when I see him. Discussion with his family reveals that they would like him to be comfort measures. Physical Exam Vital Signs: Temp Pulse Resp BP Pulse Ox 98.4 F 80 16 99/52 L 98 04/28/17 08:12 04/28/17 08:12 04/28/17 04:00 04/28/17 08:12 04/28/17 16:17 Intake & Output 04/27/17 04/28/17 04/29/17 06:59 06:59 06:59 Intake Total 50 420 Output Total 250 1465 Balance -200 -1045 Weight 68.7 kg 67.3 kg Exam: General: obtunded, mild respiratory distress (poor effort) but tachypneic HEENT: AT/NC, PERRL, EOMI, oropharynx is moist, pink, no scleral icterus, no conjunctival injection Neck: + JVD, trachea midline Chest: poor respiratory effort, pacemaker right upper chest, CTAB CV: IRR, normal S1 and S2, no rub or gallop; +2/6 sm Abdomen: Soft, nontender to palpation, distended, absent bowel sounds; no rebound, rigidity, or guarding Extremities: No cyanosis, clubbing, 3+ edema bue Results Laboratory Results: 04/27/17 07:09 04/28/17 05:12 04/28/17 05:12 Sodium 131.4 L Potassium 4.7 Chloride 91 L Carbon Dioxide 34 H Anion Gap 6 BUN 35 H Creatinine 0.77 Est GFR ( Amer) > 60 Est GFR (Non-Af Amer) > 60 Glucose 81 Calcium 10.7 H Magnesium 1.7 04/27/17 04/27/17 04/28/17 22:15 22:15 05:12 Creatine Kinase 31 L 28 L CK-MB (CK-2) 2.48 Troponin I 0.163 04/28/17 05:12 Creatine Kinase CK-MB (CK-2) 2.13 Troponin I 0.152 Impressions: Abdomen/Pelvis CT 04/14/17 16:23 IMPRESSION: 1. No acute thoracic injury evident. Findings as above. IMPRESSION: No acute abdominopelvic abnormality. Findings as above. Cervical Spine CT 04/14/17 16:23 IMPRESSION: 1. No acute intracranial abnormality. 2. Cervical spondylosis without fracture. Chest CT 04/14/17 16:23 IMPRESSION: 1. No acute thoracic injury evident. Findings as above. IMPRESSION: No acute abdominopelvic abnormality. Findings as above. Elbow X-Ray 04/14/17 16:23 IMPRESSION: Probable small joint effusion. No displaced fracture identified. Head CT 04/14/17 16:23 IMPRESSION: 1. No acute intracranial abnormality. 2. Cervical spondylosis without fracture. Abdomen Ultrasound 04/15/17 00:00 IMPRESSION: LIMITED STUDY. GALLSTONES. SMALL AMOUNT OF FLUID ADJACENT TO THE LIVER. Chest X-Ray 04/27/17 06:00 IMPRESSION: Improving CHF. Abdomen X-Ray 04/27/17 21:52 IMPRESSION: GASEOUS DISTENTION OF BOWEL, POSSIBLY GENERALIZED ILEUS. KUB X-Ray 04/28/17 02:13 IMPRESSION: Moderate nonspecific gaseous distention of upper abdominal bowel without change. NG tube. Assessment & Plan - Diagnosis (1) Failure to thrive in adult Is this a current diagnosis for this admission?: Yes (2) Ileus Is this a current diagnosis for this admission?: Yes (3) Acute urinary retention Is this a current diagnosis for this admission?: Yes (4) Non-STEMI (non-ST elevated myocardial infarction) Is this a current diagnosis for this admission?: Yes (5) Orthostatic hypotension Is this a current diagnosis for this admission?: Yes (6) Syncope Qualifiers: Encounter type: subsequent encounter Is this a current diagnosis for this admission?: Yes (7) History of lymphoma Is this a current diagnosis for this admission?: Yes (8) Pulmonary asbestosis Is this a current diagnosis for this admission?: Yes (9) Pulmonary hypertension Is this a current diagnosis for this admission?: Yes (10) Right bundle branch block (RBBB) Is this a current diagnosis for this admission?: Yes (11) Thrombocytopenia Is this a current diagnosis for this admission?: Yes (12) Chronic combined systolic and diastolic CHF (congestive heart failure) Is this a current diagnosis for this admission?: Yes (13) Poor appetite Is this a current diagnosis for this admission?: Yes (14) Chronic atrial fibrillation Is this a current diagnosis for this admission?: Yes (15) Moderate protein-calorie malnutrition Is this a current diagnosis for this admission?: Yes - Time Time Spent with patient: 25-34 minutes Anticipated discharge: Hospice - Plan Summary Plan Summary: At this time, have transition patient to comfort measures only. Have stopped all medications and vital signs. Oxygen is to be at 2 L for comfort only. Patient was placed on morphine, Ativan, atropine. Jiménez will be left in place for comfort. NG is to remain out. Family is in agreement with this plan. His children and grandchildren and great-grandchildren and are all present at bedside. senior medical billing specialist has been notified.
[2017-04-28] MEDS: ATROPINE SULFATE 1% OPH SOLN 5 ML BOTTLE SL SCH ×2 (17:55→22:00)
[2017-04-28] MEDS ORDERED: ASPIRIN 81 MG TABLET, CHEWABLE PEG SCH (19:00)
[2017-04-28] MEDS ORDERED: ASPIRIN 81 MG TABLET, CHEWABLE NG SCH (19:00)
[2017-04-29] MEDS: ATROPINE SULFATE 1% OPH SOLN 5 ML BOTTLE SL SCH ×4 (03:13→20:30)
--- NOTE | 2017-04-29 15:30 | PDOC PROGRESS REPORT ---
Subjective Progress Note for:: 04/29/17 Subjective:: Patient is resting comfortably when I see him and Rouses easily. He denies any pain at this time. Physical Exam Vital Signs: Temp Pulse Resp BP Pulse Ox 98.4 F 80 16 99/52 L 97 04/28/17 08:12 04/28/17 08:12 04/28/17 04:00 04/28/17 08:12 04/29/17 09:06 Intake & Output 04/28/17 04/29/17 04/30/17 06:59 06:59 06:59 Intake Total 420 0 Output Total 1465 510 Balance -1045 -510 Weight 67.3 kg Exam: General: Pale, chronically ill appearing, Sleepy but rousable, mild respiratory distress (poor effort) HEENT: AT/NC, PERRL, EOMI, oropharynx is moist, pink, no scleral icterus, no conjunctival injection Neck: + JVD, trachea midline Chest: poor respiratory effort, pacemaker right upper chest, CTAB CV: IRR, normal S1 and S2, no rub or gallop; +2/6 sm Abdomen: Soft, nontender to palpation, nondistended, active bowel sounds; no rebound, rigidity, or guarding Extremities: No cyanosis, clubbing, 2+ edema bue Neuro: Cranial nerves II through XII are grossly intact without focal deficits; answers questions Psych: normal mood and affect Results Laboratory Results: 04/27/17 07:09 04/28/17 05:12 04/27/17 04/27/17 04/28/17 22:15 22:15 05:12 Creatine Kinase 31 L 28 L CK-MB (CK-2) 2.48 Troponin I 0.163 04/28/17 05:12 Creatine Kinase CK-MB (CK-2) 2.13 Troponin I 0.152 Impressions: Abdomen/Pelvis CT 04/14/17 16:23 IMPRESSION: 1. No acute thoracic injury evident. Findings as above. IMPRESSION: No acute abdominopelvic abnormality. Findings as above. Cervical Spine CT 04/14/17 16:23 IMPRESSION: 1. No acute intracranial abnormality. 2. Cervical spondylosis without fracture. Chest CT 04/14/17 16:23 IMPRESSION: 1. No acute thoracic injury evident. Findings as above. IMPRESSION: No acute abdominopelvic abnormality. Findings as above. Elbow X-Ray 04/14/17 16:23 IMPRESSION: Probable small joint effusion. No displaced fracture identified. Head CT 04/14/17 16:23 IMPRESSION: 1. No acute intracranial abnormality. 2. Cervical spondylosis without fracture. Abdomen Ultrasound 04/15/17 00:00 IMPRESSION: LIMITED STUDY. GALLSTONES. SMALL AMOUNT OF FLUID ADJACENT TO THE LIVER. Chest X-Ray 04/27/17 06:00 IMPRESSION: Improving CHF. Abdomen X-Ray 04/27/17 21:52 IMPRESSION: GASEOUS DISTENTION OF BOWEL, POSSIBLY GENERALIZED ILEUS. KUB X-Ray 04/28/17 02:13 IMPRESSION: Moderate nonspecific gaseous distention of upper abdominal bowel without change. NG tube. Assessment & Plan - Diagnosis (1) Failure to thrive in adult Is this a current diagnosis for this admission?: Yes (2) Ileus Is this a current diagnosis for this admission?: Yes (3) Acute urinary retention Is this a current diagnosis for this admission?: Yes (4) Non-STEMI (non-ST elevated myocardial infarction) Is this a current diagnosis for this admission?: Yes (5) Orthostatic hypotension Is this a current diagnosis for this admission?: Yes (6) Syncope Qualifiers: Encounter type: subsequent encounter Is this a current diagnosis for this admission?: Yes (7) History of lymphoma Is this a current diagnosis for this admission?: Yes (8) Pulmonary asbestosis Is this a current diagnosis for this admission?: Yes (9) Pulmonary hypertension Is this a current diagnosis for this admission?: Yes (10) Right bundle branch block (RBBB) Is this a current diagnosis for this admission?: Yes (11) Thrombocytopenia Is this a current diagnosis for this admission?: Yes (12) Chronic combined systolic and diastolic CHF (congestive heart failure) Is this a current diagnosis for this admission?: Yes (13) Poor appetite Is this a current diagnosis for this admission?: Yes (14) Chronic atrial fibrillation Is this a current diagnosis for this admission?: Yes (15) Moderate protein-calorie malnutrition Is this a current diagnosis for this admission?: Yes - Plan Summary Plan Summary: Patient is currently comfort measures, however, has not received any morphine or Ativan yet. He is apparently waiting for his other son to get there before he takes anything. He does appear comfortable, but is fatiguing easily. Patient did receive illustrates yesterday. Continue comfort measures. Family is at bedside and in agreement with plan.
[2017-04-29] MEDS: MORPHINE SULFATE 10 MG/ML INJ IV PRN ×2 (17:37→21:36)
[2017-04-30] MEDS: ATROPINE SULFATE 1% OPH SOLN 5 ML BOTTLE SL SCH ×3 (02:23→14:21)
[2017-04-30] MEDS: MORPHINE SULFATE 10 MG/ML INJ IV PRN ×2 (05:31→08:04)
[2017-04-30] MEDS ORDERED: MORPHINE SULFATE 10 MG/ML INJ IV SCH (14:00)
--- NOTE | 2017-04-30 17:58 | Death Summary ---
Summary Date : 04/30/17 Time of :: 15:05 Autopsy: No Resuscitation Status: Comfort Measures Only - Final Diagnosis (1) Chronic combined systolic and diastolic CHF (congestive heart failure) Is this a current diagnosis for this admission?: Yes (2) Non-STEMI (non-ST elevated myocardial infarction) Is this a current diagnosis for this admission?: Yes (3) Ileus Is this a current diagnosis for this admission?: Yes (4) Moderate protein-calorie malnutrition Is this a current diagnosis for this admission?: Yes (5) Failure to thrive in adult Is this a current diagnosis for this admission?: Yes (6) Acute urinary retention Is this a current diagnosis for this admission?: Yes (7) Orthostatic hypotension Is this a current diagnosis for this admission?: Yes (8) Syncope Is this a current diagnosis for this admission?: Yes (9) History of lymphoma Is this a current diagnosis for this admission?: Yes (10) Pulmonary asbestosis Is this a current diagnosis for this admission?: Yes (11) Pulmonary hypertension Is this a current diagnosis for this admission?: Yes (12) Right bundle branch block (RBBB) Is this a current diagnosis for this admission?: Yes (13) Thrombocytopenia Is this a current diagnosis for this admission?: Yes (14) Poor appetite Is this a current diagnosis for this admission?: Yes (15) Chronic atrial fibrillation Is this a current diagnosis for this admission?: Yes Hospital Course:: Mr. felix was an 86-year-old male with past medical history of asbestosis, chronic atrial fibrillation, chronic systolic and diastolic congestive heart failure, pulmonary hypertension, COPD, prior history of lymphoma who presented to the emergency department with presyncopal-like episodes initially. Patient had been doing well with his orthostasis at home with managing his medications and lifestyle. Upon presentation, patient was found to have mildly elevated troponins. Cardiology was consulted. Repeat echocardiogram reveals a decrease in his EF to 30-35% with grade 2/4 diastolic dysfunction. Patient subsequently underwent stress test after being seen by cardiology which revealed a small area of mild decreased uptake in the mid to distal inferior wall with a smaller mixed fixed perfusion defect. Patient was not felt to be amenable due to his underlying baseline status to intervention. Patient was aggressively maximally medically managed. Patient's orthostasis was improved with the increase of midodrine. Attempts were made to improve patient's intake of food with Megace, but he took in very little p.o. Patient was overall felt to have failure to thrive in addition to class IV heart failure. Patient was made a DNR. Patient subsequently improved with intermittent Lasix dosing and was initially slated to go to rehabilitation when he developed an ileus acutely. Patient had an NG placed several times, but he continued to pull this out. At this time, family requested that he be made comfort measures. Patient was initiated on comfort measures and treated with morphine, Ativan, atropine, Robinul, and he in the presence of his family at 1505. He was pronounced by two RNs. No autopsy was requested.
[2017-04-30] MEDS ORDERED: GLYCOPYRROLATE INJ 0.4 MG/2 ML VIAL IV SCH (18:00)
== END 2017-04-30 16:47 | disposition expired ==
LOC: ER 16:03 → EH 21:17 → UNDOADMOB 21:43 → 4S 23:50 → OBSVTOIN 04-16 10:14 → 3N 04-22 02:00 → 4W 04-25 02:46 → 4S 04-26 18:53
PROVIDERS: ADMIT Internal Medicine; ATTEND Internal Medicine
DX: I21.4 Non-ST elevation (NSTEMI) myocardial infarction (principal); I50.42 Chronic combined systolic (congestive) and diastolic (congestive) heart failure; K56.7 Ileus, unspecified; E44.0 Moderate protein-calorie malnutrition; I42.9 Cardiomyopathy, unspecified; I95.1 Orthostatic hypotension; R62.7 Adult failure to thrive; Z66 Do not resuscitate; Z51.5 Encounter for palliative care; R33.9 Retention of urine, unspecified; J61 Pneumoconiosis due to asbestos and other mineral fibers; I27.2 Other secondary pulmonary hypertension; I45.10 Unspecified right bundle-branch block; D69.6 Thrombocytopenia, unspecified; I48.2 Chronic atrial fibrillation; J44.9 Chronic obstructive pulmonary disease, unspecified; I25.10 Atherosclerotic heart disease of native coronary artery without angina pectoris; E11.9 Type 2 diabetes mellitus without complications; M19.90 Unspecified osteoarthritis, unspecified site; Z79.82 Long term (current) use of aspirin; Z79.899 Other long term (current) drug therapy; I25.2 Old myocardial infarction; Z85.72 Personal history of non-Hodgkin lymphomas; Z87.891 Personal history of nicotine dependence; Z78.1 Physical restraint status; Z68.25 Body mass index [BMI] 25.0-25.9, adult
CPT/HCPCS: 36415; 70450; 71010; 71020; 71260; 72125; 74000; 74020; 74177; 76705; 78452; 80048; 80053; 80061; 80162; 81001; 82330; 82533; 82550; 82553; 83735; 84100; 84443; 84484; 85025; 87086; 93005; 93010; 93017; 93306; 94640; 94799; 99285; A9500; G0378; G8978-GP; G8979-GP; G8987-GO; G8988-GO; J0280; J0696; J1940; J2060; J2270; J2405; J2785; J3475; J3490; J7030; J7040; P9047; Q9969